=== PATIENT | male | born 1970 | race Caucasian/White ===

== ENCOUNTER → 2017-11-17 08:47 | Outpatient (CLI) | payer MEDICARE, SELFPAY | PROVIDERS: PCP General Practice; Visit Provider Student in an Organized Health Care Education/Training Program | DX: M25.722 Osteophyte, left elbow (principal); Z01.818 Encounter for other preprocedural examination ==

== ENCOUNTER → 2017-12-05 08:31 | Outpatient (BNVA) | payer MEDICARE, MEDICAID, SELFPAY | PROVIDERS: PCP General Practice; Visit Provider Student in an Organized Health Care Education/Training Program | DX: S42.43 Fracture (avulsion) of lateral epicondyle of humerus (principal); M25.722 Osteophyte, left elbow; X58.XXXD Exposure to other specified factors, subsequent encounter ==

== ENCOUNTER 2017-12-05 08:57 | Outpatient (CLI) | payer MEDICARE, SELFPAY ==
[2017-12-05 10:47] LABS: Cholesterol 252 mg/dL (50-200); Glucose 120 mg/dL (70-100); HDL Cholesterol 42 mg/dL (40-60); LDL CHOLESTEROL 153 mg/dL (<100); TSH (W/Ref FT4) 1.21 uIU/mL (0.358-3.74); Triglyceride 295 mg/dL (30-150)
[2017-12-08 05:22] LABS: Vitamin D 25 Total 46.9 ng/ml (30-100)
== END 2017-12-05 09:17 ==
PROVIDERS: PCP General Practice; Visit Provider General Practice
DX: M81.0 Age-related osteoporosis without current pathological fracture (principal); R63.5 Abnormal weight gain; I10 Essential (primary) hypertension
CPT/HCPCS: 36415; 80061; 82306; 82533; 82947; 83721; 84443

== ENCOUNTER 2018-02-10 13:02 | Emergency (ER) | payer MEDICARE, MEDICAID, SELFPAY ==
[2018-02-10] VITALS (21 sets, daily range): BP systolic 122–160; BP diastolic 70–103; PULSE 47–78; RESP 12–23; TEMP 36.6–36.8; O2SAT 92–96
--- NOTE | 2018-02-10 13:24 | W.ED.GENAD ---
Discharge Plan Disposition Patient Disposition: HOME Condition: Stable Discharge Details Chief Complaint: Chest Pain Clinical Impression: Chest pain Primary Care Provider: Porfirio Cabrales ED Provider: Jamey Esquivel Home Meds and New Rx's Prescriptions: Continue propranolol 10 MG tablet 10 mg PO BID RF: 0 citalopram [Celexa] 10 MG tablet 10 mg PO QAM RF: 0 fluticasone-salmeterol [Advair Diskus] 1 PUFF blister with device 2 puff Inhalation PRN PRNRF: 0 aspirin 81 MG tablet,delayed release (DR/EC) 81 mg PO PRN PRNRF: 0 omeprazole 20 MG capsule,delayed release(DR/EC) 20 mg PO DAILY RF: 0 hydrocodone-acetaminophen 1 EACH tablet 1 ea PO Q4H PRN PRNQty: 12 RF: 0 acetaminophen [Mapap Extra Strength] 500 MG tablet 1,000 mg PO Q8H Qty: 120 RF: 3 naloxone [Narcan] 4 MG spray,non-aerosol 4 mg NS DIRECTED Qty: 2 RF: 0 meloxicam 7.5 MG tablet 7.5 mg PO PRN PRNRF: 0 Discharge Instructions Instructions: Chest Pain (ED) Additional Instructions: follow up with your primary care provider within a week if you have severe worsening of pain, difficulty breathing, or new pain such as abdominal pain return to the emergency department Medical Decision Making 47 yo male with hx of htn, smoker, no prior cardiac disease comes in with chest burning intermittent since 3am . Denies vomit, abdominal pain, fevers, sob. He has not taken anything for the pain. He does note some mild back pain upper thorax without skin findings or midline pain. Will obtain lab work to eval for acs, heart score 3 based on age and risk factors. Given the back pain will CT thorax to eval for dissection and no lower extremity swelling or calf pain or hypoxia so doubt pe labs are unremarkable, awaiting imaging, feels better after gi cocktail CTA per radiologist has no acute findings, old rib fx's and fatty liver. Did advise him of the fatty liver and stress decreasing alcohol intake. He remains pain free now. I recommended second troponin but pt declined this and wants to be d/c'd. His symptom started over 4 hours ago but did recommend second troponin and ecg to lower his risk but he declines. He has the capacity to make his own decisions and understands the risks of leaving including and disablity. He was advised to f/u with pcp within a week and discuss having stress testing done and advised to return if he has worsening or return of symptoms Differential Diagnosis nstemi, gerd, pe, Imaging Data Radiologic Study: Attestation: I personally reviewed and interpreted this imaging study as follows: Imaging: CT Scan Radiologist's impression: No acute findings Lab Data Lab results reviewed: Yes I reviewed the patient's lab results. ECG Data Attestation: I personally reviewed and interpreted this ECG (s) as follows: Prior ECG tracings: not available for review Interpretation: sinus rhythm, rate of 67, pr 136, no acute st t wave ischemic changes HPI General Mode of arrival: ambulatory. Date/Time Provider Initiated Documentation: 02/10/18 13:05. Limitations to Documentation: no limitations. Information obtained by: patient. History of Present Illness 47 year old M presents to the emergency department with the chief complaint of chest pain, described as moderate, with intensity rated at 5. Quality is described as burning, and is localized to the chest. Patient reports no radiation. Patient started experiencing this hour(s) (10) and it has been intermittent. No relieving factors improve symptom(s), No exacerbating factors reported . Patient notes no other symptoms.. Patient did receive the following treatments prior to arrival, none Related Data Home Medications Medication Instructions Recorded Confirmed propranolol 10 mg PO BID 12/19/12 02/10/18 citalopram [Celexa] 10 mg PO QAM 09/23/14 02/10/18 naloxone [Narcan] 4 mg NS DIRECTED #2 spray 01/24/17 02/10/18 aspirin 81 mg PO PRN PRN 11/17/17 02/10/18 fluticasone-salmeterol [Advair 2 puff INHALATION PRN PRN 11/17/17 02/10/18 Diskus] omeprazole 20 mg PO DAILY 11/17/17 02/10/18 acetaminophen [Mapap Extra 1,000 mg PO Q8H #120 tab 11/20/17 02/10/18 Strength] hydrocodone-acetaminophen 1 ea PO Q4H PRN PRN #12 tablet 11/20/17 02/10/18 meloxicam 7.5 mg PO PRN PRN 02/10/18 02/10/18 Previous Rx's Medication Instructions Recorded naloxone [Narcan] 4 mg NS DIRECTED #2 spray 01/24/17 acetaminophen [Mapap Extra 1,000 mg PO Q8H #120 tab 11/20/17 Strength] hydrocodone-acetaminophen 1 ea PO Q4H PRN PRN #12 tablet 11/20/17 Allergies Allergy/AdvReac Type Severity Reaction Status Date / Time bee venom protein (honey bee) Allergy Severe Anaphylaxsi Unverified 02/10/18 13:12 s amitriptyline Allergy Intermediate PSYCHOSIS Unverified 02/10/18 13:12 gabapentin AdvReac Mild leg Unverified 02/10/18 13:12 pain/cramps lisinopril AdvReac cough Unverified 02/10/18 13:12 dust and pollen AdvReac Mild resp Uncoded 02/10/18 13:12 irritation General Stated Complaint: Chest Pain GRICEL: 2 Review of Systems Review of Systems All systems reviewed & are unremarkable except as noted in HPI and below Constitutional Denies chills, Denies fever(s) and Denies weakness Eyes Denies loss of vision ENT Denies change in voice Cardiovascular Denies dyspnea Respiratory Denies dyspnea Gastrointestinal Denies abdominal pain and Denies vomiting Genitourinary Denies dysuria Musculoskeletal Denies joint swelling Integumentary/Breasts Denies rash Neurologic Denies loss of vision and Denies weakness Psychiatric Denies depression ON LICENSE OF [facility] Medical History Avascular necrosis of bone of left hip (Acute 07/30/17) Anxiety Chronic pain Hypertension Osteoporosis Social History Smoking/Tobacco Use Status: Current every day Surgical History Repair of inguinal hernia Rotator Cuff Repair Exam Const General: no acute distress Orientation: alert HENMT Head: normal to inspection Ears: external ears normal General nose exam: external nose normal Mouth: moist mucous membranes Eyes General: appearance normal, both eyes and all related structures Neck Neck: normal visual inspection Resp Effort & Inspection: normal respiratory effort and able to speak in complete sentences Cardio Rate: regular rate GI Inspection: normal to inspection and no abdominal wall ecchymosis Skin General skin exam: no rashes or lesions noted Neuro General: alert and oriented x3 Extrem General: normal to inspection Psych Mental Status: mental status grossly normal Course Vital Signs Temperature 36.6 C 02/10/18 13:08 Pulse 69 02/10/18 13:08 Respiratory Rate 16 02/10/18 13:08 Blood Pressure 160/103 H 02/10/18 13:08 Pulse Oximetry 96 02/10/18 13:08 Temperature 36.6 C 02/10/18 13:08 Temperature Source Skin 02/10/18 13:08 Pulse 69 02/10/18 13:08 Respiratory Rate 16 02/10/18 13:08 Respiratory Effort 02/10/18 13:19 Blood Pressure 160/103 H 02/10/18 13:08 Pulse Oximetry 96 02/10/18 13:08 Oxygen Delivery Method Room Air 02/10/18 13:08 Oxygen Flow Rate 0 02/10/18 13:08
[2018-02-10 13:27] LABS: Abs Immature Grans 0.04 k/cumm (0.0-0.09); Absolute Basophil Count 0.06 k/cumm (0.0-0.2); Absolute Monocyte Count 0.71 k/cumm (0.11-0.7); Absolute Neutrophil Count 4.48 k/cumm (1.2-6.7); Basophils % 0.8; Eosinophils % 2.7; HGB 16.8 g/dL (13.5-17.5); Immature Grans % 0.5; Lymphocytes % 25.7; Mean Corp. HGB Concentration 32.9 g/dL (32.0-36.0); Mean Corpuscular Hemoglobin 31.9 pg (27.0-33.0); Mean Corpuscular Volume 96.8 fL (80-95); Monocytes % 9.6; Neutrophils % 60.7; Platelet Count 156 x1000/uL (130-400); RBC 5.27 m/cumm (4.50-6.00); White Blood Cell Count 7.39 k/cumm (4.4-10.8)
--- NOTE | 2018-02-10 13:27 | ED.GENADUL_ITS ---
Discharge Plan Disposition Patient Disposition: HOME Condition: Stable Discharge Details Chief Complaint: Chest Pain Clinical Impression: Chest pain Primary Care Provider: Porfirio Cabrales ED Provider: Jamey Esquivel Home Meds and New Rx's Prescriptions: Continue propranolol 10 MG tablet 10 mg PO BID RF: 0 citalopram [Celexa] 10 MG tablet 10 mg PO QAM RF: 0 fluticasone-salmeterol [Advair Diskus] 1 PUFF blister with device 2 puff Inhalation PRN PRNRF: 0 aspirin 81 MG tablet,delayed release (DR/EC) 81 mg PO PRN PRNRF: 0 omeprazole 20 MG capsule,delayed release(DR/EC) 20 mg PO DAILY RF: 0 hydrocodone-acetaminophen 1 EACH tablet 1 ea PO Q4H PRN PRNQty: 12 RF: 0 acetaminophen [Mapap Extra Strength] 500 MG tablet 1,000 mg PO Q8H Qty: 120 RF: 3 naloxone [Narcan] 4 MG spray,non-aerosol 4 mg NS DIRECTED Qty: 2 RF: 0 meloxicam 7.5 MG tablet 7.5 mg PO PRN PRNRF: 0 Discharge Instructions Instructions: Chest Pain (ED) Additional Instructions: follow up with your primary care provider within a week if you have severe worsening of pain, difficulty breathing, or new pain such as abdominal pain return to the emergency department Medical Decision Making 47 yo male with hx of htn, smoker, no prior cardiac disease comes in with chest burning intermittent since 3am . Denies vomit, abdominal pain, fevers, sob. He has not taken anything for the pain. He does note some mild back pain upper thorax without skin findings or midline pain. Will obtain lab work to eval for acs, heart score 3 based on age and risk factors. Given the back pain will CT thorax to eval for dissection and no lower extremity swelling or calf pain or hypoxia so doubt pe labs are unremarkable, awaiting imaging, feels better after gi cocktail CTA per radiologist has no acute findings, old rib fx's and fatty liver. Did advise him of the fatty liver and stress decreasing alcohol intake. He remains pain free now. I recommended second troponin but pt declined this and wants to be d/c'd. His symptom started over 4 hours ago but did recommend second troponin and ecg to lower his risk but he declines. He has the capacity to make his own decisions and understands the risks of leaving including and disablity. He was advised to f/u with pcp within a week and discuss having stress testing done and advised to return if he has worsening or return of symptoms Differential Diagnosis nstemi, gerd, pe, Imaging Data Radiologic Study: Attestation: I personally reviewed and interpreted this imaging study as follows: Imaging: CT Scan Radiologist's impression: No acute findings Lab Data Lab results reviewed: Yes I reviewed the patient's lab results. ECG Data Attestation: I personally reviewed and interpreted this ECG (s) as follows: Prior ECG tracings: not available for review Interpretation: sinus rhythm, rate of 67, pr 136, no acute st t wave ischemic changes HPI General Mode of arrival: ambulatory . Date/Time Provider Initiated Documentation: 02/10/18 13:05 . Limitations to Documentation: no limitations . Information obtained by: patient . History of Present Illness 47 year old M presents to the emergency department with the chief complaint of chest pain, described as moderate, with intensity rated at 5. Quality is described as burning, and is localized to the chest. Patient reports no radiation. Patient started experiencing this hour(s) (10) and it has been intermittent. No relieving factors improve symptom(s), No exacerbating factors reported . Patient notes no other symptoms.. Patient did receive the following treatments prior to arrival, none Related Data Home Medications Medication Instructions Recorded Confirmed propranolol 10 mg PO BID 12/19/12 02/10/18 citalopram [Celexa] 10 mg PO QAM 09/23/14 02/10/18 naloxone [Narcan] 4 mg NS DIRECTED #2 spray 01/24/17 02/10/18 aspirin 81 mg PO PRN PRN 11/17/17 02/10/18 fluticasone-salmeterol [Advair 2 puff INHALATION PRN PRN 11/17/17 02/10/18 Diskus] omeprazole 20 mg PO DAILY 11/17/17 02/10/18 acetaminophen [Mapap Extra 1,000 mg PO Q8H #120 tab 11/20/17 02/10/18 Strength] hydrocodone-acetaminophen 1 ea PO Q4H PRN PRN #12 tablet 11/20/17 02/10/18 meloxicam 7.5 mg PO PRN PRN 02/10/18 02/10/18 Previous Rx's Medication Instructions Recorded naloxone [Narcan] 4 mg NS DIRECTED #2 spray 01/24/17 acetaminophen [Mapap Extra 1,000 mg PO Q8H #120 tab 11/20/17 Strength] hydrocodone-acetaminophen 1 ea PO Q4H PRN PRN #12 tablet 11/20/17 Allergies Allergy/AdvReac Type Severity Reaction Status Date / Time bee venom protein (honey bee) Allergy Severe Anaphylaxsi Unverified 02/10/18 13: 12 s amitriptyline Allergy Intermediate PSYCHOSIS Unverified 02/10/18 13:12 gabapentin AdvReac Mild leg Unverified 02/10/18 13:12 pain/cramps lisinopril AdvReac cough Unverified 02/10/18 13:12 dust and pollen AdvReac Mild resp Uncoded 02/10/18 13:12 irritation General Stated Complaint: Chest Pain GRICEL: 2 Review of Systems Review of Systems All systems reviewed & are unremarkable except as noted in HPI and below Constitutional Denies chills, Denies fever(s) and Denies weakness Eyes Denies loss of vision ENT Denies change in voice Cardiovascular Denies dyspnea Respiratory Denies dyspnea Gastrointestinal Denies abdominal pain and Denies vomiting Genitourinary Denies dysuria Musculoskeletal Denies joint swelling Integumentary/Breasts Denies rash Neurologic Denies loss of vision and Denies weakness Psychiatric Denies depression [facility] Medical History Avascular necrosis of bone of left hip (Acute 07/30/17) Anxiety Chronic pain Hypertension Osteoporosis Social History Smoking/Tobacco Use Status: Current every day Surgical History Repair of inguinal hernia Rotator Cuff Repair Exam Const General: no acute distress Orientation: alert HENMT Head: normal to inspection Ears: external ears normal General nose exam: external nose normal Mouth: moist mucous membranes Eyes General: appearance normal, both eyes and all related structures Neck Neck: normal visual inspection Resp Effort & Inspection: normal respiratory effort and able to speak in complete sentences Cardio Rate: regular rate GI Inspection: normal to inspection and no abdominal wall ecchymosis Skin General skin exam: no rashes or lesions noted Neuro General: alert and oriented x3 Extrem General: normal to inspection Psych Mental Status: mental status grossly normal Course Vital Signs Temperature 36.6 C 02/10/18 13:08 Pulse 69 02/10/18 13:08 Respiratory Rate 16 02/10/18 13:08 Blood Pressure 160/103 H 02/10/18 13:08 Pulse Oximetry 96 02/10/18 13:08 Temperature 36.6 C 02/10/18 13:08 Temperature Source Skin 02/10/18 13:08 Pulse 69 02/10/18 13:08 Respiratory Rate 16 02/10/18 13:08 Respiratory Effort 02/10/18 13:19 Blood Pressure 160/103 H 02/10/18 13:08 Pulse Oximetry 96 02/10/18 13:08 Oxygen Delivery Method Room Air 02/10/18 13:08 Oxygen Flow Rate 0 02/10/18 13:08
--- NOTE | 2018-02-10 13:42 | DI.CT_ITS ---
SYMPTOMS/DIAGNOSIS: CHEST PAIN, ? DISSECTION PE CT: CT angiography was performed with multi slice acquisition and multi planar and 3D reconstruction. The study was carried out according to the usual protocol with intravenous administration of 125 cc of contrast material. There is no evidence of pulmonary embolic disease. No infiltrate, or mass, or pleural effusion or pneumothorax is demonstrated. There is no evidence of RV strain. There are mild atherosclerotic changes involving the aorta without evidence of an aneurysm or dissection. In the upper abdomen, there is a grossly enlarged fatty liver. There are calcifications in the right hepatic lobe consistent with old healed granulomata. There is a distended gallbladder with some mild wall thickening, a nonspecific finding, but one which can be encountered in chronic liver disease. There is no evidence of ductal dilatation. The pancreas is intact. Old healed granulomata are noted in the spleen. The visualized portions of the kidneys appear unremarkable. The adrenals are intact. SUMMARY: No evidence of pulmonary embolic disease. Old right rib fractures are demonstrated. There is no evidence of acute cardiopulmonary disease.
[2018-02-10 13:44] LABS: INR 1.1 (1.0-3.5); PTT Activated 23.2 sec (21.0-31.4); Prothrombin Time 10.9 sec (9.3-10.8)
[2018-02-10] MEDS: Omnipaque 350 MG/ML 100 ML BTL IJ (13:48)
[2018-02-10 14:11] LABS: ALT 99 U/L (12-78); AST 86 U/L (15-37); Albumin 3.8 g/dL (3.4-5.0); Alkaline Phosphatase 127 U/L (46-116); BUN 11 mg/dL (7-18); Bilirubin, Total 0.6 mg/dL (0.2-1.0); CREATININE 1.03 mg/dL (0.70-1.30); Calcium 9.2 mg/dL (8.5-10.1); Chloride 102 mmol/L (98-107); Glucose 120 mg/dL (70-100); Magnesium 2.2 mg/dL (1.8-2.4); Sodium 136 mmol/L (136-145); Total Protein 7.7 g/dL (6.4-8.2)
[2018-02-10 14:12] LABS: Troponin I < 0.02 ng/mL (0.00-0.06)
== END 2018-02-10 15:10 | disposition home or self-care (01) ==
PROVIDERS: Emergency Provider Emergency Medicine; PCP General Practice
DX: R07.9 Chest pain, unspecified (principal); I10 Essential (primary) hypertension; Z53.29 Procedure and treatment not carried out because of patient's decision for other reasons
CPT/HCPCS: 36415; 71275; 80053; 93005; 99285; 83735; 84484; 85025; 85610; 85730; 93010; 99284; J3490

== ENCOUNTER 2018-09-09 14:54 | Outpatient (CLI) | payer MEDICARE, MEDICAID, SELFPAY ==
--- NOTE | 2018-09-09 14:50 | DI.RAD_ITS ---
SYMPTOMS/DIAGNOSIS: LEFT HIP PAIN LEFT HIP: There is a question regarding slight narrowing of the hip joint. Minimal spurring is identified. SUMMARY: Question mild left hip DJD.
== END 2018-09-09 15:14 ==
PROVIDERS: PCP General Practice; Referring Provider General Practice; Visit Provider Student in an Organized Health Care Education/Training Program
DX: M25.552 Pain in left hip (principal); M16.12 Unilateral primary osteoarthritis, left hip; M87.052 Idiopathic aseptic necrosis of left femur
CPT/HCPCS: 99213; 73502

== ENCOUNTER 2018-10-15 09:03 | Outpatient (CLI) | payer MEDICARE, MEDICAID, SELFPAY ==
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
[2018-10-15 10:23] LABS: HCT 50.4 % (40.0-50.0); HGB 16.5 g/dL (13.5-17.5); Mean Corp. HGB Concentration 32.7 g/dL (32.0-36.0); Mean Corpuscular Volume 97.7 fL (80-95); Mean Platelet Volume 11.2 fL (8.0-11.0); Platelet Count 141 x1000/uL (130-400); RBC 5.16 m/cumm (4.50-6.00); RBC Distribution Width 13.2 % (11.8-14.1); White Blood Cell Count 7.61 k/cumm (4.4-10.8)
[2018-10-15 11:02] LABS: Anion Gap 10.1 mmol/L (3-11); BUN 11 mg/dL (7-18); CO2 23.9 mmol/L (21.0-32.0); CREATININE 0.89 mg/dL (0.70-1.30); Calcium 9.2 mg/dL (8.5-10.1); Chloride 103 mmol/L (98-107); Glucose 117 mg/dL (70-100); Potassium 4.6 mmol/L (3.5-5.1); Sodium 137 mmol/L (136-145)
== END 2018-10-15 09:23 ==
PROVIDERS: PCP General Practice; Visit Provider Student in an Organized Health Care Education/Training Program
DX: M16.12 Unilateral primary osteoarthritis, left hip (principal); Z01.812 Encounter for preprocedural laboratory examination; Z01.818 Encounter for other preprocedural examination; M87.052 Idiopathic aseptic necrosis of left femur
CPT/HCPCS: 36415; 80048; 85027; 86850; 86900; 86901; NC

== ENCOUNTER 2018-10-20 05:50 | Inpatient (IN) | payer MEDICARE, MEDICAID, SELFPAY ==
[2018-10-15 09:08] VITALS: BP 135/85; PULSE 69; RESP 18; TEMP 36.7; O2SAT 96
[2018-10-20] VITALS (12 sets, daily range): BP systolic 96–130; BP diastolic 45–89; PULSE 54–83; RESP 14–20; TEMP 34.8–36.4; O2SAT 91–97
[2018-10-20] MEDS: Lactated Ringers 1,000 ML 80 ML IV ×2 (06:50→15:01)
[2018-10-20] MEDS: oxyCODONE-CR 10 MG TABCR PO (06:51)
[2018-10-20] MEDS: Acetaminophen 500 MG TAB 1000 MG PO ×2 (06:51→15:44)
[2018-10-20] MEDS: Celecoxib 200 MG CAP 400 MG PO (06:52)
--- NOTE | 2018-10-20 07:02 | DI.RAD_ITS ---
SYMPTOM/DIAGNOSIS: AVASCULAR NECROSIS OF BONE, LEFT HIP LEFT HIP IN OR: Fluoroscopy Time: 41.0 seconds/11.47mGy Fluoroscopy was utilized by Dr. Tipton during the placement of a left total hip replacement. Orthopaedic hardware appears in good position. Please refer to the procedure report for complete details.
[2018-10-20] MEDS: ceFAZolin 2 GM/50 ML BAG IVPB (07:40)
[2018-10-20] MEDS: Bupivacaine 0.25% Pres-Free 30 ML VIAL (09:45)
[2018-10-20] MEDS: Normal Saline 50 ML (09:45)
[2018-10-20] MEDS: Ketorolac 30 MG/ML VIAL (09:45)
--- NOTE | 2018-10-20 10:00 | DI.RAD_ITS ---
SYMPTOM/DIAGNOSIS: S/P LT PEDRO AP PELVIS: Comparison 09/09/18 The patient is now status post left total hip replacement. The orthopaedic hardware appears in good position. The bones are intact. There is an old right total hip replacement which appears stable.
[2018-10-20] MEDS: HYDROmorphone 2 MG/ML VIAL 0.5 MG IVP (10:50)
[2018-10-20] MEDS: oxyCODONE 5 MG TAB PO ×3 (11:45→15:45)
--- NOTE | 2018-10-20 14:24 | NUR.NOTE ---
Nursing Note: 1125: pt arrives to room 214 via stretcher from pacu. pt alert/oriented x 3. pt heart rate regular, LS clear, active BS, pt has patent IV in RH with LR at 80 cc/hr, vargas draining dark jacques urine, mepilex AG dressing intact with no drainage noted, SCDs and TEDS in place, + pp's in bilateral feet, pt able to move bilateral extremities, pt oriented to call wise system. please see VS for further intervention/information.
--- NOTE | 2018-10-20 14:33 | IN_ITS ---
Date of service: 10/20/18 Time of Service: 13:28 PT Notes Inpatient Physical Therapy Evaluation Date: 10/20/2018 Referring Doctor: Aashish Tipton MD PT Orders: PT CONSULT: Status post left anterior PEDRO Precautions: Fall. Standard. WBAT on left LE. Patient Profile/Admitting Diagnosis: Patient is a 48-year-old male with avascular necrosis of L hip status post left anterior PEDRO on postoperative day 0. PMHX: Depression GERD COPD Displaced fracture of distal end of left humerus Trochanteric bursitis of the right hip with malunion Internal derangement of right knee AVN of left hip Social History/Home Situation: Patient lives with father and his dog in a 2 floor house with a ramp to enter. Patient's bedroom is on the first floor. He is independent with all aspects of ADLs without the need for an assistive ambulatory device nor adaptive equipment. Patient reports that his grandparents lived in that house and therefore has been made handicap-accessible, with high toilet seat, hand-held shower, shower bench. Current Functional Limitations: Need for an assistive ambulatory device for all transfer and ambulation task performance Equipment Owned/DME: High-rise toilet, hand-held shower, shower bench, FWW, SPC. Subjective: Patient is agreeable to a PT consult and treatment today. He is hopeful that he can go home today and if orthopedic surgeon is agreeable. He states that he has adequate support at home with family and friends who live close by and are ready to help when needed. He also emphasizes that his house is handicap accessible and would really help him recover a lot faster and move better. He denies headache, chest pain, dizziness, and palpitations. Objective: General Observation: Nurse present to give medications. Friend and nephew present inside room upon PT arrival. Patient seen resting in bed. IV in right UE. Cold pack on left hip. Mepilex Ag on left surgical incision. TEDS on the bilateral leg. Anti-thromboembolic pump on bilateral legs. 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 Mental Status: Alert and oriented x4 Pain: 6 /10 at rest at the start of evaluation. 5/10 at the end of ambulation activity with less cramping sensation felt around the hip. ROM: Right Upper Extremity: Shoulder Flexion WFL. Shoulder abduction WFL. Elbow flexion WFL. Wrist flexion WFL. Functional opening and closing of hand WFL. Left Upper Extremity: Shoulder Flexion WFL. Shoulder abduction WFL. Elbow flexion WFL. Wrist flexion WFL. Functional opening and closing of hand WFL. Right Lower Extremity: Hip flexion WFL. Hip abduction WFL. Knee flexion WFL. Ankle dorsiflexion WFL. Ankle plantarflexion WFL. Left Lower Extremity: Hip flexion allows 0 to 120 degrees. Hip abduction WFL. Knee flexion WFL. Left knee extension -10 degrees. Ankle dorsiflexion WFL. Ankle plantarflexion WFL. Strength: Right Upper Extremity: Shoulder flexors 5/5. Shoulder abductors 5/5. Elbow flexors 5/5. Elbow extensors 5/5. Associate Partner strong. Left Upper Extremity: Shoulder flexors 5/5. Shoulder abductors 5/5. Elbow flexors 5/5. Elbow extensors 5/5. Associate Partner strong. Right Lower Extremity: Hip flexors 5/5. Hip abductors 5/5. Knee flexors 5/5. Knee extensors 5/5. Ankle dorsiflexors 5/5. Ankle plantarflexors 5/5. Left Lower Extremity:Hip flexors 3-/5. Hip abductors 4/5. Knee flexors 4/5. Knee extensors 3-/5. Ankle dorsiflexors 5/5. Ankle plantarflexors 5/5. Sensation: Intact as to pain and pressure on bilateral lower extremities. Bed Mobility/Transfers: Rolling supervision Supine to sit supervision Sit to supine supervision Sit to stand SBA Stand to sit SBA Bed to chair SBA Chair to bed SBA Gait: Patient tolerated level surface ambulation of 120 feet using F WW with SBA of this PT and IV pole management in wheelchair follow by nurse and family member. Step through pattern observed. Decreased gait velocity due to surgery. 1 near LOB noted recovered right away without any assistance from this PT. minimal verbal cues given for safe gait pattern and walker management. Denied dizziness, headache, chest pain, and palpitations. Did report cramping sensat ion on the muscles around the left hip but of lesser intensity. Balance: Static Sitting: Normal Dynamic Sitting: Normal Static Standing: Good Dynamic Standing: Fair Special Tests: Mobility Limitations Standardized Measure [facility] 6 clicks Basic Mobility Inpatient Short Form: Raw Score: 21 CMS Score: 29% deficit Informed Consent/Education: Patient instructed in purpose of PT consult and plan of care. Assessment: Patient presents with clinical signs and symptoms consistent with current/admitting diagnoses that have resulted to mobility limitations, gait instability, generalized weakness, and impairment of motor control as demonstrated by the following impairment level findings: 1. Decreased strength to R LE major muscle groups 2. Impaired dyanamic standing balance 3. Impaired activity tolerance 4. Limitation of joint range of motion in left hip and left knee Impairments are contributing to the following functional limitations: 1. Inability to safely ambulate without assistive device and physical assistance 2. Increase completion time for mobility ADL performance 3. Increased fall risk Patient is assessed as a 89102 moderate complexity based on the following: History: [id number] male with a vascular necrosis of left hip status post left anterior total hip arthroplasty with premorbid independent level Examination: Demonstrable impairment in strength, balance, and range of motion with underlying impairments and functional limitations as documented above Presentation:Evolving Decision Makin moderate complexity Goals: Goals X1 week 1. Supine-Sit independent 2. Sit-Supine independent 3. Sit-Stand independent 4. Stand-Sit independent 5. Bed-Chair independent 6. Chair-Bed independent 7. Independent gait on level surface with use of least restrictive device for at least 300 feet without report of pain nor dyspnea 8. Independent stair negotiation while holding onto bilateral rails for at least 5 steps without report of pain nor dyspnea 9. Independent with home exercise program 10. Good static and dynamic standing balance/tolerance Plan of Care/Treatment Plan: 1-2x/day, 7 days/week x 1 week. Plan of care has been reviewed with the BODY TECHNICIAN/PAINTER providing the service under Physical Therapy direction. Initiate Physical Therapy intervention for strengthening, bed mobility, transfers, gait, stairs, balance training, use of assistive device. DISCHARGE RECOMMENDATIONS: May benefit from skilled physical therapy services according to orthopedic surgeon's timeline recommendations. Patient will be educated and trained on home exercise program per TKA exercise protocol in preparation for outpatient physical therapy services. TREATMENT CODE/TIME: 9716 2 x 25 minutes, 9753 0 x 14 minutes beginning at 13:28 PM. Thank you very much for this referral. Consuelo Berumen PT, DPT, CLT [facility]
--- NOTE | 2018-10-20 15:42 | W.PM.DS.N ---
Date of service: 10/20/18 Time of Service: 15:43 DS: Diagnosis Discharge Diagnosis (1) Avascular necrosis of bone of left hip: Status: Acute Discharge Plan Disposition Patient Disposition: HOME Condition: Good Discharge Details Reason For Visit: LEFT HIP OSTEONECROSIS Admit Date/Time: 10/20/18 05:50 Admit Provider: Aashish Tipton Attending Provider: Aashish Tipton Primary Care Provider: Porfirio Cabrales Hospital Course Hospital Course: Patient was admitted to the medical/surgical floor following the procedure. It was tolerated well without any notable medical, surgical, or anesthetic complications. Mobilization began postoperatively. The vargas catheter was removed and voiding spontaneously. Vitals were stable. Physical therapy worked with the patient and was cleared for discharge home. No acute medical issues. Home Meds and New Rx's Prescriptions: New aspirin 81 mg tablet,delayed release (DR/EC) 81 mg PO BID Qty: 60 RF: 0 acetaminophen 500 mg tablet 1,000 mg PO Q8H PRN (Reason: pain) Qty: 90 RF: 3 pantoprazole 40 mg tablet,delayed release (DR/EC) 40 mg PO DAILY Qty: 30 RF: 0 oxycodone 5 mg tablet 5 - 10 mg PO Q4H Qty: 18 RF: 0 Continued propranolol 10 MG tablet 10 mg PO BID RF: 0 citalopram [Celexa] 10 MG tablet 20 mg PO QAM RF: 0 fluticasone propion-salmeterol [Advair Diskus] 1 PUFF blister with device 2 puff Inhalation PRN PRNRF: 0 celecoxib [Celebrex] 200 mg capsule 200 mg PO BID PRN (Reason: pain) Qty: 60 RF: 3 Discontinued aspirin 81 MG tablet,delayed release (DR/EC) 81 mg PO PRN PRNRF: 0 acetaminophen [Mapap Extra Strength] 500 MG tablet 1,000 mg PO Q8H Qty: 120 RF: 3 Narcan 4 MG spray,non-aerosol 4 mg NS DIRECTED Qty: 2 RF: 0 Discharge Instructions Additional Instructions: Dr. Tipton?s Total Hip Discharge Instructions Activity: The most important activity is to walk. You should try to take short walks a few times a day. You have no restrictions on movement or positioning, but do not try to force what you do. You will find some stiffness and weakness with hip flexion (lifting your knee). Do not try to strengthen this too early, continue to practice walking and stairs and this will come. - Outpatient physical therapy can be helpful to help return you to a normal gait and improve your flexibility and strength. This can start around 2 weeks. For some patients, it?s not necessary. Usually this is determined at the time of discharge or at the first post-operative visit. - You should wear the JADEN hose on both legs for 2 weeks. Dressing: Keep the surgical dressing in place for at least one week. After the first week it may be removed and replace with light gauze and tape or nothing. It may get wet after 3 days but avoid soaking the dressing. If it gets wet, just lightly pat dry. It is important to always keep some gauze between skin folds, especially when you are sitting. Spend some time with the wound exposed when you are lying flat as the incision does wrinkle onto itself. Medications: - You should take Tylenol and an anti-inflammatory Celebrex as your primary pain control medications - You have been prescribed a stronger pain medication Oxycodone for breakthrough pain, take as needed as prescribed. - You have also been prescribed a stomach acid reduction agent Pantoprozole to help reduce stomach acid and reflux. - You will be taking Aspirin 81mg twice a day for DVT prevention unless instructed otherwise. - If you have constipation you should take Colace or Miralax (both [id number]). It takes most people 3-4 days to have a bowel movement. Follow-up: 2 weeks Referrals: Aashish Tipton MD [ [facility] STAFF PHYSICIAN] - Activity:: Activity as Tolerated Equipment/Supplies:: Walker Diet:: As Tolerated Discharge Orders Discharge Orders: Discharge Order (Routine); Ordered 10/20/18 Ordered By: Aashish Tipton DS: Data Vitals/I&O Vitals and I&O: Vital Signs Temperature 34.8 C L 10/20/18 13:30 Temperature Source Tympanic 10/20/18 13:30 Pulse 67 10/20/18 13:30 Pulse Rhythm Regular 10/20/18 06:21 Respiratory Rate 20 10/20/18 13:30 Respiratory Effort 10/20/18 06:21 Respiratory Depth Normal 10/20/18 06:21 Respiratory Pattern Normal 10/20/18 06:21 Blood Pressure 107/73 10/20/18 13:30 Pulse Oximetry 93 L 10/20/18 13:30 Respiratory End-tidal CO2 37 10/20/18 11:10 Oxygen Delivery Method Room Air 10/20/18 13:30 Oxygen Flow Rate 0 10/20/18 13:30 Pain Level 7 10/20/18 13:32 Intake & Output 10/19/18 10/20/18 10/20/18 23:59 11:59 23:59 Intake Total 1070 / 1760 690 / 1760 Output Total 325 / 325 Balance 745 / 1435 690 / 1435 Weight 123.6 kg Intake: IV 970 / 1170 200 / 1170 Oral 100 / 590 490 / 590 Output: Urine 25 / 25 Estimated Blood Loss 300 / 300 Other: Urine Color Dark Camilla Urine Appearance Clear Emesis Description None PFSH Social History (Updated 10/15/18 @ 09:09 by Mae Aquino) Smoking/Tobacco Use Status: Former Tobacco Use Pack-years: 30 Alcohol Intake: current Alcohol Intake frequency: 0-2 drinks per day Alcohol type: wine and hard liquor Drug use: Occasionally Do you feel safe in your relationship?: Yes
--- NOTE | 2018-10-20 19:49 | W.PM.OP ---
Date of service: 10/20/18 Time of Service: 09:58 Operative Note DATE OF PROCEDURE: 10/20/18 PRE-OP DIAGNOSIS: Left Hip Osteoarthritis POST-OP DIAGNOSIS: same PROCEDURE: Left Anterior Total Hip Arthroplasty SURGEON: Aashish Tipton GYNECOLOGICAL ASSISTANT: Carla Cai ANESTHESIA: spinal ESTIMATED BLOOD LOSS: 300 PATHOLOGY: none sent COMPLICATIONS: None Patient was transported to: PACU Patient's condition: stable Implants: 1. Depuy [place] Acetabular Component, 54 mm 2. Depuy Acetabular Liner, 54 x 36 mm 3. Depuy Corail coxa vara femoral Stem, Size 13 4. Depuy Altrx Ceramic Femoral Head, Size 36+5 mm Indications: I have seen Clemente in clinic for symptoms of hip arthritis and osteonecrosis, confirmed with radiographic findings. Clemente has exhausted nonoperative methods and was having significant limitations in daily function and desired better function and less pain. I discussed the technical details of a hip replacement. I explained the risks of the procedure to include, but not limited to, bleeding, infection, pain, stiffness, fracture, damage to nerves and vessels, damage to muscles and tendons, loosening, instability, leg length inequality, need for repeat procedure, blood clot and cardiopulmonary demise. Despite these risks, Clemente elected to proceed. Findings: There was significant signs of osteonecrosis over the superior and lateral femoral head. Procedure Description: Clemente was greeted in the preoperative holding area where the correct side was identified and marked. The consent was reviewed with the patient and signed. The history and physical was updated. All questions were answered. He was taken back to the operating room. A spinal anesthestic was then administered. The patient was placed into the supine position on the operating room table. The patient was then positioned onto the ARCH table. Both feet were wrapped with Webrill cotton wrap along with Coban. The feet were placed in specialized boots for the ARCH table, well seated within the boot and secured. SCDs were applied. The patient was then slid down onto a peroneal post and the nonoperative leg was secured in a leg cortez attached to the table. The operative side was placed into the ARCH table attachment and bed height and positioning was secured. A preoperative AP pelvis was obtained to serve as a reference for determining leg lengths. Prophylactic antibiotics in the form of cefazolin were administered. 1g of Tranxemic Acid was given intravenously within 30 minutes of incision. The left leg was then prepped with Chloraprep and draped in a standard fashion with a large shower-curtain type drape with Iodine impregnated skin protection. A timeout to confirm correct identity, side and site, procedure, allergies, anesthesia, and medical concerns was performed. An obliquely oriented incision was made starting lateral to the ASIS and running distal over the Tensor Fascia Leona (TFL) muscle belly toward the fibular head, approximately 10cm. The skin and soft tissue was dissected sharply, through Fernando?s fascia, and to the fascia of the TFL. With the fascia and superior border of the IT band identified, the fascia was incised with a new knife just above any perforators from the IT band. The TFL muscle belly was bluntly dissected away from the fascia and moved laterally. The fat between TFL and rectus was identified to ensure the dissection was not within the TFL. Blunt dissection created space between abductors and the capsule and retractor was placed over the lateral femoral neck. The fibers of the rectus femoris tendon were identified and these were freed from the anterior capsule. A second cobra retractor was placed around the medial femoral neck. The TFL was further retracted laterally to show the deep fascia. Careful dissection through this layer identified three main crossing vessels of the lateral femoral circumflex. These were cauterized in multiple locations and then cut without any noticeable bleeding. The TFL was further released bluntly from the deep fascia to expose anterior hip capsule and fat the Jerzy orthopaedic retractor was then placed beneath the TFL and against sartorius and medial soft tissues to protect and retract the soft tissues. A T-capsulotomy was then performed starting at the superior lateral acetabulum and moving distally to the intertrochanteric ridge. These capsular flaps were tagged with a No. 1 Ethibond and elevated from within. The capsular flaps were released to the shoulder of the lateral neck and to the lesser trochanter to give excellent visualization of the proximal femur. A neck osteotomy was performed using an oscillating saw based on preoperative templates. This cut started in the shoulder and of the lateral neck and exited medially. The saw was at all times directed medially to avoid injury to the greater trochanter. 6cm of traction was applied to the leg and the osteotomy opened. The femoral head was removed with a corkscrew, making sure to protect the TFL on its exit. This was measured on the back table to determine the starting reamer size. There was notable area of osteonecrosis with softened cartilage and necrotic bone over the superolateral aspect of the femoral head. Portions of the rectus obscuring visualization were minimally elevated off the superior acetabulum. An anterior retractor was placed over the anterior wall between capsule and labrum. A posterior retractor was placed similarly. This provided excellent visualization. The contents of the cotyloid fossa were removed with electrocautery and the labrum was removed with a knife. Acetabular reaming began with a 49 mm reamer. This first reaming was directed anterior to posterior and medial to get down to the true floor. This was inspected and reamed until the true floor was reached. I then reamed sequentially up to a 53 mm reamer where good fit was obtained. The larger reamers were oriented based on anatomical reference of the anterior and lateral maddox to ensure proper abduction and anteversion. Positioning and size was confirmed with the fluoroscopy. A 54 mm Depuy [place] acetabular component was selected. The acetabulum was reamed around the periphery with the selected acetabular size to prevent a rim fit. The deep tissues were irrigated. The acetabular component was then impacted in a position of about 40-45 degrees of abduction and 15-20 degrees of anteversion, using the patient?s anatomy as the ultimate landmark. Fluoroscopy was used to confirm this. There was excellent accounts receivable clerk of the acetabular component and the inserting handle was removed. A primary acetabular screw was placed into the ilium by drilling through one of the holes in the acetabular component. This was measured and an approrpriately sized screw was placed with excellent purchase. It was checked not to be proud. The acetabular liner, Depuy 54 x 36 mm polyethylene liner, was inserted and lined up with the tines of the acetabular component. There was no soft tissue interposition. The liner was then impacted into position and confirmed to be well-seated. A portion of the daniella-articular cocktail was then injected around the acetabulum into the capsule and periosteum. This cocktail consisted of 50cc of 0.25% Bupivicaine and 20cc of Exparel, expanded to a total of 120cc. Traction was released from the femur. The leg was rotated to 120 degrees. Any remaining medial capsule was released until the lesser trochanter was easily palpable. A Fish retractor was placed medially. The lateral capsule was further released into the shoulder to allow access to the greater trochanter. A Fish retractor was placed over the greater trochanter which allowed the trochanter to flip in front of the capsule for excellent exposure. The leg was brought down into maximal extension and 20 degrees of adduction while ensuring there was no impingement on the acetabulum. Any remnant capsule within the trochanter was released. Piriformis and obturator externis were identified and protected. There was excellent access to the proximal femur. The lateral neck remnant was removed with a rongeur. A blunt canal probe was used to identify the canal and trajectory for later broaching. A box osteotome initiated the broach course. A small curved rasp and a curved curette were used to work laterally. Broaching then began with a size 8 Corail broach. This was inserted manually around the trochanter and into the canal before mallet blows. The broach was seated to a few millimeters below the cut level based on the neck cut and the preoperative template. Sequential broaching was continued until a tight fit was obtained with good rotational control of the femur. A trial coxa vara neck was inserted along with a +5 trial head. The leg was brought out of extension and adduction and then reduced with traction and internal rotation. The leg was stable anteriorly in a position of 30 degrees of extension and 90 degrees of external rotation. Fluoroscopy was used to ensure there was no fracture and the stem was seated well. Leg lengths were checked with an AP pelvis and pelvic reference points. Once content with the desired offset and leg lengths, the leg was brought back into extension, external rotation and adduction. The periosteum and surrounding tissue was injected with remaining portion of the daniella-articular cocktail. The proximal femur was irrigated as well as the deep tissues. The Depuy [place] coxa vara stem, size 13, was then manually inserted into the proximal femur making sure to control rotation. It was then malleted into position with light blows, giving breaks to allow bone expansion and decrease risk of fracture. The selected Depuy Altrx Ceramic Head, size 36+5 mm, was then placed onto the clean and dry trunnion and secured with impaction onto the tapered fit. The leg was brought back out of extension and adduction and reduced with traction and internal rotation. Stability was confirmed with no shuck at 90 degrees of external rotation and 30 degrees of extension. No impingement through range of motion arc. Final x-ray images were obtained with fluoroscopy to confirm adequate positioning and no intraoperative fracture. The deep tissues were thoroughly irrigated with a pulse lavage. The second dose of TXA 1g was administered intravenously. The capsule was then reapproximated with the previously placed Ethibond sutures. The TFL fascia was finally closed with a No. 2 Stratafix, barbed suture. Deep tissues were then reapproximated with 0 Vicryl and a running 2-0 Vicryl. The skin was closed with a running 4-0 Monocryl in a subcuticular fashion. This was reinforced with skin glue. A Mepilex silver dressing was applied. At the end of the case, all counts were correct. Clemente was transferred to the hospital bed without difficulty and suffering no apparent complication. Clemente has a good prognosis. Physical therapy will start today and without restrictions, weight-bearing as tolerated. Aspirin 81mg BID will be used for DVT prophylaxis.
--- NOTE | 2018-10-22 13:02 | INDS_ITS ---
Date of service: 10/21/18 PT Notes Inpatient Physical Therapy Discharge Summary Dates: 10/22/2018 Dates of Service: 10/20/2018 only Referring Doctor: Aashish Tipton MD PT Orders: PT CONSULT: Status post left anterior PEDRO Precautions: Fall. Standard. WBAT on left LE. Patient Profile/Admitting Diagnosis: Patient is a 48-year-old male with avascular necrosis of L hip status post left anterior PEDRO on postoperative day 0. PMHX: Depression GERD COPD Displaced fracture of distal end of left humerus Trochanteric bursitis of the right hip with malunion Internal derangement of right knee AVN of left hip Social History/Home Situation: Patient lives with father and his dog in a 2 floor house with a ramp to enter. Patient's bedroom is on the first floor. He is independent with all aspects of ADLs without the need for an assistive ambulatory device nor adaptive equipment. Patient reports that his grandparents lived in that house and therefore has been made handicap-accessible, with high toilet seat, hand-held shower, shower bench. Current Functional Limitations: Need for an assistive ambulatory device for all transfer and ambulation task performance Equipment Owned/DME: High-rise toilet, hand-held shower, shower bench, FWW, SPC. Subjective: Patient is agreeable to a PT consult and treatment today. He is hopeful that he can go home today and if orthopedic surgeon is agreeable. He states that he has adequate support at home with family and friends who live close by and are ready to help when needed. He also emphasizes that his house is handicap accessible and would really help him recover a lot faster and move better. He denies headache, chest pain, dizziness, and palpitations. Objective: General Observation: Nurse present to give medications. Friend and nephew present inside room upon PT arrival. Patient seen resting in bed. IV in right UE. Cold pack on left hip. Mepilex Ag on left surgical incision. TEDS on the bilateral leg. Anti-thromboembolic pump on bilateral legs. 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 Mental Status: Alert and oriented x4 Pain: 6 /10 at rest at the start of evaluation. 5/10 at the end of ambulation activity with less cramping sensation felt around the hip. ROM: Right Upper Extremity: Shoulder Flexion WFL. Shoulder abduction WFL. Elbow flexion WFL. Wrist flexion WFL. Functional opening and closing of hand WFL. Left Upper Extremity: Shoulder Flexion WFL. Shoulder abduction WFL. Elbow flexion WFL. Wrist flexion WFL. Functional opening and closing of hand WFL. Right Lower Extremity: Hip flexion WFL. Hip abduction WFL. Knee flexion WFL. Ankle dorsiflexion WFL. Ankle plantarflexion WFL. Left Lower Extremity: Hip flexion allows 0 to 120 degrees. Hip abduction WFL. Knee flexion WFL. Left knee extension -10 degrees. Ankle dorsiflexion WFL. Ankle plantarflexion WFL. Strength: Right Upper Extremity: Shoulder flexors 5/5. Shoulder abductors 5/5. Elbow flexors 5/5. Elbow extensors 5/5. Qualification Engineer strong. Left Upper Extremity: Shoulder flexors 5/5. Shoulder abductors 5/5. Elbow flexors 5/5. Elbow extensors 5/5. Qualification Engineer strong. Right Lower Extremity: Hip flexors 5/5. Hip abductors 5/5. Knee flexors 5/5. Knee extensors 5/5. Ankle dorsiflexors 5/5. Ankle plantarflexors 5/5. Left Lower Extremity:Hip flexors 3-/5. Hip abductors 4/5. Knee flexors 4/5. Knee extensors 3-/5. Ankle dorsiflexors 5/5. Ankle plantarflexors 5/5. Sensation: Intact as to pain and pressure on bilateral lower extremities. Bed Mobility/Transfers: Rolling supervision Supine to sit supervision Sit to supine supervision Sit to stand SBA Stand to sit SBA Bed to chair SBA Chair to bed SBA Gait: Patient tolerated level surface ambulation of 120 feet using F WW with SBA of this PT and IV pole management in wheelchair follow by nurse and family member. Step through pattern observed. Decreased gait velocity due to surgery. 1 near LOB noted recovered right away without any assistance from this PT. minimal verbal cues given for safe gait pattern and walker management. Denied dizziness, headache, chest pain, and palpitations. Did report cramping sensation on the muscles around the left hip but of lesser intensity. Balance: Static Sitting: Normal Dynamic Sitting: Normal Static Standing: Good Dynamic Standing: Fair Assessment: Patient presents with clinical signs and symptoms consistent with current/admitting diagnoses that have resulted to mobility limitations, gait instability, generalized weakness, and impairment of motor control as demonstrated by the following impairment level findings: 1. Decreased strength to R LE major muscle groups 2. Impaired dyanamic standing balance 3. Impaired activity tolerance 4. Limitation of joint range of motion in left hip and left knee Impairments are contributing to the following functional limitations: 1. Inability to safely ambulate without assistive device and physical assistance 2. Increase completion time for mobility ADL performance 3. Increased fall risk Goals: Goals X1 week 1. Supine-Sit independent NOT MET 2. Sit-Supine independent NOT MET 3. Sit-Stand independent NOT MET 4. Stand-Sit independent NOT MET 5. Bed-Chair independent NOT MET 6. Chair-Bed independent NOT MET 7. Independent gait on level surface with use of least restrictive device for at least 300 feet without report of pain nor dyspnea NOT MET 8. Independent stair negotiation while holding onto bilateral rails for at least 5 steps without report of pain nor dyspnea NOT MET 9. Independent with home exercise program NOT MET 10. Good static and dynamic standing balance/tolerance NOT MET DISCHARGE RECOMMENDATIONS: May benefit from skilled physical therapy services according to orthopedic surgeon's timeline recommendations. Patient will be educated and trained on home exercise program per [facility]KA exercise protocol in preparation for outpatient physical therapy services. TREATMENT CODE/TIME: PR Thank you very much for this referral. Consuelo Berumen PT, DPT, CLT [facility]
== END 2018-10-20 17:04 | disposition home or self-care (01) | DRG 470 ==
LOC: PDS 09:45 → MS 10:21
PROVIDERS: Admitting Provider Student in an Organized Health Care Education/Training Program; PCP General Practice; Visit Provider Student in an Organized Health Care Education/Training Program
PROC: 0SRB04A Replacement of Left Hip Joint with Ceramic on Polyethylene Synthetic Substitute, Uncemented, Open Approach (ICD-10-PCS; CPT 27130; principal; 2018-10-20 07:30)
DX: M87.252 Osteonecrosis due to previous trauma, left femur (principal); M16.12 Unilateral primary osteoarthritis, left hip; M25.552 Pain in left hip; Z96.642 Presence of left artificial hip joint; Z96.641 Presence of right artificial hip joint; J44.9 Chronic obstructive pulmonary disease, unspecified; K21.9 Gastro-esophageal reflux disease without esophagitis; F32.9 Major depressive disorder, single episode, unspecified
CPT/HCPCS: 27130; 97162; 97530; NC; 72170; 73501; J0690; J1885; J2250; J2405

== ENCOUNTER 2018-11-06 10:54 | Outpatient (CLI) | payer MEDICARE, MEDICAID, SELFPAY ==
--- NOTE | 2018-11-06 10:11 | DI.RAD_ITS ---
SYMPTOM/DIAGNOSIS: S/P LEFT PEDRO LEFT HIP AND PELVIS: 11/06 Three views were obtained. There are total hip joint replacements in position bilaterally. Components appear well seated. No other significant bony abnormalities seen.
== END 2018-11-06 11:14 ==
PROVIDERS: PCP General Practice; Referring Provider General Practice; Visit Provider Student in an Organized Health Care Education/Training Program
DX: Z96.643 Presence of artificial hip joint, bilateral (principal); M16.12 Unilateral primary osteoarthritis, left hip; Z47.1 Aftercare following joint replacement surgery; J44.9 Chronic obstructive pulmonary disease, unspecified; I10 Essential (primary) hypertension; Z87.891 Personal history of nicotine dependence
CPT/HCPCS: 73502

== ENCOUNTER 2018-12-04 09:54 | Outpatient (CLI) | payer MEDICARE, MEDICAID, SELFPAY ==
--- NOTE | 2018-12-04 09:53 | DI.RAD_ITS ---
SYMPTOM/DIAGNOSIS: F/U LT PEDRO, ANTERIOR PAIN LEFT HIP: Comparison is made with 06 November 2018 There has been no change in the appearance of the left hip prosthesis. No abnormal bony lucencies are seen.
== END 2018-12-04 10:14 ==
PROVIDERS: PCP General Practice; Visit Provider Student in an Organized Health Care Education/Training Program
DX: M25.552 Pain in left hip (principal); Z96.642 Presence of left artificial hip joint; Z47.1 Aftercare following joint replacement surgery
CPT/HCPCS: 73502

== ENCOUNTER → 2019-01-04 14:28 | Outpatient (BNVA) | payer MEDICARE, MEDICAID, SELFPAY | PROVIDERS: PCP General Practice; Referring Provider General Practice; Visit Provider Student in an Organized Health Care Education/Training Program | DX: Z96.642 Presence of left artificial hip joint (principal); Z47.1 Aftercare following joint replacement surgery; J44.9 Chronic obstructive pulmonary disease, unspecified; Z87.891 Personal history of nicotine dependence; I10 Essential (primary) hypertension ==

== ENCOUNTER 2019-01-04 15:40 | Outpatient (CLI) | payer MEDICARE, MEDICAID, SELFPAY ==
[2019-01-04 17:05] LABS: C-Reactive Protein 1.13 mg/dL (0.0-0.3)
[2019-01-04 17:28] LABS: ESR 8 mm/hr (0-15)
== END 2019-01-04 16:00 ==
PROVIDERS: PCP General Practice; Visit Provider Student in an Organized Health Care Education/Training Program
DX: M25.552 Pain in left hip (principal); Z96.642 Presence of left artificial hip joint
CPT/HCPCS: 36415; 85652; 86140

== ENCOUNTER 2019-01-08 07:01 | Outpatient (CLI) | payer MEDICARE, MEDICAID, SELFPAY ==
--- NOTE | 2019-01-08 13:30 | DI.RAD_ITS ---
EXAM: RF JOINT INJECTION FLUORO GUID CLINICAL HISTORY: L HIP ASPIRATION,s/p lt hip replacement,pain,z96.642,[id number]. TECHNIQUE: Fluoroscopy was provided for the referring physician for guidance with performing injecti on procedure. COMPARISON: No exams were available for comparison FINDINGS: Please see procedure note for details. RADIATION DOSE DELIVERED: Fluoro time: 3 seconds.
[2019-01-08] MEDS: Bupivacaine 0.5% Pres-Free 10 ML VIAL 6 ML IJ (13:52)
[2019-01-08 14:52] LABS: Clarity CLOUDY; Nucleated Cells 2118 /MM3 (0-0)
[2019-01-08 14:53] LABS: Mononuclear Cells 93 % (0-0); Polynuclear Cells 5 % (0-0)
[2019-01-08 14:54] LABS: Other Cells 1 0 (0-0)
--- NOTE | 2019-01-12 15:29 | W.PROCNOTE ---
Date of service: 01/08/19 Time of Service: 15:29 Procedure Note Date of procedure: 01/08/19 Procedure: Left Hip Aspiration with Fluoroscopic Guidance Surgeon/Proceduralist/Physician: Aashish Tipton Procedure Diagnosis: Left Hip Pain after Replacement Procedure Indications: Clemente has had pain of the LEFT hip and groin after hip replacement. It has not subsided and improved with typical means. I recommended an aspiration of the hip under flouroscopy due to the persistent symptoms and a mildly elevated CRP. I had discussed the risks of the procedure and the patient elected to proceed. Procedure Description: Clemente was greeted in the flouroscopy room. The correct side was identified and the consent was reviewed with the patient and signed. The patient was then placed in the supine position on the fluoroscopy table. The LEFT hip was then prepped with Chloraprep. The anterolateral injection starting point was identiifed by bony landmarks and fluoroscopy. The skin and soft tissue in the tract of the injection was anesthetized with 1% Lidocaine. A spinal needle was then inserted deep into the hip joint at the level of the lateral femoral neck under fluoroscopic guidance until the needle tip contacted the prosthesis. Approximately 20cc of blood-tinged non-viscous fluid was aspirated. There was no particulate nor gross purulence. The fluid was sent for cell count and culture as well as Synovasure. A bandaid was placed on the injection site. The patient tolerated the procedure well.
== END 2019-01-08 07:21 ==
PROVIDERS: PCP General Practice; Visit Provider Student in an Organized Health Care Education/Training Program
DX: T84.84XA Pain due to internal orthopedic prosthetic devices, implants and grafts, initial encounter (principal); Z96.642 Presence of left artificial hip joint; M25.552 Pain in left hip; G89.29 Other chronic pain
CPT/HCPCS: 20610; 77002; 87077; 87070; 87205; 89051

== ENCOUNTER 2019-01-26 01:23 | Outpatient (CLI) | payer MEDICARE, MEDICAID, SELFPAY ==
--- NOTE | 2019-01-26 09:40 | DI.MRI_ITS ---
EXAM: MR LUMBAR SPINE WO CLINICAL HISTORY: LBP with radiating pain, bowel/bladder issues, M25.552 PAIN IN LT HIP. TECHNIQUE: Multiplanar multisequence MRI was performed. COMPARISON: No exams were available for comparison FINDINGS: The conus medullaris appears intact. The aorta is normal in diameter. The intervertebral discs appe ar intact throughout. There is no significant disc bulging or evidence of a disc herniation at any l evel. There are mild facet degenerative changes at L4-5 but no neural foraminal narrowing. There is increased fat seen within the central canal, which can be frequently seen with obesity. IMPRESSION: Increased fat within the central canal. No disc herniation, neural foraminal narrowing or central ca nal stenosis is seen.
== END 2019-01-26 01:43 ==
PROVIDERS: PCP General Practice; Visit Provider Student in an Organized Health Care Education/Training Program
DX: M25.552 Pain in left hip (principal); M54.5 Low back pain; M47.816 Spondylosis without myelopathy or radiculopathy, lumbar region
CPT/HCPCS: 72148

== ENCOUNTER → 2019-02-04 09:41 | Outpatient (BNVA) | payer MEDICARE, MEDICAID, SELFPAY | PROVIDERS: PCP General Practice; Referring Provider General Practice; Visit Provider Student in an Organized Health Care Education/Training Program | DX: M25.552 Pain in left hip (principal); Z96.642 Presence of left artificial hip joint; J44.9 Chronic obstructive pulmonary disease, unspecified; Z87.891 Personal history of nicotine dependence; I10 Essential (primary) hypertension | CPT/HCPCS: 99213 ==

== ENCOUNTER 2019-02-19 01:46 | Outpatient (CLI) | payer MEDICARE, MEDICAID, SELFPAY ==
--- NOTE | 2019-02-19 11:20 | DI.RAD_ITS ---
EXAM: RF JOINT INJECTION FLUORO GUID CLINICAL HISTORY: Left Hip ASPIRATION, LT HIP PAIN, M25.552 TECHNIQUE: Fluoroscopy was utilized by Dr. Tipton during hip injection. COMPARISON: XR hip LT complete AP pelvis from 11/06/2018 FINDINGS: Hard copy shows needle placement overlying a total hip joint replacement, reportedly on the left. Fluoro Time: 13.6 seconds
--- NOTE | 2019-02-19 11:36 | W.PROCNOTE ---
Date of service: 02/19/19 Time of Service: 11:36 Procedure Note Date of procedure: 02/19/19 Procedure: Left Hip Aspiration with Fluoroscopic Guidance Surgeon/Proceduralist/Physician: Aashish Tipton Procedure Diagnosis: Left Hip Pain after Replacement Procedure Indications: Clemente has had pain of the LEFT hip and groin after hip replacement. It has not subsided and improved with typical means. Previous aspiration had benign cell count but day 14 positive culture from broth. Due to some persistent pain, I recommended repeat aspiration. I had discussed the risks of the procedure and the patient elected to proceed. Procedure Description: Clemente was greeted in the flouroscopy room. The correct side was identified and the consent was reviewed with the patient and signed. The patient was then placed in the supine position on the fluoroscopy table. The LEFT hip was then prepped with Chloraprep. The anterolateral injection starting point was identiifed by bony landmarks and fluoroscopy. The skin and soft tissue in the tract of the injection was anesthetized with 1% Lidocaine. A spinal needle was then inserted deep into the hip joint at the level of the lateral femoral neck under fluoroscopic guidance until the needle tip contacted the prosthesis. Approximately 1cc of blood-tinged non-viscous fluid was aspirated. The needle was repositioned to ensure there was no significant fluid missed. The fluid was sent for culture. A bandaid was placed on the injection site. The patient tolerated the procedure well.
== END 2019-02-19 02:06 ==
PROVIDERS: PCP General Practice; Visit Provider Student in an Organized Health Care Education/Training Program
DX: T84.84XA Pain due to internal orthopedic prosthetic devices, implants and grafts, initial encounter (principal); M25.552 Pain in left hip; Z96.642 Presence of left artificial hip joint
CPT/HCPCS: 20610; 77002; 87070; 87075; 87205; 89051

== ENCOUNTER 2019-02-22 00:45 | Outpatient (CLI) | payer MEDICARE, MEDICAID, SELFPAY ==
--- NOTE | 2019-02-22 14:30 | DI.CT_ITS ---
EXAM: CT LOWER EXTREMITY LT WO CLINICAL HISTORY: eval L PEDRO positioning and loosening, LT HIP PAIN, M25.552 TECHNIQUE: The exam was performed according to the usual protocol without contrast. COMPARISON: XR hip LT AP lat only from 12/04/2018 RF JOINT INJECTION FLUORO GUID from 02/19/2019 FINDINGS: There is a left total hip replacement. No lucencies are seen in or about the orthopedic hardware to suggest loosening or infection. Bones are normally mineralized. No acute fracture or dislocation is present. The soft tissues are unremarkable. Incidental note is made of diverticulosis of the sigmoid colon. No evidence of acute diverticulitis. IMPRESSION: Left total hip replacement. No CT evidence to suggest loosening or infection.
--- NOTE | 2019-02-23 06:08 | DI.VRAD_ITS ---
PROCEDURE INFORMATION: Exam: CT Left Lower Extremity Without Contrast, Hip Exam date and time: 02/22/2019 2:37 PM Age: 48 years old Clinical history: Prior surgery; Surgery date: 6+ months; Surgery type: Left sean; Patient HX: Left hip pain, evaluate L hip sean positioning and loosening TECHNIQUE: Imaging protocol: CT of the Left lower extremity without contrast was performed. Exam focused on the hip. Radiation optimization: All CT scans at this facility use at least one of these dose optimization techniques: automated exposure control; mA and/or kV adjustment per patient size (includes targeted exams where dose is matched to clinical indication); or iterative reconstruction. COMPARISON: CR XR hip LT AP lat only 12/04/2018 10:11 AM FINDINGS: Bones/joints: Total hip replacements are noted bilaterally. There is no evidence for obvious periprosthetic lucency to suggest loosening or infection with specific attention paid to the left hip replacement. Soft tissues: Normal. IMPRESSION: Total hip replacements are noted bilaterally. There is no evidence for obvious periprosthetic lucency to suggest loosening or infection with specific attention paid to the left hip replacement. Dictated and Authenticated by: Navarro Amaro MD. Ordering:ANTOINE Zendejas MD
== END 2019-02-22 01:05 ==
PROVIDERS: PCP General Practice; Visit Provider Student in an Organized Health Care Education/Training Program
DX: M25.552 Pain in left hip (principal); Z96.642 Presence of left artificial hip joint
CPT/HCPCS: 73700

== ENCOUNTER → 2019-03-01 12:30 | Outpatient (BNVA) | payer MEDICARE, MEDICAID, SELFPAY | PROVIDERS: PCP General Practice; Referring Provider General Practice; Visit Provider Student in an Organized Health Care Education/Training Program | DX: Z47.1 Aftercare following joint replacement surgery (principal); Z96.642 Presence of left artificial hip joint; J44.9 Chronic obstructive pulmonary disease, unspecified; I10 Essential (primary) hypertension; M25.552 Pain in left hip; Z87.891 Personal history of nicotine dependence ==

== ENCOUNTER → 2019-04-12 13:12 | Outpatient (BNVA) | payer MEDICARE, MEDICAID, SELFPAY | PROVIDERS: PCP General Practice; Referring Provider General Practice; Visit Provider Student in an Organized Health Care Education/Training Program | DX: Z96.642 Presence of left artificial hip joint (principal); M25.552 Pain in left hip; T84.84XD Pain due to internal orthopedic prosthetic devices, implants and grafts, subsequent encounter; J44.9 Chronic obstructive pulmonary disease, unspecified; I10 Essential (primary) hypertension; Z87.891 Personal history of nicotine dependence | CPT/HCPCS: 99213 ==

== ENCOUNTER 2019-04-22 01:24 | Outpatient (CLI) | payer MEDICARE, MEDICAID, SELFPAY ==
--- NOTE | 2019-04-22 | DI.RAD_ITS ---
EXAM: RF JOINT INJECTION FLUORO GUID CLINICAL HISTORY: Left Hip Aspiration,pain in hip after total replacement,z96.649 TECHNIQUE: COMPARISON: No exams were available for comparison FINDINGS: Fluoroscopy was utilized by Dr. Tipton during left hip injection. Hard copy shows needle overlying left hip prosthesis. IMPRESSION:
[2019-04-22] MEDS: Bupivacaine 0.5% Pres-Free 10 ML VIAL 6 ML IJ (15:38)
[2019-04-22] MEDS: methylPREDNISolone ACETATE 80 MG/ML VIAL IM (15:39)
[2019-04-22 17:00] LABS: Clarity CLOUDY; Nucleated Cells 4160 /MM3 (0-0); Polynuclear Cells 6 % (0-0)
[2019-04-22 17:01] LABS: Mononuclear Cells 94 % (0-0)
--- NOTE | 2019-04-22 21:59 | W.PROCNOTE ---
Date of service: 04/22/19 Time of Service: 15:28 Procedure Note Date of procedure: 04/22/19 Procedure: Left hip aspiration and injection with fluoroscopic guidance Surgeon/Proceduralist/Physician: Aashish Tipton Procedure Diagnosis: Left Hip pain after replacement Procedure Indications: Clemente has had persistent pain of the LEFT hip and groin after a hip replacement. In general, this pain has improved. However, he did have some abnormal findings with his C-reactive protein and with the previous aspiration. Therefore, I recommend a repeat aspiration to confirm that there is no infectious process. I had discussed the risks of the procedure and the patient elected to proceed. Procedure Description: Clemente was greeted in the flouroscopy room. The correct side was identified and the consent was reviewed with the patient and signed. The patient was then placed in the supine position on the fluoroscopy table. The LEFT hip was then prepped with Chloraprep. The anterolateral injection starting point was identiifed by bony landmarks and fluoroscopy. The skin and soft tissue in the tract of the injection was anesthetized with 1% Lidocaine. A spinal needle was then inserted deep into the hip joint at the level of the lateral femoral neck under fluoroscopic guidance. The needle was palpated over the metallic neck to confirm intra-articular placement. The hip was then aspirated of 4 cc of slightly blood-tinged fluid. There is no gross purulence. The hip was injected with 6cc of 0.5% Bupivicaine and 80mg of Depo-Medrol. A bandaid was placed on the injection site. The patient tolerated the procedure well.
== END 2019-04-22 01:44 ==
PROVIDERS: PCP General Practice; Visit Provider Student in an Organized Health Care Education/Training Program
DX: M25.512 Pain in left shoulder (principal); Z96.642 Presence of left artificial hip joint; T84.84XD Pain due to internal orthopedic prosthetic devices, implants and grafts, subsequent encounter
CPT/HCPCS: 20610; 77002; 87070; 87205; 89051; J1040

== ENCOUNTER 2019-05-08 12:50 | Inpatient (IN) | payer MEDICARE, MEDICAID, SELFPAY ==
[2019-05-08] VITALS (32 sets, daily range): BP systolic 110–180; BP diastolic 67–106; PULSE 64–99; RESP 9–23; TEMP 36.5–37; O2SAT 88–100
--- NOTE | 2019-05-08 13:13 | DI.CT_ITS ---
EXAM: CT THORAX CTA CLINICAL HISTORY: chest pain. TECHNIQUE: Imaging Protocol: Axial CT angiography was performed with multi-slice acquisition and mu lti-planar and/or 3D reconstructions. CONTRAST MATERIAL: Intravenous: Omnipaque 350 Contrast volume:100 mL FINDINGS: Pulmonary Arteries: No evidence of filling defect to suggest pulmonary emboli. Tracheobronchial tree: Patent where visualized. Mediastinum and Kelly: No dominant adenopathy or fluid collection. Pulmonary parenchyma: Mild emphysematous changes are seen in the lungs. No focal consolidating infil trates are present. Pleura: No effusion or pneumothorax. Heart: The heart is not dilated. No coronary artery calcifications are seen. No right heart strain or pericardial effusion. Aorta: Thoracic aorta non-dilated. No aneurysm or dissection. Upper abdomen: Hepatic steatosis. Bones: Mild degenerative changes. Old healed right rib fractures. IMPRESSION: No evidence of pulmonary embolism, thoracic aortic dissection or aneurysm. DATA REPOSITORY: All CT scans at this facility are submitted to the National Radiology Data Registry (NRDR) Dose Index Registry (DIR) with the [employer] (ACR). RADIATION OPTIMIZATION: All CT scans at this facility use at least one of these dose optimization te chniques: automated exposure control; mA and/or kV adjustment per patient size (includes targeted exa ms where dose is matched to clinical indication); or iterative reconstruction.
[2019-05-08 13:43] LABS: Abs Immature Grans 0.02 k/cumm (0.0-0.09); Absolute Basophil Count 0.06 k/cumm (0.0-0.2); Absolute Eosinophil Count 0.11 k/cumm (0.0-0.7); Absolute Lymphocyte Count 2.72 k/cumm (1.2-3.4); Absolute Monocyte Count 0.72 k/cumm (0.11-0.7); Absolute Neutrophil Count 3.99 k/cumm (1.2-6.7); Basophils % 0.8; Eosinophils % 1.4; HCT 51.3 % (40.0-50.0); HGB 17.3 g/dL (13.5-17.5); Immature Grans % 0.3 %; Lymphocytes % 35.7; Mean Corp. HGB Concentration 33.7 g/dL (32.0-36.0); Mean Corpuscular Hemoglobin 33.1 pg (27.0-33.0); Mean Corpuscular Volume 98.1 fL (80-95); Mean Platelet Volume 11.2 fL (8.0-11.0); Monocytes % 9.4; Neutrophils % 52.4; Platelet Count 157 x1000/uL (130-400); RBC 5.23 m/cumm (4.50-6.00); RBC Distribution Width 12.8 % (11.8-14.1); White Blood Cell Count 7.62 k/cumm (4.4-10.8)
[2019-05-08] MEDS: Omnipaque 350 MG/ML 100 ML BTL IJ (13:53)
[2019-05-08 13:54] LABS: ALT 75 U/L (16-63); AST 49 U/L (15-37); Albumin 3.7 g/dL (3.4-5.0); Alkaline Phosphatase 94 U/L (46-116); Anion Gap 9.4 mmol/L (3-11); BUN 9 mg/dL (7-18); Bilirubin, Total 0.5 mg/dL (0.2-1.0); CO2 28.6 mmol/L (21.0-32.0); CREATININE 1.14 mg/dL (0.70-1.30); Calcium 9.2 mg/dL (8.5-10.1); Chloride 102 mmol/L (98-107); Glucose 104 mg/dL (74-106); Potassium 4.1 mmol/L (3.5-5.1); Sodium 140 mmol/L (136-145); Total Protein 7.3 g/dL (6.4-8.2)
[2019-05-08] MEDS: Normal Saline - Diluent 50 ML VIAL IV (13:54)
[2019-05-08 13:55] LABS: Troponin I < 0.05 ng/Ml (<0.06)
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
--- NOTE | 2019-05-08 14:21 | DI.VRAD_ITS ---
Addendum created by Laura Horner MD on 05/08/2019 2:29:12 PM EST The results of the examination were discussed with Dr. Woods 05/08/2019 2:27 PM EST. There pulsation artifact in the aortic root and pulmonary trunk which limits assessment. Transverse arch is normal in appearance. The results were understood and acknowledged. Initial report created on 05/08/2019 2:21:07 PM EST PROCEDURE INFORMATION: Exam: CT Angiography Chest With Contrast Exam date and time: 05/08/2019 1:46 PM Age: 49 years old Clinical indication: Chest pain; Type not specified TECHNIQUE: Imaging protocol: Computed tomographic angiography of the chest with intravenous contrast.There is adequate opacification of the pulmonary arteries. The main pulmonary artery measures 410 Hounsfield units. 3D rendering: MIP and/or 3D reconstructed images were created by the technologist. Radiation optimization: All CT scans at this facility use at least one of these dose optimization techniques: automated exposure control; mA and/or kV adjustment per patient size (includes targeted exams where dose is matched to clinical indication); or iterative reconstruction. Contrast material: [id number]; Contrast volume: 100 ml; Contrast route: IV; COMPARISON: Vascular^CTA CHEST (Adult) 02/10/2018 1:35 PM FINDINGS: Pulmonary arteries: There are no intraluminal filling defects in the pulmonary arteries. The pulmonary trunk is normal in caliber. Aorta: The aorta is normal in caliber with no evidence of aneurysm or dissection.The aorta demonstrates mild atherosclerotic calcification and plaque formation. Lungs: Unremarkable. No consolidation. No masses. Pleural space: Unremarkable. No pneumothorax. No pleural effusion. Heart: Unremarkable. No cardiomegaly. No pericardial effusion. Mediastinum: The trachea and main bronchi are patent. Liver: There is hepatic steatosis. Lymph nodes: Unremarkable. No enlarged lymph nodes. Bones/joints: There are remote healed rib fractures.No acute osseous abnormality is identified. Soft tissues: Unremarkable. IMPRESSION: 1. No evidence of a pulmonary embolus. 2. No evidence of an acute pulmonary process. Remainder of non-emergent findings as described above. Dictated and Authenticated by: Laura Horner MD. Ordering:ADRIANA Sanchez MD
[2019-05-08] MEDS: FAMOTIDINE 20 MG/50 ML BAG 200 MG IVPB (15:09)
[2019-05-08 15:18] LABS: *AMPHETAMINES SCREEN URINE Negative (Negative); *BARBITURATES SCREEN URINE Negative (Negative); *BENZODIAZEPINES SCREEN URINE Negative (Negative); Cannabinoids THC POSITIVE (Negative); Cocaine Screen,Urine Negative (Negative); METHADONE URINE SCREEN Negative (Negative); OPIATES URINE SCREEN Negative (Negative)
[2019-05-08 15:22] LABS: Tricyclic Antidepressants Negative (Negative)
[2019-05-08 16:12] LABS: Troponin I < 0.05 ng/Ml (<0.06)
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
[2019-05-08] MEDS: Aspirin 81 MG CHEW 243 MG PO (17:25)
--- NOTE | 2019-05-08 17:26 | NUR.NOTE ---
Nursing Note: PT report called to Suzanne (RN) on [facility]. Al the time of transfer the Pt was alert and oriented, vitals stable.
[2019-05-08] MEDS: Enoxaparin 40 MG/0.4 ML SYR SC (18:11)
[2019-05-08] MEDS: Celecoxib 200 MG CAP PO (18:12)
[2019-05-08] MEDS: Normal Saline Flush 10 ML SYR IVP (18:12)
[2019-05-08] MEDS: Pantoprazole 40 MG VIAL IVP (18:12)
[2019-05-08] MEDS: Propranolol 10 MG TAB PO (19:26)
[2019-05-08 22:24] LABS: Troponin I < 0.05 ng/Ml (<0.06)
[2019-05-09] VITALS (11 sets, daily range): BP systolic 132–168; BP diastolic 89–119; PULSE 57–72; RESP 16–20; TEMP 36.2–36.8; O2SAT 94–99
[2019-05-09 07:01] LABS: Hemoglobin A1C 5.6 % (3.8-5.6)
[2019-05-09 08:08] LABS: Anion Gap 10.4 mmol/L (3-11); BUN 12 mg/dL (7-18); CO2 26.6 mmol/L (21.0-32.0); CREATININE 0.98 mg/dL (0.70-1.30); Calcium 8.8 mg/dL (8.5-10.1); Calculated LDL 127 mg/dL (<100); Chloride 102 mmol/L (98-107); Cholesterol 240 mg/dL (<200); Glucose 98 mg/dL (74-106); HDL Cholesterol 37 mg/dL (40-60); Potassium 3.7 mmol/L (3.5-5.1); Sodium 139 mmol/L (136-145); Triglyceride 381 mg/dL (<150)
[2019-05-09] MEDS: Propranolol 10 MG TAB PO ×2 (08:35→19:28)
[2019-05-09] MEDS: Celecoxib 200 MG CAP PO ×2 (08:35→19:29)
[2019-05-09] MEDS: Citalopram 10 MG TAB 20 MG PO (08:35)
[2019-05-09] MEDS: Aspirin E.C. 81 MG TABEC PO (08:35)
--- NOTE | 2019-05-09 10:17 | W.PM.PROGNOT ---
Date of Service Date of service: 05/09/19 Time of Service: 10:17 Assessment and Plan Assessment and plan (1) Chest pain: Start date: 05/09/19 Start time: 10:24 Status: Acute Assessment and plan: . History of smoking, hypertension, family history of cardiovascular disease. Troponin flat negative. Continue aspirin 81 mg. Monitor on telemetry. HDL low, LDL high total cholesterol high, triglycerides moderate over 350, started on atorvastatin 10 mg and omega 3 fish oil. Stress test for am. On telemetry with HR 50-80's. Continue to monitor. (2) Pain in hip region after total hip replacement: Start date: 05/09/19 Start time: 10:25 Status: Acute Assessment and plan: Chronic. Continue celebrex. Add GI Ppx with protonix. Continue PPI on discharge. Qualifiers: Encounter type: subsequent encounter Qualified Code(s): T84.84XD - Pain due to internal orthopedic prosthetic devices, implants and grafts, subsequent encounter; Z96.649 - Presence of unspecified artificial hip joint (3) Depression: Start date: 05/09/19 Start time: 10:26 Status: Chronic Assessment and plan: Stable. Continue celexa. (4) GERD (gastroesophageal reflux disease): Start date: 05/09/19 Start time: 10:26 Status: Chronic Assessment and plan: Not currently on PPI, although he is on aspirin and NSAID and reports GI upset. IV protonix ordered. Continue PO PPI on discharge. (5) COPD (chronic obstructive pulmonary disease): Start date: 05/09/19 Start time: 10:26 Status: Chronic Assessment and plan: Has not smoked x4 days. Has cut down to 2-3 cigarettes per day. Occasionally smokes marijuana. Continue Advair inhaler. Interested in smoking cessation. Does not want a patch at this time. (6) Hypertension: Start date: 05/09/19 Start time: 10:26 Status: None Assessment and plan: Previously took propranolol 10 mg BID, has not had Rx filled as he has not seen his new PCP yet. Resume Propranolol. and monitor on teley (7) DVT prophylaxis: Start date: 05/09/19 Start time: 10:26 Status: Acute Assessment and plan: Subcutaneous lovenox. (8) Discharge planning issues: Start date: 05/09/19 Start time: 10:26 Status: Acute Assessment and plan: He is a FULL CODE. This case was discussed with Dr. Figueroa who is in agreement. (9) Alcohol dependence: Start date: 05/09/19 Start time: 10:26 Status: Acute Assessment and plan: Admits to drinking 3-4 beers daily with stopping every couple of days but resuming only after a day. Will place on CIWA. Subjective Subjective Patient reports: no new complaints Interval history since last seen: Did not sleep well last night. Reports two separate episodes of Cp last night, lasting only a few minutes. He did not report these symptoms to anyone. He denies CP at this time. He would like to have the nuclear stress. At this time he is interested in smoking cessation. He also endorses drinking regularly. I will place him on CIWA last drink 2 days ago. Exam Narrative Exam Narrative: General: Overweight 49-year-old man, appears older than stated age, slightly dusky complexion. Sitting up in bed. HEENT: Normocephalic, pupils equal and round, EOMI, mucous membranes moist. Neck: Supple, no JVD. Respiratory: Respirations appear even and unlabored at rest, lung sounds clear to auscultation throughout, no coughing noted. Cardiovascular: Tenderness on palpation over substernal area and left chest, heart rate regular, non-tachycardic, no murmur appreciated. GI: Normoactive bowel sounds x4 quadrants, abdomen is round, soft, nondistended, nontender on palpation. Extremities: No clubbing, cyanosis or edema. Objective Objective Clinical Data: Abnormal lab results 05/08/19 05/08/19 05/08/19 Range/Units 13:18 13:18 14:51 Hct 51.3 H (40.0-50.0) % MCV 98.1 H (80-95) fL MCH 33.1 H (27.0-33.0) pg MPV 11.2 H (8.0-11.0) fL Absolute Monocytes 0.72 H (0.11-0.7) k/cumm AST 49 H (15-37) U/L ALT 75 H (16-63) U/L Triglycerides (<150) mg/dL Total Cholesterol (<200) mg/dL LDL Cholesterol, Calc (<100) mg/dL HDL Cholesterol (40-60) mg/dL Ur THC Screen Positive A (Negative) 05/09/19 Range/Units 06:15 Hct (40.0-50.0) % MCV (80-95) fL MCH (27.0-33.0) pg MPV (8.0-11.0) fL Absolute Monocytes (0.11-0.7) k/cumm AST (15-37) U/L ALT (16-63) U/L Triglycerides 381 H (<150) mg/dL Total Cholesterol 240 H (<200) mg/dL LDL Cholesterol, Calc 127 H (<100) mg/dL HDL Cholesterol 37 L (40-60) mg/dL Ur THC Screen (Negative) Vital Signs Temperature 36.2 C L 05/09/19 07:22 Temperature Source Tympanic 05/09/19 07:22 Pulse 64 05/09/19 08:34 Pulse Rhythm Regular 05/09/19 09:03 Pulse 79 05/08/19 15:00 Respiratory Rate 19 05/09/19 07:22 Respiratory Effort Non-Labored 05/09/19 09:03 Respiratory Depth Normal 05/09/19 09:03 Respiratory Pattern Normal 05/09/19 09:03 Blood Pressure 132/89 05/09/19 08:34 Blood Pressure Mean 83 05/08/19 14:47 Pulse Oximetry 95 05/09/19 07:22 Oxygen Delivery Method Room Air 05/09/19 07:22 Oxygen Flow Rate 0 05/09/19 07:22 Pain Level 0 05/09/19 07:22 Comment 05/08/19 18:18 Intake & Output 05/08/19 05/08/19 05/09/19 11:59 23:59 11:59 Intake Total 250 / 250 Balance 250 / 250 Weight 117.027 kg Intake: Oral 250 / 250 Other: Urine Color Yellow Urine Appearance Clear Comment pt voiding independently. Voiding Methods Toilet Toilet Laboratory Results WBC 7.62 k/cumm (4.4-10.8) 05/08/19 13:18 RBC 5.23 m/cumm (4.50-6.00) 05/08/19 13:18 Hgb 17.3 g/dL (13.5-17.5) 05/08/19 13:18 Hct 51.3 % (40.0-50.0) H 05/08/19 13:18 MCV 98.1 fL (80-95) H 05/08/19 13:18 MCH 33.1 pg (27.0-33.0) H 05/08/19 13:18 MCHC 33.7 g/dL (32.0-36.0) 05/08/19 13:18 RDW 12.8 % (11.8-14.1) 05/08/19 13:18 Plt Count 157 x1000/uL (130-400) 05/08/19 13:18 MPV 11.2 fL (8.0-11.0) H 05/08/19 13:18 Immature Gran % 0.3 % 05/08/19 13:18 Neutrophils % 52.4 05/08/19 13:18 Lymphocytes % 35.7 05/08/19 13:18 Monocytes % 9.4 05/08/19 13:18 Eosinophils % 1.4 05/08/19 13:18 Basophils % 0.8 05/08/19 13:18 Absolute Neutrophils 3.99 k/cumm (1.2-6.7) 05/08/19 13:18 Absolute Lymphocytes 2.72 k/cumm (1.2-3.4) 05/08/19 13:18 Absolute Monocytes 0.72 k/cumm (0.11-0.7) H 05/08/19 13:18 Absolute Eosinophils 0.11 k/cumm (0.0-0.7) 05/08/19 13:18 Absolute Basophils 0.06 k/cumm (0.0-0.2) 05/08/19 13:18 Sodium 139 mmol/L (136-145) 05/09/19 06:15 Potassium 3.7 mmol/L (3.5-5.1) 05/09/19 06:15 Chloride 102 mmol/L (98-107) 05/09/19 06:15 Carbon Dioxide 26.6 mmol/L (21.0-32.0) 05/09/19 06:15 Anion Gap 10.4 mmol/L (3-11) 05/09/19 06:15 BUN 12 mg/dL (7-18) 05/09/19 06:15 Creatinine 0.98 mg/dL (0.70-1.30) 05/09/19 06:15 Estimated GFR/1.73 m2 >= 60.00 (mL/min/1.73m2) 05/09/19 06:15 Glucose 98 mg/dL (74-106) 05/09/19 06:15 Hemoglobin A1c 5.6 % (3.8-5.6) 05/09/19 06:15 Calcium 8.8 mg/dL (8.5-10.1) 05/09/19 06:15 Magnesium 2.0 mg/dL (1.8-2.4) 05/09/19 06:15 Total Bilirubin 0.5 mg/dL (0.2-1.0) 05/08/19 13:18 AST 49 U/L (15-37) H 05/08/19 13:18 ALT 75 U/L (16-63) H 05/08/19 13:18 Alkaline Phosphatase 94 U/L (46-116) 05/08/19 13:18 Troponin I < 0.05 ng/Ml (<0.06) 05/08/19 22:00 Total Protein 7.3 g/dL (6.4-8.2) 05/08/19 13:18 Albumin 3.7 g/dL (3.4-5.0) 05/08/19 13:18 Triglycerides 381 mg/dL (<150) H 05/09/19 06:15 Total Cholesterol 240 mg/dL (<200) H 05/09/19 06:15 LDL Cholesterol, Calc 127 mg/dL (<100) H 05/09/19 06:15 HDL Cholesterol 37 mg/dL (40-60) L 05/09/19 06:15 Urine Opiates Screen Negative (Negative) 05/08/19 14:51 Urine Methadone Screen Negative (Negative) 05/08/19 14:51 Ur Barbiturates Screen Negative (Negative) 05/08/19 14:51 Ur Tricyclics Screen Negative (Negative) 05/08/19 14:51 Ur Amphetamines Screen Negative (Negative) 05/08/19 14:51 U Benzodiazepines Scrn Negative (Negative) 05/08/19 14:51 Urine Cocaine Screen Negative (Negative) 05/08/19 14:51 Ur THC Screen Positive (Negative) A 05/08/19 14:51
--- NOTE | 2019-05-09 11:10 | PHARADMIT ---
Admission Pharmacy Clinical Review CHEST PAIN Code Status Full Code Current Weight 117.027 kg Renally Cleared and Narrow Therapeutic Index Meds CRCL ~85ML/MIN QTc Value / Action Taken 413 BP Control, Fever 132/89 AFEBRILE Electrolytes reviewed OK DVT Prophylaxis ENOXAPARIN Opiate Usage / Scheduled Bowel Regimen Ordered NO/PRN Plt/SCr for Heparin / Enoxaparin 157/0.98 INR for Warfarin NA H/H stable, WBC/Bands 17.3/51.3 WBC 7.62 Antibiotic appropriateness NA Cultures and Sensitivities NA Surgical ABX d/c within 24 hr NA DM control / Insulin Dosing NA Heart Failure (Check EF%) (SAIDA's, B-Block, Diuretics) NA IV to PO Switch PROTONIX IV , WILL ASK TO CHANGE TO PO Home Meds Reviewed OK Home Meds Not Ordered ALL ORDERED Comments
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
[2019-05-09] MEDS: Enoxaparin 40 MG/0.4 ML SYR SC (17:20)
[2019-05-09] MEDS: Omega-3 Fatty Acids 1000 MG CAP 2000 MG PO (19:28)
[2019-05-09] MEDS: Mylanta Suspension 30 ML CUP PO (19:28)
[2019-05-09] MEDS: Atorvastatin 10 MG TAB PO (19:28)
[2019-05-09] MEDS: diphenhydrAMINE 25 MG CAP PO (21:26)
--- NOTE | 2019-05-10 | DI.NM_ITS ---
APPROVED REPORT Exam: Exercise Treadmill Patient Location: In-Patient Room/Bed: Stress Nurse: Lu Padgett RN BMI: 0 Baseline Rhythm: Sinus Rhythm Indications: Chest pain. Medical History Medical History: HTN, Smoking, Obesity , Hyperlipidemia, COPD Cardiac Medications: Aspirin. Atorvastatin. Allergies: Amitriptyline. Gabapentin. Cardiac Risk Factors: HTN, Hyperlipidemia, FHX of CAD, Smoking, SOB, COPD, Asthma Pretest Chest Pain Characteristics: Exertional Chest pain Physical Disabilities: Hips Lung Sounds: Clear to auscultation Heart Sounds: Regular Stress Test Details Test: Exercise stress testing was performed using a Raymond protocol. Nuclear Acquisition: Rest Tc-99m/Stress Tc-99m 1 day Rest Isotope: Tc-99m Sestamibi. Dose: 11.5 Date: 05/10/2019 Injection Time: 1330 Stress Isotope: Tc-99m Sestamibi. Dose: 37.0 Date: 05/10/2019 Injection Time: 1450 HR Resting HR Supine: 59 bpm Max Heart Rate (APMHR): 171 bpm Resting HR Standin bpm Target HR (85% APMHR): 145 bpm Max HR Achieved: 146 bpm % of APMHR: 85 HR response to stress: Normal HR response to stress BP Resting BP Supine: 120/80 mmHg Resting BP Standin/80 mmHg Max BP: 150/82 mmHg Recovery BP: 130/84 mmHg BP response to stress: Normal blood pressure response to stress. ECG Resting ECG: Sinus Rhythm Stress ECG: Sinus Tachycardia ST Change: No significant ST segment changes Arrhythmia: VPC's Comment: Modified the Raymond protocol, due to unable to safely transition pt to stage 3 of treadmill e xercise. Rare vpc's. Recovery ECG: Sinus Rhythm Recovery ST Change: No significant ST segment changes Clinical Reason for Termination: Fatigue Stress Symptoms: General Fatigue, Dyspnea Exercise duration: 7 min16 sec Highest Stage Reached: Stage 2: 2.5 mph at 12% grade. Exercise capacity: 7.05 METs Stress ECG Conclusion 1. Patient exercised on the Raymond protocol and achieved a workload of 7.05 METS. He had a peak heart rate of 145 which was 85% of predicted heart rate for age. There were no symptoms to suggest angina . Electrocardiographically the test was negative for myocardial ischemia Protocol Used: Raymond Protocol Stress Test Summary STAGE Time (mins) Speed (mph) Grade (%) HR BP SYMPTOMS METS Supine 59 120/80 Standing 74 140/80 1 3 1.7 10 121 138/60 4.6 2 6 2.5 12 146 7 3 9 2.5 12 146 10.2 12.9 17.2 1 min recovery 74 150/82 3 min recovery 105 142/90 6 min recovery 92 130/84 9 min recovery 12 min recovery MPI Conclusion There is normal myocardial perfusion, without evidence of ischemia or prior infarction
[2019-05-10 00:45] VITALS: BP 172/116; PULSE 62; RESP 18; TEMP 36.6; O2SAT 96
[2019-05-10] MEDS: Mylanta Suspension 30 ML CUP PO (01:45)
[2019-05-10 03:08] VITALS: BP 147/89; PULSE 58; RESP 16; TEMP 36.8; O2SAT 93
[2019-05-10 06:46] LABS: Anion Gap 9.5 mmol/L (3-11); BUN 15 mg/dL (7-18); CO2 25.5 mmol/L (21.0-32.0); CREATININE 0.95 mg/dL (0.70-1.30); Calcium 8.4 mg/dL (8.5-10.1); Chloride 103 mmol/L (98-107); Glucose 104 mg/dL (74-106); Magnesium 2.4 mg/dL (1.8-2.4); Potassium 3.7 mmol/L (3.5-5.1); Sodium 138 mmol/L (136-145)
[2019-05-10 07:15] VITALS: PULSE 64
[2019-05-10 08:02] VITALS: BP 155/89; PULSE 64; RESP 18; TEMP 36; O2SAT 97
[2019-05-10] MEDS: Pantoprazole 40 MG TABCR PO (08:04)
[2019-05-10] MEDS: Citalopram 10 MG TAB 20 MG PO (08:20)
[2019-05-10] MEDS: Aspirin E.C. 81 MG TABEC PO (08:20)
[2019-05-10 10:58] VITALS: BP 127/83; PULSE 70; RESP 19; TEMP 35.3; O2SAT 97
--- NOTE | 2019-05-10 13:04 | W.NUTCONSULT ---
Date of service: 05/10/19 Time of Service: 13:04 Nutritional Consult ASSESSMENT: 49 year old male admitted for chest pain, awaiting stress test today. PMH: ETOH and nicotine dependence, morbid obesity, HTN, diverticulosis with hyperlipidemia, all of which put John at risk for CAD. Diet recall indicates that Clemente relies on convenience foods, high consumption of simple carbohydrates, high intake of sugary beverages and alcohol. Since ER visit, he is motivated to improve his health and is committed to stop smoking, reduce ETOH use, and to eat more healthfully. NUTRITIONAL DIAGNOSIS: Excessive energy intake and lack of healthful food choices Excessive ETOH intake daily consumption of several alcoholic beverages daily. Excessive Fat and cholesterol intake as evidenced by excess intake of beef and cheese in daily diet. Lack of physical activity Morbid obesity with BMI of 41 hyperlipidemia with LDL > 100 mg/dl INTERVENTION: Met with John today and he demonstrated high motivation to improve his health, he is dedicated to increasing his physical activity 3-4 times a week at local gym when cleared by MD, he would like to weigh <200 lbs. Also reports he is going to stop smoking and reduce his alcoholic intake to less than 7 servings per week. Provided education on Cholesterol Lowering Nutrition Therapy ([facility] Nutrition Care Manual) and discussed ways he can increase intake of fruits, vegetable and beans. He states he no longer eats beef and will use more chicken and fish going forward. Reviewed ideal diet to avoid diverticulitis (high in fruits/vegetables/fiber). Provided John of my contact information if he wishes to pursue further nutritional counseling. Time Spent in Nutritional Counseling and Treatment: 20 min spent face to face
[2019-05-10 15:54] VITALS: BP 125/93; PULSE 88; RESP 18; TEMP 36.5; O2SAT 99
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
--- NOTE | 2019-05-10 18:30 | PDOC.CMDIS ---
- If Service Date Differs Date of service: 05/10/19 Time of Service: 18:31 LACE Index Scoring Tool - Questions: Length of Stay (in days): 2 Acuity (Admit via E.D.?): Yes Comorbidities: Chronic Pulmonary Disease E.D. Visits: 1 - Answers: Total Score: 8 Risk of Readmission: Low Risk Care Management Discharge Reason for Hospitalization: Chest Pain Discharge Plan: John will return home with no additional services at this time. He will transport via private vehicle, driven by family. He will follow up with her PCP, as recommended. He is happy to go home and see his dog, Jie. Patient/Family Education Needs: Review discharge instructions regarding medications and activity levels, discussion of self care needs including ask me three
== END 2019-05-10 17:50 | disposition home or self-care (01) | DRG 313 ==
LOC: ER 14:33 → MS 17:22
PROVIDERS: Admitting Provider Internal Medicine; Emergency Provider Student in an Organized Health Care Education/Training Program; PCP General Practice; Visit Provider Internal Medicine
DX: R07.9 Chest pain, unspecified (principal); T84.84XA Pain due to internal orthopedic prosthetic devices, implants and grafts, initial encounter; Z68.41 Body mass index [BMI] 40.0-44.9, adult; Z96.643 Presence of artificial hip joint, bilateral; F32.9 Major depressive disorder, single episode, unspecified; K21.9 Gastro-esophageal reflux disease without esophagitis; J44.9 Chronic obstructive pulmonary disease, unspecified; I10 Essential (primary) hypertension; F10.20 Alcohol dependence, uncomplicated; E78.5 Hyperlipidemia, unspecified; E66.01 Morbid (severe) obesity due to excess calories; G89.29 Other chronic pain; Z87.891 Personal history of nicotine dependence
CPT/HCPCS: 36415; 71275; 78452; 80048; 80053; 80061; 80307; 93005; 93016; 93018; 96375; 99219; 99233; 99239; 99285; J1650; 83036; 83735; 84484; 85025; 93010; 93017; G0378; J3490

== ENCOUNTER → 2019-07-12 10:36 | Outpatient (BNVA) | payer MEDICARE, MEDICAID, SELFPAY | PROVIDERS: PCP Nurse Practitioner Adult Health; Visit Provider Student in an Organized Health Care Education/Training Program | DX: M25.552 Pain in left hip (principal); T84.84XD Pain due to internal orthopedic prosthetic devices, implants and grafts, subsequent encounter; Z96.642 Presence of left artificial hip joint; J44.9 Chronic obstructive pulmonary disease, unspecified; Z87.891 Personal history of nicotine dependence | CPT/HCPCS: 99213 ==

== ENCOUNTER 2019-09-23 15:01 | Outpatient (REF) | payer MEDICARE, MEDICAID, SELFPAY | END 2019-09-23 15:21 | LOC: LBN 15:01 | PROVIDERS: PCP Family Medicine; Visit Provider Family Medicine | DX: R19.7 Diarrhea, unspecified (principal) | CPT/HCPCS: 87329 ==

== ENCOUNTER 2019-09-28 22:37 | Outpatient (REF) | payer MEDICARE, MEDICAID, SELFPAY | END 2019-09-28 22:57 | LOC: LBN 22:37 | PROVIDERS: PCP Family Medicine; Visit Provider Family Medicine | DX: K90.9 Intestinal malabsorption, unspecified (principal) | CPT/HCPCS: 82710 ==

== ENCOUNTER → 2020-02-07 08:11 | Outpatient (BNVA) | payer MEDICARE, MEDICAID, SELFPAY | PROVIDERS: PCP Nurse Practitioner Adult Health; Visit Provider Student in an Organized Health Care Education/Training Program | DX: G57.13 Meralgia paresthetica, bilateral lower limbs (principal); J44.9 Chronic obstructive pulmonary disease, unspecified; I10 Essential (primary) hypertension; Z87.891 Personal history of nicotine dependence | CPT/HCPCS: 99212; 99213 ==

== ENCOUNTER 2020-02-15 09:50 | Outpatient (CLI) | payer MEDICARE, MEDICAID, SELFPAY ==
[2020-02-17 18:32] LABS: Patient Race White; SARS-CoV-2 RNA Undetected (Undetected); SARS-CoV-2 Specimen Source Nasal
== END 2020-02-15 10:10 ==
PROVIDERS: PCP Nurse Practitioner Adult Health; Visit Provider Nurse Practitioner Adult Health
DX: J06.9 Acute upper respiratory infection, unspecified (principal)
CPT/HCPCS: U0003

== ENCOUNTER 2020-02-29 04:21 | Outpatient (CLI) | payer MEDICARE, MEDICAID, SELFPAY ==
[2020-02-29 12:00] LABS: ALT 72 U/L (16-63); AST 83 U/L (15-37); Albumin 3.9 g/dL (3.4-5.0); Alkaline Phosphatase 121 U/L (46-116); Anion Gap 13.2 mmol/L (3-11); BUN 8 mg/dL (7-18); Bilirubin, Total 0.5 mg/dL (0.2-1.0); CO2 25.8 mmol/L (21.0-32.0); CREATININE 1.07 mg/dL (0.70-1.30); Calcium 9.1 mg/dL (8.5-10.1); Calculated LDL 174 mg/dL (<100); Chloride 101 mmol/L (98-107); Cholesterol 260 mg/dL (<200); Ferritin 500 ng/mL (26-388); Glucose 127 mg/dL (74-106); HDL Cholesterol 53 mg/dL (40-60); Sodium 140 mmol/L (136-145); TSH (W/Ref FT4) 1.73 uIU/mL (0.36-3.74); Total Protein 7.5 g/dL (6.4-8.2); Triglyceride 168 mg/dL (<150)
[2020-02-29 12:10] LABS: Lipase 151 U/L (73-393)
[2020-02-29 14:28] LABS: Vitamin D 25 Total 42.6 ng/ml (30-100)
[2020-03-01 10:08] LABS: HIV-1/2 Ag & Ab Screen Negative (Negative)
[2020-03-01 10:50] LABS: Hepatitis A Antibody IgM Negative (Negative); Hepatitis B Core Antibody Negative (Negative); Hepatitis B surface Ag Negative (Negative); Hepatitis C Ab w Rflx HCV PCR Negative (Negative)
== END 2020-02-29 04:41 ==
PROVIDERS: PCP Nurse Practitioner Adult Health; Visit Provider Nurse Practitioner Adult Health
DX: I10 Essential (primary) hypertension (principal); E78.5 Hyperlipidemia, unspecified; F32.9 Major depressive disorder, single episode, unspecified; K21.9 Gastro-esophageal reflux disease without esophagitis; M81.0 Age-related osteoporosis without current pathological fracture; E66.01 Morbid (severe) obesity due to excess calories; Z11.4 Encounter for screening for human immunodeficiency virus [HIV]; E55.9 Vitamin D deficiency, unspecified; K76.0 Fatty (change of) liver, not elsewhere classified; R07.9 Chest pain, unspecified
CPT/HCPCS: 36415; 80053; 80061; 82306; 83690; 86704; 86709; 86803; 87340; 87389; 82728; 84443

== ENCOUNTER → 2020-05-29 12:42 | Outpatient (BNVA) | payer MEDICARE, MEDICAID, SELFPAY | PROVIDERS: PCP Nurse Practitioner Adult Health; Visit Provider Student in an Organized Health Care Education/Training Program | DX: G57.13 Meralgia paresthetica, bilateral lower limbs (principal); G89.21 Chronic pain due to trauma | CPT/HCPCS: 99213 ==

== ENCOUNTER 2020-06-09 02:33 | Outpatient (CLI) | payer MEDICARE, MEDICAID, SELFPAY ==
[2020-06-09 14:44] LABS: HCT 51.5 % (40.0-50.0); HGB 17.3 g/dL (13.5-17.5); MCH 32.8 pg (27.0-33.0); MCHC 33.6 % (32.0-36.0); MCV 97.7 fL (80-95); MPV 12.2 fL (8.0-11.0); Platelet Count 75 10^3/uL (130-400); RBC 5.27 10^6/uL (4.36-5.78); RDW 12.9 % (11.8-14.1); RDW-SD 46.4 fL; WBC 7.49 10^3/uL (4.4-10.8)
[2020-06-09 15:54] LABS: ALT 54 U/L (16-63); AST 78 U/L (15-37); Albumin 3.7 g/dL (3.4-5.0); Alkaline Phosphatase 127 U/L (46-116); Bilirubin, Total 0.7 mg/dL (0.2-1.0); Ferritin 406 ng/mL (26-388); Total Protein 7.4 g/dL (6.4-8.2)
[2020-06-09 17:14] LABS: Total Iron Binding Capacity 416 ug/dL (250-450)
[2020-06-09 21:36] LABS: Bilirubin, Direct 0.3 mg/dL (0.0-0.2)
[2020-06-12 08:38] LABS: Transferrin 274 mg/dL (201-352)
== END 2020-06-09 02:34 | disposition home or self-care (01) ==
LOC: LBO 02:33
PROVIDERS: PCP Nurse Practitioner Adult Health; Visit Provider Nurse Practitioner Adult Health
DX: R73.01 Impaired fasting glucose (principal); K76.0 Fatty (change of) liver, not elsewhere classified; R79.89 Other specified abnormal findings of blood chemistry; K21.9 Gastro-esophageal reflux disease without esophagitis
CPT/HCPCS: 36415; 80076; 85027; 82728; 83550; 84466

== ENCOUNTER 2020-07-11 02:11 | Outpatient (CLI) | payer MEDICARE, MEDICAID, SELFPAY ==
[2020-07-12 12:52] LABS: COVID-19 RT-PCR UVMMC Result Negative (Negative)
== END 2020-07-11 02:12 | disposition home or self-care (01) ==
LOC: LBO 02:12
PROVIDERS: PCP Nurse Practitioner Adult Health; Visit Provider Nurse Practitioner Adult Health
DX: Z20.822 Contact with and (suspected) exposure to COVID-19 (principal)
CPT/HCPCS: U0003; U0005

== ENCOUNTER 2020-08-08 03:16 | Outpatient (CLI) | payer MEDICARE, MEDICAID, SELFPAY ==
[2020-08-08 10:22] LABS: ESR 9 mm/hr (0-15)
[2020-08-08 10:24] LABS: Abs Immature Grans 0.02 10^3/uL (0.0-0.06); Absolute Lymphocyte Count 2.25 10^3/uL (1.2-3.4); Absolute Monocyte Count 0.73 10^3/uL (0.1-0.8); Absolute Neutrophil Count 4.35 10^3/uL (1.2-6.7); Basophils % 1.3; Eosinophils % 1.3; HCT 49.7 % (40.0-50.0); HGB 16.8 g/dL (13.5-17.5); Immature Grans % 0.3; Lymphocytes % 29.8; MCH 33.9 pg (27.0-33.0); MCHC 33.8 % (32.0-36.0); MCV 100.2 fL (80-95); MPV 10.1 fL (8.0-11.0); Monocytes % 9.7; Neutrophils % 57.6; Nucleated RBC 0 %; Platelet Count 134 10^3/uL (130-400); RBC 4.96 10^6/uL (4.36-5.78); RDW 12.6 % (11.8-14.1); RDW-SD 47.2 fL; WBC 7.55 10^3/uL (4.4-10.8)
[2020-08-08 11:47] LABS: Calculated LDL 171 mg/dL (<100); Cholesterol 256 mg/dL (<200); Ferritin 377 ng/mL (26-388); HDL Cholesterol 58 mg/dL (40-60); Triglyceride 138 mg/dL (<150)
[2020-08-08 12:05] LABS: C-Reactive Protein 0.91 mg/dL (0.0-0.3)
[2020-08-09 11:36] LABS: Transferrin 304 mg/dL (201-352)
== END 2020-08-08 03:17 | disposition home or self-care (01) ==
LOC: LBO 03:17
PROVIDERS: PCP Nurse Practitioner Adult Health; Visit Provider Nurse Practitioner Adult Health
DX: E78.5 Hyperlipidemia, unspecified (principal); R79.82 Elevated C-reactive protein (CRP); R79.89 Other specified abnormal findings of blood chemistry; R79.0 Abnormal level of blood mineral; D69.6 Thrombocytopenia, unspecified; J44.1 Chronic obstructive pulmonary disease with (acute) exacerbation; K76.0 Fatty (change of) liver, not elsewhere classified
CPT/HCPCS: 36415; 80061; 85652; 82728; 84466; 85025; 86140

== ENCOUNTER 2020-08-15 01:44 | Outpatient (CLI) | payer MEDICARE, MEDICAID, SELFPAY ==
--- NOTE | 2020-08-15 07:00 | DI.US_ITS ---
Exam(s) US ABDOMEN EXAM: US ABDOMEN CLINICAL HISTORY: F/U hepatic steatosis; concern for worsen lIVER DISEASE, R79.89.D69.6,K76.0 TECHNIQUE: Ultrasound abdomen performed using standard protocol. CR XR hip LT complete AP pelvis from 09/09/2018 CR XR hip LT complete AP pelvis from 09/09/[address] THORAX CTA from 05/08/[address] THORAX CTA from 05/08/2019 FINDINGS: LIVER: Enlarged as 18.7 cm. Moderate increased echogenicity consistent with fatty infiltration. Pos terior portions of the liver are suboptimally visualized. 12 millimeter cyst left lobe.. GALLBLADDER: No evidence of cholelithiasis. No evidence of wall thickening. No pericholecystic fluid identified. LEE'S SIGN: Negative. BILIARY SYSTEM: No intrahepatic or extrahepatic biliary ductal dilation. KIDNEYS: Kidneys are symmetric in size. Question of small nonobstructing stone mid left kidney. No e vidence of hydronephrosis. No renal mass or cyst identified. PANCREAS: Poorly visualized. SPLEEN: Not enlarged. Granulomas. ABDOMINAL AORTA AND IVC: Visualized portions normal caliber. ASCITES: None seen. IMPRESSION: Moderate hepatic steatosis. Liver cyst. Question of of stone midpole left kidney versus artifact. DATA REPOSITORY:
== END 2020-08-15 02:04 ==
PROVIDERS: PCP Nurse Practitioner Adult Health; Visit Provider Nurse Practitioner Adult Health
DX: K76.0 Fatty (change of) liver, not elsewhere classified (principal); D69.6 Thrombocytopenia, unspecified; R79.89 Other specified abnormal findings of blood chemistry; K76.89 Other specified diseases of liver
CPT/HCPCS: 76700

== ENCOUNTER → 2020-09-08 12:55 | Outpatient (BNVA) | payer MEDICARE, MEDICAID, SELFPAY | PROVIDERS: PCP Nurse Practitioner Adult Health; Referring Provider Nurse Practitioner Adult Health; Visit Provider Physical Therapy Assistant | DX: Z12.11 Encounter for screening for malignant neoplasm of colon (principal); I10 Essential (primary) hypertension; J44.9 Chronic obstructive pulmonary disease, unspecified ==

== ENCOUNTER 2020-09-12 02:55 | Outpatient (CLI) | payer MEDICARE, MEDICAID, SELFPAY ==
[2020-09-12 10:09] LABS: Source Nasal/Nares
[2020-09-12 20:17] LABS: COVID-19 PCR Negative (Negative)
== END 2020-09-12 02:56 | disposition home or self-care (01) ==
PROVIDERS: PCP Nurse Practitioner Adult Health; Visit Provider Surgery
DX: Z20.822 Contact with and (suspected) exposure to COVID-19 (principal); Z01.818 Encounter for other preprocedural examination
CPT/HCPCS: 87635

== ENCOUNTER 2020-09-14 07:50 | Day surgery (SDC) | payer MEDICARE, MEDICAID, SELFPAY ==
[2020-09-14 07:55] VITALS: BP 158/98; PULSE 89; RESP 18; TEMP 36.6; O2SAT 98
[2020-09-14] MEDS: Lactated Ringers 1,000 ML 80 ML IV (08:43)
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
--- NOTE | 2020-09-14 09:49 | W.ANESPOSTOP ---
Postoperative Evaluation Date, Time and Location Date Performed: 09/14/20 Time Performed: 11:49 Patient Location: Day Surgery Unit Vital Signs Most Recent Imported Vital Signs: Most Recent Vital Signs Temp Pulse Resp BP Pulse Ox 36.6 C 89 18 158/98 H 98 09/14/20 07:55 09/14/20 07:55 09/14/20 07:55 09/14/20 07:55 09/14/20 07:55 Most Recent Manually Entered Vital Signs: Adult Blood Pressure: 124/88 Heart Rate: 84 Respirations: 18 Oxygen Saturation (%): 98 Temperature (C): 36.2 C Pain Score (0-10 Scale): 0 Pain Score Most Recent Pain Score: o Assessment Mental Status: Awake (Alert & Oriented to Patient Baseline) Airway and Respiratory Function: Patent airway with normal (patient baseline) respiratory exam Cardiovascular Function: Hemodynamically Stable Hydration Status: Adequately Hydrated Nausea & Vomiting: No Nausea or Vomiting Pain: Pt. Denies Any Pain Peripheral Nerve Block: Patient did not receive a nerve block
[2020-09-14 09:59] VITALS: BMI 40.1
--- NOTE | 2020-09-14 10:30 | BOWEL_PTH ---
PATIENT: John Mays LOC: [facility] U#:[id number] AGE/SX: 50/M ROOM: RE09/14/[address]: Reginald Quinteros : 1970 BED: DIS: 09/14/2020 SPEC #: [id number] RECD: 09/14/20 12:37 STATUS: PATRICIA RE #: [id number] LISA: 09/14/20 10:[address]: Reginald Quinteros DEPT: Surgical Specimen RECD BY: Sonja Hickman ENTERED: 09/14/20 12:38 SP TYPE: Bowel OTHR DR: Love Schofield, HELENA Tissues: 1 - BIOPSY BOWEL 2 - BIOPSY BOWEL 3 - BIOPSY BOWEL 4 - BIOPSY BOWEL 5 - BIOPSY BOWEL Procedures: GROSS AND MICRO LEVEL 4 Comments: [id number]
[2020-09-14 11:45] VITALS: BP 124/88; PULSE 76; RESP 18; TEMP 36.2; O2SAT 98
--- NOTE | 2020-09-14 11:50 | W.COLOREPORT ---
Date of service: 09/14/20 Time of Service: 11:50 Colonoscopy Report Date of procedure: 09/14/20 Pre-op diagnosis general: screening for colorectal cancer Post-op diagnosis procedure note: same Procedure: Colonoscopy and polypectomy Surgeon: Reginald Quinteros Anesthesia Type: MAC Estimated blood loss (mL): 5 Pathology: other (1. descending colon polyp @ 40cm 2.descending colon polyp @ 35cm 3. descending colon polyp @ 30cm 4. descending colon polyp @ 25cm 5. descending colon polyp @ 20cm) Complications: None Disposition: same day Indications: 50 yo male for first colonoscopy screening for colorectal cancer with some loose stools and mucus in stool. Prep: Miralax/Dulcolax Retraction Time: >30 minute Findings: Multiple polyps in descending colon Procedure Description: After informed consent was obtained, the patient was taken to the procedure room and placed in a left decubitus position. Monitors were applied and a time out was done. The patient's name, date of , procedure, allergies to medications, and metal in their body were reviewed. The patient was then sedated. Once sedated and comfortable, a digital rectal exam was done. External exam showed external hemorrhoids. Internal exam revealed normal sphincter tone, and no palpable masses or gross blood. The colonoscope was then introduced and advanced to the cecum under direct visualization with minimal difficulty. The ileocecal valve and appendiceal orifice were visualized. The prep was good. The scope was then slowly withdrawn over 30 minutes in a circumferential manner to the rectum. In doing so, numerous polyps were encountered in the descending colon. These were mostly taken by cold forceps. One lesion was removed at 30cm with hot snare. It was difficult to achieve polypectomy of all visualized polyps as there was a lot of mobility with heavy respirations. At least one polyp was >10mm. There was moderate left-sided diverticulosis noted. The mucosa is pink and healthy. There was scant mucus noted in the rectosigmoid. In the rectum, the scope was retroflexed, and Grade I internal hemorrhoids were noted. The scope was straightened and withdrawn from the anus. The patient tolerated the procedure well, and there were no immediate complications. The patient was taken to the Day Surgery Unit recovery area in good condition. Follow up: 6 months - 1 year, for unretrieved polyps
[2020-09-14 11:51] VITALS: BP 124/88; PULSE 84; RESP 18; TEMPC 36.2; O2SAT 98
[2020-09-14 12:15] VITALS: BP 170/97; PULSE 61; RESP 17; TEMP 36.4; O2SAT 98
== END 2020-09-14 12:17 ==
LOC: SUR 07:50
PROVIDERS: PCP Nurse Practitioner Adult Health; Visit Provider Surgery
PROC: 0DJD8ZZ Inspection of Lower Intestinal Tract, Via Natural or Artificial Opening Endoscopic (ICD-10-PCS; CPT 45378; principal; 2020-09-14 09:30)
DX: Z12.11 Encounter for screening for malignant neoplasm of colon (principal); K63.5 Polyp of colon; K76.0 Fatty (change of) liver, not elsewhere classified; F10.20 Alcohol dependence, uncomplicated; I10 Essential (primary) hypertension; J44.9 Chronic obstructive pulmonary disease, unspecified; K21.9 Gastro-esophageal reflux disease without esophagitis
CPT/HCPCS: 45385; 45380; 88305; J2704

== ENCOUNTER 2021-01-03 03:01 | Outpatient (CLI) | payer MEDICARE, MEDICAID, SELFPAY ==
--- NOTE | 2021-01-03 09:00 | DI.CT_ITS ---
Exam(s) CT RENAL COLIC WO EXAM: CT RENAL COLIC WO CLINICAL HISTORY: r/o kidney stone on L--08/11 U/S ID pt +LT FLANK PAIN, R10.9. TECHNIQUE: Imaging Protocol: Axial computed tomography images with coronal and sagittal reformatted images were created and reviewed CONTRAST MATERIAL: Intravenous: none Oral: None COMPARISON: CT CT THORAX CTA from 05/08/2019 FINDINGS: VISUALIZED LUNG BASES: No nodules nor pleural effusions evident. ABDOMEN: There is no ascites. LIVER: There is again noted be enlarged and hypodense implying steatosis. Small hypodensity in the l eft hepatic lobe is most probably a small benign hemangioma, given its appearance on the chest CTA [facility] of 05/08/2019. Also calcified granuloma in the right hepatic lobe. GALLBLADDER/BILIARY: No obvious gallbladder pathology. CBD is not dilated. PANCREAS: No evidence of pancreatic mass nor dilatation of the pancreatic duct. SPLEEN: Spleen size is normal. There are multiple calcified granulomas in the inferior half of the s pleen noted, seen on the prior CT study. ADRENALS: There are no significant adrenal masses. KIDNEYS:No cysts evident. No solid renal masses. No hydronephrosis. However, there are 2 small nono bstructive calculi in left kidney both measuring approximately 2-3 millimeters and there is a similar size nonobstructive calculus in the lower pole of the opposite-right kidney noted. There is a possi soniya that these calcifications may be within distal vessels-vascular calcification although there is n o other more proximal vascular calcification evident. No hydronephrosis nor hydroureter. Bladder is not distended but difficult to assess because of beam hardening artifact from bilateral hip prosthes es.. ABDOMINAL AORTA: Abdominal aorta is not enlarged. LYMPH NODES: There is no retroperitoneal nor paraaortic adenopathy. ABDOMINAL WALL: No evidence of significant anterior abdominal wall nor inguinal hernia. GI: There is no evidence of bowel obstruction, free air, nor abscess. PELVIS: LYMPH NODES: There is no intrapelvic nor inguinal adenopathy. GI: No evidence of appendicitis.There is sigmoid diverticuli but no evidence of acute diverticulitis. URINARY BLADDER: As above. Obscured by beam hardening artifact from bilateral hip prostheses. REPRODUCTIVE: Prostate not enlarged. Partially obscured by beam hardening artifact. OSSEOUS: Bilateral hip prostheses. IMPRESSION: 1. Hepatomegaly and hepatic steatosis. Small benign hemangioma in the left hepatic lobe. Calcified granulomas are noted in both the liver and spleen 2. There 2 small calcifications in the left kidney and a single similar size small 2-3 millimeter roge cification in the right kidney. These are probably calculi although cannot totally exclude distal re nal artery calcification. Nevertheless, these are nonobstructive. Is no hydronephrosis nor hydroure ter. The bladder is obscured by beam hardening artifact from the bilateral hip prostheses. 3. Sigmoid diverticuli but no evidence of acute diverticulitis. Bilateral hip prostheses. RADIATION DOSE DELIVERED: 1,206.77mGy.cm Total DLP DATA REPOSITORY: All CT scans at this facility are submitted to the National Radiology Data Registry (NRDR) Dose Index Registry (DIR) with the [employer] (A[employer]). RADIATION OPTIMIZATION: All CT scans at this facility use at least one of these dose optimization te chniques: automated exposure control; mA and/or kV adjustment per patient size (includes targeted exa ms where dose is matched to clinical indication); or iterative reconstruction.
== END 2021-01-03 03:21 ==
PROVIDERS: PCP Nurse Practitioner Adult Health; Visit Provider Nurse Practitioner Adult Health
DX: R10.84 Generalized abdominal pain (principal); K76.0 Fatty (change of) liver, not elsewhere classified; R16.0 Hepatomegaly, not elsewhere classified; D18.09 Hemangioma of other sites; K75.3 Granulomatous hepatitis, not elsewhere classified; N20.0 Calculus of kidney; K57.30 Diverticulosis of large intestine without perforation or abscess without bleeding
CPT/HCPCS: 74176

== ENCOUNTER 2021-02-13 04:14 | Outpatient (CLI) | payer MEDICARE, MEDICAID, SELFPAY ==
[2021-02-13 10:53] LABS: Bilirubin Negative (Negative); Blood Negative (Negative); Clarity Clear (Clear); Glucose Negative (Negative); Ketones Negative (Negative); Leukocyte Esterase Negative (Negative); Nitrite Negative (Negative); Specific Gravity 1.025 (1.005-1.025); Urobilinogen 0.2 EU/dL (Up TO 0.2); pH 5.5 (5-8)
[2021-02-13 11:11] LABS: Hemoglobin A1C 5.6 % (<5.7)
[2021-02-13 11:53] LABS: ALT 42 U/L (16-63); AST 41 U/L (15-37); Albumin 3.9 g/dL (3.4-5.0); Alkaline Phosphatase 114 U/L (46-116); Anion Gap 8.8 mmol/L (3-11); BUN 15 mg/dL (7-18); Bilirubin, Total 0.7 mg/dL (0.2-1.0); CO2 27.2 mmol/L (21.0-32.0); Calculated LDL 188 mg/dL (<100); Chloride 103 mmol/L (98-107); Cholesterol 276 mg/dL (<200); Glucose 112 mg/dL (74-106); HDL Cholesterol 55 mg/dL (40-60); Potassium 4.4 mmol/L (3.5-5.1); Sodium 139 mmol/L (136-145); Total Protein 7.6 g/dL (6.4-8.2); Triglyceride 169 mg/dL (<150)
[2021-02-15 02:02] LABS: Vitamin D 25 Total 30.6 ng/mL (30-100)
== END 2021-02-13 04:15 | disposition home or self-care (01) ==
LOC: LBO 04:14
PROVIDERS: PCP Nurse Practitioner Adult Health; Visit Provider Nurse Practitioner Adult Health
DX: E78.5 Hyperlipidemia, unspecified; K76.0 Fatty (change of) liver, not elsewhere classified; R73.01 Impaired fasting glucose; M81.0 Age-related osteoporosis without current pathological fracture; R79.89 Other specified abnormal findings of blood chemistry; N20.0 Calculus of kidney
CPT/HCPCS: 36415; 80053; 80061; 82306; 81003; 83036

== ENCOUNTER 2021-07-31 01:19 | Outpatient (CLI) | payer MEDICARE, MEDICAID, SELFPAY ==
[2021-07-31 12:41] LABS: ALT 49 U/L (16-63); AST 54 U/L (15-37); Albumin 3.7 g/dL (3.4-5.0); Alkaline Phosphatase 130 U/L (46-116); Anion Gap 10.6 mmol/L (3-11); BUN 12 mg/dL (7-18); Bilirubin, Total 0.8 mg/dL (0.2-1.0); CO2 28.4 mmol/L (21.0-32.0); Calcium 8.9 mg/dL (8.5-10.1); Calculated LDL 180 mg/dL (<100); Chloride 100 mmol/L (98-107); Cholesterol 276 mg/dL (<200); Glucose 119 mg/dL (74-106); HDL Cholesterol 70 mg/dL (40-60); Potassium 4.2 mmol/L (3.5-5.1); Sodium 139 mmol/L (136-145); Total Protein 7.4 g/dL (6.4-8.2); Triglyceride 133 mg/dL (<150)
== END 2021-07-31 01:20 | disposition home or self-care (01) ==
LOC: LBO 01:20
PROVIDERS: PCP Nurse Practitioner Adult Health; Visit Provider Nurse Practitioner Adult Health
DX: E66.9 Obesity, unspecified (principal); E78.5 Hyperlipidemia, unspecified; F17.200 Nicotine dependence, unspecified, uncomplicated; F10.29 Alcohol dependence with unspecified alcohol-induced disorder
CPT/HCPCS: 36415; 80053; 80061

== ENCOUNTER → 2021-08-16 02:22 | Outpatient (CLI) | payer MEDICARE, MEDICAID, SELFPAY ==
--- NOTE | 2021-08-16 08:30 | DI.US_ITS ---
Exam(s) US ABDOMEN EXAM: US ABDOMEN CLINICAL HISTORY: Measure assess liver; last US 08/11, HEPATIC STEATOSIS, HEPATOMEGALY TECHNIQUE: Ultrasound abdomen performed using standard protocol. COMPARISON: US US ABDOMEN from 08/15/2020 FINDINGS: Examination limited by overlying bowel. ABDOMINAL AORTA AND IVC: Visualized portions normal caliber. PANCREAS: Normal where visualized. LIVER: Diffuse increased echogenicity of the liver consistent with fatty infiltration. The liver coco sures 22 cm long. There is a stable cyst in the left lobe of the liver. There is a calcified granul jon in the right lobe. These are present on prior CT scans. Hepatopedal flow in the Portal Vein. GALLBLADDER:No evidence of cholelithiasis. No evidence of wall thickening. No pericholecystic fluid i dentified. There is an echogenic focus along the wall of the gallbladder which may reflect adenomyoma tosis. BILIARY SYSTEM: No intrahepatic biliary ductal dilation. The common duct cannot be visualized due to overlying bowel. LEE'S SIGN: Negative. KIDNEYS: Kidneys are symmetric in size. There is an echogenic focus in the right kidney which may rep resent a nonobstructing stone. No evidence of hydronephrosis. No renal mass or cyst identified. SPLEEN: Not enlarged. ASCITES: None seen. IMPRESSION: 1. Examination limited by overlying bowel gas. 2. Hepatomegaly and hepatic steatosis. No evidence of a solid hepatic mass. 3. Echogenic focus in the right kidney suspicious for nonobstructing stone. DATA REPOSITORY:
== END ==
PROVIDERS: PCP Nurse Practitioner Adult Health; Visit Provider Nurse Practitioner Adult Health
DX: K76.0 Fatty (change of) liver, not elsewhere classified (principal); R16.0 Hepatomegaly, not elsewhere classified; K76.89 Other specified diseases of liver; N20.0 Calculus of kidney
CPT/HCPCS: 76700

== ENCOUNTER → 2021-09-25 13:21 | Outpatient (BNVA) | payer MEDICARE, MEDICAID, SELFPAY | PROVIDERS: PCP Nurse Practitioner Adult Health; Referring Provider Nurse Practitioner Adult Health; Visit Provider Surgery | DX: J45.909 Unspecified asthma, uncomplicated (principal); K21.9 Gastro-esophageal reflux disease without esophagitis; K63.5 Polyp of colon; E66.9 Obesity, unspecified; J44.9 Chronic obstructive pulmonary disease, unspecified ==

== ENCOUNTER 2021-11-19 03:43 | Outpatient (CLI) | payer MEDICARE, MEDICAID, SELFPAY ==
[2021-11-19 14:41] LABS: Source Nasal/Nares
[2021-11-19 17:05] LABS: COVID-19 PCR Negative (Negative)
== END 2021-11-19 03:44 | disposition home or self-care (01) ==
LOC: LBO 03:43
PROVIDERS: PCP Nurse Practitioner Adult Health; Visit Provider Surgery
DX: Z01.818 Encounter for other preprocedural examination (principal); Z20.822 Contact with and (suspected) exposure to COVID-19
CPT/HCPCS: 87635

== ENCOUNTER 2021-11-21 07:15 | Day surgery (SDC) | payer MEDICARE, MEDICAID, SELFPAY ==
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
--- NOTE | 2021-11-21 06:58 | W.PM.DSUDISC ---
Discharge Plan Disposition Patient Disposition: HOME Condition: Good Discharge Details Reason For Visit: colo/egd Attending Provider: Tran Pedersen Primary Care Provider: Love Schofield Home Meds and New Rx's Prescriptions: New omeprazole 40 mg capsule,delayed release(DR/EC) 40 mg PO BID Qty: 60 3RF sucralfate [Carafate] 1 gram tablet 1 g PO QID Qty: 56 0RF Rx Instructions: take 30 minutes before meals and at bedtime for 2 weeks Continued albuterol sulfate [ProAir HFA] 90 mcg/actuation HFA aerosol inhaler 2 puff IH Q6H PRN (Reason: shortness of breath or wheezing) Qty: 18 1RF Rx Instructions: this is your rescue inhaler fluticasone propion-salmeterol [Advair Diskus] 250-50 mcg/dose blister with device 2 ea Inhalation DAILY Qty: 60 3RF Rx Instructions: Brand name is less expensive -- please dispense. lidocaine 5 % ointment 1 applic topical TID PRN (Reason: pain/numbness) Qty: 240 0RF thiamine HCl (vitamin B1) 100 mg tablet 100 mg PO DAILY Qty: 90 3RF Rx Instructions: Wellness atorvastatin 10 mg tablet 10 mg PO QHS Qty: 90 3RF Hold Instructions: Home Medication placed on hold at Doctor's office Rx Instructions: Elevated LDL 180 propranolol 10 mg tablet 10 mg PO BID Qty: 180 3RF citalopram 20 mg tablet 20 mg PO DAILY Qty: 90 3RF Rx Instructions: For mood Discontinued famotidine 20 mg tablet 20 mg PO QHS Qty: 90 3RF Rx Instructions: Heartburn (stop pantoprazole) Discharge Instructions Instructions: Colorectal Polyps (DC), Diverticulosis (DC), Diet for Stomach Ulcers and Gastritis (ED), Gastritis (DC), Esophagitis (DC) Additional Instructions: Findings: multiple polyps mild diverticulosis Inflammation of the stomach and esophagus Follow up: 2 to 3 weeks Please call if you develop: fevers >101.5 Nausea or Vomiting Abdominal pain that is not transient Rectal bleeding that is more then a tbsp A hard abdomen and inability to pass gas DAY SURGERY UNIT POST ENDOSCOPY INSTRUCTIONS Instructions for everyone who is given Anesthesia: For your safety, please do the following for the next 24 Hours: a. Do not drive or operate dangerous equipment b. Do not drink alcohol beverages or use any recreational drugs for the first 24 hours or while taking pain medications. The medications in your body may have a reaction that can be dangerous. c. Do not make any important decisions or sign any important papers 1. Generally there are no restrictions on your activity after a day or so has gone by, but you may feel a bit fatigued for a few days. 2. After you arrive home you may have a light meal and return to a normal diet as you can tolerate it without feeling sick to your stomach. 3. After surgery, you may feel pain or discomfort. This should be only transient, but if it persists please contact your doctor. 4. If there are any questions regarding the findings of your procedure, please feel free to contact your doctor. 6. If you are unable to contact your doctor with a problem, contact the hospital at [phone]. 7. Continue all your regular medications unless directed otherwise. I understand the above instructions and have no questions. Signature of Patient or Responsible Adult Escort Date/Time Name of Responsible Adult Escort Signature of Nurse Date/Time Activity:: Activity as Tolerated Diet:: low acid and high fiber Discharge Orders Discharge Orders: Discharge Order (Routine); Ordered 11/21/21 Ordered By: Tran Pedersen DS: Diagnosis Discharge Diagnosis (1) GERD (gastroesophageal reflux disease): Status: Chronic (2) Polyp, colonic: Status: Acute
--- NOTE | 2021-11-21 06:59 | ENDO_ITS ---
Date of service: 11/21/21 Time of Service: : Endoscopy Report DATE OF PROCEDURE: 11/21/21 PRE-OP DIAGNOSIS: GERD, constipation, hx of polyps POST-OP DIAGNOSIS: other (gastritis and esophagitis, colorectal polyps and diverticulosis) PROCEDURE: 1. EGD with biopsies 2. Colonoscopy with polypectomy SURGEON: Tran Pedersen ANESTHESIA TYPE: General LMA/ETT ESTIMATED BLOOD LOSS: 5 PATHOLOGY: other (Bx of antrum, body and GE junction; cecal polyps x2, ascending polyps x3, Transverse polyp, descending polyp and sigmoid polyps x7) COMPLICATIONS: None DISPOSITION: PACU INDICATIONS: Mr. Mays is a pleasant 51 year old who is here today to discuss another colonoscopy as well as an EGD. He underwent a colonoscopy last year. He had multiple polyps. There was worry by the provider that they may have missed polyps due to the patients heavy breathing.? He denies any changes in bowel habits, melena, hematochezia, and weight loss. He has no family history of colon cancer. He also has had worsening GERD symptoms with N/V usually mid-morning.? He will sometimes have dry heaves as well. He is on Famotidine which helps a bit. He has never had an EGD before. He tells me that with his colonoscopy last year he woke up with a swollen and cut lip as well as pain under his jaw. He is waiting for an appointment at the sleep clinic. He is obese and has a short and thick neck. He also has a diagnoses of COPD, Asthma and depression. He is not able to walk up a flight of stairs without being SOB.? He still smokes, although he has cut down to a couple of cigarretts per day. He also is still drinking alcohol, although he has cut down as well. He now will have 2 mixed drinks per day. PREP: Miralax/Dulcolax PROCEDURE START TIME: :25 PROCEDURE END TIME: 10:18 COLONOSCOPY RETRACTION TIME: 32 minutes FINDINGS: Inflammation of the stomach and esophagus Numerous polyps and mild diverticulosis of the sigmoid colon PROCEDURE DESCRIPTION: After informed consent was obtained the patient was take to the procedure room and placed in a supine position. Monitors were applied and a time out was done. The patients name, date of , procedure type, allergies to medications and metal in their body was reviewed. A bite block was placed and the patient was sedated. Once sedated and comfortable the gastroscope was advanced through the oropharynx which was grossly normal into the esophagus. The proximal and mid- esophagus were normal. In the distal esophagus there was mild inflammation noted. The scope was advanced into the stomach and through the pylorus into the 3rd portion of the duodenum. The duodenum was noted to be normal. The scope was retracted back into the stomach. There was mild to moderate inflammation noted in the antrum and body. Biopsies were done to rule out H. pylori. There were no ulcers. The scope was retro-flexed. The cardia and fundus were noted to be normal. There was no hiatal hernia noted. The scope was retracted back into the esophagus and biopsies were done of the GE junction to rule out Farrell's. The Z line was regular. The GE junction was at 35 cm. While the patient was still sedated they were placed in a left decubitous position. A rectal exam was done. External exam was normal. Internal exam revealed a normal sphincter tone and no palpable masses. The prostate was smooth. The scope was then introduced and retro-flexed. No internal hemorrhoids, masses or polyps were identified on retroflexion. The scope was then advanced to the cecum without difficulty. The ileocecal valve and appendiceal orifice were identified. The prep was good. The scope was then slowly retracted over 32 minutes back into the rectum. Polyps were removed with hot snare in the cecum x2, ascending colon x1 and transverse colon x1; and with cold snare in the asce nding colon x2, descending colon x2 and sigmoid colon x7. There was mild diverticulosis noted in the sigmoid colon. The scope was removed and the patient was woken up and taken back to Same day surgery in stable condition. The patient tolerated the procedure well and there were no immediate complications.
[2021-11-21 07:20] VITALS: BP 150/96; PULSE 104; RESP 16; TEMP 36.4; O2SAT 96
[2021-11-21] MEDS: Lactated Ringers 1,000 ML 80 ML IV (07:50)
--- NOTE | 2021-11-21 08:09 | W.ANESPRE ---
General Info Date of Service Date Performed: 11/21/21 Height: 5 ft 7 in Weight: 126.8 kg Body Mass Index (BMI): 43.7 Surgical Procedure: Operation Date: 11/21/21 08:35 Proposed Procedure Side Surgeon p Colonoscopy/Gastroscopy Tran Pedersen MD Meds Allergies and Home Medications Allergies Allergy/AdvReac Type Severity Reaction Status Date / Time bee venom protein (honey bee) Allergy Severe Anaphylaxsi Verified 11/20/21 10:52 s amitriptyline AdvReac Intermediate PSYCHOSIS Verified 11/20/21 10:52 bupropion AdvReac Mild worsened Verified 11/20/21 10:52 anxiety & sleeplessness gabapentin AdvReac Mild leg Verified 11/20/21 10:52 pain/cramps venlafaxine AdvReac Mild worsened Verified 11/20/21 10:52 mood lisinopril AdvReac cough Verified 11/20/21 10:52 dust and pollen AdvReac Mild resp Uncoded 11/20/21 10:52 irritation Home Medication Medication Instructions Recorded lidocaine 5 % topical ointment 1 applic topical TID PRN 02/07/20 pain/numbness #240 grams albuterol sulfate 90 mcg/actuation 2 puff inhalation Q6H PRN 10/06/20 aerosol inhaler (ProAir HFA) shortness of breath or wheezing #18 grams fluticasone 250 mcg-salmeterol 50 2 ea inhalation DAILY #60 ea 10/06/20 mcg/dose blistr powdr for inhalation (Advair Diskus) famotidine 20 mg tablet 20 mg PO QHS #90 tabs 12/20/20 thiamine HCl (vitamin B1) 100 mg 100 mg PO DAILY #90 tabs 12/20/20 tablet atorvastatin 10 mg tablet 10 mg PO QHS #90 tabs 09/10/21 citalopram 20 mg tablet 20 mg PO DAILY #90 tabs 10/08/21 propranolol 10 mg tablet 10 mg PO BID #180 tabs 10/08/21 Current Visit Medications: Current Medications Generic Name Dose Route Start Last Admin Trade Name Freq PRN Reason Stop Dose Admin Hyoscyamine Sulfate 0.125 mg 11/21/21 07:00 Hyoscyamine 0.125 Mg Sl/Oral/Chew SL DIRECTED PRN Ringer's Solution 1,000 mls @ 80 mls/hr 11/21/21 06:00 11/21/21 07:50 IV 12/20/21 23:59 80 mls/hr INFUSION GUY Administration IV Miscellaneous Supplies 1 each 11/21/21 06:00 Iv Access IV 12/20/21 23:59 DIRECTED GUY Ondansetron HCl 4 mg 11/21/21 07:00 Ondansetron 4 Mg/2 Ml Vial IVP Q4H PRN PRN Nausea / Vomiting Sodium Chloride 0 ml 11/21/21 06:00 Normal Saline Flush 10 Ml Syr IV 12/20/21 23:59 PRN PRN Sodium Chloride 0 ml 11/21/21 06:00 Normal Saline 10 Ml Vial IJ 12/20/21 23:59 DIRECTED PRN Sterile Water 0 ml 11/21/21 06:00 Water,Injection,Sterile 10 Ml Vial IJ 12/20/21 23:59 DIRECTED PRN PFSH Active Problems Active Problems: Problem Status Onset Code GERD (gastroesophageal reflux disease) K21.9 COPD (chronic obstructive pulmonary disease) J44.9 Depression F32.9 Alcohol dependence F10.20 Dyslipidemia E78.5 Anxiety F41.9 Osteoporosis M81.0 Vitamin D deficiency E55.9 Chronic pain G89.29 Hypertension I10 Head injury due to trauma S09.90XA Hepatic steatosis ~2019 K76.0 Snoring R06.83 Tinnitus H93.19 Meralgia paresthetica of both lower extremities ~2018 G57.13 Impaired fasting glucose ~02/2021 R73.01 Obesity E66.9 Polyp, colonic K63.5 Nicotine dependence F17.200 Medical History Medical History Avascular necrosis of bone of left hip (07/30/17) s/p core decompression Diverticulosis Sigmoid colon 12/2020 CT Elevated ferritin Internal derangement of right knee (12/04/16) Kidney calculi B/L flank pain--L>R; referred 12/2020 to Urology, but pt no-showed OV 03/26/21 Thrombocytopenia Trochanteric bursitis, right hip (10/28/16) Surgical History Surgical History Displaced fracture of distal end of left humerus with malunion (~2014) S/p Repair 10/05, S/P Revision 07/07 History of inguinal hernia repair History of repair of rotator cuff pt states no tsa History of total right hip replacement Status post left hip replacement (10/20/18) B Status post osteotomy (~10/2017) S/P ORIF of left elbow Followed by ostectomy Status post right hip replacement (~2018) Tobacco Smoking/Tobacco Use Status: Current every day Tobacco Type: cigarettes Alcohol Alcohol Intake: current Alcohol intake frequency: 3 or more drinks per day Alcohol type: wine and hard liquor Details: currently working on cutting down ETOH consumption with PCP Substance Use Substance use: Occasionally Substance use type: marijuana Vital Signs and Lab Results Vital Signs Most Recent Vital Signs in EMR: Most Recent Vital Signs Temp Pulse Resp BP Pulse Ox 36.4 C L 104 H 16 150/96 H 96 11/21/21 07:20 11/21/21 07:20 11/21/21 07:20 11/21/21 07:20 11/21/21 07:20 Lab Results Blood Type / Crossmatch: No Data to Display Complete Blood Count: No Data to Display Complete Metabolic Panel: No Data to Display Liver Function Panel: No Data to Display Coagulation Panel: No Data to Display Cardiac Panel: No Data to Display Arterial Blood Gas: No Data to Display Venous Blood Gas: No Data to Display Pancreas Panel: No Data to Display Thyroid Panel: No Data to Display Infectious Disease: Coronavirus (COVID-19)(PCR) Negative (Negative) 11/19/21 14:30 Coronavirus 2019 Source Nasal/Nares 11/19/21 14:30 Blood Cultures: No Data to Display Toxicology Panel: No Data to Display Imaging and Studies Imaging and Studies Study information below may be from another EMR and interpreted by another provider. Please see original notes in EMR for more complete details. Stress Test Summary: 05/10/2019: MPI Conclusion There is normal myocardial perfusion, without evidence of ischemia or prior infarction Anesthesia Assessment and Plan Anesthesia History Personal History: No History of Anesthesia Complications Family History: No Family History of Anesthesia Complications Exercise Tolerance Exercise Tolerance: Metabolic Equivalents<4 Pertinent Negatives Pertinent Negatives: No Symptoms of GERD and No Major Cardiovascular Symptoms or Complaints Cardiac & Pulmonary Exam Cardiac Exam: Normal S1/S2 Heart Sounds Pulmonary Exam: Clear Bilateral Breath Sounds Implantable Cardiac Device Does patient have a Pacemaker or an ICD?: No Airway Exam Known Difficult Airway: No Mallampati Class: 3 Mouth Opening: Normal (> 3cm) Thyromental Distance: Greater than 3 cm Neck Range of Motion: Full ROM Neck Circumference: Thick Teeth Condition: Normal Dentition ASA Classification ASA Score: ASA 3 Emergency Case?: No NPO Status NPO Status: NPO Clears >2 hours, Solids >8 hours Anesthesia Plan Resuscitation Status: Full Code Anesthesia Technique: General Anesthesia Airway Planned: Natural Airway Monitors Used: Standard Monitors
[2021-11-21 08:10] VITALS: BMI 43.7
--- NOTE | 2021-11-21 09:28 | BOWEL_PTH ---
PATIENT: John Mays LOC: [facility] U#:[id number] AGE/SX: 51/M ROOM: RE11/21/[address]: Tran Pedersen MD : 1970 BED: DIS: 11/21/2021 SPEC #: [id number] RECD: 11/21/21 12:52 STATUS: PATRICIA REAbbi #: [id number] LISA: 11/21/21 09:[address]: Tran Pedersen DEPT: Surgical Specimen RECD BY: Sonja Hickman ENTERED: 11/21/21 12:56 SP TYPE: Bowel OTHR DR: Love Schofield APRN Tissues: 1 - STOMACH BIOPSY 2 - STOMACH BIOPSY 3 - ESOPHAGUS BIOPSY 4 - BIOPSY BOWEL 5 - BIOPSY BOWEL 6 - BIOPSY BOWEL 7 - BIOPSY BOWEL 8 - BIOPSY BOWEL Procedures: GROSS AND MICRO LEVEL 4 Comments: [id number]
[2021-11-21 10:23] VITALS: BP 132/79; PULSE 82; RESP 20; TEMP 36.1; O2SAT 96
[2021-11-21] MEDS: Hyoscyamine 0.125 MG SL/ORAL/CHEW SL (10:32)
[2021-11-21 10:57] VITALS: BP 142/85; PULSE 81; RESP 16; TEMP 36.4; O2SAT 96
--- NOTE | 2021-11-21 11:26 | W.ANESPOSTOP ---
Postoperative Evaluation Date, Time and Location Date Performed: 11/21/21 Time Performed: 11:26 Patient Location: Day [facility] Unit Vital Signs Most Recent Imported Vital Signs: Most Recent Vital Signs Temp Pulse Resp BP Pulse Ox 36.4 C L 81 16 142/85 H 96 11/21/21 10:57 11/21/21 10:57 11/21/21 10:57 11/21/21 10:57 11/21/21 10:57 Pain Score Most Recent Pain Score: Most Recent Pain Score Pain Level 0 11/21/21 10:23 Assessment Mental Status: Awake (Alert & Oriented to Patient Baseline) Airway and Respiratory Function: Patent airway with normal (patient baseline) respiratory exam Cardiovascular Function: Hemodynamically Stable Hydration Status: Adequately Hydrated Nausea & Vomiting: No Nausea or Vomiting Pain: Pt. Denies Any Pain Peripheral Nerve Block: Patient did not receive a nerve block
== END 2021-11-21 11:44 | disposition home or self-care (01) ==
PROVIDERS: PCP Nurse Practitioner Adult Health; Visit Provider Surgery
PROC: (CPT 45385; principal; 2021-11-21 08:30)
DX: K21.9 Gastro-esophageal reflux disease without esophagitis (principal); K29.70 Gastritis, unspecified, without bleeding; K20.90 Esophagitis, unspecified without bleeding; K57.30 Diverticulosis of large intestine without perforation or abscess without bleeding; K59.00 Constipation, unspecified; K63.5 Polyp of colon; Z86.010 Personal history of colon polyps; J44.9 Chronic obstructive pulmonary disease, unspecified; K76.0 Fatty (change of) liver, not elsewhere classified; F10.20 Alcohol dependence, uncomplicated; K22.89 Other specified disease of esophagus; K31.89 Other diseases of stomach and duodenum
CPT/HCPCS: 45385; 43239; 88305; J2704; J3490

== ENCOUNTER → 2021-12-11 14:00 | Outpatient (BNVA) | payer MEDICARE, MEDICAID, SELFPAY | PROVIDERS: PCP Nurse Practitioner Adult Health; Referring Provider Nurse Practitioner Adult Health; Visit Provider Surgery | DX: Z48.815 Encounter for surgical aftercare following surgery on the digestive system (principal); K21.9 Gastro-esophageal reflux disease without esophagitis; Z86.010 Personal history of colon polyps ==

== ENCOUNTER 2022-05-18 13:13 | Emergency (ER) | payer MEDICARE, MEDICAID, SELFPAY ==
[2022-05-18 13:18] VITALS: BP 146/67; PULSE 90; RESP 20; O2SAT 95
--- NOTE | 2022-05-18 13:30 | DI.RAD_ITS ---
Exam(s) XR PORTABLE CHEST AP EXAM: XR PORTABLE CHEST AP CLINICAL HISTORY: Cough, PUI, COPD TECHNIQUE: 2D digital imaging was performed of the chest. One image was obtained. An AP view was ob tained. COMPARISON: CR RIGHT RIBS TO INCLUDE CXR from 04/16/2016 FINDINGS: MEDIASTINUM: Normal. HEART: Normal. PULMONARY VASCULATURE: Normal. LUNGS: Clear. PLEURAL SPACE: No pleural effusion or pneumothorax. BONE:Within normal limits for the patient's age. There are old healed right rib fractures. OTHER FINDINGS:Normal. IMPRESSION: No acute pulmonary findings. DATA REPOSITORY: RADIATION DOSE DELIVERED:
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
[2022-05-18] MEDS: Albuterol/Ipratropium 3 ML UPD VIAL UPD (14:00)
[2022-05-18] MEDS: predniSONE 20 MG TAB 60 MG PO (14:00)
--- NOTE | 2022-05-18 14:16 | DI.VRAD_ITS ---
PROCEDURE INFORMATION: Exam: XR Chest Exam date and time: 05/18/2022 1:25 PM Age: 52 years old Clinical indication: Cough; Patient HX: Copdtau TECHNIQUE: Imaging protocol: Radiologic exam of the chest. Views: 1 view. COMPARISON: CT THORAX CTA 08/05/2019 13:45 FINDINGS: Lungs: Unremarkable. No consolidation. Pleural spaces: Unremarkable. No pleural effusion. No pneumothorax. Heart/Mediastinum: Unremarkable. No cardiomegaly. Bones/joints: Old bilateral rib fractures. IMPRESSION: No acute cardiopulmonary findings. Dictated and Authenticated by: Kasey Owens MD. Ordering:ALISE Skelton MD
[2022-05-18 14:26] LABS: COVID-19 PCR Negative (Negative); Influenza A PCR Negative (Negative); Influenza B PCR Negative (Negative); RSV PCR Negative (Negative)
[2022-05-18 14:27] LABS: Source Nasopharynx
== END 2022-05-18 14:44 | disposition home or self-care (01) ==
PROVIDERS: Emergency Provider Emergency Medicine; PCP Nurse Practitioner Adult Health
DX: R06.2 Wheezing (principal); R05.9 Cough, unspecified; Z87.891 Personal history of nicotine dependence; J20.9 Acute bronchitis, unspecified; J44.0 Chronic obstructive pulmonary disease with (acute) lower respiratory infection; Z20.822 Contact with and (suspected) exposure to COVID-19
CPT/HCPCS: 87637; 99283; 71045; 99284; J7512; J7620

== ENCOUNTER 2022-07-26 01:56 | Outpatient (CLI) | payer MEDICARE, MEDICAID, SELFPAY ==
[2022-07-26 16:05] LABS: Hemoglobin A1C 5.3 % (<5.7)
[2022-07-26 16:25] LABS: ALT 60 U/L (16-63); AST 168 U/L (15-37); Albumin 3.3 g/dL (3.4-5.0); Alkaline Phosphatase 270 U/L (46-116); Anion Gap 11.5 mmol/L (3-11); BUN 8 mg/dL (7-18); Bilirubin, Total 5.4 mg/dL (0.2-1.0); CO2 30.5 mmol/L (21.0-32.0); CREATININE 0.9 mg/dL (0.70-1.30); Calcium 9.4 mg/dL (8.5-10.1); Calculated LDL 115 mg/dL (<100); Chloride 76 mmol/L (98-107); Cholesterol 189 mg/dL (<200); Estimated GFR 102.76 (mL/min/1.73m2); Glucose 106 mg/dL (74-106); HDL Cholesterol 49 mg/dL (40-60); Total Protein 7.3 g/dL (6.4-8.2); Triglyceride 127 mg/dL (<150); Vitamin D 25 Total 31.6 ng/mL (30-100)
[2022-07-26 16:36] LABS: Sodium 118 mmol/L (136-145)
== END 2022-07-26 01:57 | disposition home or self-care (01) ==
LOC: LBO 01:57
PROVIDERS: Nurse Practitioner Family; PCP Nurse Practitioner Adult Health; Visit Provider Nurse Practitioner Adult Health
DX: E55.9 Vitamin D deficiency, unspecified (principal); E66.9 Obesity, unspecified; E78.5 Hyperlipidemia, unspecified; F32.9 Major depressive disorder, single episode, unspecified; F41.9 Anxiety disorder, unspecified; I10 Essential (primary) hypertension; R73.01 Impaired fasting glucose
CPT/HCPCS: 36415; 80053; 80061; 82306; 83036; 84443

== ENCOUNTER 2022-07-26 17:32 | Inpatient (IN) | payer MEDICARE, MEDICAID, SELFPAY ==
[2022-07-26] VITALS (24 sets, daily range): BP systolic 134–137; BP diastolic 74–89; PULSE 74–86; RESP 13–21; TEMP 36.8–37.1; O2SAT 91–96
--- NOTE | 2022-07-26 17:30 | RT.EKG_ITS ---
APPROVED REPORT Exam: Resting ECG Reason for Exam: Abnormal Lab Patient Location: E HR:69 bpm ECG Measurements Heart Rate 69 AXIS RI 155 P 69 QRSd 107 QRS 68 QT 441 T 47 QTc 473 Conclusion Sinus rhythm...normal P axis, V-rate 60- [address] [place] N[address] depression lateral precordial
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
--- NOTE | 2022-07-26 18:15 | DI.RAD_ITS ---
Exam(s) XR CHEST 2V PA LATERAL EXAM: XR CHEST 2V PA LATERAL CLINICAL HISTORY: SOB. TECHNIQUE: 2D digital imaging was performed. COMPARISON: CR,XR XR PORTABLE CHEST AP from 05/18/2022 FINDINGS: 2 views: Heart size is normal. The mediastinum is not widened. Lungs are clear. No infiltrates nor pleural effusions. IMPRESSION: No acute pulmonary findings. DATA REPOSITORY: RADIATION DOSE DELIVERED:
[2022-07-26 18:17] LABS: Abs Immature Grans 0.04 10^3/uL (0.0-0.06); Absolute Basophil Count 0.06 10^3/uL (0.0-0.2); Absolute Eosinophil Count 0.14 10^3/uL (0.0-0.7); Absolute Lymphocyte Count 1.57 10^3/uL (1.2-3.4); Absolute Monocyte Count 1.13 10^3/uL (0.1-0.8); Absolute Neutrophil Count 4.98 10^3/uL (1.2-6.7); Basophils % 0.8; Eosinophils % 1.8; HCT 36.7 % (40.0-50.0); HGB 13.6 g/dL (13.5-17.5); Immature Grans % 0.5; Lymphocytes % 19.8; MCHC 37.1 % (32.0-36.0); MCV 94 fL (80-95); Monocytes % 14.3; Neutrophils % 62.8; RBC 3.89 10^6/uL (4.36-5.78); RDW 12.9 % (11.8-14.1); RDW-SD 44.2 fL; WBC 7.92 10^3/uL (4.4-10.8)
[2022-07-26] MEDS: Albuterol/Ipratropium 3 ML UPD VIAL UPD (18:28)
[2022-07-26 18:31] LABS: ALT 57 U/L (16-63); AST 164 U/L (15-37); Albumin 3.2 g/dL (3.4-5.0); Alkaline Phosphatase 281 U/L (46-116); Anion Gap 12.4 mmol/L (3-11); BUN 8 mg/dL (7-18); Bilirubin, Total 5.9 mg/dL (0.2-1.0); CO2 27.6 mmol/L (21.0-32.0); CREATININE 0.9 mg/dL (0.70-1.30); Calcium 9.2 mg/dL (8.5-10.1); Chloride 76 mmol/L (98-107); Estimated GFR 102.76 (mL/min/1.73m2); Glucose 106 mg/dL (74-106); Magnesium 1.1 mg/dL (1.8-2.4); Potassium 3.4 mmol/L (3.5-5.1); Total Protein 7.2 g/dL (6.4-8.2)
[2022-07-26 18:33] LABS: Sodium 116 mmol/L (136-145); Troponin I 69 ng/L (<or=60)
[2022-07-26] MEDS: Normal Saline 1,000 ML 1000 ML IV (18:41)
[2022-07-26 18:45] LABS: Calculated LDL 113 mg/dL (<100); Cholesterol 188 mg/dL (<200); HDL Cholesterol 48 mg/dL (40-60); Triglyceride 137 mg/dL (<150)
--- NOTE | 2022-07-26 19:00 | NUR.NOTE ---
Nursing Note: Pt A/O X4 engaged in conversation, pleasant, speaking in full sentences, sharing history, aware hyponatremic, arrived by private car and drove self here. Pt denies confusion, denies H/O seizures, pt reports more fatigued. Receiving Normal Saline Bolus, provider to review labs. Pt ambulating independently, traveled to [facility] via . Of note pt virginie amador, pt reports H/O daily alcohol use, denies H/O detox, seizures, rehab. Pt awaiting disposition plan.
[2022-07-26] MEDS: MAGNESIUM SULFATE 2 GM/50 ML BAG IVPB (19:08)
--- NOTE | 2022-07-26 19:12 | DI.VRAD_ITS ---
PROCEDURE INFORMATION: Exam: XR Chest Exam date and time: 07/26/2022 18:59 Age: 52 years old Clinical indication: Shortness of breath TECHNIQUE: Imaging protocol: Radiologic exam of the chest. Views: 2 views. COMPARISON: XR PORTABLE CHEST AP 05/18/2022 13:25 FINDINGS: Lungs: No consolidation. Pleural spaces: No pleural effusion. No pneumothorax. Heart/Mediastinum: No cardiomegaly. Bones/joints: No acute fracture. IMPRESSION: No acute cardiopulmonary pathology. Dictated and Authenticated by: Shantel Alex MD. Ordering:GRAY Watts MD
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
[2022-07-26 21:11] LABS: PTT Activated 27.9 sec (21.5-31.9); Prothrombin Time 12.7 sec (9.3-11.0)
[2022-07-26 21:13] LABS: INR 1.2 (0.9-1.1)
[2022-07-26 21:40] LABS: Anion Gap 9.6 mmol/L (3-11); BUN 8 mg/dL (7-18); CO2 30.4 mmol/L (21.0-32.0); CREATININE 0.7 mg/dL (0.70-1.30); Calcium 8.8 mg/dL (8.5-10.1); Chloride 79 mmol/L (98-107); Estimated GFR 110.87 (mL/min/1.73m2); Glucose 98 mg/dL (74-106)
[2022-07-26 21:44] LABS: Sodium 119 mmol/L (136-145)
[2022-07-26 21:45] LABS: Potassium 2.7 mmol/L (3.5-5.1)
[2022-07-26 21:54] LABS: TSH (W/Ref FT4) 0.88 uIU/mL (0.36-3.74)
[2022-07-26] MEDS: LORazepam 1 MG TAB PO/SL (22:53)
[2022-07-26] MEDS: Heparin 5,000 UNITS/ML VIAL 5000 UNITS SC (22:54)
[2022-07-26] MEDS: POTASSIUM CHLORIDE 10 MEQ/100 ML BAG 100 MEQ IVPB (23:08)
[2022-07-27] VITALS (24 sets, daily range): BP systolic 108–167; BP diastolic 64–98; PULSE 73–102; RESP 13–24; TEMP 36.3–36.8; O2SAT 85–97
[2022-07-27] MEDS: POTASSIUM CHLORIDE 10 MEQ/100 ML BAG 100 MEQ IVPB (00:03)
[2022-07-27 00:15] LABS: ETHANOL BLOOD 11.9 mg/dL (<10)
[2022-07-27] MEDS: MAGNESIUM SULFATE 2 GM/50 ML BAG IVPB (01:00)
[2022-07-27 04:11] LABS: Anion Gap 8.7 mmol/L (3-11); BUN 8 mg/dL (7-18); CO2 30.3 mmol/L (21.0-32.0); CREATININE 0.9 mg/dL (0.70-1.30); Chloride 79 mmol/L (98-107); Estimated GFR 102.76 (mL/min/1.73m2); Glucose 106 mg/dL (74-106); Potassium 3.3 mmol/L (3.5-5.1)
[2022-07-27 04:15] LABS: Sodium 118 mmol/L (136-145)
[2022-07-27] MEDS: Budesonide/Formoterol 160/4.5 6 GM 60 PUFF INH IH ×2 (08:02→20:24)
[2022-07-27 08:19] LABS: INR 1.3 (0.9-1.1); Prothrombin Time 13.3 sec (9.3-11.0)
[2022-07-27 08:20] LABS: HCT 33.5 % (40.0-50.0); HGB 12.3 g/dL (13.5-17.5); MCHC 36.7 % (32.0-36.0); MCV 95 fL (80-95); MPV 11.4 fL (8.0-11.0); RBC 3.51 10^6/uL (4.36-5.78); RDW 13.2 % (11.8-14.1); RDW-SD 46.6 fL; WBC 6.77 10^3/uL (4.4-10.8)
[2022-07-27 08:23] LABS: ALT 49 U/L (16-63); AST 141 U/L (15-37); Albumin 2.8 g/dL (3.4-5.0); Alkaline Phosphatase 243 U/L (46-116); Anion Gap 6.2 mmol/L (3-11); BUN 8 mg/dL (7-18); Bilirubin, Direct 4.5 mg/dL (0.0-0.2); CO2 31.8 mmol/L (21.0-32.0); CREATININE 0.9 mg/dL (0.70-1.30); Calcium 8.8 mg/dL (8.5-10.1); Chloride 82 mmol/L (98-107); Estimated GFR 102.76 (mL/min/1.73m2); Glucose 113 mg/dL (74-106); PHOSPHORUS 2.1 mg/dL (2.6-4.7); Total Protein 6.3 g/dL (6.4-8.2); Troponin I 51 ng/L (<or=60)
[2022-07-27 08:25] LABS: Potassium 2.9 mmol/L (3.5-5.1); Sodium 120 mmol/L (136-145)
[2022-07-27 08:43] LABS: Platelet Count 71 10^3/uL (130-400)
[2022-07-27] MEDS: Omeprazole 20 MG CAPCR 40 MG PO ×2 (08:44→10:20)
[2022-07-27] MEDS: Citalopram 20 MG TAB PO (08:44)
[2022-07-27] MEDS: Multivitamin TAB 1 TAB PO (08:44)
[2022-07-27] MEDS: Propranolol 10 MG TAB PO ×2 (08:45→20:22)
[2022-07-27] MEDS: Folic Acid 1 MG TAB PO (08:45)
[2022-07-27] MEDS: Thiamine 100 MG TAB PO (08:45)
[2022-07-27] MEDS: Milk of Magnesia 30 ML CUP PO (08:45)
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
[2022-07-27] MEDS: Potassium Chloride 20 MEQ TABCR 40 MEQ PO ×2 (10:16→20:24)
[2022-07-27] MEDS: POTASSIUM CHLORIDE 20 MEQ/100 ML BAG 50 MEQ IVPB ×2 (10:16→11:35)
[2022-07-27] MEDS: Furosemide 20 MG/2 ML VIAL IVP (11:35)
[2022-07-27 12:43] LABS: Anion Gap 5.5 mmol/L (3-11); BUN 8 mg/dL (7-18); CO2 32.5 mmol/L (21.0-32.0); CREATININE 0.8 mg/dL (0.70-1.30); Calcium 9.1 mg/dL (8.5-10.1); Chloride 82 mmol/L (98-107); Estimated GFR 106.48 (mL/min/1.73m2); Glucose 140 mg/dL (74-106); Potassium 3.7 mmol/L (3.5-5.1)
[2022-07-27 12:49] LABS: Sodium 120 mmol/L (136-145)
[2022-07-27] MEDS: Heparin 5,000 UNITS/ML VIAL 5000 UNITS SC ×2 (13:27→22:24)
[2022-07-27 13:52] LABS: Bilirubin Negative (Negative); Blood Negative (Negative); Clarity Clear (Clear); Glucose Negative (Negative); Ketones Negative (Negative); Leukocyte Esterase Negative (Negative); Nitrite Negative (Negative); pH 5.5 (5-8)
[2022-07-27 14:04] LABS: *AMPHETAMINES SCREEN URINE Negative (Negative); *BARBITURATES SCREEN URINE Negative (Negative); *BENZODIAZEPINES SCREEN URINE Negative (Negative); Cannabinoids THC Positive (Negative); Cocaine Screen,Urine Negative (Negative); METHADONE URINE SCREEN Negative (Negative); OPIATES URINE SCREEN Negative (Negative)
[2022-07-27 14:06] LABS: Tricyclic Antidepressants Negative (Negative)
--- NOTE | 2022-07-27 14:39 | W.PM.PROGNOT ---
Date of Service Date of service: 07/27/22 Time of Service: 14:39 Assessment and Plan Assessment and plan (1) Acute hyponatremia: Start date: 07/26/22 Status: Acute Assessment and plan: IV normal saline and trend labs every 4 hours adjusting treatment as needed. Chronic alcoholism Recent COVID Fluid restriction - 1000 ml/24h Patient should stop alcohol long-term; offer community resources Salt tablets TID Current 120 - recheck in 4h (2) Hypokalemia: Start date: 07/26/22 Status: Acute Assessment and plan: Associated with alcohol use chronically and repletion IV with oral supplement if needed though alcohol cessation with better nutrition should help this problem long-term. Monitor Up to 3.7 (3) Hypomagnesemia: Start date: 07/26/22 Status: Acute Assessment and plan: Associated with alcohol use, poor nutrition and hypokalemia. IV repletion and oral supplementation if needed. Monitor Current 2.0 (4) Alcohol dependence: Status: Chronic Assessment and plan: Patient will be placed on CIWA protocol using Ativan if needed. Long-term he should stop drinking alcohol. This will improve his weight gain, electrolyte abnormality and chronic liver decompensation. CIWA 8-11 Qualifiers: Substance use status: unspecified alcohol-induced disorder Qualified Code(s): F10.29 - Alcohol dependence with unspecified alcohol-induced disorder (5) Elevated troponin level not due to acute coronary syndrome: Start date: 07/26/22 Status: Acute Assessment and plan: Troponin was slightly up in the ED, no cardiac complaints, now downward trending. @ 51 (6) Alcoholic hepatitis without ascites: Status: Chronic Assessment and plan: This appears to be chronic and stable with daily lab Hepatitis panel He may have a fatty liver as well with his weight gain and long-term to lose weight. (7) DVT prophylaxis: Status: Acute Assessment and plan: SCD (8) Discharge planning issues: Status: Acute Assessment and plan: Home when stable, alcohol cessation reoursces gien to patient's family Subjective Subjective Patient reports: no new complaints, tolerating liquids well, voiding w/o difficulty and afebrile; denies diarrhea, nausea, vomiting or shortness of breath Interval history since last seen: States he is tired, did not get any sleep last night. He is awake, alert, ortiented and conversant. Exam Narrative Exam Narrative: General: Patient appears older than stated age, moderately obese alert and oriented x3 and in no acute distress. HEENT: Normocephalic, coarsened facial features with puffiness, eyes with pupils equal and react to light symmetrically, extraocular movement intact and sclera icteric. Oropharynx with moist mucosa and fair dentition. Neck: Supple without JVD. Back: Stooped posture without CVA tenderness. Lungs: Bronchovesicular breath sounds diffusely with poor aeration, increased expiratory phase with diffuse expiratory wheeze and no focalizing inspiratory rales or rhonchi. Heart: Distant heart sounds with regular rate and rhythm, murmur heard, no gallop or rubs. Abdomen: Obese contour, pannus, soft to palpation with no palpable hepatosplenomegaly. Bowel sounds positive but decreased in all quadrants. Genitalia/rectal: Exam deferred. Extremities: Without clubbing or cyanosis, nonpitting edema over lower extremities bilaterally with skin changes over lower extremity with loss of hair but no ulcerations or hyperpigmentation. Skin: Slightly jaundiced, warm and dry. Neuro: Cranial nerves II through XII gross intact, no focalized motor deficits. No tremor. Psych: Flattened affect with depressed mood. No abnormal thought processes. Remote and recent memory grossly intact. Objective Last Vital Signs Temp 36.5 C 07/27/22 11:53 Pulse 73 07/27/22 11:53 Resp 21 07/27/22 11:53 BP 118/64 07/27/22 11:53 Pulse Ox 94 07/27/22 11:53 Laboratory Results - last 24 hr 07/26/22 07/26/22 07/26/22 18:05 18:05 18:05 WBC 7.92 RBC 3.89 L Hgb 13.6 Hct 36.7 L MCV 94 MCH 35.0 H MCHC 37.1 H RDW 12.9 Plt Count MPV Immature Gran % 0.5 Neutrophils % 62.8 Lymphocytes % 19.8 Monocytes % 14.3 Eosinophils % 1.8 Basophils % 0.8 Nucleated RBC % 0.0 Absolute Neutrophils 4.98 Absolute Lymphocytes 1.57 Absolute Monocytes 1.13 H Absolute Eosinophils 0.14 Absolute Basophils 0.06 PT INR APTT Sodium 116 L* Potassium 3.4 L Chloride 76 L Carbon Dioxide 27.6 Anion Gap 12.4 H BUN 8 Creatinine 0.9 Est GFR (CKD-EPI 2020) 102.76 Glucose 106 Calcium 9.2 Phosphorus Magnesium 1.1 L Total Bilirubin 5.9 H Conjugated Bilirubin AST 164 H ALT 57 Alkaline Phosphatase 281 H Troponin I 69 H* Total Protein 7.2 Albumin 3.2 L Triglycerides 137 Total Cholesterol 188 LDL Cholesterol, Calc 113 H HDL Cholesterol 48 TSH Urine Color Urine Clarity Urine pH Ur Specific [place] Urine Protein Urine Ketones Urine Blood Urine Nitrite Urine Bilirubin Urine Urobilinogen Ur Leukocyte Esterase Urine Glucose Urine Opiates Screen Urine Methadone Screen Ur Barbiturates Screen Ur Tricyclics Screen Ur Amphetamines Screen U Benzodiazepines Scrn Urine Cocaine Screen Ur THC Screen Ethyl Alcohol 07/26/22 07/26/22 07/26/22 20:54 20:54 20:54 WBC RBC Hgb Hct MCV MCH MCHC RDW Plt Count MPV Immature Gran % Neutrophils % Lymphocytes % Monocytes % Eosinophils % Basophils % Nucleated RBC % Absolute Neutrophils Absolute Lymphocytes Absolute Monocytes Absolute Eosinophils Absolute Basophils PT 12.7 H INR 1.2 H APTT 27.9 Sodium Potassium Chloride Carbon Dioxide Anion Gap BUN Creatinine Est GFR (CKD-EPI 2020) Glucose Calcium Phosphorus Magnesium Total Bilirubin Conjugated Bilirubin AST ALT Alkaline Phosphatase Troponin I 67 H* Total Protein Albumin Triglycerides Total Cholesterol LDL Cholesterol, Calc HDL Cholesterol TSH 0.88 Urine Color Urine Clarity Urine pH Ur Specific [place] Urine Protein Urine Ketones Urine Blood Urine Nitrite Urine Bilirubin Urine Urobilinogen Ur Leukocyte Esterase Urine Glucose Urine Opiates Screen Urine Methadone Screen Ur Barbiturates Screen Ur Tricyclics Screen Ur Amphetamines Screen U Benzodiazepines Scrn Urine Cocaine Screen Ur THC Screen Ethyl Alcohol 07/26/22 07/27/22 07/27/22 20:54 03:30 05:35 WBC RBC Hgb Hct MCV MCH MCHC RDW Plt Count MPV Immature Gran % Neutrophils % Lymphocytes % Monocytes % Eosinophils % Basophils % Nucleated RBC % Absolute Neutrophils Absolute Lymphocytes Absolute Monocytes Absolute Eosinophils Absolute Basophils PT INR APTT Sodium 119 L* 118 L* Cancelled Potassium 2.7 L* 3.3 L Cancelled Chloride 79 L 79 L Cancelled Carbon Dioxide 30.4 30.3 Cancelled Anion Gap 9.6 8.7 Cancelled BUN 8 8 Cancelled Creatinine 0.7 0.9 Cancelled Est GFR (CKD-EPI 2020) 110.87 102.76 Cancelled Glucose 98 106 Cancelled Calcium 8.8 9.0 Cancelled Phosphorus Magnesium Total Bilirubin Conjugated Bilirubin AST ALT Alkaline Phosphatase Troponin I Total Protein Albumin Triglycerides Total Cholesterol LDL Cholesterol, Calc HDL Cholesterol TSH Urine Color Urine Clarity Urine pH Ur Specific [place] Urine Protein Urine Ketones Urine Blood Urine Nitrite Urine Bilirubin Urine Urobilinogen Ur Leukocyte Esterase Urine Glucose Urine Opiates Screen Urine Methadone Screen Ur Barbiturates Screen Ur Tricyclics Screen Ur Amphetamines Screen U Benzodiazepines Scrn Urine Cocaine Screen Ur THC Screen Ethyl Alcohol 07/27/22 07/27/22 07/27/22 07:50 07:50 07:50 WBC 6.77 RBC 3.51 L Hgb 12.3 L Hct 33.5 L MCV 95 MCH 35.0 H MCHC 36.7 H RDW 13.2 Plt Count 71 L MPV 11.4 H Immature Gran % Neutrophils % Lymphocytes % Monocytes % Eosinophils % Basophils % Nucleated RBC % Absolute Neutrophils Absolute Lymphocytes Absolute Monocytes Absolute Eosinophils Absolute Basophils PT INR APTT Sodium Potassium Chloride Carbon Dioxide Anion Gap BUN Creatinine Est GFR (CKD-EPI 2020) Glucose Calcium Phosphorus Cancelled Magnesium Cancelled Total Bilirubin Cancelled Conjugated Bilirubin Cancelled AST Cancelled ALT Cancelled Alkaline Phosphatase Cancelled Troponin I Cancelled Total Protein Cancelled Albumin Cancelled Triglycerides Total Cholesterol LDL Cholesterol, Calc HDL Cholesterol TSH Urine Color Urine Clarity Urine pH Ur Specific [place] Urine Protein Urine Ketones Urine Blood Urine Nitrite Urine Bilirubin Urine Urobilinogen Ur Leukocyte Esterase Urine Glucose Urine Opiates Screen Urine Methadone Screen Ur Barbiturates Screen Ur Tricyclics Screen Ur Amphetamines Screen U Benzodiazepines Scrn Urine Cocaine Screen Ur THC Screen Ethyl Alcohol 07/27/22 07/27/22 07/27/22 07:50 07:50 12:15 WBC RBC Hgb Hct MCV MCH MCHC RDW Plt Count MPV Immature Gran % Neutrophils % Lymphocytes % Monocytes % Eosinophils % Basophils % Nucleated RBC % Absolute Neutrophils Absolute Lymphocytes Absolute Monocytes Absolute Eosinophils Absolute Basophils PT 13.3 H INR 1.3 H APTT Sodium 120 L* 120 L* Potassium 2.9 L 3.7 Chloride 82 L 82 L Carbon Dioxide 31.8 32.5 H Anion Gap 6.2 5.5 BUN 8 8 Creatinine 0.9 0.8 Est GFR (CKD-EPI 2020) 102.76 106.48 Glucose 113 H 140 H Calcium 8.8 9.1 Phosphorus 2.1 L Magnesium 2.0 Total Bilirubin 7.0 H Conjugated Bilirubin 4.5 H AST 141 H ALT 49 Alkaline Phosphatase 243 H Troponin I 51 Total Protein 6.3 L Albumin 2.8 L Triglycerides Total Cholesterol LDL Cholesterol, Calc HDL Cholesterol TSH Urine Color Urine Clarity Urine pH Ur Specific [place] Urine Protein Urine Ketones Urine Blood Urine Nitrite Urine Bilirubin Urine Urobilinogen Ur Leukocyte Esterase Urine Glucose Urine Opiates Screen Urine Methadone Screen Ur Barbiturates Screen Ur Tricyclics Screen Ur Amphetamines Screen U Benzodiazepines Scrn Urine Cocaine Screen Ur THC Screen Ethyl Alcohol 07/27/22 07/27/22 07/27/22 13:20 13:20 20:55 WBC RBC Hgb Hct MCV MCH MCHC RDW Plt Count MPV Immature Gran % Neutrophils % Lymphocytes % Monocytes % Eosinophils % Basophils % Nucleated RBC % Absolute Neutrophils Absolute Lymphocytes Absolute Monocytes Absolute Eosinophils Absolute Basophils PT INR APTT Sodium Potassium Chloride Carbon Dioxide Anion Gap BUN Creatinine Est GFR (CKD-EPI 2020) Glucose Calcium Phosphorus Magnesium Total Bilirubin Conjugated Bilirubin AST ALT Alkaline Phosphatase Troponin I Total Protein Albumin Triglycerides Total Cholesterol LDL Cholesterol, Calc HDL Cholesterol TSH Urine Color Yellow Urine Clarity Clear Urine pH 5.5 Ur Specific [place] 1.010 Urine Protein Negative Urine Ketones Negative Urine Blood Negative Urine Nitrite Negative Urine Bilirubin Negative Urine Urobilinogen 1.0 H Ur Leukocyte Esterase Negative Urine Glucose Negative Urine Opiates Screen Negative Urine Methadone Screen Negative Ur Barbiturates Screen Negative Ur Tricyclics Screen Negative Ur Amphetamines Screen Negative U Benzodiazepines Scrn Negative Urine Cocaine Screen Negative Ur THC Screen Positive A Ethyl Alcohol 11.9 H PAWSS Have you Been Recently Intoxicated or Drunk Within the Last 30 days?: Yes Have you Ever Experienced Previous Episodes of Alcohol Withdrawal?: Yes Have you ever Experienced Withdrawal Seizures?: Yes Have you ever Experienced Delirium Tremens(DT)s?: Yes Have you ever undergone Alcohol Rehabilitation Treatment (i.e, inpt ot outpatient treatment programs)?: Yes Have you ever Experienced Blackouts?: Yes Have you ever Combined Alcohol with other Downers within the last 90 days?: Yes Have you ever Combined Alcohol with any other Substance of Abuse during the last 90 days?: Yes Positive Blood Alcohol level on Presentation? [PCS.BAL]: Yes Evidence of Increased Autonomic Activity (i.e. HR>120, tremor, sweating, agitation, nausea)?: No Result: 9 Time Spent with Patient Time Spent with Patient: 25-34 minutes Time was spent: preparing to see the patient(eg.review tests), ordering medications,tests, procedures, referring, communicating with other health overnight caregiver, indepentently interpreting results, counseling the patient and care coordination
--- NOTE | 2022-07-27 14:45 | RT.EKG_ITS ---
APPROVED REPORT Exam: Resting ECG Reason for Exam: Elevated troponin Patient Location: I HR:73 bpm ECG Measurements Heart Rate 73 AXIS [place] 158 P 51 QRSd 101 QRS 49 QT 441 T 28 QTc 486 Conclusion Sinus rhythm...normal P axis, V-rate 50- 99 Low voltage, precordial leads...precordial leads <1.0mV Otherwise normal ECG
[2022-07-27] MEDS: Furosemide 40 MG/4 ML VIAL IVP (16:09)
[2022-07-27] MEDS: LORazepam 1 MG TAB PO/SL ×2 (16:16→18:38)
[2022-07-27 16:22] LABS: Anion Gap 4.1 mmol/L (3-11); BUN 7 mg/dL (7-18); CO2 32.9 mmol/L (21.0-32.0); Calcium 8.8 mg/dL (8.5-10.1); Chloride 85 mmol/L (98-107); Estimated GFR 90.56 (mL/min/1.73m2); Glucose 127 mg/dL (74-106); Potassium 3.4 mmol/L (3.5-5.1)
[2022-07-27 16:28] LABS: Sodium 122 mmol/L (136-145)
--- NOTE | 2022-07-27 17:33 | W.PM.PROGNOT ---
Date of Service Date of service: 07/28/22 Time of Service: 11:00 Subjective Subjective Patient reports: no new complaints and voiding w/o difficulty Objective Last Vital Signs Temp 36.8 C 07/27/22 15:47 Pulse 89 07/27/22 15:47 Resp 20 07/27/22 15:47 BP 126/82 07/27/22 15:47 Pulse Ox 97 07/27/22 15:47 Laboratory Results - last 24 hr 07/26/22 07/26/22 07/26/22 18:05 18:05 18:05 WBC 7.92 RBC 3.89 L Hgb 13.6 Hct 36.7 L MCV 94 MCH 35.0 H MCHC 37.1 H RDW 12.9 Plt Count MPV Immature Gran % 0.5 Neutrophils % 62.8 Lymphocytes % 19.8 Monocytes % 14.3 Eosinophils % 1.8 Basophils % 0.8 Nucleated RBC % 0.0 Absolute Neutrophils 4.98 Absolute Lymphocytes 1.57 Absolute Monocytes 1.13 H Absolute Eosinophils 0.14 Absolute Basophils 0.06 PT INR APTT Sodium 116 L* Potassium 3.4 L Chloride 76 L Carbon Dioxide 27.6 Anion Gap 12.4 H BUN 8 Creatinine 0.9 Est GFR (CKD-EPI 2020) 102.76 Glucose 106 Calcium 9.2 Phosphorus Magnesium 1.1 L Total Bilirubin 5.9 H Conjugated Bilirubin AST 164 H ALT 57 Alkaline Phosphatase 281 H Troponin I 69 H* Total Protein 7.2 Albumin 3.2 L Triglycerides 137 Total Cholesterol 188 LDL Cholesterol, Calc 113 H HDL Cholesterol 48 TSH Urine Color Urine Clarity Urine pH Ur Specific [place] Urine Protein Urine Ketones Urine Blood Urine Nitrite Urine Bilirubin Urine Urobilinogen Ur Leukocyte Esterase Urine Glucose Urine Opiates Screen Urine Methadone Screen Ur Barbiturates Screen Ur Tricyclics Screen Ur Amphetamines Screen U Benzodiazepines Scrn Urine Cocaine Screen Ur THC Screen Ethyl Alcohol 07/26/22 07/26/22 07/26/22 20:54 20:54 20:54 WBC RBC Hgb Hct MCV MCH MCHC RDW Plt Count MPV Immature Gran % Neutrophils % Lymphocytes % Monocytes % Eosinophils % Basophils % Nucleated RBC % Absolute Neutrophils Absolute Lymphocytes Absolute Monocytes Absolute Eosinophils Absolute Basophils PT 12.7 H INR 1.2 H APTT 27.9 Sodium Potassium Chloride Carbon Dioxide Anion Gap BUN Creatinine Est GFR (CKD-EPI 2020) Glucose Calcium Phosphorus Magnesium Total Bilirubin Conjugated Bilirubin AST ALT Alkaline Phosphatase Troponin I 67 H* Total Protein Albumin Triglycerides Total Cholesterol LDL Cholesterol, Calc HDL Cholesterol TSH 0.88 Urine Color Urine Clarity Urine pH Ur Specific [place] Urine Protein Urine Ketones Urine Blood Urine Nitrite Urine Bilirubin Urine Urobilinogen Ur Leukocyte Esterase Urine Glucose Urine Opiates Screen Urine Methadone Screen Ur Barbiturates Screen Ur Tricyclics Screen Ur Amphetamines Screen U Benzodiazepines Scrn Urine Cocaine Screen Ur THC Screen Ethyl Alcohol 07/26/22 07/27/22 07/27/22 20:54 03:30 05:35 WBC RBC Hgb Hct MCV MCH MCHC RDW Plt Count MPV Immature Gran % Neutrophils % Lymphocytes % Monocytes % Eosinophils % Basophils % Nucleated RBC % Absolute Neutrophils Absolute Lymphocytes Absolute Monocytes Absolute Eosinophils Absolute Basophils PT INR APTT Sodium 119 L* 118 L* Cancelled Potassium 2.7 L* 3.3 L Cancelled Chloride 79 L 79 L Cancelled Carbon Dioxide 30.4 30.3 Cancelled Anion Gap 9.6 8.7 Cancelled BUN 8 8 Cancelled Creatinine 0.7 0.9 Cancelled Est GFR (CKD-EPI 2020) 110.87 102.76 Cancelled Glucose 98 106 Cancelled Calcium 8.8 9.0 Cancelled Phosphorus Magnesium Total Bilirubin Conjugated Bilirubin AST ALT Alkaline Phosphatase Troponin I Total Protein Albumin Triglycerides Total Cholesterol LDL Cholesterol, Calc HDL Cholesterol TSH Urine Color Urine Clarity Urine pH Ur Specific [place] Urine Protein Urine Ketones Urine Blood Urine Nitrite Urine Bilirubin Urine Urobilinogen Ur Leukocyte Esterase Urine Glucose Urine Opiates Screen Urine Methadone Screen Ur Barbiturates Screen Ur Tricyclics Screen Ur Amphetamines Screen U Benzodiazepines Scrn Urine Cocaine Screen Ur THC Screen Ethyl Alcohol 07/27/22 07/27/22 07/27/22 07:50 07:50 07:50 WBC 6.77 RBC 3.51 L Hgb 12.3 L Hct 33.5 L MCV 95 MCH 35.0 H MCHC 36.7 H RDW 13.2 Plt Count 71 L MPV 11.4 H Immature Gran % Neutrophils % Lymphocytes % Monocytes % Eosinophils % Basophils % Nucleated RBC % Absolute Neutrophils Absolute Lymphocytes Absolute Monocytes Absolute Eosinophils Absolute Basophils PT INR APTT Sodium Potassium Chloride Carbon Dioxide Anion Gap BUN Creatinine Est GFR (CKD-EPI 2020) Glucose Calcium Phosphorus Cancelled Magnesium Cancelled Total Bilirubin Cancelled Conjugated Bilirubin Cancelled AST Cancelled ALT Cancelled Alkaline Phosphatase Cancelled Troponin I Cancelled Total Protein Cancelled Albumin Cancelled Triglycerides Total Cholesterol LDL Cholesterol, Calc HDL Cholesterol TSH Urine Color Urine Clarity Urine pH Ur Specific [place] Urine Protein Urine Ketones Urine Blood Urine Nitrite Urine Bilirubin Urine Urobilinogen Ur Leukocyte Esterase Urine Glucose Urine Opiates Screen Urine Methadone Screen Ur Barbiturates Screen Ur Tricyclics Screen Ur Amphetamines Screen U Benzodiazepines Scrn Urine Cocaine Screen Ur THC Screen Ethyl Alcohol 07/27/22 07/27/22 07/27/22 07:50 07:50 12:15 WBC RBC Hgb Hct MCV MCH MCHC RDW Plt Count MPV Immature Gran % Neutrophils % Lymphocytes % Monocytes % Eosinophils % Basophils % Nucleated RBC % Absolute Neutrophils Absolute Lymphocytes Absolute Monocytes Absolute Eosinophils Absolute Basophils PT 13.3 H INR 1.3 H APTT Sodium 120 L* 120 L* Potassium 2.9 L 3.7 Chloride 82 L 82 L Carbon Dioxide 31.8 32.5 H Anion Gap 6.2 5.5 BUN 8 8 Creatinine 0.9 0.8 Est GFR (CKD-EPI 2020) 102.76 106.48 Glucose 113 H 140 H Calcium 8.8 9.1 Phosphorus 2.1 L Magnesium 2.0 Total Bilirubin 7.0 H Conjugated Bilirubin 4.5 H AST 141 H ALT 49 Alkaline Phosphatase 243 H Troponin I 51 Total Protein 6.3 L Albumin 2.8 L Triglycerides Total Cholesterol LDL Cholesterol, Calc HDL Cholesterol TSH Urine Color Urine Clarity Urine pH Ur Specific [place] Urine Protein Urine Ketones Urine Blood Urine Nitrite Urine Bilirubin Urine Urobilinogen Ur Leukocyte Esterase Urine Glucose Urine Opiates Screen Urine Methadone Screen Ur Barbiturates Screen Ur Tricyclics Screen Ur Amphetamines Screen U Benzodiazepines Scrn Urine Cocaine Screen Ur THC Screen Ethyl Alcohol 07/27/22 07/27/22 07/27/22 13:20 13:20 16:00 WBC RBC Hgb Hct MCV MCH MCHC RDW Plt Count MPV Immature Gran % Neutrophils % Lymphocytes % Monocytes % Eosinophils % Basophils % Nucleated RBC % Absolute Neutrophils Absolute Lymphocytes Absolute Monocytes Absolute Eosinophils Absolute Basophils PT INR APTT Sodium 122 L* Potassium 3.4 L Chloride 85 L Carbon Dioxide 32.9 H Anion Gap 4.1 BUN 7 Creatinine 1.0 Est GFR (CKD-EPI 2020) 90.56 Glucose 127 H Calcium 8.8 Phosphorus Magnesium Total Bilirubin Conjugated Bilirubin AST ALT Alkaline Phosphatase Troponin I Total Protein Albumin Triglycerides Total Cholesterol LDL Cholesterol, Calc HDL Cholesterol TSH Urine Color Yellow Urine Clarity Clear Urine pH 5.5 Ur Specific [place] 1.010 Urine Protein Negative Urine Ketones Negative Urine Blood Negative Urine Nitrite Negative Urine Bilirubin Negative Urine Urobilinogen 1.0 H Ur Leukocyte Esterase Negative Urine Glucose Negative Urine Opiates Screen Negative Urine Methadone Screen Negative Ur Barbiturates Screen Negative Ur Tricyclics Screen Negative Ur Amphetamines Screen Negative U Benzodiazepines Scrn Negative Urine Cocaine Screen Negative Ur THC Screen Positive A Ethyl Alcohol 07/27/22 20:55 WBC RBC Hgb Hct MCV MCH MCHC RDW Plt Count MPV Immature Gran % Neutrophils % Lymphocytes % Monocytes % Eosinophils % Basophils % Nucleated RBC % Absolute Neutrophils Absolute Lymphocytes Absolute Monocytes Absolute Eosinophils Absolute Basophils PT INR APTT Sodium Potassium Chloride Carbon Dioxide Anion Gap BUN Creatinine Est GFR (CKD-EPI 2020) Glucose Calcium Phosphorus Magnesium Total Bilirubin Conjugated Bilirubin AST ALT Alkaline Phosphatase Troponin I Total Protein Albumin Triglycerides Total Cholesterol LDL Cholesterol, Calc HDL Cholesterol TSH Urine Color Urine Clarity Urine pH Ur Specific [place] Urine Protein Urine Ketones Urine Blood Urine Nitrite Urine Bilirubin Urine Urobilinogen Ur Leukocyte Esterase Urine Glucose Urine Opiates Screen Urine Methadone Screen Ur Barbiturates Screen Ur Tricyclics Screen Ur Amphetamines Screen U Benzodiazepines Scrn Urine Cocaine Screen Ur THC Screen Ethyl Alcohol 11.9 H PAWSS Have you Been Recently Intoxicated or Drunk Within the Last 30 days?: Yes Have you Ever Experienced Previous Episodes of Alcohol Withdrawal?: Yes Have you ever Experienced Withdrawal Seizures?: Yes Have you ever Experienced Delirium Tremens(DT)s?: Yes Have you ever undergone Alcohol Rehabilitation Treatment (i.e, inpt ot outpatient treatment programs)?: Yes Have you ever Experienced Blackouts?: Yes Have you ever Combined Alcohol with other Downers within the last 90 days?: Yes Have you ever Combined Alcohol with any other Substance of Abuse during the last 90 days?: Yes Positive Blood Alcohol level on Presentation? [PCS.BAL]: Yes Evidence of Increased Autonomic Activity (i.e. HR>120, tremor, sweating, agitation, nausea)?: No Result: 9
[2022-07-27] MEDS: Normal Saline Flush 10 ML SYR IVP (20:20)
[2022-07-27] MEDS: LORazepam 2 MG/ML VIAL IVP (20:21)
[2022-07-27] MEDS: Salt Supplement (BUFFERED) TAB 1 TAB PO (20:22)
[2022-07-27 21:14] LABS: Anion Gap 3.9 mmol/L (3-11); BUN 8 mg/dL (7-18); CO2 33.1 mmol/L (21.0-32.0); Chloride 84 mmol/L (98-107); Estimated GFR 90.56 (mL/min/1.73m2); Glucose 140 mg/dL (74-106); Potassium 3.8 mmol/L (3.5-5.1)
[2022-07-27 21:15] LABS: Sodium 121 mmol/L (136-145)
[2022-07-27] MEDS: LORazepam 2 MG/ML VIAL 4 MG IVP (22:25)
[2022-07-27] MEDS: Normal Saline 1,000 ML 150 ML IV (23:46)
[2022-07-28] VITALS (121 sets, daily range): BP systolic 96–178; BP diastolic 55–100; PULSE 51–97; RESP 12–26; TEMP 31–37; O2SAT 43–97
--- NOTE | 2022-07-28 | DI.RAD_ITS ---
Exam(s) XR PORTABLE CHEST AP EXAM: XR PORTABLE CHEST AP CLINICAL HISTORY: Hypoxemia.. TECHNIQUE: 2D digital imaging was performed. COMPARISON: CR,XR XR CHEST 2V PA LATERAL from 07/26/2022 FINDINGS: Single AP portable view. Heart size upper normal. Mediastinal structures are shifted towards the left side. There is a prominent area of infiltrate throughout the left lung involving hilar and lower lobe regio ns. No obvious pleural effusion. The opposite-right lung is clear. IMPRESSION: Abnormal left side findings prominent infiltrate and volume loss in left hemithorax. Possible underl reece endobronchial lesion. Cannot exclude neoplasm. Further workup including CT scan recommended. DATA REPOSITORY: RADIATION DOSE DELIVERED:
[2022-07-28 01:37] LABS: Anion Gap 2.3 mmol/L (3-11); BUN 7 mg/dL (7-18); CO2 35.7 mmol/L (21.0-32.0); CREATININE 0.9 mg/dL (0.70-1.30); Calcium 8.5 mg/dL (8.5-10.1); Chloride 87 mmol/L (98-107); Estimated GFR 102.76 (mL/min/1.73m2); Glucose 131 mg/dL (74-106); Potassium 3.5 mmol/L (3.5-5.1); Sodium 125 mmol/L (136-145)
[2022-07-28] MEDS: LORazepam 2 MG/ML VIAL IVP ×3 (02:29→06:42)
[2022-07-28] MEDS: Heparin 5,000 UNITS/ML VIAL 5000 UNITS SC ×3 (06:07→21:08)
[2022-07-28] MEDS: Normal Saline 1,000 ML 150 ML IV (07:49)
[2022-07-28 07:58] LABS: Abs Immature Grans 0.03 10^3/uL (0.0-0.06); Absolute Basophil Count 0.04 10^3/uL (0.0-0.2); Absolute Eosinophil Count 0.17 10^3/uL (0.0-0.7); Absolute Lymphocyte Count 1.19 10^3/uL (1.2-3.4); Absolute Monocyte Count 0.93 10^3/uL (0.1-0.8); Absolute Neutrophil Count 2.77 10^3/uL (1.2-6.7); Basophils % 0.8; Eosinophils % 3.3; HCT 35.2 % (40.0-50.0); HGB 12.3 g/dL (13.5-17.5); Immature Grans % 0.6; Lymphocytes % 23.2; MCH 34.6 pg (27.0-33.0); MCHC 34.9 % (32.0-36.0); MCV 99 fL (80-95); MPV 11.2 fL (8.0-11.0); Monocytes % 18.1; RBC 3.55 10^6/uL (4.36-5.78); RDW 13.2 % (11.8-14.1); RDW-SD 48.6 fL; WBC 5.13 10^3/uL (4.4-10.8)
[2022-07-28 08:14] LABS: ALT 51 U/L (16-63); AST 132 U/L (15-37); Alkaline Phosphatase 240 U/L (46-116); Anion Gap 4.5 mmol/L (3-11); BUN 6 mg/dL (7-18); Bilirubin, Total 5.8 mg/dL (0.2-1.0); CO2 35.5 mmol/L (21.0-32.0); CREATININE 0.8 mg/dL (0.70-1.30); Calcium 8.6 mg/dL (8.5-10.1); Chloride 88 mmol/L (98-107); Estimated GFR 106.48 (mL/min/1.73m2); Glucose 124 mg/dL (74-106); Magnesium 1.5 mg/dL (1.8-2.4); Potassium 3.3 mmol/L (3.5-5.1); Sodium 128 mmol/L (136-145); Total Protein 6.7 g/dL (6.4-8.2)
[2022-07-28 08:20] LABS: Platelet Count 56 10^3/uL (130-400)
[2022-07-28] MEDS: THIAMINE 500 MG in Normal Saline 100 ML 200 MG IVPB ×2 (10:27→17:39)
--- NOTE | 2022-07-28 10:43 | PGE_ITS ---
Date of Service Date of service: 07/28/22 Time of Service: 10:44 Assessment and Plan Assessment and plan (1) Acute hyponatremia: Start date: 07/26/22 Status: Acute Assessment and plan: Treated with NS, salt tabs. Now 128. Initially fluid restricted but then, after dosing of ativan for CIWA scores, he become somnolent so IV NS initiated at 150ml/hr. Stop salt tab administration. Decreased NS infusion rate. Monitoring. Chronic alcoholism Recent COVID Patient should stop alcohol long-term; offer community resources (2) Hypokalemia: Start date: 07/26/22 Status: Acute Assessment and plan: Associated with alcohol use chronically and repletion IV with oral supplement if needed though alcohol cessation with better nutrition should help this problem long-term. Monitor Initially supplemented with oral K. Now K is 3.3. IV supplementation. (3) Hypomagnesemia: Start date: 07/26/22 Status: Acute Assessment and plan: Associated with alcohol use, poor nutrition and hypokalemia. IV repletion and oral supplementation if needed. Monitor Supplemented and improved to 2.0. Now decreased to 1.5. IV supplementation. (4) Alcohol dependence: Status: Chronic Assessment and plan: On CIWA protocol with IV or PO ativan. He had been agitated but now lethargic/somnolent. Qualifiers: Substance use status: unspecified alcohol-induced disorder Qualified Code(s): F10.29 - Alcohol dependence with unspecified alcohol-induced disorder (5) Elevated troponin level not due to acute coronary syndrome: Start date: 07/26/22 Status: Acute Assessment and plan: Troponin was slightly up in the ED, no cardiac complaints, now downward trending. @ 51 (6) Alcoholic hepatitis without ascites: Status: Chronic Assessment and plan: This appears to be chronic and stable with daily lab Hepatitis panel shows improved total bili and AST. ALT normal. He may have a fatty liver as well with his weight gain and long-term to lose weight. (7) DVT prophylaxis: Status: Acute Assessment and plan: SCD (8) Discharge planning issues: Status: Acute Assessment and plan: Home when stable, alcohol cessation reoursces gien to patient's family Subjective Subjective Patient reports: afebrile; denies vomiting Interval history since last seen: Pt sedated from lorazepam given for CIWA scores. Exam Narrative Exam Narrative: General: Patient appears older than stated age, moderately obese. Somnolent. Neck: No JVD Lungs: Bronchovesicular breath sounds diffusely with poor aeration Heart: Distant heart sounds with regular rate and rhythm Abdomen: Obese contour, pannus, soft to palpation Extremities: nonpitting edema over lower extremities bilaterally with skin changes over lower extremity with loss of hair but no ulcerations or hyperpigmentation. Skin: Slightly jaundiced, warm and dry. Neuro: Spontaeously moves all exts. Objective Last Vital Signs Temp 35.8 C L 07/28/22 07:29 Pulse 80 07/28/22 09:02 Resp 13 07/28/22 09:40 BP 178/100 H 07/28/22 09:02 Pulse Ox 92 07/28/22 09:40 Laboratory Results - last 24 hr 07/27/22 07/27/22 07/27/22 12:15 13:20 13:20 WBC RBC Hgb Hct MCV MCH MCHC RDW Plt Count MPV Immature Gran % Neutrophils % Lymphocytes % Monocytes % Eosinophils % Basophils % Nucleated RBC % Absolute Neutrophils Absolute Lymphocytes Absolute Monocytes Absolute Eosinophils Absolute Basophils Sodium 120 L* Potassium 3.7 Chloride 82 L Carbon Dioxide 32.5 H Anion Gap 5.5 BUN 8 Creatinine 0.8 Est GFR (CKD-EPI 2020) 106.48 Glucose 140 H Calcium 9.1 Magnesium Total Bilirubin AST ALT Alkaline Phosphatase Total Protein Albumin Urine Color Yellow Urine Clarity Clear Urine pH 5.5 Ur Specific [place] 1.010 Urine Protein Negative Urine Ketones Negative Urine Blood Negative Urine Nitrite Negative Urine Bilirubin Negative Urine Urobilinogen 1.0 H Ur Leukocyte Esterase Negative Urine Glucose Negative Urine Opiates Screen Negative Urine Methadone Screen Negative Ur Barbiturates Screen Negative Ur Tricyclics Screen Negative Ur Amphetamines Screen Negative U Benzodiazepines Scrn Negative Urine Cocaine Screen Negative Ur THC Screen Positive A 07/27/22 07/27/22 07/28/22 16:00 20:58 01:20 WBC RBC Hgb Hct MCV MCH MCHC RDW Plt Count MPV Immature Gran % Neutrophils % Lymphocytes % Monocytes % Eosinophils % Basophils % Nucleated RBC % Absolute Neutrophils Absolute Lymphocytes Absolute Monocytes Absolute Eosinophils Absolute Basophils Sodium 122 L* 121 L* 125 L Potassium 3.4 L 3.8 3.5 Chloride 85 L 84 L 87 L Carbon Dioxide 32.9 H 33.1 H 35.7 H Anion Gap 4.1 3.9 2.3 L BUN 7 8 7 Creatinine 1.0 1.0 0.9 Est GFR (CKD-EPI 2020) 90.56 90.56 102.76 Glucose 127 H 140 H 131 H Calcium 8.8 9.0 8.5 Magnesium Total Bilirubin AST ALT Alkaline Phosphatase Total Protein Albumin Urine Color Urine Clarity Urine pH Ur Specific [place] Urine Protein Urine Ketones Urine Blood Urine Nitrite Urine Bilirubin Urine Urobilinogen Ur Leukocyte Esterase Urine Glucose Urine Opiates Screen Urine Methadone Screen Ur Barbiturates Screen Ur Tricyclics Screen Ur Amphetamines Screen U Benzodiazepines Scrn Urine Cocaine Screen Ur THC Screen 07/28/22 07/28/22 07:45 07:45 WBC 5.13 RBC 3.55 L Hgb 12.3 L Hct 35.2 L MCV 99 H D MCH 34.6 H MCHC 34.9 RDW 13.2 Plt Count 56 L MPV 11.2 H Immature Gran % 0.6 Neutrophils % 54.0 Lymphocytes % 23.2 Monocytes % 18.1 Eosinophils % 3.3 Basophils % 0.8 Nucleated RBC % 0.0 Absolute Neutrophils 2.77 Absolute Lymphocytes 1.19 L Absolute Monocytes 0.93 H Absolute Eosinophils 0.17 Absolute Basophils 0.04 Sodium 128 L Potassium 3.3 L Chloride 88 L Carbon Dioxide 35.5 H Anion Gap 4.5 BUN 6 L Creatinine 0.8 Est GFR (CKD-EPI 2020) 106.48 Glucose 124 H Calcium 8.6 Magnesium 1.5 L Total Bilirubin 5.8 H AST 132 H ALT 51 Alkaline Phosphatase 240 H Total Protein 6.7 Albumin 3.0 L Urine Color Urine Clarity Urine pH Ur Specific [place] Urine Protein Urine Ketones Urine Blood Urine Nitrite Urine Bilirubin Urine Urobilinogen Ur Leukocyte Esterase Urine Glucose Urine Opiates Screen Urine Methadone Screen Ur Barbiturates Screen Ur Tricyclics Screen Ur Amphetamines Screen U Benzodiazepines Scrn Urine Cocaine Screen Ur THC Screen PAWSS Have you Been Recently Intoxicated or Drunk Within the Last 30 days?: Yes Have you Ever Experienced Previous Episodes of Alcohol Withdrawal?: Yes Have you ever Experienced Withdrawal Seizures?: Yes Have you ever Experienced Delirium Tremens(DT)s?: Yes Have you ever undergone Alcohol Rehabilitation Treatment (i.e, inpt ot outpatient treatment programs)?: Yes Have you ever Experienced Blackouts?: Yes Have you ever Combined Alcohol with other Downers within the last 90 days?: Yes Have you ever Combined Alcohol with any other Substance of Abuse during the last 90 days?: Yes Positive Blood Alcohol level on Presentation? [PCS.BAL]: Yes Evidence of Increased Autonomic Activity (i.e. HR>120, tremor, sweating, agitation, nausea)?: No Result: 9 Time Spent with Patient Time Spent with Patient: 25-34 minutes Time was spent: preparing to see the patient(eg.review tests), obtaining and/or reviewing separately [facility], ordering medications,tests, procedures, referring, communicating with other health urgent care physician assistant and indepentently interpreting results
[2022-07-28] MEDS: POTASSIUM CHLORIDE 10 MEQ/100 ML BAG 100 MEQ IVPB ×2 (11:52→13:22)
[2022-07-28] MEDS: MAGNESIUM SULFATE 4 GM/100 ML BAG IVPB (11:54)
[2022-07-28] MEDS: Normal Saline Flush 10 ML SYR IVP ×3 (13:56→19:02)
[2022-07-28] MEDS: dexmedeTOMidine IN 0.9 % NACL 400 MCG/100 ML BTL 6.19 MCG IV (14:00)
[2022-07-28 17:50] LABS: BE 13 mmol/L (-2-3); HCO3 39 mmol/L (22-26); pH 7.36 (7.35-7.45); sO2 57 % (95-98); tCO2 36 mmol/L (23-27)
[2022-07-28 17:56] LABS: pCO2 68 mmHg (35-45)
[2022-07-28 17:57] LABS: FIO2L 5 L; Site Left Radial; pO2 31 mmHg (80-105)
--- NOTE | 2022-07-28 18:52 | DI.VRAD_ITS ---
PROCEDURE INFORMATION: Exam: XR Chest Exam date and time: 07/28/2022 6:37 PM Age: 52 years old Clinical indication: Other: Hypoxemia TECHNIQUE: Imaging protocol: Radiologic exam of the chest. Views: 1 view. COMPARISON: CR XR CHEST 2V PA LATERAL 07/26/2022 6:59 PM FINDINGS: Left perihilar and basilar consolidation mild mediastinal shift to the left. Possible cutoff sign in the left lower lobe airway Possible small left effusion. No pneumothorax. The osseous structures are grossly stable in appearance IMPRESSION: Question mucous plugging on the left as described with left-sided volume loss and mediastinal shift to the left. Dictated and Authenticated by: Rome Soto MD. Ordering:BRIGITTE Garcia MD
[2022-07-28] MEDS: Furosemide 40 MG/4 ML VIAL IVP (19:01)
[2022-07-28 19:08] LABS: Abs Immature Grans 0.02 10^3/uL (0.0-0.06); Absolute Basophil Count 0.04 10^3/uL (0.0-0.2); Absolute Eosinophil Count 0.17 10^3/uL (0.0-0.7); Absolute Lymphocyte Count 1.23 10^3/uL (1.2-3.4); Absolute Monocyte Count 0.75 10^3/uL (0.1-0.8); Absolute Neutrophil Count 2.22 10^3/uL (1.2-6.7); Basophils % 0.9; Eosinophils % 3.8; HCT 34.1 % (40.0-50.0); Immature Grans % 0.5; Lymphocytes % 27.8; MCH 34.8 pg (27.0-33.0); MCHC 35.2 % (32.0-36.0); MCV 99 fL (80-95); MPV 10.8 fL (8.0-11.0); Monocytes % 16.9; Neutrophils % 50.1; RBC 3.45 10^6/uL (4.36-5.78); RDW 13.4 % (11.8-14.1); RDW-SD 47.9 fL; WBC 4.43 10^3/uL (4.4-10.8)
[2022-07-28 19:28] LABS: Diff Comment PLT Morph Reviewed; Platelet Count 43 10^3/uL (130-400)
[2022-07-28 19:29] LABS: RBC Morphology Normal
[2022-07-28 19:37] LABS: Procalcitonin 0.3 ng/mL
[2022-07-28] MEDS: cefTRIAXone 2 GM/50 ML BAG IVPB (19:41)
[2022-07-28] MEDS: Albuterol 2.5 MG/3 ML INH SOLN VIAL UPD (21:08)
[2022-07-28 21:31] LABS: COVID-19 PCR Negative (Negative); Influenza A PCR Negative (Negative); Influenza B PCR Negative (Negative); RSV PCR Negative (Negative)
[2022-07-28 21:34] LABS: Source Nasopharynx
[2022-07-29] VITALS (124 sets, daily range): BP systolic 77–220; BP diastolic 32–98; PULSE 58–124; RESP 4–34; TEMP 31–36.8; O2SAT 84–97
--- NOTE | 2022-07-29 | DI.US_ITS ---
Exam(s) US EXTREMITY VENOUS BI EXAM: US EXTREMITY VENOUS BI CLINICAL HISTORY: BLE edema. TECHNIQUE: Bilateral lower extremity venous ultrasound performed using grayscale, color-flow, and sp ectral Doppler analysis. COMPARISON: No exams were available for comparison FINDINGS: The bilateral common femoral, femoral and popliteal veins demonstrate normal compressibility, augment ation, and color Doppler. The posterior tibial veins are patent. IMPRESSION: Right: Negative for DVT Left: Negative for DVT DATA REPOSITORY:
--- NOTE | 2022-07-29 | DI.US_ITS ---
APPROVED REPORT EXAM: Comprehensive 2D, Doppler, and color-flow Echocardiogram Patient Location: In-Patient Room/Bed: [id number] Bench Assembler: Rox Antonio RDCS (AE) Indications: CHF Other Information Study Quality: Poor. Technically limited study due to body habitus, inability to position patient, pa tient on ventilator. Conclusion Normal left ventricular chamber size. Ejection fraction is 59%. Wall motion is normal Right ventricle appears grossly normal in size and systolic function Both atria are normal in size There is no structural or hemodynamically significant valvular disease Wall motion Left Ventricle Technically limited parasternal imaging. Patient supine and on vent. The overall left ventricular sys tolic function appears normal. Unable to assess LV wall thickness. There is no ventricular septal def ect visualized. LVEF is 59%. Right Ventricle Right ventricle is grossly normal in size. The right ventricular systolic function is normal. Atria The left atrium size is normal. The right atrium size is normal. Aortic Valve The aortic valve is normal in structure. Aortic valve is trileaflet. There is no aortic valvular st enosis. No aortic regurgitation is present. Mitral Valve Mitral valve is normal in structure. No evidence of mitral valve stenosis. Trace mitral regurgitation . Tricuspid Valve The tricuspid valve is normal in structure. There is no tricuspid valve stenosis. Trace tricuspid reg urgitation. Unable to assess PA pressure. Pulmonic Valve Pulmonic valve is not well visualized. There is no pulmonic valvular stenosis. There is no pulmonic v alvular regurgitation. Great Vessels The aortic root is normal in size. Ascending aorta is not well visualized. The IVC was not clearly vi sualized. Pericardium Technically limited subcostal imaging. 2D Dimensions Ao Root d 2.88 cm M: 3.1 - 3.7 LV Vol A2C d MOD 84.9 mL RA Area A4C 11.35 cm2 LV Vol A4C d MOD 100.4 mL RA Vol/ BSA A4C s A-L 10.4 mL/m2 LA vol/ BSA A4C s A-L 23.6 mL/m2 LVEF (Kapadia's) 58.36 % M: 52 - 72 LA Area A4C s MOD 19.62 cm2 LV Volume 66.65 mL M: 62 - 150 LV EF A4C MOD 59.4 % LV Volume Index 28.85 mL/m2 M: 34 - 74 LV EF A2C MOD 58.7 % LV Vol Biplane MOD 93.1 mL LV EF Biplane MOD 58.4 % SV 54.30 mL SV Index 23.49 mL/m2 M-Mode TAPSE 2.15 cm (M/F) >1.7 LV Diastology MV E' medial 0.117 (>0.07 m/s) E/A Ratio 1.2 LV E/e MED 6.55 (<14) MV E Vmax 0.77 (0.4-1.3 m/s) MV E' lateral 0.130 (>0.1 m/s) MV A Vmax 0.65 (0.4-1.3 m/s) LV E/e LAT 5.90 (<14) MV E/A Ratio 1.12 MV E/E' medial 6.58 MV E/E' lateral 5.93 Aortic Valve LVOT Area 4.10 cm2 AoV Area Vmax 3.54 cm2 LVOT Vmax 1.49 m/s AoV Area/ BSA (Vmax) 1.53 cm2/m2 LVOT Mean Reinier. 1.10 m/s KACEY Mean Reinier. 3.88 cm2 LVOT Peak Grad 8.9 mmHg KACEY Mean Reinier. Index 1.68 cm2/m2 LVOT Mean Grad 5.4 mmHg LVOT VTI 0.292 m LVOT Diam s 2.25 cm AoV Vmax 1.73 m/s Velocity Ratio 0.86 AoV Mean Reinier. 1.16 m/s AoV Peak Grad 12.0 mmHg LVOT SV 119.89 mL AoV Mean Grad 6.3 mmHg AoV VTI 0.304 m AoV Area VTI 3.94 cm2 AoV Area/ BSA (VTI) 1.71 cm/m2 Mitral Valve MV DT 276 (160-240 msec) MV PHT 80 msec MV Area PHT 2.75 cm2 MV VTI 0.303 m MV Area VTI 3.96 (4.0-6.0 cm2) Pulmonary Valve PV Vmax 1.49 (0.5-1.5 m/s) RVOT Peak Gr. 3.75 mmHg PV Peak Grad 8.8 mmHg RVOT Mean Gr. 1.85 mmHg PV Mean Grad 3.8 mmHg RVOT VTI 0.170 m PV VTI 0.229 m RVOT Vmax 0.97 m/s
--- NOTE | 2022-07-29 | DI.RAD_ITS ---
Exam(s) XR PORTABLE CHEST AP EXAM: XR PORTABLE CHEST AP CLINICAL HISTORY: F/u adjustment of ET tube TECHNIQUE: 2D digital imaging was performed. COMPARISON: CR XR PORTABLE CHEST AP from 07/29/2022 FINDINGS: There has been no change in the position of the central venous line. The endotracheal tube has been advanced slightly no just above the level of the aortic arch. The nasogastric tube projects below t he diaphragm. A left lower lobe infiltrate is again noted. DATA REPOSITORY: RADIATION DOSE DELIVERED:
[2022-07-29] MEDS: THIAMINE 500 MG in Normal Saline 100 ML 200 MG IVPB ×3 (01:09→20:31)
--- NOTE | 2022-07-29 02:05 | NUR.NOTE ---
0020- Oxygen saturation noted to sustain 85-87% on current high flow settings after patient was repositoned and pulled up in bed. Dr. Michael notified of same. Orders received for bipap. RT paged apron operator x 2. Awaiting return call. 0100- Still awaiting return call from RT to place patient on bipap. Oxygen saturation remains 85-89% on current high flow settings. Nursing converting supervisor, Naz notified of patient status, awaiting bipap. 0125- RT on unit to assess patient, and states that per her discussion with Dr. Michael, bipap is on hold at this time. Status update given to Melodie RT regarding decreased oxygen saturation, and rhonchi/wheezing throughout. She stated that she made adjustments to the high flow oxygen, and that his oxygen saturation goal is 88%. 0140- Status update given to Dr. Michael. He stated that bipap can be on hold at this time.
--- NOTE | 2022-07-29 04:23 | NUR.NOTE ---
Pt. is currently alert and oriented x 3, but is very resistant and noncompliant to keeping high flow oxygen cannula on despite multiple attempts of education regarding need for same. Patient removed his oxygen from his nose, and stated My nose itches, and I need to scratch it. On multiple occasions, patient has removed his cannula from his nose, and subsequently his oxygen saturation would drop to the 70's. It would then take him 3-5 minutes to recover.
[2022-07-29] MEDS: Heparin 5,000 UNITS/ML VIAL 5000 UNITS SC ×2 (06:42→17:51)
[2022-07-29 07:05] LABS: HCT 35.9 % (40.0-50.0); HGB 12.4 g/dL (13.5-17.5); MCH 34.7 pg (27.0-33.0); MCHC 34.5 % (32.0-36.0); MCV 101 fL (80-95); MPV 11.1 fL (8.0-11.0); RBC 3.57 10^6/uL (4.36-5.78); RDW 13.4 % (11.8-14.1); WBC 9.04 10^3/uL (4.4-10.8)
--- NOTE | 2022-07-29 07:14 | PUCC_ITS ---
General Date of Service Date of service: 07/29/22 Time of Service: 07:14 Reason for Admission to ICU: Hypoxia Hyponatremia Assessment and Plan Assessment and plan (1) Respiratory failure with hypoxia and hypercapnia: Status: Acute (2) Nicotine dependence: Status: Acute Qualifiers: Nicotine product type: cigarettes Substance use status: uncomplicated Qualified Code(s): F17.210 - Nicotine dependence, cigarettes, uncomplicated (3) Alcoholic hepatitis without ascites: Status: Chronic (4) GERD (gastroesophageal reflux disease): Status: Chronic Qualifiers: Esophagitis presence: esophagitis presence not specified Qualified Code(s): K21.9 - Gastro-esophageal reflux disease without esophagitis (5) COPD (chronic obstructive pulmonary disease): Status: Chronic Qualifiers: COPD type: unspecified COPD Qualified Code(s): J44.9 - Chronic obstructive pulmonary disease, unspecified (6) Elevated troponin level not due to acute coronary syndrome: Status: Acute (7) Hypotension: Status: Acute (8) Anemia: Status: Chronic (9) Coagulopathy: Status: Acute (10) Thrombocytopenia: Status: Chronic (11) Hypomagnesemia: Status: Acute (12) Hypokalemia: Status: Acute (13) Acute hyponatremia: Status: Acute (14) Acute on chronic alcoholic liver disease: Status: Acute (15) Aspiration pneumonia: Status: Acute (16) Alcohol withdrawal: Status: Acute Assessment and plan: This is a 52 yo admitted to the ICU for hyponatremia, respiratory failure and alcohol withdrawal. He has alcoholic hepatitis and seems to be in acute on chronic liver failure upon historical review of his bilirubin and LFT's. He received IVF's in addition to substantial amounts of Ativan resulting in his current respiratory failure. Based on his clinic status and his POCUS, I do think it is likely he has also aspirated during his obtundation. Given his alcoholism, he is higher risk for anaerobic infections, so I agree with changing ceftriaxone to Zosyn or Unasyn. His CXR is significant as well for a left sided infiltrate as well as volume overload (although so pathologic B-lines on US - poor body habitus). His MELD score on admission was 25 and yesterday was 24 (LFT's pending today). His Madry score is 16.4 therefore does not require steroids. He should not receive any more benzo's for the time being. If his behaviour becomes unsafe, I would opt to Pecedex. I do not think it is safe for him to receive phenobarbital during this hospital stay due to both acute liver failure and administration of significant benzodiazepines. He became acutely more hypotensive this morning. I placed an arterial line which confirmed MAP's in the 40's. Levophed was started through a small PIV and surgery was called for placement of a central line. He was also given another dose of flumazenil given worsening obtundation and this did awaken him. I did want to diurese him, but he is too hemodynamically unstable for this currently. Recommendations Pulmonary: Hypoxic and hypercapnic respiratory failure - hypercapnia is chronic based on blood gas and bicarb - HFNC for sats 88-92% - recommend diuresis as below - Duonebs QID - out of bed to chair COPD - Symbicort while hospitalized - Duonebs QID - IS and Acapella - nicotine patch prn Cardiac: Hypotension - arterial line placed - recommend CVC placement - Levophed infusion started - MAP goal 65mmHg Troponin elevation - mild and normalized, demand in nature Renal: Hyponatremia - improved to 127 today - likely beer potomania, I do not recommend intervention unless Na<122 - continue to monitor Hypomagnesemia - replace to 2.0 Hypokalemia - replace to 4.0 I&O: Intake & Output 07/26/22 07/27/22 07/28/22 07/29/22 23:59 23:59 23:59 23:59 Intake Total 267.500 / 293.820 6875.068 / 2611.068 105 / 105 Output Total 1425 / 1425 1785 / 2210 760 / 760 Balance -1157.500 / -1157.500 826.068 / 401.068 -655 / -655 Weight 126.8 kg 123.6 kg 123.8 kg 124.7 kg Daily Fluid Goal:: Even GI Nutrition: Acute on Chronic Liver Failure - no role for steroids at this time - trend LFT's - avoid hepatotoxins Nutrition - NPO while obtunded GERD - on omeprazole Date of Last Bowel Movement: 07/27/22 Infectious Disease: Aspiration Pneumonia - agree with changing ceftriaxone to Zosyn given alcoholism - sputum culture if able Hematologic: Anemia and thrombocytopenia - due to acute liver failure - monitor - hold DVT ppx if platelets drop below 50,000 - fibrinogen level ordered - agree with ammonia level Neurologic: AMS - due to over sedation vs metabolic vs ETOH withdrawal - avoid sedation at the moment - ammonia level Endocrine: No acute concerns Lines: PIV Arterial line [facility] consult for CVC placed Prophylaxis: Heparin Omeprazole (home med) Code Status: Resuscitation Status Full Code Subjective Critical and life-threatening events over the past 24 hours: This is a 52 yo who was admitted for hyponatremia and EtOH withdrawl. He was treated with a benzodiazepine protocol and did received normal saline. He was initially agitated but became obtunded with Ativan. His sodium is fine today. I am assuming this is related to beer potomania, but no urine studies or serum osms were performed. He is now very hypoxic requiring 80% FiO2 on HFNC. He is sleepy this morning, but is easily arousible. He is still requiring a significant FiO2 on HFNC. Exam Narrative Exam Narrative: Gen: NAD, normal respiratory effort, obese, dirty, jaundiced HENT: PERRL Chest: No respiratory distress, normal appearance of chest, bilateral wheezing and crackles present throughout. Obstructing while asleep. Heart: regular rate and rhythym, no murmurs, rubs or gallops Abdomen: Non-distended, soft, non tender Extremities: No clubbing, 2+ pitting edema on shins Neuro: AAOx2 , non focal Psych: cooperative Most Recent VS/Results Last Vital Signs Temp 36.8 C 07/29/22 04:31 Pulse 102 H 07/29/22 06:03 Resp 20 07/29/22 06:03 BP 106/49 L 07/29/22 06:03 Pulse Ox 92 07/29/22 06:03 Laboratory Results - last 24 hr 07/28/22 07/28/22 07/28/22 07:45 07:45 16:47 WBC 5.13 RBC 3.55 L Hgb 12.3 L Hct 35.2 L MCV 99 H D MCH 34.6 H MCHC 34.9 RDW 13.2 Plt Count 56 L MPV 11.2 H Immature Gran % 0.6 Neutrophils % 54.0 Lymphocytes % 23.2 Monocytes % 18.1 Eosinophils % 3.3 Basophils % 0.8 Nucleated RBC % 0.0 Absolute Neutrophils 2.77 Absolute Lymphocytes 1.19 L Absolute Monocytes 0.93 H Absolute Eosinophils 0.17 Absolute Basophils 0.04 RBC Morphology ABG Sample Site Left Radial ABG pH 7.36 ABG pCO2 68 H* ABG pO2 31 L* ABG HCO3 39 H ABG Total CO2 36 H ABG O2 Saturation 57 L ABG Base Excess 13 H Oxygen Liter Flow 5 Sodium 128 L Potassium 3.3 L Chloride 88 L Carbon Dioxide 35.5 H Anion Gap 4.5 BUN 6 L Creatinine 0.8 Est GFR (CKD-EPI 2020) 106.48 Glucose 124 H Calcium 8.6 Magnesium 1.5 L Total Bilirubin 5.8 H AST 132 H ALT 51 Alkaline Phosphatase 240 H Total Protein 6.7 Albumin 3.0 L Procalcitonin COVID-19 Source SARS-CoV-2 (PCR) Influenza Type A (PCR) Influenza Type B (PCR) RSV (PCR) 07/28/22 07/28/22 07/28/22 19:00 19:00 20:45 WBC 4.43 RBC 3.45 L Hgb 12.0 L Hct 34.1 L MCV 99 H MCH 34.8 H MCHC 35.2 RDW 13.4 Plt Count 43 L MPV 10.8 Immature Gran % 0.5 Neutrophils % 50.1 Lymphocytes % 27.8 Monocytes % 16.9 Eosinophils % 3.8 Basophils % 0.9 Nucleated RBC % 0.0 Absolute Neutrophils 2.22 Absolute Lymphocytes 1.23 Absolute Monocytes 0.75 Absolute Eosinophils 0.17 Absolute Basophils 0.04 RBC Morphology Normal ABG Sample Site ABG pH ABG pCO2 ABG pO2 ABG HCO3 ABG Total CO2 ABG O2 Saturation ABG Base Excess Oxygen Liter Flow Sodium Potassium Chloride Carbon Dioxide Anion Gap BUN Creatinine Est GFR (CKD-EPI 2020) Glucose Calcium Magnesium Total Bilirubin AST ALT Alkaline Phosphatase Total Protein Albumin Procalcitonin 0.3 COVID-19 Source Nasopharynx SARS-CoV-2 (PCR) Negative Influenza Type A (PCR) Negative Influenza Type B (PCR) Negative RSV (PCR) Negative 07/29/22 05:45 WBC Cancelled RBC Cancelled Hgb Cancelled Hct Cancelled MCV Cancelled MCH Cancelled MCHC Cancelled RDW Cancelled Plt Count Cancelled MPV Cancelled Immature Gran % Neutrophils % Lymphocytes % Monocytes % Eosinophils % Basophils % Nucleated RBC % Absolute Neutrophils Absolute Lymphocytes Absolute Monocytes Absolute Eosinophils Absolute Basophils RBC Morphology ABG Sample Site ABG pH ABG pCO2 ABG pO2 ABG HCO3 ABG Total CO2 ABG O2 Saturation ABG Base Excess Oxygen Liter Flow Sodium Potassium Chloride Carbon Dioxide Anion Gap BUN Creatinine Est GFR (CKD-EPI 2020) Glucose Calcium Magnesium Total Bilirubin AST ALT Alkaline Phosphatase Total Protein Albumin Procalcitonin COVID-19 Source SARS-CoV-2 (PCR) Influenza Type A (PCR) Influenza Type B (PCR) RSV (PCR) Review of Systems All systems reviewed & are unremarkable except as noted in HPI and below Time spent with patient Time spent in Critical Care: 90 Time spent in Critical care included: Performing procedures not included in c.c time, Chart review, Documenting critically ill care, Time at immediate bedside and Discussing critically ill care with other medical staff Pocus Exam Limited Cardiac Exam DATE OF EXAM: 07/29/22 TIME OF EXAM: 07:45 PROVIDER THAT PERFORMED THE STUDY: Mariia Macario IS THIS A REPEAT EXAM DURING THIS ENCOUNTER: no REASON FOR EXAM: Hypotension and Hypoxia VISUALIZED STRUCTURES: four chambers and Interventricular septum; unable to visualize the IVC VIEW OBTAINED: Apical 4-Chamber, Parasternal long-axis and Parasternal short- axis PERTINENT FINDINGS/IMPRESSION: No apparent abnormalities; No LV dysfunction, No pericardial effusion, No RV dilation and No RV dysfunction DIFFERENTIAL DIAGNOSES: Normal appearing cardiac function on limited views cardiac POCUS Exam complete Limited Thoracic Lung Exam DATE OF EXAM: 07/29/22 TIME OF EXAM: 07:30 PROVIDER THAT PERFORMED THE STUDY: Mariia Macario IS THIS A REPEAT EXAM DURING THIS ENCOUNTER: No REASON FOR EXAM: Hypoxia VISUALIZED STRUCTURES: right anterior, left anterior, right posterior and left posterior PERTINENT FINDINGS/IMPRESSION: Pneumonia (Bilateral lower lobe hepatization); no B-Lines/left side, no B-lines/left side, no pleural effusion on the left and no pleural effusion on the right Exam complete Procedure Note Date of procedure: 07/29/22 Pre-op diagnosis: Hypotension Post-op diagnosis: same Procedure: Arterial Line Placement Date Performed: 07/29/22 Time Performed: 925 Performed by: Mariia Macario MD Indications and/or Provisional Diagnosis: Invasive hemodynamic monitoring Consent: Procedure performed under emergent circumstances, consent not obtained Type of Anesthesia/Sedation: None Fluids Given: See I&O Unless otherwise noted, there was no blood loss, specimens removed, cultures obtained, or drains retained. Time Out: A time-out was completed prior to procedure verifying correct patient, procedure, site, positioning, and special equipment if applicable. Procedure Technique/Description of Procedure: The patient was prepped and draped in the usual sterile fashion. An arterial line was introduced percutaneously and via the Seldinger technique into the right radial artery after 1 attempt(s). Good blood return without significant extremity blanching was noted. Good arterial wave form was noted. Blood loss was minimal. Post Procedure Diagnosis and Findings: Same as Indications and/or Provisional Diagnosis Complications: None Mariia Macario MD Pulmonary & Critical Care Multi-Disciplinary Checklist Lines/Tubes CENTRAL LINE: no ARTERIAL LINE: yes, Arterial Line Day#: 0 [place]: yes, [place] Day#: 2 ENDOTRACHEAL TUBE: no ICU Maintenance GLUCOSE 140-180mg/dL: yes NUTRITION AT GOAL: no, Reason/Intervention: NPO given mental status PRESSURE ULCER: no RESTRAINTS: no ANTIBIOTICS(if yes, consider Stewardship): Yes Social Issues FAMILY UPDATED: yes PT/OT: no, Reason/Intervention: inapparopriate at this time Prophylaxis DVT PROPHYLAXIS: yes GI PROPHYLAXIS: yes, Indication: on home omeprazole
[2022-07-29 07:31] LABS: Anion Gap 4.8 mmol/L (3-11); BUN 6 mg/dL (7-18); CO2 34.2 mmol/L (21.0-32.0); CREATININE 0.8 mg/dL (0.70-1.30); Chloride 88 mmol/L (98-107); Estimated GFR 106.48 (mL/min/1.73m2); Glucose 101 mg/dL (74-106); Potassium 3.6 mmol/L (3.5-5.1); Sodium 127 mmol/L (136-145)
[2022-07-29 07:49] LABS: Platelet Count 69 10^3/uL (130-400)
[2022-07-29 07:57] LABS: RDW-SD 50.1 fL
[2022-07-29] MEDS: Budesonide/Formoterol 160/4.5 6 GM 60 PUFF INH IH (07:59)
--- NOTE | 2022-07-29 08:24 | DI.RAD_ITS ---
Exam(s) XR PORTABLE CHEST AP EXAM: XR PORTABLE CHEST AP CLINICAL HISTORY: resp failure, TECHNIQUE: 2D digital imaging was performed. COMPARISON: CR,XR XR CHEST 2V PA LATERAL from 07/26/2022 CR,XR XR PORTABLE CHEST AP from 07/28/2022 FINDINGS: There has been some increase in in size and density of the of the previously noted left sided infiltr ate, now occupying approximately 3/4 of the volume of the left chest on this single view. The right lung appears clear. The cardiac silhouette is obscured. There are leads overlying the chest. IMPRESSION: Interval worsening of left sided infiltrates. DATA REPOSITORY: RADIATION DOSE DELIVERED:
[2022-07-29] MEDS: Albuterol/Ipratropium 3 ML UPD VIAL (08:30)
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
[2022-07-29] MEDS: PIPERACILLIN/TAZO 3.375 GM in Normal Saline 50 ML IVPB ×3 (08:40→20:31)
[2022-07-29] MEDS: Normal Saline Flush 10 ML SYR IVP ×3 (08:41→20:30)
[2022-07-29] MEDS: Normal Saline 500 ML 30 ML IV (08:41)
[2022-07-29 09:08] LABS: Lactate 1.7 mmol/L (0.6-1.4)
[2022-07-29 09:15] LABS: Lab Add On Test DONE
--- NOTE | 2022-07-29 09:17 | PDOC.CMPRO ---
Date of service: 07/29/22 Time of Service: 09:17 Care Management Progress Note Progress Note Text Progress Note Text: S/O:John is now intubated and being closely monitored and treated in the ICU. CM will continue to follow. A: 52 year old male admitted to [facility] on 07/26/22 for Hyponatremia, Alcoholic Hepatitis P:?Clemente is currently intubated in the ICU. Anticipate, Clemente will discharge home when medically stable per provider with new [facility] services (if indicated.)? He will follow up with his PCP and plan of care as instructed.?Community ETOH resources will be offered. He will drive himself home when ready as his vehicle is parked in the [facility] parking lot, if able.? CM will continue to follow.
[2022-07-29 09:24] LABS: INR 1.3 (0.9-1.1)
[2022-07-29] MEDS: Norepinephrine in D5W 8 MG/250 ML BAG 9.375 MG IV (09:50)
--- NOTE | 2022-07-29 09:53 | PHA.REVIEW2 ---
Pharmacy Admission Review - Admission Clinical Review (Last Reviewed 07/26/22 @ 20:50 by Porfirio Rodriguez) Alcohol withdrawal (Acute) Aspiration pneumonia (Acute) Acute on chronic alcoholic liver disease (Acute) Coagulopathy (Acute) Respiratory failure with hypoxia and hypercapnia (Acute) Discharge planning issues (Acute) DVT prophylaxis (Acute) Elevated troponin level not due to acute coronary syndrome (Acute) Hypomagnesemia (Acute) Hypokalemia (Acute) Acute hyponatremia (Acute) Nicotine dependence (Acute) bee venom protein (honey bee) Allergy (Severe, Verified 07/26/22 17:43) Anaphylaxsis amitriptyline Adverse Reaction (Intermediate, Verified 07/26/22 17:43) PSYCHOSIS bupropion Adverse Reaction (Mild, Verified 07/26/22 17:43) worsened anxiety & sleeplessness gabapentin Adverse Reaction (Mild, Verified 07/26/22 17:43) leg pain/cramps venlafaxine Adverse Reaction (Mild, Verified 07/26/22 17:43) worsened mood lisinopril Adverse Reaction (Verified 07/26/22 17:43) cough dust and pollen Adverse Reaction (Mild, Uncoded 07/26/22 17:43) resp irritation Resuscitation Status Full Code Height 5 ft 7 in Weight 124.7 kg - Comments Comments/Follow Ups: patient remains intubated -- propofol + prn fentanyl, norep + vasopressin for BP support - Renal Dosing Renal Dosing: BUN 6 mg/dL (7-18) L 07/29/22 05:45 Creatinine 0.8 mg/dL (0.70-1.30) 07/29/22 05:45 Medications needing adjustments: Intervened List of meds needing interventions: eCrCl >100 ml/min; zosyn changed to extended infusion q6h as is recommended with renal clearance greater than 100 ml/min - Anticoagulation Anticoagulation: Hgb 12.4 g/dL (13.5-17.5) L 07/29/22 06:54 Hct 35.9 % (40.0-50.0) L 07/29/22 06:54 Plt Count 69 10^3/uL (130-400) L D 07/29/22 06:54 INR 1.3 (0.9-1.1) H 07/27/22 07:50 Creatinine 0.8 mg/dL (0.70-1.30) 07/29/22 05:45 DVT Prophylaxis: Reviewed Medications: Heparin - Opiate Usage Evaluate Pain Scale/Pains Meds: N/A - Relevant Labs Sodium 127 mmol/L (136-145) L 07/29/22 05:45 Potassium 3.6 mmol/L (3.5-5.1) 07/29/22 05:45 Chloride 88 mmol/L (98-107) L 07/29/22 05:45 Phosphorus 2.1 mg/dL (2.6-4.7) L 07/27/22 07:50 Phosphorus Cancelled 07/27/22 07:50 Magnesium 1.5 mg/dL (1.8-2.4) L 07/28/22 07:45 Electrolytes, C-Reactive P, ESR: Reviewed (Na 127 today, up from 119 on admission - correction with NS infusion for ~48 hours (no intervention further needed unless Na <122)) - DM Control DM Control: Glucose 101 mg/dL (74-106) 07/29/22 05:45 DM Control: N/A - Cardiac Review Cardiac Review: Troponin I 51 ng/L (<or=60) 07/27/22 07:50 Troponin I Cancelled 07/27/22 07:50 BP, HR, EF%: N/A - Qtc Review QTc: Reviewed If Elevated, List meds needing intervention: QTc 473 on admission - IV to PO Switch IV Medications: Reviewed - Home Meds Home Med List reviewed: Reviewed Relevent Home Meds Not ordered & why?: atorvastatin is on-hold by PCP office until further discussion with pt's MD as he believes it's contributing to urinary frequency and pain; albuterol is not on PCP's med list but was filled in april so I added this on Medication adherence barriers identified?: I do not see he has recently filled Advair within the past year - I will call his preferred pharmacy to find out more information but we should certainly address any barriers prior to discharge (is he using it daily, does he have a high copay?)
[2022-07-29 09:55] LABS: Ammonia 66 umol/L (11-32)
--- NOTE | 2022-07-29 10:00 | DI.RAD_ITS ---
Exam(s) XR PORTABLE CHEST AP EXAM: XR PORTABLE CHEST AP CLINICAL HISTORY: line placement TECHNIQUE: 2D digital imaging was performed. COMPARISON: CR XR PORTABLE CHEST AP from 07/29/2022 FINDINGS: A central venous catheter is been inserted via the right jugular. The tip projects in the expected l ocation of the lower superior vena cava. There is no evidence of pneumothorax. The right lung is cl ear. An infiltrate is again noted in the left lower lobe. IMPRESSION: Satisfactory placement of central line. DATA REPOSITORY: RADIATION DOSE DELIVERED:
[2022-07-29 10:05] LABS: ALT 45 U/L (16-63); AST 129 U/L (15-37); Albumin 2.6 g/dL (3.4-5.0); Alkaline Phosphatase 208 U/L (46-116); Bilirubin, Direct 3.4 mg/dL (0.0-0.2); Bilirubin, Total 4.8 mg/dL (0.2-1.0); Magnesium 1.7 mg/dL (1.8-2.4); Total Protein 6.2 g/dL (6.4-8.2)
[2022-07-29 10:26] LABS: HCO3 40 mmol/L (22-26); pCO2 57 mmHg (35-45); pH 7.45 (7.35-7.45); pO2 56 mmHg (80-105); sO2 92 % (95-98); tCO2 36 mmol/L (23-27)
[2022-07-29 10:29] LABS: BE 16 mmol/L (-2-3); FIO2 78 %; FIO2L 50 L; Site Right Radial
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
[2022-07-29] MEDS: PROPOFOL 1,000 MG/100 ML BTL 14.964 MG IVPB (11:10)
--- NOTE | 2022-07-29 11:15 | DI.RAD_ITS ---
Exam(s) XR PORTABLE CHEST AP EXAM: XR PORTABLE CHEST AP CLINICAL HISTORY: s/p intubation TECHNIQUE: 2D digital imaging was performed. COMPARISON: CR XR PORTABLE CHEST AP from 07/29/2022 FINDINGS: Endotracheal tube and nasogastric tube have been inserted which show appropriate positioning. No carly nge in right internal jugular central line. Infiltrate again noted left lower lobe. Old right rib f ractures. IMPRESSION: Satisfactory placement of endotracheal tube and nasogastric tube DATA REPOSITORY: RADIATION DOSE DELIVERED:
--- NOTE | 2022-07-29 11:31 | W.PM.OP ---
Date of service: 07/29/22 Time of Service: 11:20 Operative Note Operative Note DATE OF PROCEDURE: 07/29/22 PRE-OP DIAGNOSIS: Respiratory failure POST-OP DIAGNOSIS: same SURGEON: Mariia Macario Refer to Anesthesia Record
--- NOTE | 2022-07-29 11:33 | W.PM.OP ---
Date of service: 07/29/22 Time of Service: 11:20 Operative Note Operative Note DATE OF PROCEDURE: 07/29/22 PRE-OP DIAGNOSIS: Respiratory Failure POST-OP DIAGNOSIS: same PROCEDURE: Endotracheal Intubation Medications Used: 100mg ketamine, 100mg Rocuronium The procedure including risks and benefits were discussed with the patient, who verbally agreed to undergo intubation for the purposes of mechanical ventilation. A time out was performed to verify patient name and procedure. A detailed intubation plan was verbalized with staff. The patient was pre-oxygenated with HFNC. After Ketamine and Rocuronium were administered, the bag mask was gently applied to provide additional oxygen. Using a 4.0 Glydescope, a 7.5 ETT was used to successfully intubate the patient after 1 attempt to 25cm at the teeth. There was appropriate EtCO2 after intubation. Initially, there were faint breath sounds on the left, as compared to the right, so I withdrew the ETT by 2.0 cm to 23cm at the teeth which improved left sided breath sounds. No air heard over stomach. The patients vitals signs remained stable through out the entire procedure and patient was successfully connected to mechanical ventilation. Confirmation CXR found the ETT to be 6cm above the viet, so RT was asked to advanced the ETT by 2cm with a plan to then repeat CXR again. Complications: None Mariia Macario MD Pulmonary & Critical Care
[2022-07-29] MEDS: Albuterol/Ipratropium 3 ML UPD VIAL UPD ×3 (12:10→20:31)
[2022-07-29] MEDS: Metoprolol 5 MG/5 ML VIAL 2.5 MG IVP (12:14)
--- NOTE | 2022-07-29 12:18 | W.PM.PROGNOT ---
Date of Service Date of service: 07/29/22 Time of Service: 12:18 Assessment and Plan Assessment and plan (1) Respiratory failure with hypoxia and hypercapnia: Status: Acute Assessment and plan: Due to suspected aspiration pneumonia as well as fluid overload. Suspect that encephalopathy contributed to aspiration. S/p intubation, on vent. Will treat PNA with zosyn. Will diurese as BP permits. Will certainly avoid IVF. Obtain an echocardiogram. Obtain venous dopplers of BLEs as does have lower extremity edema to ensure there is no DVT. (2) Hypotension: Status: Acute Assessment and plan: On norepinephrine. Continue to adjust to maintain MAP of >60-65. Trend lactates. (3) Aspiration pneumonia: Status: Acute Assessment and plan: Zosyn as above (4) Toxic metabolic encephalopathy: Status: Acute Assessment and plan: Responsive to flumazenil. I do not think that the encephalopathy is due to EtOH w/d at this point. Likely due to decreased hepatic clearance of benzodiazepines in setting of acute liver injury. Avoid further use of benzodiazepines. (5) Alcohol withdrawal: Status: Acute Assessment and plan: The patient is not showing signs of alcohol withdrawal at this time. (6) Alcoholic hepatitis: Status: Acute Assessment and plan: MADRi score of 16.4 - no role for prednisolone or pentoxiphiline. Monitor LFTs, INR. (7) Thrombocytopenia: Status: Chronic Assessment and plan: In setting of liver disease. On heparin for DVT ppx - I did back off the dose. Monitor plts. (8) Coagulopathy: Status: Acute Assessment and plan: In setting of alcoholic hepatitis/chronic liver disease. Monitor INR/for bleeding. (9) Anemia: Status: Chronic Assessment and plan: Obtain anemia studies. (10) Acute hyponatremia: Start date: 07/26/22 Status: Acute Assessment and plan: Suspect beer potomania and, at this point, dilutional component. Stable Once able to diurese, should improve. (11) Hypokalemia: Start date: 07/26/22 Status: Acute Assessment and plan: Resolved. (12) Hypomagnesemia: Start date: 07/26/22 Status: Acute Assessment and plan: Replete. (13) Alcohol dependence: Status: Chronic Assessment and plan: At this point, not showing signs of w/d. Continue supplementation with MVI, thiamine, folate. Qualifiers: Substance use status: unspecified alcohol-induced disorder Qualified Code(s): F10.29 - Alcohol dependence with unspecified alcohol-induced disorder (14) Elevated troponin level not due to acute coronary syndrome: Start date: 07/26/22 Status: Acute Assessment and plan: Very minimal elevations of troponin in setting of hypoxic respiratory failure/fluid overload, not c/w ACS. WIll obtain an echo more so for the CHF. (15) DVT prophylaxis: Status: Acute Assessment and plan: SC heparin (16) Discharge planning issues: Status: Acute Assessment and plan: Keep in ICU. Total Critical Care Time 80 minutes. Subjective Subjective Interval history since last seen: Mr Mays was somnolent (though still arousable this morning), however getting progressively more difficult to arouse. He spent the night on humidified heated high flow O2 79% 50 L. BPs became low as the somnolence worsened and improved somewhat with the patient waking up to the use of flumazenil, however, did not improve to the level felt to be safe without initiation of vasopressors. An arterial line was placed by Dr Macario, then a R IJ CVL was placed by anesthesia/surgery, and norepinephrine was started. The patient became more lethargic yet again and a decision was made to intubate due to the high oxygen requirement and the mental status preventing the use of CPAP. The patient was intubated by Dr Macario with the use of ketamine/rocuronium and started on propofol. Post-intubated, nursing noted SBPs going up to 250s by A line off of levophed. He received a dose of metoprolol 2.5 mg IV x 1. Propofol dose was increased. Since then BPs dropped yet again and the levophed had to be restarted. Exam Narrative Exam Narrative: General: Obese male who is intubated, sedated, not arousable to pain or verbal stimuli HEENT: eyes closed, ET/OG tubes in place Heart: RRR, no m/r/g Lungs: ventilator breath sounds B; mild rhonchi B Abdomen: soft, nontender, nondistended Extremities: 1+ BLE edema Objective Last Vital Signs Temp 36.8 C 07/29/22 04:31 Pulse 93 H 07/29/22 10:48 Resp 12 07/29/22 12:03 BP 136/49 L 07/29/22 10:48 Pulse Ox 92 07/29/22 12:03 Laboratory Results - last 24 hr 07/28/22 07/28/22 07/28/22 16:47 19:00 19:00 WBC 4.43 RBC 3.45 L Hgb 12.0 L Hct 34.1 L MCV 99 H MCH 34.8 H MCHC 35.2 RDW 13.4 Plt Count 43 L MPV 10.8 Immature Gran % 0.5 Neutrophils % 50.1 Lymphocytes % 27.8 Monocytes % 16.9 Eosinophils % 3.8 Basophils % 0.9 Nucleated RBC % 0.0 Absolute Neutrophils 2.22 Absolute Lymphocytes 1.23 Absolute Monocytes 0.75 Absolute Eosinophils 0.17 Absolute Basophils 0.04 RBC Morphology Normal PT INR ABG Sample Site Left Radial ABG pH 7.36 ABG pCO2 68 H* ABG pO2 31 L* ABG HCO3 39 H ABG Total CO2 36 H ABG O2 Saturation 57 L ABG Base Excess 13 H VBG Lactate Oxygen Liter Flow 5 FiO2 Sodium Potassium Chloride Carbon Dioxide Anion Gap BUN Creatinine Est GFR (CKD-EPI 2020) Glucose Calcium Magnesium Total Bilirubin Conjugated Bilirubin AST ALT Alkaline Phosphatase Ammonia Total Protein Albumin Procalcitonin 0.3 COVID-19 Source SARS-CoV-2 (PCR) Influenza Type A (PCR) Influenza Type B (PCR) RSV (PCR) Add-On Test Request 07/28/22 07/29/22 07/29/22 20:45 05:45 05:45 WBC Cancelled RBC Cancelled Hgb Cancelled Hct Cancelled MCV Cancelled MCH Cancelled MCHC Cancelled RDW Cancelled Plt Count Cancelled MPV Cancelled Immature Gran % Neutrophils % Lymphocytes % Monocytes % Eosinophils % Basophils % Nucleated RBC % Absolute Neutrophils Absolute Lymphocytes Absolute Monocytes Absolute Eosinophils Absolute Basophils RBC Morphology PT INR ABG Sample Site ABG pH ABG pCO2 ABG pO2 ABG HCO3 ABG Total CO2 ABG O2 Saturation ABG Base Excess VBG Lactate Oxygen Liter Flow FiO2 Sodium 127 L Potassium 3.6 Chloride 88 L Carbon Dioxide 34.2 H Anion Gap 4.8 BUN 6 L Creatinine 0.8 Est GFR (CKD-EPI 2020) 106.48 Glucose 101 Calcium 9.0 Magnesium Total Bilirubin Conjugated Bilirubin AST ALT Alkaline Phosphatase Ammonia Total Protein Albumin Procalcitonin COVID-19 Source Nasopharynx SARS-CoV-2 (PCR) Negative Influenza Type A (PCR) Negative Influenza Type B (PCR) Negative RSV (PCR) Negative Add-On Test Request 07/29/22 07/29/22 07/29/22 06:54 08:58 08:58 WBC 9.04 RBC 3.57 L Hgb 12.4 L Hct 35.9 L MCV 101 H MCH 34.7 H MCHC 34.5 RDW 13.4 Plt Count 69 L D MPV 11.1 H Immature Gran % Neutrophils % Lymphocytes % Monocytes % Eosinophils % Basophils % Nucleated RBC % Absolute Neutrophils Absolute Lymphocytes Absolute Monocytes Absolute Eosinophils Absolute Basophils RBC Morphology PT 13.0 H INR 1.3 H ABG Sample Site ABG pH ABG pCO2 ABG pO2 ABG HCO3 ABG Total CO2 ABG O2 Saturation ABG Base Excess VBG Lactate Oxygen Liter Flow FiO2 Sodium Potassium Chloride Carbon Dioxide Anion Gap BUN Creatinine Est GFR (CKD-EPI 2020) Glucose Calcium Magnesium Total Bilirubin Conjugated Bilirubin AST ALT Alkaline Phosphatase Ammonia Total Protein Albumin Procalcitonin COVID-19 Source SARS-CoV-2 (PCR) Influenza Type A (PCR) Influenza Type B (PCR) RSV (PCR) Add-On Test Request DONE 07/29/22 07/29/22 07/29/22 08:58 08:58 09:13 WBC RBC Hgb Hct MCV MCH MCHC RDW Plt Count MPV Immature Gran % Neutrophils % Lymphocytes % Monocytes % Eosinophils % Basophils % Nucleated RBC % Absolute Neutrophils Absolute Lymphocytes Absolute Monocytes Absolute Eosinophils Absolute Basophils RBC Morphology PT INR ABG Sample Site ABG pH ABG pCO2 ABG pO2 ABG HCO3 ABG Total CO2 ABG O2 Saturation ABG Base Excess VBG Lactate 1.7 H Oxygen Liter Flow FiO2 Sodium Potassium Chloride Carbon Dioxide Anion Gap BUN Creatinine Est GFR (CKD-EPI 2020) Glucose Calcium Magnesium 1.7 L Total Bilirubin 4.8 H Conjugated Bilirubin 3.4 H AST 129 H ALT 45 Alkaline Phosphatase 208 H Ammonia 66 H Total Protein 6.2 L Albumin 2.6 L Procalcitonin COVID-19 Source SARS-CoV-2 (PCR) Influenza Type A (PCR) Influenza Type B (PCR) RSV (PCR) Add-On Test Request 07/29/22 07/29/22 10:20 Unknown WBC RBC Hgb Hct MCV MCH MCHC RDW Plt Count MPV Immature Gran % Neutrophils % Lymphocytes % Monocytes % Eosinophils % Basophils % Nucleated RBC % Absolute Neutrophils Absolute Lymphocytes Absolute Monocytes Absolute Eosinophils Absolute Basophils RBC Morphology PT INR ABG Sample Site Right Radial ABG pH 7.45 ABG pCO2 57 H ABG pO2 56 L ABG HCO3 40 H ABG Total CO2 36 H ABG O2 Saturation 92 L ABG Base Excess 16 H VBG Lactate Oxygen Liter Flow 50 FiO2 78 Sodium Potassium Chloride Carbon Dioxide Anion Gap BUN Creatinine Est GFR (CKD-EPI 2020) Glucose Calcium Magnesium Total Bilirubin Conjugated Bilirubin AST ALT Alkaline Phosphatase Ammonia Total Protein Albumin Procalcitonin COVID-19 Source SARS-CoV-2 (PCR) Influenza Type A (PCR) Influenza Type B (PCR) RSV (PCR) Add-On Test Request Cancelled Objective Narrative Objective Narrative: CXR 0847:Interval worsening of left sided infiltrates. CXR 10:36: Satisfactory placement of central line. CXR 11:46: Satisfactory placement of endotracheal tube and nasogastric tube CXR 12:55 pm: There has been no change in the position of the central venous line.? The endotracheal tube has been advanced slightly no just above the level of the aortic arch.? The nasogastric tube projects below the diaphragm.? A left lower lobe infiltrate is again noted. PAWSS Have you Been Recently Intoxicated or Drunk Within the Last 30 days?: Yes Have you Ever Experienced Previous Episodes of Alcohol Withdrawal?: Yes Have you ever Experienced Withdrawal Seizures?: Yes Have you ever Experienced Delirium Tremens(DT)s?: Yes Have you ever undergone Alcohol Rehabilitation Treatment (i.e, inpt ot outpatient treatment programs)?: Yes Have you ever Experienced Blackouts?: Yes Have you ever Combined Alcohol with other Downers within the last 90 days?: Yes Have you ever Combined Alcohol with any other Substance of Abuse during the last 90 days?: Yes Positive Blood Alcohol level on Presentation? [PCS.BAL]: Yes Evidence of Increased Autonomic Activity (i.e. HR>120, tremor, sweating, agitation, nausea)?: No Result: 9 Multi-Disciplinary Checklist Lines/Tubes CENTRAL LINE: yes, Central Line Day#: 1 ARTERIAL LINE: yes, Arterial Line Day#: 1 [place]: yes, [place] Day#: 3 ENDOTRACHEAL TUBE: yes, Endotracheal Tube Day#: 1 ICU Maintenance GLUCOSE 140-180mg/dL: yes NUTRITION AT GOAL: no, Reason/Intervention: TFs being initiated PRESSURE ULCER: no RESTRAINTS: yes, Reviewed Necessity: Yes ANTIBIOTICS(if yes, consider Stewardship): Yes Social Issues FAMILY UPDATED: no, Reason/Intervention: No family at bedside. Nursing will call. PT/OT: no, Reason/Intervention: Not clinically appropriate. GOALS/DISPOSITION/MANAGER BAKERY: yes CODE STATUS: Full Prophylaxis DVT PROPHYLAXIS: yes GI PROPHYLAXIS: yes, Indication: ON chronic PPI Time Spent with Patient Time Spent with Patient: >50 minutes Time was spent: preparing to see the patient(eg.review tests), obtaining and/or reviewing separately otained hiistory, ordering medications,tests, procedures, referring, communicating with other health out of school hours care worker, indepentently interpreting results, counseling the patient and care coordination
--- NOTE | 2022-07-29 12:19 | W.NUTCONSULT ---
Date of service: 07/29/22 Time of Service: 12:19 Nutritional Consult ASSESSMENT: Clemente was intubated this AM. Admitted with hypotension, alcohol withdrawl, aspiration PNA, respiratory failure with morbid obesity and chronic alcoholic liver disease. Adjusted body weigh tof 93 kg used to calculate nutrient needs. BEE x 1.2: 2073 kcal, 93 g protein (1g pro/ABW kg), 2000 ml fluid NUTRITIONAL DIAGNOSIS: Inability to consume nutrients secondary to intubation INTERVENTION: Recommend: Jevity 1.5 @ 55 cc/hour, flush 250 ml q 4 hours provides total of 1980 kcal, 83 g protein, 1990 ml free water. provides: 21 kcal/adjusted body weight, 0.9 g pro/adjusted body weight, 21 cc fluid/adjusted body weight Will need to adjust free water and protein intake per labs MONITORING AND EVALUATION: residuals, weight, labs, daily ammonia Time Spent in Nutritional Counseling and Treatment: 30
[2022-07-29 12:47] LABS: Lab Add On Test DONE
[2022-07-29 12:54] LABS: BE 14 mmol/L (-2-3); HCO3 39 mmol/L (22-26); pH 7.38 (7.35-7.45); pO2 92 mmHg (80-105); sO2 98 % (95-98); tCO2 36 mmol/L (23-27)
[2022-07-29 12:58] LABS: FIO2 100 %; Site Right Radial; pCO2 66 mmHg (35-45)
[2022-07-29 13:15] LABS: Acetaminophen < 2 ug/mL (10-30)
[2022-07-29 13:32] LABS: Hepatitis A Antibody IgM Negative (Negative); Hepatitis B Core Antibody Negative (Negative); Hepatitis B surface Ag Negative (Negative); Hepatitis C Ab w Rflx HCV PCR Reactive (Negative)
[2022-07-29 14:14] LABS: Lactate 1.4 mmol/L (0.6-1.4)
[2022-07-29] MEDS: Furosemide 40 MG/4 ML VIAL IVP (14:35)
[2022-07-29] MEDS: PROPOFOL 1,000 MG/100 ML BTL 26.187 MG IVPB ×2 (15:55→20:29)
[2022-07-29] MEDS: Hydrocortisone SOD SUC. 100 MG VIAL IVP (17:50)
[2022-07-29] MEDS: VASOPRESSIN 50 UNITS in Normal Saline 497.5 ML 6 UNITS IV (18:07)
[2022-07-29] MEDS: Albuterol 2.5 MG/3 ML INH SOLN VIAL UPD (18:55)
[2022-07-29] MEDS: Pantoprazole 40 MG VIAL IVP (20:31)
[2022-07-29] MEDS: Lacri-Lube 3.5 GM TUBE OU (20:32)
[2022-07-29 22:29] LABS: Fibrinogen 200 mg/dL (171-384)
[2022-07-29] MEDS: PROPOFOL 1,000 MG/100 ML BTL 11.223 MG IVPB (23:07)
[2022-07-30] VITALS (97 sets, daily range): BP systolic 106–117; BP diastolic 53–58; PULSE 64–96; RESP 8–32; TEMP 36.2–37.2; O2SAT 89–97
[2022-07-30] MEDS: Hydrocortisone 10 MG TAB 50 MG NG ×5 (00:51→23:37)
[2022-07-30] MEDS: PIPERACILLIN/TAZO 3.375 GM in Normal Saline 50 ML IVPB ×4 (01:58→19:59)
[2022-07-30] MEDS: PROPOFOL 1,000 MG/100 ML BTL 30 MG IVPB (03:54)
[2022-07-30] MEDS: Normal Saline 1,000 ML 125 ML IV (04:15)
[2022-07-30] MEDS: THIAMINE 500 MG in Normal Saline 100 ML 200 MG IVPB ×3 (04:17→20:35)
[2022-07-30] MEDS: Heparin 5,000 UNITS/ML VIAL 5000 UNITS SC ×2 (05:59→18:09)
[2022-07-30] MEDS: Norepinephrine in D5W 8 MG/250 ML BAG 2 MG IV (06:00)
--- NOTE | 2022-07-30 06:59 | PUCC_ITS ---
General Date of Service Date of service: 07/30/22 Time of Service: 06:59 Reason for Admission to ICU: Hypoxia Hyponatremia Assessment and Plan Assessment and plan (1) Respiratory failure with hypoxia and hypercapnia: Status: Acute (2) Nicotine dependence: Status: Acute Qualifiers: Nicotine product type: cigarettes Substance use status: uncomplicated Qualified Code(s): F17.210 - Nicotine dependence, cigarettes, uncomplicated (3) Mucus plugging of bronchi: Status: Acute (4) Hepatic encephalopathy: Status: Acute (5) Alcoholic hepatitis without ascites: Status: Chronic (6) GERD (gastroesophageal reflux disease): Status: Chronic Qualifiers: Esophagitis presence: esophagitis presence not specified Qualified Code(s): K21.9 - Gastro-esophageal reflux disease without esophagitis (7) COPD (chronic obstructive pulmonary disease): Status: Chronic Qualifiers: COPD type: unspecified COPD Qualified Code(s): J44.9 - Chronic obstructive pulmonary disease, unspecified (8) Septic shock: Status: Acute (9) Elevated troponin level not due to acute coronary syndrome: Status: Acute (10) Hypotension: Status: Acute (11) Anemia: Status: Chronic (12) Coagulopathy: Status: Acute (13) Thrombocytopenia: Status: Chronic (14) Hypomagnesemia: Status: Acute (15) Hypokalemia: Status: Acute (16) Acute hyponatremia: Status: Acute (17) Acute on chronic alcoholic liver disease: Status: Acute (18) Aspiration pneumonia: Status: Acute (19) Alcohol withdrawal: Status: Acute Assessment and plan: This is a 52 yo admitted to the ICU for hyponatremia, respiratory failure and alcohol withdrawal. He has alcoholic hepatitis and seems to be in acute on chronic liver failure upon historical review of his bilirubin and LFT's. He required intubation, central line and arterial line placement yesterday and remains on vasopressors, although to lesser dosages than yesterday given the addition on vasopressin and hydrocortisone. His ammonia was elevated, which could have contributed to his obtundation in addition to over sedation with Ativan. From his exam and CXR he likely has airway obstruction on the left and given his clinical course, I suspect this to be mucus plugging from an asp iration. I will plan on a diagnostic and therapeutic bronchoscopy this morning to address this. He has shunt physiology on the ventilator as well. I trialed various vent setting to target the best driving pressure we could and although this pulmonary processes would call for higher PEEP, his driving pressures were best at a PEEP of 5. MELD 25 --> 24 --> 20 Recommendations Pulmonary: Hypoxic and hypercapnic respiratory failure - hypercapnia is chronic based on blood gas and bicarb - mechanical ventilation on volume control - recommend changing tidal volume to 460-480 given alkolotic ABG this morning -titrate FiO2 as tolerated, sat goal 88-92% - PEEP 5 - target driving pressure <15 - recommend diuresis as below - Duonebs QID Mucus plugging - bronchoscopy this morning - airway clearance COPD - Symbicort while hospitalized - Duonebs QID - IS and Acapella - nicotine patch prn Cardiac: Septic Shock - Levophed infusion - vasopressin 0.03 - please do NOT titrate this drip - stress dose steroids - MAP goal 65mmHg Troponin elevation - mild and normalized, demand in nature - echo ordered Renal: Volume Overload - Lasix 40mg IV and albumin 25g today Hyponatremia - improved to 132 today - likely beer potomania, I do not recommend intervention unless Na<122 - continue to monitor Hypomagnesemia - replace to 2.0 Hypokalemia - replace to 4.0 I&O: Intake & Output 07/27/22 07/28/22 07/29/22 07/30/22 23:59 23:59 23:59 23:59 Intake Total 267.500 / 061.926 5623.068 / 2611.068 1014.138 / 6021.461 1497.500 / 1154.500 Output Total 1425 / 1425 1785 / 2210 1360 / 1410 225 / 225 Balance -1157.500 / -1157.500 826.068 / 401.068 -345.862 / -320.862 929.500 / 929.500 Weight 123.6 kg 123.8 kg 124.7 kg 123.5 kg Daily Fluid Goal:: Even GI Nutrition: Acute on Chronic Liver Failure - no role for steroids at this time - trend LFT's - avoid hepatotoxins Nutrition - NPO while obtunded GERD - on omeprazole Date of Last Bowel Movement: 07/27/22 Infectious Disease: Aspiration Pneumonia - continue Zosyn - diagnostic and therapeutic bronchoscopy this morning Hematologic: Anemia and thrombocytopenia - due to acute liver failure - monitor - hold DVT ppx if platelets drop below 50,000 - fibrinogen level ordered - agree with ammonia level Neurologic: Encephalopathy - multifactorial due to over sedation, metabolic and hepatic (elevated ammonia) - lactulose titrated for 2-3 BM's a day Sedation - propofol infusion - prn fentanyl - daily sedation awakening trials Endocrine: No acute concerns Lines: PIV Arterial line Brooks CVC Prophylaxis: Heparin Protonix Code Status: Resuscitation Status Full Code Subjective Critical and life-threatening events over the past 24 hours: Clemente became significantly hypotensive yesterday and had a central line and arterial line placed. His mental status remained a concern, with short lived times of alertness after receiving flumazenil, however he was not able to safely protect his airway consistently and he became more hypoxic necessitating intubation. He was requiring significant doses of Levophed so I did recommend starting vasopressin and stress dose steroids, which has seemed to significantly improve his Levophed needs. His ammonia was found to be elevated so I did order lactulose to titrate to 2-3 bowel movements a day. He was started on IVF overnight for an unclear reason, so I discontinued them this morning. Exam Narrative Exam Narrative: Gen: sedated, obese, dirty, jaundiced HENT: PERRL Chest: No respiratory distress, normal appearance of chest, bilateral wheezing and crackles present throughout. Decreased airflow on the left. Heart: regular rate and rhythym, no murmurs, rubs or gallops Abdomen: Non-distended, soft, non tender Extremities: No clubbing, 2+ pitting edema on shins Neuro: intubated and sedated - during sedation awakening trial followed commands and responded appropriately during limited exam Psych: intubated and sedated Most Recent VS/Results Last Vital Signs Temp 36.3 C L 07/30/22 02:00 Pulse 84 07/30/22 04:00 Resp 16 07/30/22 02:00 BP 112/50 L 07/29/22 19:01 Pulse Ox 94 07/30/22 04:00 Laboratory Results - last 24 hr 07/27/22 07/29/22 07/29/22 10:50 05:45 06:54 WBC 9.04 RBC 3.57 L Hgb 12.4 L Hct 35.9 L MCV 101 H MCH 34.7 H MCHC 34.5 RDW 13.4 Plt Count 69 L D MPV 11.1 H PT INR ABG Sample Site ABG pH ABG pCO2 ABG pO2 ABG HCO3 ABG Total CO2 ABG O2 Saturation ABG Base Excess VBG Lactate Oxygen Liter Flow FiO2 Sodium 127 L Potassium 3.6 Chloride 88 L Carbon Dioxide 34.2 H Anion Gap 4.8 BUN 6 L Creatinine 0.8 Est GFR (CKD-EPI 2020) 106.48 Glucose 101 Calcium 9.0 Magnesium Ferritin Total Bilirubin Conjugated Bilirubin AST ALT Alkaline Phosphatase Ammonia Total Protein Albumin Vitamin B12 Folate Acetaminophen Hepatitis A IgM Ab Negative Hep Bs Antigen Negative Hep B Core Total Ab Negative Hepatitis C Antibody Reactive A Add-On Test Request 07/29/22 07/29/22 07/29/22 08:58 08:58 08:58 WBC RBC Hgb Hct MCV MCH MCHC RDW Plt Count MPV PT 13.0 H INR 1.3 H ABG Sample Site ABG pH ABG pCO2 ABG pO2 ABG HCO3 ABG Total CO2 ABG O2 Saturation ABG Base Excess VBG Lactate 1.7 H Oxygen Liter Flow FiO2 Sodium Potassium Chloride Carbon Dioxide Anion Gap BUN Creatinine Est GFR (CKD-EPI 2020) Glucose Calcium Magnesium Ferritin Total Bilirubin Conjugated Bilirubin AST ALT Alkaline Phosphatase Ammonia Total Protein Albumin Vitamin B12 Folate Acetaminophen Hepatitis A IgM Ab Hep Bs Antigen Hep B Core Total Ab Hepatitis C Antibody Add-On Test Request DONE 07/29/22 07/29/22 07/29/22 08:58 09:13 09:13 WBC RBC Hgb Hct MCV MCH MCHC RDW Plt Count MPV PT INR ABG Sample Site ABG pH ABG pCO2 ABG pO2 ABG HCO3 ABG Total CO2 ABG O2 Saturation ABG Base Excess VBG Lactate Oxygen Liter Flow FiO2 Sodium Potassium Chloride Carbon Dioxide Anion Gap BUN Creatinine Est GFR (CKD-EPI 2020) Glucose Calcium Magnesium 1.7 L Ferritin Total Bilirubin 4.8 H Conjugated Bilirubin 3.4 H AST 129 H ALT 45 Alkaline Phosphatase 208 H Ammonia 66 H Total Protein 6.2 L Albumin 2.6 L Vitamin B12 Folate Acetaminophen Hepatitis A IgM Ab Hep Bs Antigen Hep B Core Total Ab Hepatitis C Antibody Add-On Test Request DONE 07/29/22 07/29/22 07/29/22 09:13 10:20 12:47 WBC RBC Hgb Hct MCV MCH MCHC RDW Plt Count MPV PT INR ABG Sample Site Right Radial Right Radial ABG pH 7.45 7.38 ABG pCO2 57 H 66 H* ABG pO2 56 L 92 ABG HCO3 40 H 39 H ABG Total CO2 36 H 36 H ABG O2 Saturation 92 L 98 ABG Base Excess 16 H 14 H VBG Lactate Oxygen Liter Flow 50 VC/AC VT480 /R14/P5 FiO2 78 100 Sodium Potassium Chloride Carbon Dioxide Anion Gap BUN Creatinine Est GFR (CKD-EPI 2020) Glucose Calcium Magnesium Ferritin Total Bilirubin Conjugated Bilirubin AST ALT Alkaline Phosphatase Ammonia Total Protein Albumin Vitamin B12 Folate Acetaminophen < 2 Hepatitis A IgM Ab Hep Bs Antigen Hep B Core Total Ab Hepatitis C Antibody Add-On Test Request 07/29/22 07/29/22 07/30/22 14:05 Unknown 05:35 WBC RBC Hgb Hct MCV MCH MCHC RDW Plt Count MPV PT INR ABG Sample Site ABG pH ABG pCO2 ABG pO2 ABG HCO3 ABG Total CO2 ABG O2 Saturation ABG Base Excess VBG Lactate 1.4 Oxygen Liter Flow FiO2 Sodium Potassium Chloride Carbon Dioxide Anion Gap BUN Creatinine Est GFR (CKD-EPI 2020) Glucose Calcium Magnesium Ferritin Cancelled Total Bilirubin Cancelled Conjugated Bilirubin Cancelled AST Cancelled ALT Cancelled Alkaline Phosphatase Cancelled Ammonia Total Protein Cancelled Albumin Cancelled Vitamin B12 Folate Acetaminophen Hepatitis A IgM Ab Hep Bs Antigen Hep B Core Total Ab Hepatitis C Antibody Add-On Test Request Cancelled 07/30/22 05:35 WBC RBC Hgb Hct MCV MCH MCHC RDW Plt Count MPV PT INR ABG Sample Site ABG pH ABG pCO2 ABG pO2 ABG HCO3 ABG Total CO2 ABG O2 Saturation ABG Base Excess VBG Lactate Oxygen Liter Flow FiO2 Sodium Potassium Chloride Carbon Dioxide Anion Gap BUN Creatinine Est GFR (CKD-EPI 2020) Glucose Calcium Magnesium Ferritin Total Bilirubin Conjugated Bilirubin AST ALT Alkaline Phosphatase Ammonia Total Protein Albumin Vitamin B12 Cancelled Folate Cancelled Acetaminophen Hepatitis A IgM Ab Hep Bs Antigen Hep B Core Total Ab Hepatitis C Antibody Add-On Test Request Review of Systems Unobtainable due to endotracheal tube Time spent with patient Time spent in Critical Care: 120 Time spent in Critical care included: Performing procedures not included in c.c time, Coordination of care, Chart review, Documenting critically ill care, Time at immediate bedside and Discussing critically ill care with other medical staff
[2022-07-30 07:14] LABS: Abs Immature Grans 0.06 10^3/uL (0.0-0.06); Absolute Basophil Count 0.01 10^3/uL (0.0-0.2); Absolute Lymphocyte Count 0.94 10^3/uL (1.2-3.4); Absolute Monocyte Count 0.92 10^3/uL (0.1-0.8); Absolute Neutrophil Count 5.11 10^3/uL (1.2-6.7); Basophils % 0.1; HCT 33.7 % (40.0-50.0); HGB 11.7 g/dL (13.5-17.5); Immature Grans % 0.9; Lymphocytes % 13.4; MCH 35.3 pg (27.0-33.0); MCHC 34.7 % (32.0-36.0); MCV 102 fL (80-95); Monocytes % 13.1; Neutrophils % 72.5; RBC 3.31 10^6/uL (4.36-5.78); RDW 14.2 % (11.8-14.1); RDW-SD 53.3 fL; WBC 7.04 10^3/uL (4.4-10.8)
[2022-07-30 07:28] LABS: INR 1.3 (0.9-1.1); Prothrombin Time 12.9 sec (9.3-11.0)
[2022-07-30 07:43] LABS: Iron 56 ug/dL (65-175); Total Iron Binding Capacity 162 ug/dL (250-450); Transferrin Sat 35 % (20-55)
[2022-07-30 07:44] LABS: Diff Comment Diff Reviewed; RBC Morphology Normal
[2022-07-30] MEDS: Albuterol/Ipratropium 3 ML UPD VIAL UPD ×4 (07:47→20:19)
[2022-07-30] MEDS: Budesonide/Formoterol 160/4.5 6 GM 60 PUFF INH IH ×2 (07:50→20:34)
[2022-07-30 08:20] LABS: ALT 46 U/L (16-63); AST 98 U/L (15-37); Albumin 2.5 g/dL (3.4-5.0); Alkaline Phosphatase 184 U/L (46-116); Anion Gap 4.7 mmol/L (3-11); BUN 13 mg/dL (7-18); Bilirubin, Total 4.8 mg/dL (0.2-1.0); CO2 36.3 mmol/L (21.0-32.0); CREATININE 1.1 mg/dL (0.70-1.30); Chloride 91 mmol/L (98-107); Estimated GFR 80.77 (mL/min/1.73m2); Folate 2.4 ng/mL (8.6-20.0); Glucose 153 mg/dL (74-106); Magnesium 1.5 mg/dL (1.8-2.4); Sodium 132 mmol/L (136-145); Total Protein 6.1 g/dL (6.4-8.2); Vitamin B12 1810 pg/mL (193-986)
[2022-07-30 08:23] LABS: Ferritin 1326 ng/mL (26-388); Potassium 2.9 mmol/L (3.5-5.1)
--- NOTE | 2022-07-30 08:25 | PGE_ITS ---
Date of Service Date of service: 07/30/22 Time of Service: 08:25 Assessment and Plan Assessment and plan (1) Respiratory failure with hypoxia and hypercapnia: Status: Acute Assessment and plan: Due to suspected aspiration pneumonia with mucuous plugging as well as fluid overload. Suspect that encephalopathy contributed to aspiration. S/p intubation, on vent. Continue zosyn empirically. S/p bronch today: evidence of thick mucuous plugging L lung. Await BAL/sputum cx. S/p dose of furosemide + albumin. LVEF preserved on echo and no evidence of RV failure. Venous dopplers of BLEs are negative. (2) Septic shock: Status: Acute Assessment and plan: Combination of septic shock, effects of sedation, liver disease. On norepinephrine + vasopressin as well as stress dose steroids. Continue to adjust to maintain MAP of >60-65. Trend lactates. (3) Aspiration pneumonia: Status: Acute Assessment and plan: Zosyn as above (4) Mucus plugging of bronchi: Status: Acute Assessment and plan: S/p bronch. Add mucolytics. As above. (5) Toxic metabolic encephalopathy: Status: Acute Assessment and plan: Responsive to flumazenil, so there is a component of decreased clearence of benzodiazepines. IN addition, there is evidence of hepatic encephalopathy. Continue lactulose. Avoid further use of benzodiazepines. (6) Hepatic encephalopathy: Status: Acute Assessment and plan: As above (7) Alcohol withdrawal: Status: Acute Assessment and plan: The patient is not showing signs of alcohol withdrawal at this time. (8) Alcoholic hepatitis: Status: Acute Assessment and plan: Maddrey score of 13.5 today Monitor LFTs, INR. (9) Thrombocytopenia: Status: Chronic Assessment and plan: In setting of liver disease. On low dose heparin for DVT ppx. Monitor plts. (10) Coagulopathy: Status: Acute Assessment and plan: In setting of alcoholic hepatitis/chronic liver disease. Monitor INR/for bleeding. (11) Anemia: Status: Chronic Assessment and plan: Replete folate. (12) Acute hyponatremia: Start date: 07/26/22 Status: Acute Assessment and plan: Suspect beer potomania and, at this point, dilutional component. Improving with diuresis. Continue to monitor. (13) Hypokalemia: Start date: 07/26/22 Status: Acute Assessment and plan: Replete; recheck in am. (14) Hypomagnesemia: Start date: 07/26/22 Status: Acute Assessment and plan: Replete, recheck in am. (15) Alcohol dependence: Status: Chronic Assessment and plan: At this point, not showing signs of w/d. Continue supplementation with MVI, thiamine, folate. Qualifiers: Substance use status: unspecified alcohol-induced disorder Qualified Code(s): F10.29 - Alcohol dependence with unspecified alcohol-induced disorder (16) Elevated troponin level not due to acute coronary syndrome: Start date: 07/26/22 Status: Acute Assessment and plan: Very minimal elevations of troponin in setting of hypoxic respiratory failure/fluid overload, not c/w ACS. Echo w/o evidence of wall motion abnormalities. I do not feel that further ischemic workup is warranted at this time. (17) DVT prophylaxis: Status: Acute Assessment and plan: SC heparin (18) Discharge planning issues: Status: Acute Assessment and plan: Keep in ICU. Total Critical Care Time [address] Macario. Subjective Subjective Interval history since last seen: Mr Mays remains on the ventilator and on vasopressor support (now vasopressin +/- levophed - it has had to be turned on and off throughout the course of this morning). His FiO2 this morning was 60% on the vent. He underwent a bronchoscopy with ev idence of mucuous plugging. No complications. Did well with sedation vacation. Exam Narrative Exam Narrative: General: Obese male who is intubated, sedated, not arousable to pain or verbal stimuli HEENT: eyes closed, ET/OG tubes in place Heart: RRR, no m/r/g Lungs: ventilator breath sounds B; Diminished breath sounds on L Abdomen: soft, nondistended Extremities: trace BLE edema Objective Last Vital Signs Temp 36.9 C 07/30/22 07:33 Pulse 89 07/30/22 07:47 Resp 17 07/30/22 07:51 BP 112/50 L 07/29/22 19:01 Pulse Ox 90 L 07/30/22 07:51 Laboratory Results - last 24 hr 07/27/22 07/29/22 07/29/22 10:50 08:58 08:58 WBC RBC Hgb Hct MCV MCH MCHC RDW Plt Count MPV Immature Gran % Neutrophils % Lymphocytes % Monocytes % Eosinophils % Basophils % Nucleated RBC % Absolute Neutrophils Absolute Lymphocytes Absolute Monocytes Absolute Eosinophils Absolute Basophils RBC Morphology PT 13.0 H INR 1.3 H ABG Sample Site ABG pH ABG pCO2 ABG pO2 ABG HCO3 ABG Total CO2 ABG O2 Saturation ABG Base Excess VBG Lactate Oxygen Liter Flow FiO2 Sodium Potassium Chloride Carbon Dioxide Anion Gap BUN Creatinine Est GFR (CKD-EPI 2020) Glucose Calcium Magnesium Iron TIBC Transferrin % Sat Ferritin Total Bilirubin Conjugated Bilirubin AST ALT Alkaline Phosphatase Ammonia Total Protein Albumin Vitamin B12 Folate Acetaminophen Hepatitis A IgM Ab Negative Hep Bs Antigen Negative Hep B Core Total Ab Negative Hepatitis C Antibody Reactive A Add-On Test Request DONE 07/29/22 07/29/22 07/29/22 08:58 08:58 09:13 WBC RBC Hgb Hct MCV MCH MCHC RDW Plt Count MPV Immature Gran % Neutrophils % Lymphocytes % Monocytes % Eosinophils % Basophils % Nucleated RBC % Absolute Neutrophils Absolute Lymphocytes Absolute Monocytes Absolute Eosinophils Absolute Basophils RBC Morphology PT INR ABG Sample Site ABG pH ABG pCO2 ABG pO2 ABG HCO3 ABG Total CO2 ABG O2 Saturation ABG Base Excess VBG Lactate 1.7 H Oxygen Liter Flow FiO2 Sodium Potassium Chloride Carbon Dioxide Anion Gap BUN Creatinine Est GFR (CKDEPI 2020) Glucose Calcium Magnesium 1.7 L Iron TIBC Transferrin % Sat Ferritin Total Bilirubin 4.8 H Conjugated Bilirubin 3.4 H AST 129 H ALT 45 Alkaline Phosphatase 208 H Ammonia 66 H Total Protein 6.2 L Albumin 2.6 L Vitamin B12 Folate Acetaminophen Hepatitis A IgM Ab Hep Bs Antigen Hep B Core Total Ab Hepatitis C Antibody Add-On Test Request 07/29/22 07/29/22 07/29/22 09:13 09:13 10:20 WBC RBC Hgb Hct MCV MCH MCHC RDW Plt Count MPV Immature Gran % Neutrophils % Lymphocytes % Monocytes % Eosinophils % Basophils % Nucleated RBC % Absolute Neutrophils Absolute Lymphocytes Absolute Monocytes Absolute Eosinophils Absolute Basophils RBC Morphology PT INR ABG Sample Site Right Radial ABG pH 7.45 ABG pCO2 57 H ABG pO2 56 L ABG HCO3 40 H ABG Total CO2 36 H ABG O2 Saturation 92 L ABG Base Excess 16 H VBG Lactate Oxygen Liter Flow 50 FiO2 78 Sodium Potassium Chloride Carbon Dioxide Anion Gap BUN Creatinine Est GFR (CKD-EPI 2020) Glucose Calcium Magnesium Iron TIBC Transferrin % Sat Ferritin Total Bilirubin Conjugated Bilirubin AST ALT Alkaline Phosphatase Ammonia Total Protein Albumin Vitamin B12 Folate Acetaminophen < 2 Hepatitis A IgM Ab Hep Bs Antigen Hep B Core Total Ab Hepatitis C Antibody Add-On Test Request DONE 07/29/22 07/29/22 07/30/22 12:47 14:05 05:15 WBC RBC Hgb Hct MCV MCH MCHC RDW Plt Count MPV Immature Gran % Neutrophils % Lymphocytes % Monocytes % Eosinophils % Basophils % Nucleated RBC % Absolute Neutrophils Absolute Lymphocytes Absolute Monocytes Absolute Eosinophils Absolute Basophils RBC Morphology PT INR ABG Sample Site Right Radial ABG pH 7.38 ABG pCO2 66 H* ABG pO2 92 ABG HCO3 39 H ABG Total CO2 36 H ABG O2 Saturation 98 ABG Base Excess 14 H VBG Lactate 1.4 Oxygen Liter Flow VC/AC VT480 /R14/P5 FiO2 100 Sodium 132 L Potassium 2.9 L Chloride 91 L Carbon Dioxide 36.3 H Anion Gap 4.7 BUN 13 Creatinine 1.1 Est GFR (CKD-EPI 2020) 80.77 Glucose 153 H Calcium 9.0 Magnesium 1.5 L Iron TIBC Transferrin % Sat Ferritin 1326 H Total Bilirubin 4.8 H Conjugated Bilirubin AST 98 H ALT 46 Alkaline Phosphatase 184 H Ammonia Total Protein 6.1 L Albumin 2.5 L Vitamin B12 1810 H Folate 2.4 L Acetaminophen Hepatitis A IgM Ab Hep Bs Antigen Hep B Core Total Ab Hepatitis C Antibody Add-On Test Request 07/30/22 07/30/22 07/30/22 05:15 05:15 05:15 WBC 7.04 RBC 3.31 L Hgb 11.7 L Hct 33.7 L MCV 102 H MCH 35.3 H MCHC 34.7 RDW 14.2 H Plt Count MPV Immature Gran % 0.9 Neutrophils % 72.5 Lymphocytes % 13.4 Monocytes % 13.1 Eosinophils % 0.0 Basophils % 0.1 Nucleated RBC % 0.0 Absolute Neutrophils 5.11 Absolute Lymphocytes 0.94 L Absolute Monocytes 0.92 H Absolute Eosinophils 0.00 Absolute Basophils 0.01 RBC Morphology Normal PT 12.9 H INR 1.3 H ABG Sample Site ABG pH ABG pCO2 ABG pO2 ABG HCO3 ABG Total CO2 ABG O2 Saturation ABG Base Excess VBG Lactate Oxygen Liter Flow FiO2 Sodium Potassium Chloride Carbon Dioxide Anion Gap BUN Creatinine Est GFR (CKD-EPI 2020) Glucose Calcium Magnesium Iron 56 L TIBC 162 L Transferrin % Sat 35 Ferritin Total Bilirubin Conjugated Bilirubin AST ALT Alkaline Phosphatase Ammonia Total Protein Albumin Vitamin B12 Folate Acetaminophen Hepatitis A IgM Ab Hep Bs Antigen Hep B Core Total Ab Hepatitis C Antibody Add-On Test Request 07/30/22 07/30/22 05:35 05:35 WBC RBC Hgb Hct MCV MCH MCHC RDW Plt Count MPV Immature Gran % Neutrophils % Lymphocytes % Monocytes % Eosinophils % Basophils % Nucleated RBC % Absolute Neutrophils Absolute Lymphocytes Absolute Monocytes Absolute Eosinophils Absolute Basophils RBC Morphology PT INR ABG Sample Site ABG pH ABG pCO2 ABG pO2 ABG HCO3 ABG Total CO2 ABG O2 Saturation ABG Base Excess VBG Lactate Oxygen Liter Flow FiO2 Sodium Potassium Chloride Carbon Dioxide Anion Gap BUN Creatinine Est GFR (CKD-EPI 2020) Glucose Calcium Magnesium Iron TIBC Transferrin % Sat Ferritin Cancelled Total Bilirubin Cancelled Conjugated Bilirubin Cancelled AST Cancelled ALT Cancelled Alkaline Phosphatase Cancelled Ammonia Total Protein Cancelled Albumin Cancelled Vitamin B12 Cancelled Folate Cancelled Acetaminophen Hepatitis A IgM Ab Hep Bs Antigen Hep B Core Total Ab Hepatitis C Antibody Add-On Test Request Objective Narrative Objective Narrative: Echo; Normal left ventricular chamber size.? Ejection fraction is 59%.? Wall motion is normal Right ventricle appears grossly normal in size and systolic function Both atria are normal in size There is no structural or hemodynamically significant valvular disease Venous dopplers BLEs; Right: Negative for DVT Left: Negative for DVT PAWSS Have you Been Recently Intoxicated or Drunk Within the Last 30 days?: Yes Have you Ever Experienced Previous Episodes of Alcohol Withdrawal?: Yes Have you ever Experienced Withdrawal Seizures?: Yes Have you ever Experienced Delirium Tremens(DT)s?: Yes Have you ever undergone Alcohol Rehabilitation Treatment (i.e, inpt ot outpatient treatment programs)?: Yes Have you ever Experienced Blackouts?: Yes Have you ever Combined Alcohol with other Downers within the last 90 days?: Yes Have you ever Combined Alcohol with any other Substance of Abuse during the last 90 days?: Yes Positive Blood Alcohol level on Presentation? [PCS.BAL]: Yes Evidence of Increased Autonomic Activity (i.e. HR>120, tremor, sweating, agitation, nausea)?: No Result: 9 Multi-Disciplinary Checklist Lines/Tubes CENTRAL LINE: yes, Central Line Day#: 2 Note: R IJ CVL ARTERIAL LINE: yes, Arterial Line Day#: 2 [place]: yes, [place] Day#: 4 ENDOTRACHEAL TUBE: yes, Endotracheal Tube Day#: 2 Sedation: yes, Sedation Vacation: yes Head of Bed@30 degrees: yes Spontaneous Breathing Trial: yes ICU Maintenance GLUCOSE 140-180mg/dL: yes NUTRITION AT GOAL: yes PRESSURE ULCER: no RESTRAINTS: yes, Reviewed Necessity: Yes ANTIBIOTICS(if yes, consider Stewardship): Yes Social Issues FAMILY UPDATED: yes PT/OT: no, Reason/Intervention: Not clinically appropriate GOALS/DISPOSITION/PAPER STACKER: yes CODE STATUS: Full Prophylaxis DVT PROPHYLAXIS: yes GI PROPHYLAXIS: yes, Indication: On steroids Time Spent with Patient Time Spent with Patient: >50 minutes Time was spent: preparing to see the patient(eg.review tests), obtaining and/or reviewing separately otained hiistory, ordering medications,tests, procedures, referring, communicating with other health progressive care unit registered nurse, indepentently interpreting results, counseling the patient and care coordination
[2022-07-30 08:26] LABS: BE 15 mmol/L (-2-3); HCO3 38 mmol/L (22-26); pCO2 51 mmHg (35-45); pH 7.48 (7.35-7.45); pO2 68 mmHg (80-105); sO2 96 % (95-98); tCO2 35 mmol/L (23-27)
[2022-07-30 08:28] LABS: FIO2 60 %; Site Arterial Line
--- NOTE | 2022-07-30 08:28 | CMPROGNOTE_ITS ---
Date of service: 07/30/22 Time of Service: 08:29 Care Management Progress Note Progress Note Text Progress Note Text: S/O: Day #2 intubation in the ICU. Pt is being closely monitored, treated and requires further medical work up. Bronchoscopy was done today. CM will follow. A: 52 year old male admitted to [facility] on 07/26/22 for Hyponatremia, Alcoholic Hepatitis P:? Anticipate, Clemente will discharge home when medically stable per provider with new [facility] services (if indicated.)? He will follow up with his PCP and plan of care as instructed.?Community ETOH resources will be offered.? He will drive himself home when ready as his vehicle is parked in the [facility] parking lot, if able.? CM will continue to follow.
--- NOTE | 2022-07-30 08:30 | RESPIRATORY ---
Respiratory Therapy present for bedside bronchoscopy. Procedure tolerated well.
[2022-07-30 08:32] LABS: Bilirubin, Direct 3.7 mg/dL (0.0-0.2)
[2022-07-30] MEDS: Normal Saline Flush 10 ML SYR IVP ×4 (08:35→20:20)
[2022-07-30] MEDS: Pantoprazole 40 MG VIAL IVP ×2 (08:36→20:20)
[2022-07-30 08:37] LABS: Lactate 2.1 mmol/L (0.6-1.4)
[2022-07-30 08:43] LABS: Platelet Count 81 10^3/uL (130-400)
[2022-07-30] MEDS: POTASSIUM CHLORIDE 20 MEQ/100 ML BAG 50 MEQ IVPB ×4 (08:46→14:50)
[2022-07-30] MEDS: PROPOFOL 1,000 MG/100 ML BTL 52.374 MG IVPB (08:50)
[2022-07-30] MEDS: fentaNYL 100 MCG/2 ML VIAL 25 MCG IVP (08:52)
[2022-07-30] MEDS: Lidocaine 1% Multi-Dose 20 ML VIAL (09:00)
[2022-07-30] MEDS: ALBUMIN HUMAN 25 GM/100 ML BTL IVPB (09:10)
[2022-07-30] MEDS: MAGNESIUM SULFATE 4 GM/100 ML BAG IVPB (09:18)
--- NOTE | 2022-07-30 09:26 | W.NUTRFU ---
Date of service: 08/05/22 Time of Service: 09:26 Nutrition Note NOTE: Clemente was extubated last week and advanced to po diet. Following low sodium diet with variable intake. Ammonia level normalized. Overall, meeting about 75% of nutrient needs. Will continue to follow and support. Time Spent in Nutritional Counseling and Treatment: 0
[2022-07-30] MEDS: Folic Acid 1 MG TAB NG (09:31)
[2022-07-30] MEDS: Multivitamin TAB 1 TAB UD (09:32)
[2022-07-30] MEDS: Citalopram 20 MG TAB PO (09:32)
[2022-07-30] MEDS: Lactulose 20 GM/30 ML CUP PO ×2 (09:32→14:19)
[2022-07-30] MEDS: Furosemide 40 MG/4 ML VIAL IVP (09:33)
--- NOTE | 2022-07-30 09:39 | W.PM.OP ---
Date of service: 07/30/22 Time of Service: 08:45 Operative Note Operative Note DATE OF PROCEDURE: 07/29/22 PRE-OP DIAGNOSIS: Mucus plugging POST-OP DIAGNOSIS: same PROCEDURE: Bronchoscopy Indication: Hypoxia, mucus plugging Procedure performed: Flexible bronchoscopy Sedation plan: general sedation Medications used: propofol infusion, fentanyl 25mcg, topical lidocaine Patient unable to provide consent, procedure completed under semi-urgent conditions so proceeded with implied consent. A proper and complete time out was performed. The therapeutic 6.2mm Olympus bronchoscope was inserted through the 7.5 ETT, however was meeting significant resistance. I determined the scopre was too large to safely proceed. A Bflex Glydescope 4.5mm disposable bronchoscope was then used. The trachea was midline and without lesion or injury. The mucosa appeared normal and there were no signs of tracheomalacia. The viet was sharp. All bronchial subsegments were visualized within each lobe and showed normal anatomy. There were significant secretions visualized at the viet. The right bronchial segments and subsegments were with minimal secretions. The left segments and subsegments showed significant mucus plugging that was a challenge to suction. I performed bronchial washings of the left lower lobe and was able to collect an overwhelming amount of secretions and mucus plugs. There was clearing of some of the mucus plugs. I did decide to terminate the case as the patients O2 sats did decreased to the high 80's. The bronchoscope was then removed and the case terminated. The patient remained stable throughout the procedure, with the lowest O2 sat at 86%. Samples collected:Left lower lobe bronchial washings Testing ordered: cell differential, bacterial, fungal and AFB cultures, expanded respiratory viral panel Complications:None Viet: Left mainstem bronchus: Left lower lobe: Right lower lobe: Bronchial washings sample: Mariia Macario MD Pulmonary & Critical Care Medicine
[2022-07-30] MEDS: Nystatin POWDER 60 GM JAR TP ×3 (10:37→20:01)
[2022-07-30] MEDS: Lacri-Lube 3.5 GM TUBE OU ×2 (10:39→20:33)
[2022-07-30] MEDS: guaiFENesin 200 MG/10 ML CUP NG ×4 (10:39→22:23)
[2022-07-30] MEDS: PROPOFOL 1,000 MG/100 ML BTL 29.928 MG IVPB (12:00)
[2022-07-30 13:52] LABS: Lactate 2.2 MMOL/l (0.9-1.7)
--- NOTE | 2022-07-30 14:31 | NUR.NOTE ---
1430: Attempted to contact Olimpia Lancasterjan at # [phone] without success, recieved an answering machine message this phone is not accepting phone calls at this time please try again later. Attempted to contact Reymundo at # [phone] was able to leave a message requesting Reymundo to call [facility] back at this ICU #. Reymundo is John's nephew, John had requested we call him (his nephew) and gave us his number prior to being intubated yesterday.
--- NOTE | 2022-07-30 15:15 | NUR.NOTE ---
1510: Reymundo, pt's nephew returned my call. Reymundo was updated on pt's current status and made aware pt underwent a Broncoscopy today and remains on the vent today. Reymundo states he does not have a phone number for [employer] but will let us know if he does obtain one.
[2022-07-30] MEDS: PROPOFOL 1,000 MG/100 ML BTL 33.669 MG IVPB ×3 (15:31→21:07)
[2022-07-30 16:30] LABS: Lab Add On Test DONE
[2022-07-30 23:53] LABS: Adenovirus DNA Result Negative (Negative); Metapneumovirus RNA Result Negative (Negative); Parainfluenza Type1 RNA Result Negative (Negative); Parainfluenza Type2 RNA Result Negative (Negative); Parainfluenza Type3 RNA Result Negative (Negative); Parainfluenza Type4 RNA Result Negative (Negative); Rhinovirus RNA Result Negative (Negative)
[2022-07-31] VITALS (74 sets, daily range): BP systolic 90–162; BP diastolic 44–156; PULSE 58–103; RESP 1–30; TEMP 35.9–36.6; O2SAT 90–97
[2022-07-31] MEDS: PROPOFOL 1,000 MG/100 ML BTL 33.669 MG IVPB (00:06)
[2022-07-31] MEDS: fentaNYL 100 MCG/2 ML VIAL 25 MCG IVP (00:49)
[2022-07-31] MEDS: guaiFENesin 200 MG/10 ML CUP NG ×5 (01:45→21:55)
[2022-07-31] MEDS: PIPERACILLIN/TAZO 3.375 GM in Normal Saline 50 ML IVPB ×4 (01:46→19:56)
[2022-07-31] MEDS: PROPOFOL 1,000 MG/100 ML BTL 29.928 MG IVPB ×4 (03:19→22:02)
[2022-07-31] MEDS: THIAMINE 500 MG in Normal Saline 100 ML 200 MG IVPB (03:20)
[2022-07-31] MEDS: VASOPRESSIN 50 UNITS in Normal Saline 497.5 ML 18 UNITS IV (04:55)
[2022-07-31] MEDS: Heparin 5,000 UNITS/ML VIAL 5000 UNITS SC ×2 (05:10→19:28)
[2022-07-31] MEDS: Hydrocortisone 10 MG TAB 50 MG NG ×3 (05:12→19:28)
[2022-07-31] MEDS: Normal Saline Flush 10 ML SYR IVP ×3 (05:28→19:57)
[2022-07-31 06:15] LABS: Lactate 1.8 mmol/L (0.6-1.4)
[2022-07-31 06:17] LABS: Abs Immature Grans 0.04 10^3/uL (0.0-0.06); Absolute Basophil Count 0.01 10^3/uL (0.0-0.2); Absolute Lymphocyte Count 0.65 10^3/uL (1.2-3.4); Absolute Monocyte Count 0.51 10^3/uL (0.1-0.8); Absolute Neutrophil Count 2.29 10^3/uL (1.2-6.7); Basophils % 0.3; HGB 11.3 g/dL (13.5-17.5); Immature Grans % 1.1; Lymphocytes % 18.6; MCH 35.1 pg (27.0-33.0); MCHC 34.2 % (32.0-36.0); MCV 103 fL (80-95); MPV 10.5 fL (8.0-11.0); Monocytes % 14.6; Neutrophils % 65.4; RBC 3.22 10^6/uL (4.36-5.78); RDW 14.7 % (11.8-14.1)
[2022-07-31 06:24] LABS: Ammonia 49 umol/L (11-32)
[2022-07-31 06:33] LABS: ALT 39 U/L (16-63); AST 82 U/L (15-37); Albumin 2.6 g/dL (3.4-5.0); Alkaline Phosphatase 160 U/L (46-116); Anion Gap 5.5 mmol/L (3-11); BUN 16 mg/dL (7-18); Bilirubin, Direct 2.7 mg/dL (0.0-0.2); Bilirubin, Total 3.4 mg/dL (0.2-1.0); C-Reactive Protein 6.99 mg/dL (0.0-0.3); CO2 31.5 mmol/L (21.0-32.0); CREATININE 1.1 mg/dL (0.70-1.30); Calcium 8.4 mg/dL (8.5-10.1); Chloride 94 mmol/L (98-107); Estimated GFR 80.77 (mL/min/1.73m2); Glucose 189 mg/dL (74-106); Magnesium 1.9 mg/dL (1.8-2.4); PHOSPHORUS 2.1 mg/dL (2.6-4.7); Sodium 131 mmol/L (136-145); Total Protein 5.9 g/dL (6.4-8.2)
[2022-07-31 06:36] LABS: Diff Comment Diff Reviewed; Platelet Count 70 10^3/uL (130-400); RBC Morphology Normal
[2022-07-31 06:45] LABS: Potassium 2.7 mmol/L (3.5-5.1)
[2022-07-31 06:56] LABS: Procalcitonin 0.5 ng/mL
[2022-07-31] MEDS: Albuterol/Ipratropium 3 ML UPD VIAL UPD ×4 (08:02→19:43)
[2022-07-31] MEDS: Budesonide/Formoterol 160/4.5 6 GM 60 PUFF INH IH ×2 (08:02→20:41)
[2022-07-31 08:19] LABS: BE 12 mmol/L (-2-3); HCO3 36 mmol/L (22-26); pCO2 51 mmHg (35-45); pH 7.45 (7.35-7.45); pO2 63 mmHg (80-105); sO2 94 % (95-98); tCO2 32 mmol/L (23-27)
[2022-07-31 08:22] LABS: FIO2 45 %; Site Right Radial
--- NOTE | 2022-07-31 08:30 | DI.RAD_ITS ---
Exam(s) XR PORTABLE CHEST AP EXAM: XR PORTABLE CHEST AP CLINICAL HISTORY: Follow up intubated patient w/ PNA TECHNIQUE: 2D digital imaging was performed. COMPARISON: CR XR PORTABLE CHEST AP from 07/29/2022 CR XR PORTABLE CHEST AP from 07/29/2022 CR XR PORTABLE CHEST AP from 07/29/2022 FINDINGS: Exam quite limited by multiple leads overlying the chest. LUNGS: Increased density is noted at the left lung base, relatively stable. New area of increased de nsity in the right lower lung field. No change in positioning of central line, endotracheal and naso gastric tubes. HEART: Normal size. AORTA: Normal diameter. BONES: Unremarkable for age. Soft tissues: Unremarkable. IMPRESSION: Persistent left lower lobe infiltrate. New infiltrate versus atelectasis right lower lung field. DATA REPOSITORY: RADIATION DOSE DELIVERED:
--- NOTE | 2022-07-31 09:31 | PDOC.CMPRO ---
Date of service: 07/31/22 Time of Service: 09:31 Care Management Progress Note Progress Note Text Progress Note Text: S/O: Day #3 intubation in the ICU.? Pt is being closely monitored, treated and requires further medical work up. Cultures are pending. He is clinically improving per provider. CM will follow. A: 52 year old male admitted to [facility] on 07/26/22 for Hyponatremia, Alcoholic Hepatitis P:?? Anticipate, Clemente will discharge home when medically stable per provider with new [facility] services (if indicated.)? He will follow up with his PCP and plan of care as instructed.?Community ETOH resources will be offered.? He will drive himself home when ready as his vehicle is parked in the [facility] parking lot, if able.? CM will continue to follow.
[2022-07-31 09:33] LABS: Eosinophils Fluid Relative 1 %; Mono/Macrophage Fluid Relative 5 %; Neutrophils Fluid Relative 94 %
[2022-07-31] MEDS: POTASSIUM CHLORIDE 20 MEQ/100 ML BAG 50 MEQ IVPB ×4 (09:41→13:22)
[2022-07-31] MEDS: Potassium Chloride Liquid 20 MEQ PKT 40 MEQ NG (09:42)
[2022-07-31] MEDS: Folic Acid 1 MG TAB NG (09:42)
[2022-07-31] MEDS: Lactulose 20 GM/30 ML CUP PO (09:42)
[2022-07-31] MEDS: Citalopram 20 MG TAB PO (09:43)
[2022-07-31] MEDS: Multivitamin TAB 1 TAB UD (09:43)
[2022-07-31] MEDS: Pantoprazole 40 MG VIAL IVP ×2 (09:43→19:49)
[2022-07-31] MEDS: Lacri-Lube 3.5 GM TUBE OU ×2 (09:49→20:43)
--- NOTE | 2022-07-31 09:54 | PGE_ITS ---
Date of Service Date of service: 07/31/22 Time of Service: 09:00 Assessment and Plan Assessment and plan (1) Respiratory failure with hypoxia and hypercapnia: Status: Acute Assessment and plan: Due to suspected aspiration pneumonia with mucuous plugging evident on imaging and bronch 07/30/22 as well as fluid overload. Suspect that encephalopathy contributed to aspiration. S/p intubation 07/29/22, remains on vent Continue zosyn empirically. Consider addition of vancomycin given a possible new RLL infiltrate, but I am not rushing to do this - he is clinically improving, requiring less oxygen, vasopressor requirement is less. Will await sputum cx/BAL cx from bronch 07/30/22. Await BAL/sputum cx. I think he is clinically euvolemic today - no diuretics. Venous dopplers of BLEs are negative. LVEF preserved and RV function good. (2) Septic shock: Status: Acute Assessment and plan: Hypotension due to combination of septic shock, effects of sedation, liver disease. On vasopressin alone this am which is being weaned down. MAPs really good this morning so we can start to titrate this down. Off of norepinephrine since 4 pm yesterday. Continue stress dose steroids as well. Target MAP of 65. Trend lactates (improving). (3) Aspiration pneumonia: Status: Acute Assessment and plan: Continue Zosyn as above Continue scheduled mucolytis. (4) Mucus plugging of bronchi: Status: Acute Assessment and plan: S/p bronch. Continue scheduled mucolytics. As above. (5) Toxic metabolic encephalopathy: Status: Acute Assessment and plan: Responsive to flumazenil, so there is a component of decreased clearence of benzodiazepines. In addition, there is evidence of hepatic encephalopathy. Continue lactulose, but decrease dose (having 6 stools/day). Avoid further use of benzodiazepines. (6) Hepatic encephalopathy: Status: Acute Assessment and plan: As above (7) Alcohol withdrawal: Status: Acute Assessment and plan: The patient is not showing signs of alcohol withdrawal at this time. (8) Alcoholic hepatitis: Status: Acute Assessment and plan: Maddrey scores improving and <32. Monitor LFTs, INR. (9) Thrombocytopenia: Status: Chronic Assessment and plan: In setting of liver disease. On low dose heparin for DVT ppx. Monitor plts - 70 today. (10) Coagulopathy: Status: Acute Assessment and plan: In setting of alcoholic hepatitis/chronic liver disease. Monitor INR/for bleeding. (11) Anemia: Status: Chronic Assessment and plan: Replete folate. (12) Acute hyponatremia: Start date: 07/26/22 Status: Acute Assessment and plan: Stable. Reportedly, the patient was not drinking beer, but was fluid overloaded. Sodium is better with diuresis. Continue to monitor. (13) Hypokalemia: Start date: 07/26/22 Status: Acute Assessment and plan: Replete; recheck in am. (14) Hypomagnesemia: Start date: 07/26/22 Status: Resolved Assessment and plan: Recheck in am. (15) Alcohol dependence: Status: Chronic Assessment and plan: At this point, not showing signs of w/d. Continue supplementation with MVI, thiamine, folate. Qualifiers: Substance use status: unspecified alcohol-induced disorder Qualified Code(s): F10.29 - Alcohol dependence with unspecified alcohol-induced disorder (16) Elevated troponin level not due to acute coronary syndrome: Start date: 07/26/22 Status: Acute Assessment and plan: Very minimal elevations of troponin in setting of hypoxic respiratory failure/fluid overload, not c/w ACS. Echo w/o evidence of wall motion abnormalities. I do not feel that further ischemic workup is warranted at this time. (17) DVT prophylaxis: Status: Acute Assessment and plan: SC heparin (18) Discharge planning issues: Status: Acute Assessment and plan: Keep in ICU. Total Critical Care Time 40 minutes. Subjective Subjective Interval history since last seen: Remains intubated. Norepinephrine is off. Vasopressin is being weaned off as MAPs are in the 70s and 80s. Did well with sedation vacation. Vent settings today are CMV Vt 460 cc PEEP 10 FiO2 45%. Exam Narrative Exam Narrative: General: Obese male who is intubated, sedated, arousable to verbal stimuli, moving purposefully in bed HEENT: opens eyes to voice, ET/OG tubes in place Heart: RRR, no m/r/g Lungs: ventilator breath sounds B Abdomen: soft, nondistended : has a vargas with contentrated yellow output Extremities: trace BLE edema Objective Last Vital Signs Temp 35.9 C L 07/31/22 04:00 Pulse 61 07/31/22 08:03 Resp 15 07/31/22 08:25 BP 162/156 H 07/31/22 08:25 Pulse Ox 91 L 07/31/22 08:25 Laboratory Results - last 24 hr 07/26/22 07/30/22 07/30/22 20:55 09:10 09:10 WBC RBC Hgb Hct MCV MCH MCHC RDW Plt Count MPV Immature Gran % Neutrophils % Lymphocytes % Monocytes % Eosinophils % Basophils % Nucleated RBC % Absolute Neutrophils Absolute Lymphocytes Absolute Monocytes Absolute Eosinophils Absolute Basophils RBC Morphology ABG Sample Site ABG pH ABG pCO2 ABG pO2 ABG HCO3 ABG Total CO2 ABG O2 Saturation ABG Base Excess VBG Lactate Oxygen Liter Flow FiO2 Sodium Potassium Chloride Carbon Dioxide Anion Gap BUN Creatinine Est GFR (CKD-EPI 2020) Glucose Calcium Phosphorus Magnesium Total Bilirubin Conjugated Bilirubin AST ALT Alkaline Phosphatase Ammonia C-Reactive Protein Total Protein Albumin Procalcitonin BAL Neutrophils 94 BAL Lymphocytes Not Applicable BAL Eosinophils 1 BAL Monocyte/Macrophage 5 Adenovirus DNA Negative Human Metapneumovir RNA Negative Parainfluenza 1 (PCR) Negative Parainfluenza 2 (PCR) Negative Parainfluenza 3 (PCR) Negative Parainfluenza 4 (PCR) Negative Resp Viral Spec Desc Not Applicable Rhinovirus (PCR) Negative Add-On Test Request DONE 07/30/22 07/31/22 07/31/22 13:35 05:55 05:55 WBC RBC Hgb Hct MCV MCH MCHC RDW Plt Count MPV Immature Gran % Neutrophils % Lymphocytes % Monocytes % Eosinophils % Basophils % Nucleated RBC % Absolute Neutrophils Absolute Lymphocytes Absolute Monocytes Absolute Eosinophils Absolute Basophils RBC Morphology ABG Sample Site ABG pH ABG pCO2 ABG pO2 ABG HCO3 ABG Total CO2 ABG O2 Saturation ABG Base Excess VBG Lactate 2.2 H* Oxygen Liter Flow FiO2 Sodium 131 L Potassium 2.7 L* Chloride 94 L Carbon Dioxide 31.5 Anion Gap 5.5 BUN 16 Creatinine 1.1 Est GFR (CKD-EPI 2020) 80.77 Glucose 189 H Calcium 8.4 L Phosphorus 2.1 L Magnesium 1.9 Total Bilirubin 3.4 H Conjugated Bilirubin 2.7 H AST 82 H ALT 39 Alkaline Phosphatase 160 H Ammonia 49 H C-Reactive Protein 6.99 H Total Protein 5.9 L Albumin 2.6 L Procalcitonin BAL Neutrophils BAL Lymphocytes BAL Eosinophils BAL Monocyte/Macrophage Adenovirus DNA Human Metapneumovir RNA Parainfluenza 1 (PCR) Parainfluenza 2 (PCR) Parainfluenza 3 (PCR) Parainfluenza 4 (PCR) Resp Viral Spec Desc Rhinovirus (PCR) Add-On Test Request 07/31/22 07/31/22 07/31/22 05:55 05:55 08:15 WBC 3.50 L RBC 3.22 L Hgb 11.3 L Hct 33.0 L MCV 103 H MCH 35.1 H MCHC 34.2 RDW 14.7 H Plt Count 70 L MPV 10.5 Immature Gran % 1.1 Neutrophils % 65.4 Lymphocytes % 18.6 Monocytes % 14.6 Eosinophils % 0.0 Basophils % 0.3 Nucleated RBC % 0.0 Absolute Neutrophils 2.29 Absolute Lymphocytes 0.65 L Absolute Monocytes 0.51 Absolute Eosinophils 0.00 Absolute Basophils 0.01 RBC Morphology Normal ABG Sample Site Right Radial ABG pH 7.45 ABG pCO2 51 H ABG pO2 63 L ABG HCO3 36 H ABG Total CO2 32 H ABG O2 Saturation 94 L ABG Base Excess 12 H VBG Lactate 1.8 H Oxygen Liter Flow VT460/R16/P10 FiO2 45 Sodium Potassium Chloride Carbon Dioxide Anion Gap BUN Creatinine Est GFR (CKD-EPI 2020) Glucose Calcium Phosphorus Magnesium Total Bilirubin Conjugated Bilirubin AST ALT Alkaline Phosphatase Ammonia C-Reactive Protein Total Protein Albumin Procalcitonin 0.5 BAL Neutrophils BAL Lymphocytes BAL Eosinophils BAL Monocyte/Macrophage Adenovirus DNA Human Metapneumovir RNA Parainfluenza 1 (PCR) Parainfluenza 2 (PCR) Parainfluenza 3 (PCR) Parainfluenza 4 (PCR) Resp Viral Spec Desc Rhinovirus (PCR) Add-On Test Request Objective Narrative Objective Narrative: CXR: Persistent left lower lobe infiltrate.? New infiltrate versus atelectasis right lower lung field. PAWSS Have you Been Recently Intoxicated or Drunk Within the Last 30 days?: Yes Have you Ever Experienced Previous Episodes of Alcohol Withdrawal?: Yes Have you ever Experienced Withdrawal Seizures?: Yes Have you ever Experienced Delirium Tremens(DT)s?: Yes Have you ever undergone Alcohol Rehabilitation Treatment (i.e, inpt ot outpatient treatment programs)?: Yes Have you ever Experienced Blackouts?: Yes Have you ever Combined Alcohol with other Downers within the last 90 days?: Yes Have you ever Combined Alcohol with any other Substance of Abuse during the last 90 days?: Yes Positive Blood Alcohol level on Presentation? [PCS.BAL]: Yes Evidence of Increased Autonomic Activity (i.e. HR>120, tremor, sweating, agitation, nausea)?: No Result: 9 Time Spent with Patient Time Spent with Patient: 35-49 minutes Time was spent: preparing to see the patient(eg.review tests), obtaining and/or reviewing separately otained hiistory, ordering medications,tests, procedures, referring, communicating with other health customer care voice consultant, indepentently interpreting results, counseling the patient and care coordination
[2022-07-31] MEDS: Nystatin POWDER 60 GM JAR TP ×3 (10:17→19:48)
[2022-07-31] MEDS: PROPOFOL 1,000 MG/100 ML BTL 37.41 MG IVPB (11:00)
[2022-07-31 11:22] LABS: Bilirubin Small (Negative); Blood Moderate (Negative); Clarity Clear (Clear); Glucose 100 mg/dL (Negative); Ketones Negative (Negative); Leukocyte Esterase Negative (Negative); Nitrite Negative (Negative); Specific Gravity 1.025 (1.005-1.025)
[2022-07-31 11:28] LABS: Epithelial Cells Few HPF (Negative); RBC 20-50 HPF (0-2); WBC 0-2 HPF (0-5)
[2022-07-31 11:29] LABS: Bacteria Rare HPF (Negative); Crystals Negative HPF (Negative); Mucus Negative (Negative)
[2022-07-31 11:30] LABS: C & S Indicated? No; Casts 0-2 Fine Granular LPF (Negative)
[2022-07-31 12:23] LABS: HCV RNA Qualitative Undetected (Undetected)
[2022-07-31] MEDS: PROPOFOL 1,000 MG/100 ML BTL 52.374 MG IVPB (13:22)
[2022-07-31] MEDS: dexmedeTOMidine IN 0.9 % NACL 400 MCG/100 ML BTL 6.29 MCG IVPB (13:38)
[2022-07-31] MEDS: dexmedeTOMidine IN 0.9 % NACL 400 MCG/100 ML BTL 12.58 MCG IVPB (19:37)
[2022-08-01] VITALS (87 sets, daily range): BP systolic 70–132; BP diastolic 42–99; PULSE 61–102; RESP 4–27; TEMP 34–37.7; O2SAT 88–98
[2022-08-01] MEDS: Normal Saline 500 ML 30 ML IV (00:12)
[2022-08-01] MEDS: Hydrocortisone 10 MG TAB 50 MG NG ×4 (00:12→22:47)
[2022-08-01] MEDS: fentaNYL 100 MCG/2 ML VIAL 25 MCG IVP (00:13)
[2022-08-01] MEDS: PROPOFOL 1,000 MG/100 ML BTL 26.187 MG IVPB ×3 (00:34→05:13)
[2022-08-01] MEDS: guaiFENesin 200 MG/10 ML CUP NG ×6 (01:49→22:46)
[2022-08-01] MEDS: PIPERACILLIN/TAZO 3.375 GM in Normal Saline 50 ML IVPB ×4 (01:49→20:24)
[2022-08-01] MEDS: dexmedeTOMidine IN 0.9 % NACL 400 MCG/100 ML BTL 12.58 MCG IVPB (01:49)
[2022-08-01] MEDS: Heparin 5,000 UNITS/ML VIAL 5000 UNITS SC ×2 (05:12→18:38)
--- NOTE | 2022-08-01 06:53 | PUCC_ITS ---
General Date of Service Date of service: 08/01/22 Time of Service: 06:54 Reason for Admission to ICU: Hypoxia Hyponatremia Assessment and Plan Assessment and plan (1) Respiratory failure with hypoxia and hypercapnia: Status: Acute (2) Nicotine dependence: Status: Acute Qualifiers: Nicotine product type: cigarettes Substance use status: uncomplicated Qualified Code(s): F17.210 - Nicotine dependence, cigarettes, uncomplicated (3) Mucus plugging of bronchi: Status: Acute (4) Hepatic encephalopathy: Status: Acute (5) Alcoholic hepatitis without ascites: Status: Chronic (6) GERD (gastroesophageal reflux disease): Status: Chronic Qualifiers: Esophagitis presence: esophagitis presence not specified Qualified Code(s): K21.9 - Gastro-esophageal reflux disease without esophagitis (7) COPD (chronic obstructive pulmonary disease): Status: Chronic Qualifiers: COPD type: unspecified COPD Qualified Code(s): J44.9 - Chronic obstructive pulmonary disease, unspecified (8) Septic shock: Status: Acute (9) Elevated troponin level not due to acute coronary syndrome: Status: Acute (10) Hypotension: Status: Acute (11) Anemia: Status: Chronic (12) Coagulopathy: Status: Acute (13) Thrombocytopenia: Status: Chronic (14) Hypomagnesemia: Status: Resolved (15) Hypokalemia: Status: Acute (16) Acute hyponatremia: Status: Acute (17) Acute on chronic alcoholic liver disease: Status: Acute (18) Aspiration pneumonia: Status: Acute (19) Alcohol withdrawal: Status: Acute Assessment and plan: This is a 52 yo admitted to the ICU for hyponatremia, respiratory failure and alcohol withdrawal. He has alcoholic hepatitis and seems to be in acute on chronic liver failure upon historical review of his bilirubin and LFT's. He required intubation, central line and arterial line placement as well as vasopressors. He has since improved significantly and is off all pressors. His ammonia was elevated, which could have contributed to his obtundation in addition to over sedation with Ativan, but has had great response to lactulose and his mental status is improved as well. His bronchoscopy found 94% neutrophils and was consistent with a left sided aspiration pneumonia. MELD 25 --> 24 --> 20 --> 17 Recommendations Pulmonary: Hypoxic and hypercapnic respiratory failure - hypercapnia is chronic based on blood gas and bicarb - mechanical ventilation on volume control - recommend changing tidal volume to 460 - titrate FiO2 as tolerated, sat goal 88-92% - PEEP 5 - target driving pressure <15 - SBT today with hopeful extubation - would extubate to HFNC with high flow - Duonebs QID Mucus plugging - s/p bronchoscopy - airway clearance COPD - Symbicort while hospitalized - Duonebs QID - IS and Acapella - nicotine patch prn Cardiac: Septic Shock, resolved - s/p Levophed and vasopressin - stress dose steroids - MAP goal 65mmHg Troponin elevation - mild and normalized, demand in nature - echo normal Renal: Volume Overload - improved, would continue to diurese today Hyponatremia - improved - likely beer potomania, I do not recommend intervention unless Na<122 - continue to monitor Hypomagnesemia - replace to 2.0 Hypokalemia - replace to 4.0 I&O: Intake & Output 07/29/22 07/30/22 07/31/22 08/01/22 23:59 23:59 23:59 23:59 Intake Total 1014.138 / 2342.297 2388.157 / 3515.157 2296.456 / 2532.456 826.433 / 826.433 Output Total 1360 / 1410 1000 / 1000 985 / 1260 950 / 950 Balance -345.862 / -593.890 7987.157 / 2515.157 1311.456 / 1272.456 -123.567 / - 123.567 Weight 124.7 kg 123.5 kg 125.8 kg Daily Fluid Goal:: Even GI Nutrition: Acute on Chronic Liver Failure, improving - no role for steroids at this time - trend LFT's - avoid hepatotoxins Nutrition - NPO while obtunded - getting tube feeds GERD - on Protonix Date of Last Bowel Movement: 07/31/22 Infectious Disease: Aspiration Pneumonia - continue Zosyn - bronch consistent with this Hematologic: Anemia and thrombocytopenia - due to acute liver failure - monitor - hold DVT ppx if platelets drop below 50,000 - fibrinogen level inconsistent with DIC Neurologic: Encephalopathy - multifactorial due to over sedation, metabolic and hepatic (elevated ammonia) - lactulose titrated for 2-3 BM's a day Sedation - propofol infusion - Precedex infusion - prn fentanyl - daily sedation awakening trials Endocrine: No acute concerns Lines: PIV Arterial line Brooks CVC Prophylaxis: Heparin Protonix Code Status: Resuscitation Status Full Code Subjective Critical and life-threatening events over the past 24 hours: Clemente seems to have significantly improved over the last day. He passed an SBT yesterday but his mental status was not ideal, so extubation was not performed. He is no longer requiring vasopressors and his FiO2 has improved significantly. Exam Narrative Exam Narrative: Gen: sedated, obese HENT: PERRL Chest: No respiratory distress, normal appearance of chest, bilateral wheezing and crackles present throughout. Decreased airflow on the left. Heart: regular rate and rhythym, no murmurs, rubs or gallops Abdomen: Non-distended, soft, non tender Extremities: No clubbing, 2+ pitting edema on shins Neuro: intubated and sedated Psych: intubated and sedated Most Recent VS/Results Last Vital Signs Temp 35.9 C L 08/01/22 06:00 Pulse 69 08/01/22 00:00 Resp 23 08/01/22 06:00 BP 118/61 07/31/22 21:00 Pulse Ox 91 L 08/01/22 06:00 Laboratory Results - last 24 hr 07/27/22 07/30/22 07/30/22 10:50 09:10 09:10 ABG Sample Site ABG pH ABG pCO2 ABG pO2 ABG HCO3 ABG Total CO2 ABG O2 Saturation ABG Base Excess Oxygen Liter Flow FiO2 Procalcitonin Urine Color Urine Clarity Urine pH Ur Specific [place] Urine Protein Urine Ketones Urine Blood Urine Nitrite Urine Bilirubin Urine Urobilinogen Ur Leukocyte Esterase Urine RBC Urine WBC Ur Epithelial Cells Urine Crystals Urine Bacteria Urine Casts Urine Mucus Ur Culture Indicated? Urine Glucose BAL Neutrophils 94 BAL Lymphocytes Not Applicable BAL Eosinophils 1 BAL Monocyte/Macrophage 5 Adenovirus DNA Negative HCV RNA Qual (PCR) Undetected Hepatitis C RNA Quant Not Applicable Human Metapneumovir RNA Negative Parainfluenza 1 (PCR) Negative Parainfluenza 2 (PCR) Negative Parainfluenza 3 (PCR) Negative Parainfluenza 4 (PCR) Negative Resp Viral Spec Desc Not Applicable Rhinovirus (PCR) Negative 07/31/22 07/31/22 07/31/22 05:55 08:15 11:00 ABG Sample Site Right Radial ABG pH 7.45 ABG pCO2 51 H ABG pO2 63 L ABG HCO3 36 H ABG Total CO2 32 H ABG O2 Saturation 94 L ABG Base Excess 12 H Oxygen Liter Flow VT460/R16/P10 FiO2 45 Procalcitonin 0.5 Urine Color Yellow Urine Clarity Clear Urine pH 6.0 Ur Specific [place] 1.025 Urine Protein 100 H Urine Ketones Negative Urine Blood Moderate H Urine Nitrite Negative Urine Bilirubin Small H Urine Urobilinogen 2.0 H Ur Leukocyte Esterase Negative Urine RBC 20-50 H Urine WBC 0-2 Ur Epithelial Cells Few Urine Crystals Negative Urine Bacteria Rare Urine Casts 0-2 Fine Granular Urine Mucus Negative Ur Culture Indicated? No Urine Glucose 100 H BAL Neutrophils BAL Lymphocytes BAL Eosinophils BAL Monocyte/Macrophage Adenovirus DNA HCV RNA Qual (PCR) Hepatitis C RNA Quant Human Metapneumovir RNA Parainfluenza 1 (PCR) Parainfluenza 2 (PCR) Parainfluenza 3 (PCR) Parainfluenza 4 (PCR) Resp Viral Spec Desc Rhinovirus (PCR) Review of Systems Unobtainable due to endotracheal tube Time spent with patient Time spent in Critical Care: 45 Time spent in Critical care included: Chart review, Documenting critically ill care, Time at immediate bedside and Discussing critically ill care with other medical staff
[2022-08-01 06:56] LABS: Abs Immature Grans 0.19 10^3/uL (0.0-0.06); Absolute Basophil Count 0.02 10^3/uL (0.0-0.2); Absolute Eosinophil Count 0.01 10^3/uL (0.0-0.7); Absolute Lymphocyte Count 0.52 10^3/uL (1.2-3.4); Absolute Neutrophil Count 2.24 10^3/uL (1.2-6.7); Basophils % 0.5; Eosinophils % 0.3; HCT 35.2 % (40.0-50.0); HGB 11.9 g/dL (13.5-17.5); Lymphocytes % 13.8; MCH 35.1 pg (27.0-33.0); MCHC 33.8 % (32.0-36.0); MCV 104 fL (80-95); Monocytes % 21.2; Neutrophils % 59.2; RBC 3.39 10^6/uL (4.36-5.78); RDW 15.4 % (11.8-14.1); RDW-SD 57.9 fL; WBC 3.78 10^3/uL (4.4-10.8)
[2022-08-01 07:03] LABS: INR 1.1 (0.9-1.1); Prothrombin Time 11.6 sec (9.3-11.0)
[2022-08-01 07:12] LABS: ALT 48 U/L (16-63); AST 84 U/L (15-37); Albumin 2.8 g/dL (3.4-5.0); Alkaline Phosphatase 159 U/L (46-116); Anion Gap 6.6 mmol/L (3-11); BUN 21 mg/dL (7-18); Bilirubin, Direct 2.4 mg/dL (0.0-0.2); CO2 31.4 mmol/L (21.0-32.0); CREATININE 1.1 mg/dL (0.70-1.30); Calcium 9.6 mg/dL (8.5-10.1); Chloride 94 mmol/L (98-107); Estimated GFR 80.77 (mL/min/1.73m2); Glucose 171 mg/dL (74-106); Magnesium 2.1 mg/dL (1.8-2.4); PHOSPHORUS 3.5 mg/dL (2.6-4.7); Potassium 3.7 mmol/L (3.5-5.1); Sodium 132 mmol/L (136-145); Total Protein 6.5 g/dL (6.4-8.2)
[2022-08-01] MEDS: Albuterol/Ipratropium 3 ML UPD VIAL UPD ×4 (07:33→21:12)
[2022-08-01] MEDS: Budesonide/Formoterol 160/4.5 6 GM 60 PUFF INH IH ×2 (07:33→21:11)
[2022-08-01] MEDS: dexmedeTOMidine IN 0.9 % NACL 400 MCG/100 ML BTL 22.015 MCG IVPB (08:04)
[2022-08-01] MEDS: Pantoprazole 40 MG VIAL IVP ×2 (08:04→20:24)
[2022-08-01] MEDS: Citalopram 20 MG TAB PO (08:05)
[2022-08-01] MEDS: Multivitamin TAB 1 TAB UD (08:05)
[2022-08-01] MEDS: Folic Acid 1 MG TAB NG (08:05)
[2022-08-01] MEDS: Lactulose 20 GM/30 ML CUP PO ×2 (08:06→20:24)
[2022-08-01] MEDS: Lacri-Lube 3.5 GM TUBE OU (08:11)
--- NOTE | 2022-08-01 09:37 | CMPROGNOTE_ITS ---
Date of service: 08/01/22 Time of Service: 09:39 Care Management Progress Note Progress Note Text Progress Note Text: S/O:? Clemente was successfully extubated today. He is awake but groggy, and is somewhat slow to respond. Clemente has been hypotensive most of the day with SBPs in the 70s and 80s. He remains ICU level of care and is being closely monitored and treated. A: 52 year old male admitted to [facility] on 07/26/22 for Hyponatremia, Alcoholic Hepatitis P:?? Anticipate, Clemente will discharge home when medically stable per provider.? He will follow up with his PCP and plan of care as instructed.?Community ETOH resources will be offered.? He will drive himself home when ready as his vehicle is parked in the [facility] parking lot, if able.? CM will continue to follow and support discharge planning needs.
--- NOTE | 2022-08-01 10:53 | PGE_ITS ---
Date of Service Date of service: 08/01/22 Time of Service: 10:53 Assessment and Plan Assessment and plan (1) Respiratory failure with hypoxia and hypercapnia: Status: Acute Assessment and plan: Due to suspected aspiration pneumonia with mucuous plugging evident on imaging and bronch 07/30/22 as well as fluid overload. Suspect that encephalopathy contributed to aspiration. S/p intubation 07/29/22, undergoing a weaning trial with plans to extubate later today. Continue zosyn empirically. Will await sputum cx/BAL cx from bronch 07/30/22. I do not feel he needs diuretics today. Venous dopplers of BLEs are negative. LVEF preserved and RV function good per echo. (2) Septic shock: Status: Resolved Assessment and plan: Hypotension due to combination of septic shock, effects of sedation, liver disease. No longer requiring vasopressors. Start to wean stress dose steroids as well. Target MAP of 65. (3) Aspiration pneumonia: Status: Acute Assessment and plan: Continue Zosyn as above Continue scheduled mucolytis. (4) Mucus plugging of bronchi: Status: Acute Assessment and plan: S/p bronch. Continue scheduled mucolytics. As above. (5) Toxic metabolic encephalopathy: Status: Acute Assessment and plan: Responsive to flumazenil, so there is a component of decreased clearence of benzodiazepines. In addition, there is evidence of hepatic encephalopathy. Continue lactulose with the target of 3 liquid BM's per day. Avoid further use of benzodiazepines. (6) Hepatic encephalopathy: Status: Acute Assessment and plan: As above (7) Alcohol withdrawal: Status: Acute Assessment and plan: The patient is not showing signs of alcohol withdrawal at this time. (8) Alcoholic hepatitis: Status: Acute Assessment and plan: Maddrey scores improving and <32. Monitor LFTs, INR. (9) Thrombocytopenia: Status: Chronic Assessment and plan: In setting of liver disease. On low dose heparin for DVT ppx. (10) Coagulopathy: Status: Acute Assessment and plan: In setting of alcoholic hepatitis/chronic liver disease. Monitor INR/for bleeding. (11) Anemia: Status: Chronic Assessment and plan: Replete folate. (12) Acute hyponatremia: Start date: 07/26/22 Status: Acute Assessment and plan: Stable. Reportedly, the patient was not drinking beer, but was fluid overloaded. Sodium is better with diuresis. Continue to monitor. (13) Hypokalemia: Start date: 07/26/22 Status: Resolved Assessment and plan: Recheck in am. (14) Hypomagnesemia: Start date: 07/26/22 Status: Resolved Assessment and plan: Recheck in am. (15) Alcohol dependence: Status: Chronic Assessment and plan: At this point, not showing signs of w/d. Continue supplementation with MVI, thiamine, folate. Qualifiers: Substance use status: unspecified alcohol-induced disorder Qualified Code(s): F10.29 - Alcohol dependence with unspecified alcohol-induced disorder (16) Elevated troponin level not due to acute coronary syndrome: Start date: 07/26/22 Status: Acute Assessment and plan: Very minimal elevations of troponin in setting of hypoxic respiratory failure/fluid overload, not c/w ACS. Echo w/o evidence of wall motion abnormalities. I do not feel that further ischemic workup is warranted at this time. (17) DVT prophylaxis: Status: Acute Assessment and plan: SC heparin (18) Discharge planning issues: Status: Acute Assessment and plan: Keep in ICU. Discussed with Dr Macario Total Critical Care Time 35 minutes. Subjective Subjective Interval history since last seen: Undergoing weaning trial right now with hopes of extubation today. Required propofol + precedex for sedation, turned off this morning. Off of vasopressors. Waking up to painful stimuli, but not following my commands other than attempts to open his eyes. GOLD. FiO2 35% w/ PEEP of 5 on the vent. Exam Narrative Exam Narrative: General: Obese male who is intubated, arousable to painful stimuli, not following commands except for attempting to open eyes HEENT: eyes closed, MMM, ET/OG tubes in place Heart: RRR, no m/r/g Lungs: ventilator breath sounds B Abdomen: soft, nondistended : has a vargas with contentrated yellow output Extremities: trace BLE edema Objective Last Vital Signs Temp 36.1 C L 08/01/22 08:00 Pulse 68 08/01/22 08:00 Resp 10 L 08/01/22 10:30 BP 128/67 08/01/22 08:00 Pulse Ox 93 08/01/22 10:30 Laboratory Results - last 24 hr 07/27/22 07/31/22 08/01/22 10:50 11:00 05:45 WBC RBC Hgb Hct MCV MCH MCHC RDW Plt Count MPV Immature Gran % Neutrophils % Lymphocytes % Monocytes % Eosinophils % Basophils % Nucleated RBC % Absolute Neutrophils Absolute Lymphocytes Absolute Monocytes Absolute Eosinophils Absolute Basophils PT INR Sodium 132 L Potassium 3.7 D Chloride 94 L Carbon Dioxide 31.4 Anion Gap 6.6 BUN 21 H Creatinine 1.1 Est GFR (CKD-EPI 2020) 80.77 Glucose 171 H Calcium 9.6 Phosphorus 3.5 Magnesium 2.1 Total Bilirubin 3.0 H Conjugated Bilirubin 2.4 H AST 84 H ALT 48 Alkaline Phosphatase 159 H C-Reactive Protein 5.60 H Total Protein 6.5 Albumin 2.8 L Urine Color Yellow Urine Clarity Clear Urine pH 6.0 Ur Specific Ashby 1.025 Urine Protein 100 H Urine Ketones Negative Urine Blood Moderate H Urine Nitrite Negative Urine Bilirubin Small H Urine Urobilinogen 2.0 H Ur Leukocyte Esterase Negative Urine RBC 20-50 H Urine WBC 0-2 Ur Epithelial Cells Few Urine Crystals Negative Urine Bacteria Rare Urine Casts 0-2 Fine Granular Urine Mucus Negative Ur Culture Indicated? No Urine Glucose 100 H HCV RNA Qual (PCR) Undetected Hepatitis C RNA Quant Not Applicable 08/01/22 08/01/22 05:45 05:45 WBC 3.78 L RBC 3.39 L Hgb 11.9 L Hct 35.2 L MCV 104 H MCH 35.1 H MCHC 33.8 RDW 15.4 H Plt Count MPV Immature Gran % 5.0 Neutrophils % 59.2 Lymphocytes % 13.8 Monocytes % 21.2 Eosinophils % 0.3 Basophils % 0.5 Nucleated RBC % 0.0 Absolute Neutrophils 2.24 Absolute Lymphocytes 0.52 L Absolute Monocytes 0.80 Absolute Eosinophils 0.01 Absolute Basophils 0.02 PT 11.6 H INR 1.1 Sodium Potassium Chloride Carbon Dioxide Anion Gap BUN Creatinine Est GFR (CKD-EPI 2020) Glucose Calcium Phosphorus Magnesium Total Bilirubin Conjugated Bilirubin AST ALT Alkaline Phosphatase C-Reactive Protein Total Protein Albumin Urine Color Urine Clarity Urine pH Ur Specific Ashby Urine Protein Urine Ketones Urine Blood Urine Nitrite Urine Bilirubin Urine Urobilinogen Ur Leukocyte Esterase Urine RBC Urine WBC Ur Epithelial Cells Urine Crystals Urine Bacteria Urine Casts Urine Mucus Ur Culture Indicated? Urine Glucose HCV RNA Qual (PCR) Hepatitis C RNA Quant PAWSS Have you Been Recently Intoxicated or Drunk Within the Last 30 days?: Yes Have you Ever Experienced Previous Episodes of Alcohol Withdrawal?: Yes Have you ever Experienced Withdrawal Seizures?: Yes Have you ever Experienced Delirium Tremens(DT)s?: Yes Have you ever undergone Alcohol Rehabilitation Treatment (i.e, inpt ot outpatient treatment programs)?: Yes Have you ever Experienced Blackouts?: Yes Have you ever Combined Alcohol with other Downers within the last 90 days?: Yes Have you ever Combined Alcohol with any other Substance of Abuse during the last 90 days?: Yes Positive Blood Alcohol level on Presentation? [PCS.BAL]: Yes Evidence of Increased Autonomic Activity (i.e. HR>120, tremor, sweating, agitation, nausea)?: No Result: 9 Multi-Disciplinary Checklist Lines/Tubes CENTRAL LINE: yes, Central Line Day#: 4 ARTERIAL LINE: yes, Arterial Line Day#: 4 VARGAS: yes, Vargas Day#: 6 ENDOTRACHEAL TUBE: yes, Endotracheal Tube Day#: 4 Sedation: yes, Sedation Vacation: yes Head of Bed@30 degrees: yes Spontaneous Breathing Trial: yes ICU Maintenance GLUCOSE 140-180mg/dL: yes NUTRITION AT GOAL: yes PRESSURE ULCER: no RESTRAINTS: yes, Reviewed Necessity: Yes ANTIBIOTICS(if yes, consider Stewardship): Yes Social Issues FAMILY UPDATED: yes PT/OT: no, Reason/Intervention: Not clinically appropriate GOALS/DISPOSITION/CYBER INTELLIGENCE ANALYST: yes CODE STATUS: Full Prophylaxis DVT PROPHYLAXIS: yes GI PROPHYLAXIS: yes, Indication: on steroids Time Spent with Patient Time Spent with Patient: 35-49 minutes Time was spent: preparing to see the patient(eg.review tests), obtaining and/or reviewing separately otained hiistory, ordering medications,tests, procedures, referring, communicating with other health physician locums urgent care, indepentently interpreting results, counseling the patient and care coordination
[2022-08-01 11:02] LABS: Gram Smear Result Neutrophils Present
[2022-08-01] MEDS: Lactated Ringers 250 ML IV (13:20)
[2022-08-01] MEDS: Nystatin POWDER 60 GM JAR TP ×3 (13:31→22:47)
--- NOTE | 2022-08-01 13:36 | NUR.NOTE ---
1318 BP down to 72/
--- NOTE | 2022-08-01 13:37 | NUR.NOTE ---
1318 BP down to 72/50, Pt does arouse, but does not stay awake for long.Dr. Figueroa notified, see orders. Dr. Macario texted, advised to restart Levophed as necessary. 1330 NS bolus in progress , bp 85/49 with a MAP of 61.
[2022-08-01 13:54] LABS: BE 12 mmol/L (-2-3); HCO3 35 mmol/L (22-26); pCO2 47 mmHg (35-45); pH 7.48 (7.35-7.45); pO2 62 mmHg (80-105); sO2 93 % (95-98); tCO2 32 mmol/L (23-27)
[2022-08-01 13:56] LABS: FIO2 45 %; FIO2L 60 L; Site Right Radial
[2022-08-01] MEDS: Normal Saline 500 ML IV (15:44)
[2022-08-01] MEDS: ALBUMIN HUMAN 25 GM/100 ML BTL IVPB ×2 (15:45→16:37)
[2022-08-01] MEDS: Normal Saline Flush 10 ML SYR IVP (20:23)
[2022-08-02] VITALS (117 sets, daily range): BP systolic 135–149; BP diastolic 67–112; PULSE 89–109; RESP 4–30; TEMP 31–37.9; O2SAT 88–95
[2022-08-02] MEDS: PIPERACILLIN/TAZO 3.375 GM in Normal Saline 50 ML IVPB ×4 (01:28→21:07)
[2022-08-02] MEDS: guaiFENesin 200 MG/10 ML CUP NG ×6 (01:42→22:09)
--- NOTE | 2022-08-02 04:41 | NUR.NOTE ---
Nursing Note:Patient awake and alert. Linens and patient cleaned 3 times in the first hour of the shift secondary to incontinence of stool. Cooperative with care, no skin break down issues noted. Patient is attempting to assist with care, gets tangled in lines and tubing. Repositioned Q2H.
[2022-08-02] MEDS: Hydrocortisone 10 MG TAB 50 MG NG (05:25)
[2022-08-02] MEDS: Heparin 5,000 UNITS/ML VIAL 5000 UNITS SC ×2 (05:26→21:07)
[2022-08-02] MEDS: Normal Saline Flush 10 ML SYR IVP ×3 (05:37→16:48)
--- NOTE | 2022-08-02 06:52 | W.PULMCC ---
General Date of Service Date of service: 08/02/22 Time of Service: 06:52 Reason for Admission to ICU: Hypoxia Hyponatremia Assessment and Plan Assessment and plan (1) Respiratory failure with hypoxia and hypercapnia: Status: Acute (2) Nicotine dependence: Status: Acute Qualifiers: Nicotine product type: cigarettes Substance use status: uncomplicated Qualified Code(s): F17.210 - Nicotine dependence, cigarettes, uncomplicated (3) Mucus plugging of bronchi: Status: Acute (4) Hepatic encephalopathy: Status: Acute (5) Alcoholic hepatitis without ascites: Status: Chronic (6) GERD (gastroesophageal reflux disease): Status: Chronic Qualifiers: Esophagitis presence: esophagitis presence not specified Qualified Code(s): K21.9 - Gastro-esophageal reflux disease without esophagitis (7) COPD (chronic obstructive pulmonary disease): Status: Chronic Qualifiers: COPD type: unspecified COPD Qualified Code(s): J44.9 - Chronic obstructive pulmonary disease, unspecified (8) Septic shock: Status: Resolved (9) Elevated troponin level not due to acute coronary syndrome: Status: Acute (10) Hypotension: Status: Acute (11) Anemia: Status: Chronic (12) Coagulopathy: Status: Acute (13) Thrombocytopenia: Status: Chronic (14) Hypomagnesemia: Status: Resolved (15) Hypokalemia: Status: Resolved (16) Acute hyponatremia: Status: Acute (17) Acute on chronic alcoholic liver disease: Status: Acute (18) Aspiration pneumonia: Status: Acute (19) Alcohol withdrawal: Status: Resolved Assessment and plan: This is a 52 yo admitted to the ICU for hyponatremia, respiratory failure and alcohol withdrawal. He has alcoholic hepatitis and seems to be in acute on chronic liver failure upon historical review of his bilirubin and LFT's. He required intubation, central line and arterial line placement as well as vasopressors. He has since improved significantly and is off all pressors. His ammonia was elevated, which could have contributed to his obtundation in addition to over sedation with Ativan, but has had great response to lactulose and his mental status is improved as well. His bronchoscopy found 94% neutrophils and was consistent with a left sided aspiration pneumonia. He clinically has made signficiant improvement and was successfully extubated to [facility]. His acute liver failure is also improving. MELD 25 --> 24 --> 20 --> 17 --> 14 Recommendations Pulmonary: Hypoxic and hypercapnic respiratory failure - hypercapnia is chronic based on blood gas and bicarb - s/p successful extubation 08/01/22 - Duonebs QID Mucus plugging - s/p bronchoscopy - airway clearance with VibraPEP and IS - out of bed to chair COPD - Symbicort while hospitalized - Duonebs QID - IS and Acapella - nicotine patch prn Cardiac: Septic Shock, resolved - s/p Levophed and vasopressin - will discontinue hydrocortisone today - MAP goal 65mmHg Troponin elevation - mild and normalized, demand in nature - echo normal Renal: Volume Overload - improved Hyponatremia - improved - likely beer potomania, I do not recommend intervention unless Na<122 - continue to monitor Hypomagnesemia - replace to 2.0 Hypokalemia - replace to 4.0 I&O: Intake & Output 07/30/22 07/31/22 08/01/22 08/02/22 23:59 23:59 23:59 23:59 Intake Total 3515.157 / 3515.157 2296.456 / 2532.456 1805.302 / 1805.302 100 / 100 Output Total 1000 / 1000 985 / 1260 1415 / 1690 675 / 675 Balance 2515.157 / 2515.157 1311.456 / 1272.456 390.302 / 115.302 -575 / -575 Weight 123.5 kg 125.8 kg 126.9 kg Daily Fluid Goal:: Even GI Nutrition: Acute on Chronic Liver Failure, improving - trend LFT's - avoid hepatotoxins Nutrition - NPO until speech eval - [facility] consultation today GERD - on Protonix Date of Last Bowel Movement: 08/02/22 Infectious Disease: Aspiration Pneumonia - continue Zosyn - recommend 7 day course of abx - bronch consistent with this Hematologic: Anemia and thrombocytopenia - due to acute liver failure - monitor - hold DVT ppx if platelets drop below 50,000 - fibrinogen level inconsistent with DIC Neurologic: Encephalopathy - multifactorial due to over sedation, metabolic and hepatic (elevated ammonia) - lactulose titrated for 2-3 BM's a day - rifaximin added today Endocrine: No acute concerns Lines: PIV Arterial line - recommend D/C Brooks CVC - recommend D/C after PIV placed Prophylaxis: Heparin Protonix Code Status: Resuscitation Status Full Code Subjective Critical and life-threatening events over the past 24 hours: Clemente was successfully extubated yesterday and is doing well. Exam Narrative Exam Narrative: Gen: NAD, obese HENT: PERRL Chest: No respiratory distress, normal appearance of chest, improved aeration Heart: regular rate and rhythym, no murmurs, rubs or gallops Abdomen: Non-distended, soft, non tender Extremities: No clubbing, 2+ pitting edema on shins Neuro: non focal, mild confusion Psych: appropriate Most Recent VS/Results Last Vital Signs Temp 36.9 C 08/02/22 04:00 Pulse 99 H 08/01/22 21:12 Resp 17 08/02/22 06:30 BP 76/43 L 08/01/22 15:00 Pulse Ox 94 08/02/22 04:00 Laboratory Results - last 24 hr 07/30/22 08/01/22 08/01/22 09:10 05:45 05:45 WBC 3.78 L RBC 3.39 L Hgb 11.9 L Hct 35.2 L MCV 104 H MCH 35.1 H MCHC 33.8 RDW 15.4 H Plt Count MPV Immature Gran % 5.0 Neutrophils % 59.2 Lymphocytes % 13.8 Monocytes % 21.2 Eosinophils % 0.3 Basophils % 0.5 Nucleated RBC % 0.0 Absolute Neutrophils 2.24 Absolute Lymphocytes 0.52 L Absolute Monocytes 0.80 Absolute Eosinophils 0.01 Absolute Basophils 0.02 PT INR ABG Sample Site ABG pH ABG pCO2 ABG pO2 ABG HCO3 ABG Total CO2 ABG O2 Saturation ABG Base Excess Oxygen Liter Flow FiO2 Sodium 132 L Potassium 3.7 D Chloride 94 L Carbon Dioxide 31.4 Anion Gap 6.6 BUN 21 H Creatinine 1.1 Est GFR (CKD-EPI 2020) 80.77 Glucose 171 H Calcium 9.6 Phosphorus 3.5 Magnesium 2.1 Total Bilirubin 3.0 H Conjugated Bilirubin 2.4 H AST 84 H ALT 48 Alkaline Phosphatase 159 H C-Reactive Protein 5.60 H Total Protein 6.5 Albumin 2.8 L Gram Stain Neutrophils Present A Aerobic Culture SEE BELOW Ref Test Specimen Type Not Applicable Ref Report Verification Not Applicable 08/01/22 08/01/22 05:45 13:50 WBC RBC Hgb Hct MCV MCH MCHC RDW Plt Count MPV Immature Gran % Neutrophils % Lymphocytes % Monocytes % Eosinophils % Basophils % Nucleated RBC % Absolute Neutrophils Absolute Lymphocytes Absolute Monocytes Absolute Eosinophils Absolute Basophils PT 11.6 H INR 1.1 ABG Sample Site Right Radial ABG pH 7.48 H ABG pCO2 47 H ABG pO2 62 L ABG HCO3 35 H ABG Total CO2 32 H ABG O2 Saturation 93 L ABG Base Excess 12 H Oxygen Liter Flow 60 FiO2 45 Sodium Potassium Chloride Carbon Dioxide Anion Gap BUN Creatinine Est GFR (CKD-EPI 2020) Glucose Calcium Phosphorus Magnesium Total Bilirubin Conjugated Bilirubin AST ALT Alkaline Phosphatase C-Reactive Protein Total Protein Albumin Gram Stain Aerobic Culture Ref Test Specimen Type Ref Report Verification Review of Systems All systems reviewed & are unremarkable except as noted in HPI and below Time spent with patient Time spent in Critical Care: 45 Time spent in Critical care included: Chart review, Documenting critically ill care, Time at immediate bedside and Discussing critically ill care with other medical staff
[2022-08-02 07:02] LABS: Abs Immature Grans 0.35 10^3/uL (0.0-0.06); HCT 32.9 % (40.0-50.0); HGB 11.3 g/dL (13.5-17.5); MCH 35.6 pg (27.0-33.0); MCHC 34.3 % (32.0-36.0); MCV 104 fL (80-95); MPV 11.8 fL (8.0-11.0); RBC 3.17 10^6/uL (4.36-5.78); RDW 16.1 % (11.8-14.1); RDW-SD 60.2 fL; WBC 5.89 10^3/uL (4.4-10.8)
[2022-08-02 07:35] LABS: Absolute Neutrophil Count 3.65 10^3/uL (1.2-6.7); Platelet Count 78 10^3/uL (130-400)
[2022-08-02 07:36] LABS: Absolute Lymphocyte Count 1.35 10^3/uL (1.2-3.4); Absolute Monocyte Count 0.71 10^3/uL (0.1-0.8); Atypical Lymphocytes % 6; Bands % 0; Diff Comment Manual Differential; Metamyelocytes % 3; RBC Morphology Normal
[2022-08-02 07:39] LABS: ALT 42 U/L (16-63); AST 71 U/L (15-37); Albumin 3.1 g/dL (3.4-5.0); Alkaline Phosphatase 134 U/L (46-116); Bilirubin, Direct 2.2 mg/dL (0.0-0.2); Total Protein 6.4 g/dL (6.4-8.2)
[2022-08-02 07:42] LABS: Anion Gap 2.6 mmol/L (3-11); BUN 31 mg/dL (7-18); C-Reactive Protein 6.77 mg/dL (0.0-0.3); CO2 35.4 mmol/L (21.0-32.0); CREATININE 1.2 mg/dL (0.70-1.30); Calcium 9.5 mg/dL (8.5-10.1); Chloride 98 mmol/L (98-107); Estimated GFR 72.76 (mL/min/1.73m2); Glucose 120 mg/dL (74-106); Magnesium 2.4 mg/dL (1.8-2.4); Potassium 3.9 mmol/L (3.5-5.1); Sodium 136 mmol/L (136-145)
[2022-08-02 07:46] LABS: Ammonia 30 umol/L (11-32)
[2022-08-02 07:57] LABS: Procalcitonin 0.3 ng/mL
[2022-08-02 08:03] LABS: Prothrombin Time 11.7 sec (9.3-11.0)
[2022-08-02] MEDS: Albuterol/Ipratropium 3 ML UPD VIAL UPD ×4 (08:08→19:50)
[2022-08-02 08:10] LABS: INR 1.1 (0.9-1.1)
[2022-08-02] MEDS: Budesonide/Formoterol 160/4.5 6 GM 60 PUFF INH IH ×2 (08:24→19:50)
[2022-08-02 08:25] LABS: Ferritin 666 ng/mL (26-388)
[2022-08-02 08:30] LABS: BE (Venous) 13 mmol/L (-2-3); HCO3 (Venous) 36 mmol/L (23-28); O2 Sat (Venous) 96 %; TCO2 (Venous) 33 mmol/L (24-29); pCO2 (Venous) 48 mmHg (41-51); pH (Venous) 7.49 (7.31-7.41); pO2 (Venous) 73 mmHg
--- NOTE | 2022-08-02 08:39 | CMPROGNOTE_ITS ---
Date of service: 08/02/22 Time of Service: 08:39 Care Management Progress Note Progress Note Text Progress Note Text: S/O:? Clemente is being closely monitored and treated in the ICU. He was extubated yesterday and per provider, medically he is improving. Clemente was lying in bed, with his daughter Domonique at his bedside when CM met with him. Per pt, he currently lives in [place], alone with his dog (which Domonique reassures his Nephew Reymundo is caring caring for during this admission). John shares that he is trying to [place] an [facility] and is agreeable to a HE referral. CM met with Clemente after his Daughter left and his HIPAA was updated at his request. His HIPAA now includes Jodi(daughter), Reymundo (nephew), Mariba (mother) and Benji(father). PT recommends discharge Home with services (HH PT/OT) vs ? SNF for continued rehabilitation when medically stable per provider. CM will continue to support patient and his discharge planning considerations. A: 52 year old male admitted to [facility] on 07/26/22 for Hyponatremia, Alcoholic Hepatitis P:?? PT recommends discharge Home with services (HH PT/OT) vs ? SNF for continued rehabilitation when medically stable per provider.? He will follow up with his PCP and plan of care as instructed.?Community ETOH resources will be offered.? He will drive himself home when ready as his vehicle is parked in the [facility] parking lot, if able.? CM will continue to follow and support discharge planning needs.
--- NOTE | 2022-08-02 09:02 | PGE_ITS ---
Date of Service Date of service: 08/02/22 Time of Service: 09:02 Assessment and Plan Assessment and plan (1) Respiratory failure with hypoxia and hypercapnia: Status: Acute Assessment and plan: Due to suspected aspiration pneumonia with mucuous plugging evident on imaging and bronch 07/30/22 as well as fluid overload. Suspect that encephalopathy contributed to aspiration. S/p intubation 07/29/22, extubated on 08/01/22. Now on humidified heated high flow O2 at 45% FiO2 and 60 L, doing well. Continue zosyn empirically. BAL culture with rare usual oropharyngeal vaughn Euvolemic. Venous dopplers of BLEs are negative. LVEF preserved and RV function good per echo. (2) Septic shock: Status: Resolved Assessment and plan: Hypotension due to combination of septic shock, effects of sedation, liver disease. No longer requiring vasopressors. Will add midodrine. Continue to wean stress dose steroids. Target MAP of 65. (3) Aspiration pneumonia: Status: Acute Assessment and plan: Continue Zosyn as above Continue scheduled mucolytis. Encourage pulmonary toilet. WIll obtain a speech therapy consult now that he is awake. (4) Mucus plugging of bronchi: Status: Acute Assessment and plan: S/p bronch. Continue scheduled mucolytics. As above. (5) Toxic metabolic encephalopathy: Status: Acute Assessment and plan: Responsive to flumazenil, so there is a component of decreased clearence of benzodiazepines. In addition, there is evidence of hepatic encephalopathy. Still has asterexis today but stooling a lot. Continue lactulose with the target of 3 liquid BM's per day. Add rifaximine. Avoid further use of benzodiazepines. (6) Hepatic encephalopathy: Status: Acute Assessment and plan: As above (7) Alcohol withdrawal: Status: Resolved Assessment and plan: The patient is not showing signs of alcohol withdrawal at this time. (8) Alcoholic hepatitis: Status: Acute Assessment and plan: Maddrey scores improving and <32. Monitor LFTs, INR. (9) Thrombocytopenia: Status: Chronic Assessment and plan: In setting of liver disease. On low dose heparin for DVT ppx. Plts stable. (10) Coagulopathy: Status: Acute Assessment and plan: In setting of alcoholic hepatitis/chronic liver disease. Monitor INR/for bleeding. INR is better. (11) Anemia: Status: Chronic Assessment and plan: Replete folate. (12) Acute hyponatremia: Start date: 07/26/22 Status: Acute Assessment and plan: Stable. Reportedly, the patient was not drinking beer, but was fluid overloaded. Sodium is better with diuresis. Continue to monitor. (13) Hypokalemia: Start date: 07/26/22 Status: Resolved Assessment and plan: Recheck in am. (14) Hypomagnesemia: Start date: 07/26/22 Status: Resolved Assessment and plan: Recheck in am. (15) Alcohol dependence: Status: Chronic Assessment and plan: At this point, not showing signs of w/d. Continue supplementation with MVI, thiamine, folate. Qualifiers: Substance use status: unspecified alcohol-induced disorder Qualified Code(s): F10.29 - Alcohol dependence with unspecified alcohol-induced disorder (16) Elevated troponin level not due to acute coronary syndrome: Start date: 07/26/22 Status: Acute Assessment and plan: Very minimal elevations of troponin in setting of hypoxic respiratory failure/fluid overload, not c/w ACS. Echo w/o evidence of wall motion abnormalities. I do not feel that further ischemic workup is warranted at this time. (17) DVT prophylaxis: Status: Acute Assessment and plan: SC heparin (18) Discharge planning issues: Status: Acute Assessment and plan: Keep in ICU. Discussed with Dr Macario Total Critical Care Time 45 minutes. Subjective Subjective Interval history since last seen: Extubated, a lot more alert this morning. Denies dizziness, chest pain, shortness of breath, nausea. Endorses pain in his back and ankles; thinks it will get better if he moves. Not hungry. Requests a blue bag for spitting up, but not feeling like he has to vomit or cough. Exam Narrative Exam Narrative: General: Obese male who is extubated, A&Ox3 (does not know the exact day in July), following commands, + asterexis HEENT: EOMI, MMM, scleral icterus Heart: RRR, no m/r/g Lungs: CTAB Abdomen: soft, nontender, nondistended : has a vargas Extremities: no edema, no erythema at B ankles Objective Last Vital Signs Temp 36.9 C 08/02/22 04:00 Pulse 103 H 08/02/22 08:23 Resp 19 05/12/23 08:23 BP 76/43 L 05/11/23 15:00 Pulse Ox 92 08/02/22 08:23 Laboratory Results - last 24 hr 07/30/22 08/01/22 08/02/22 09:10 13:50 05:45 WBC RBC Hgb Hct MCV MCH MCHC RDW Plt Count MPV Immature Gran % Neutrophils % Band Neutrophils % Lymphocytes % Atypical Lymphs % Monocytes % Eosinophils % Basophils % Metamyelocytes % Nucleated RBC % Absolute Neutrophils Absolute Lymphocytes Absolute Monocytes Absolute Eosinophils Absolute Basophils RBC Morphology PT INR ABG Sample Site Right Radial ABG pH 7.48 H ABG pCO2 47 H ABG pO2 62 L ABG HCO3 35 H ABG Total CO2 32 H ABG O2 Saturation 93 L ABG Base Excess 12 H VBG pH VBG pCO2 VBG pO2 VBG HCO3 VBG Total CO2 VBG O2 Saturation VBG Base Excess Oxygen Liter Flow 60 FiO2 45 Sodium 136 Potassium 3.9 Chloride 98 Carbon Dioxide 35.4 H Anion Gap 2.6 L BUN 31 H Creatinine 1.2 Est GFR (CKD-EPI 2020) 72.76 Glucose 120 H Calcium 9.5 Magnesium 2.4 Ferritin 666 H Total Bilirubin Conjugated Bilirubin AST ALT Alkaline Phosphatase Ammonia C-Reactive Protein 6.77 H Total Protein Albumin Procalcitonin Gram Stain Neutrophils Present A Aerobic Culture SEE BELOW Ref Test Specimen Type Not Applicable Ref Report Verification Not Applicable 08/02/22 08/02/22 08/02/22 05:45 05:45 05:45 WBC 5.89 RBC 3.17 L Hgb 11.3 L Hct 32.9 L MCV 104 H MCH 35.6 H MCHC 34.3 RDW 16.1 H Plt Count 78 L MPV 11.8 H Immature Gran % 0.0 Neutrophils % 62.0 Band Neutrophils % 0 Lymphocytes % 17.0 Atypical Lymphs % 6 Monocytes % 12.0 Eosinophils % 0.0 Basophils % 0.0 Metamyelocytes % 3 Nucleated RBC % 0.0 Absolute Neutrophils 3.65 Absolute Lymphocytes 1.35 Absolute Monocytes 0.71 Absolute Eosinophils 0.00 Absolute Basophils 0.00 RBC Morphology Normal PT 11.7 H INR 1.1 ABG Sample Site ABG pH ABG pCO2 ABG pO2 ABG HCO3 ABG Total CO2 ABG O2 Saturation ABG Base Excess VBG pH VBG pCO2 VBG pO2 VBG HCO3 VBG Total CO2 VBG O2 Saturation VBG Base Excess Oxygen Liter Flow FiO2 Sodium Potassium Chloride Carbon Dioxide Anion Gap BUN Creatinine Est GFR (CKD-EPI 2020) Glucose Calcium Magnesium Ferritin Total Bilirubin Conjugated Bilirubin AST ALT Alkaline Phosphatase Ammonia C-Reactive Protein Total Protein Albumin Procalcitonin 0.3 Gram Stain Aerobic Culture Ref Test Specimen Type Ref Report Verification 08/02/22 08/02/22 08/02/22 05:45 07:10 08:20 WBC RBC Hgb Hct MCV MCH MCHC RDW Plt Count MPV Immature Gran % Neutrophils % Band Neutrophils % Lymphocytes % Atypical Lymphs % Monocytes % Eosinophils % Basophils % Metamyelocytes % Nucleated RBC % Absolute Neutrophils Absolute Lymphocytes Absolute Monocytes Absolute Eosinophils Absolute Basophils RBC Morphology PT INR ABG Sample Site ABG pH ABG pCO2 ABG pO2 ABG HCO3 ABG Total CO2 ABG O2 Saturation ABG Base Excess VBG pH 7.49 H VBG pCO2 48 VBG pO2 73 VBG HCO3 36 H VBG Total CO2 33 H VBG O2 Saturation 96 VBG Base Excess 13 H Oxygen Liter Flow FiO2 Sodium Potassium Chloride Carbon Dioxide Anion Gap BUN Creatinine Est GFR (CKD-EPI 2020) Glucose Calcium Magnesium Ferritin Total Bilirubin 3.0 H Conjugated Bilirubin 2.2 H AST 71 H ALT 42 Alkaline Phosphatase 134 H Ammonia 30 C-Reactive Protein Total Protein 6.4 Albumin 3.1 L Procalcitonin Gram Stain Aerobic Culture Ref Test Specimen Type Ref Report Verification PAWSS Have you Been Recently Intoxicated or Drunk Within the Last 30 days?: Yes Have you Ever Experienced Previous Episodes of Alcohol Withdrawal?: Yes Have you ever Experienced Withdrawal Seizures?: Yes Have you ever Experienced Delirium Tremens(DT)s?: Yes Have you ever undergone Alcohol Rehabilitation Treatment (i.e, inpt ot outpatient treatment programs)?: Yes Have you ever Experienced Blackouts?: Yes Have you ever Combined Alcohol with other Downers within the last 90 days?: Yes Have you ever Combined Alcohol with any other Substance of Abuse during the last 90 days?: Yes Positive Blood Alcohol level on Presentation? [PCS.BAL]: Yes Evidence of Increased Autonomic Activity (i.e. HR>120, tremor, sweating, agitation, nausea)?: No Result: 9 Multi-Disciplinary Checklist Lines/Tubes CENTRAL LINE: yes, Central Line Day#: 5 Note: being d/c'ed today ARTERIAL LINE: yes, Arterial Line Day#: 5 VARGAS: yes, Vargas Day#: 7 ENDOTRACHEAL TUBE: no ICU Maintenance GLUCOSE 140-180mg/dL: yes NUTRITION AT GOAL: no, Reason/Intervention: awaiting speech therapy c/s PRESSURE ULCER: no RESTRAINTS: no ANTIBIOTICS(if yes, consider Stewardship): Yes Social Issues FAMILY UPDATED: yes PT/OT: yes GOALS/DISPOSITION/WIRELESS CONSTRUCTION MANAGER: yes CODE STATUS: Full Prophylaxis DVT PROPHYLAXIS: yes GI PROPHYLAXIS: yes, Indication: NPO and on steroids Time Spent with Patient Time Spent with Patient: 35-49 minutes Time was spent: preparing to see the patient(eg.review tests), obtaining and/or reviewing separately otained hiistory, ordering medications,tests, procedures, referring, communicating with other health child care, indepentently interpreting results, counseling the patient and care coordination
[2022-08-02] MEDS: Pantoprazole 40 MG VIAL IVP (09:13)
[2022-08-02] MEDS: Citalopram 20 MG TAB PO (09:13)
[2022-08-02] MEDS: Folic Acid 1 MG TAB NG (09:13)
[2022-08-02] MEDS: Multivitamin TAB 1 TAB UD (09:13)
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
--- NOTE | 2022-08-02 09:47 | NUR.NOTE ---
Arterial line is taken out without incident.Nursing Note:
[2022-08-02] MEDS: Nystatin POWDER 60 GM JAR TP ×2 (12:11→21:55)
[2022-08-02 14:45] LABS: C Diff PCR Negative (Negative)
--- NOTE | 2022-08-02 14:54 | PT.INTREAT ---
PT Notes Visit Reasons: Hyponatremia, Alcoholic Hepatitis, Chronic Alcohol SUBJECTIVE: Clemente is lying in bed, oriented to time only. States that he's been seeing spiders on the maddox. Agreeable to exercises. OBJECTIVE:? Observation: Patient alert throughout session, although intermittently agitated. He requires consistent cues for all tasks, frequently altering exercises after minimal reps without tactile cues. Follows single step commands only, with need for frequent redirecting. Therapeutic procedures ([id number]): Instruction in therapeutic exercises to develop strength and endurance, range of motion and flexibility. ? HEP instruction and review ? Provided skilled instruction in proper exercise performance ?? Provided skilled manual cues to facilitate proper muscle recruitment and/or movement?pattern: 1. SLR 10x each side, intermittent need for tactile cues and min A 2. hip AB/AD supine 10x each, again requiring cues throughout 3. heel slide 10x each 4. ankle pumps 10x 5. shoulder flexion 10x each, visual cues 6. triceps 10x, requiring support to maintain shoulder flexion Total Treatment Time: 25 minutes (2:25-2:50) A/P: Tolerating bed exercises only. Deferred on attempts to transfer due to limited safety awareness and orientation, as well as intermittent agitation during session. CC:
[2022-08-02 15:01] LABS: Bilirubin Negative (Negative); Blood Small (Negative); Clarity Sl Cloudy (Clear); Glucose Negative (Negative); Ketones Negative (Negative); Leukocyte Esterase Negative (Negative); Nitrite Negative (Negative); Urobilinogen 0.2 mg/dL (Up to 0.2); pH 5.5 (5-8)
[2022-08-02 15:17] LABS: Bacteria Negative HPF (Negative); C & S Indicated? No; Casts Negative LPF (Negative); Crystals Negative HPF (Negative); Epithelial Cells Rare HPF (Negative); Mucus Negative (Negative); WBC 0-2 HPF (0-5)
[2022-08-02] MEDS: Acetaminophen 500 MG TAB 1000 MG PO (16:48)
--- NOTE | 2022-08-02 18:17 | SP_ITS ---
Date of service: 08/02/22 Time of Service: 12:30 Subjective Clinical (Bedside) Swallow Evaluation Speech Language Pathology Patient referred for [] from [] given []. Precautions: [Fall, Standard, DNR/DNI] SUBJECTIVE: Patient received alert/awake, but fatigued, appears weak, agreeable to evaluation, able to communicate wants/needs effectively; able to demonstrate comprehension of recommendations for safe p.o. intake upon discharge once deemed medically stable.? Clemente was contacted initially at 12:15 pm, due to time constraints and repositioning needs, only able to trial ice chips and limited thin liquids trials at that time. Returning 6pm for additional PO trials. He denies any swallowing difficulty at baseline, IMPRESSIONS ? HPI: 52 yo with history of GERD, COPD, EtOH, Depression, Anxiety, Head Injury, Gucci otine dependence, and recent COVID-19 infection (May 2022), who was admitted for hyponatremia, respiratory failure, and EtOH withdrawal. He has alcoholic hepatitis and seemed to be in acute on chronic liver failure.?He required intubation (07/29/22), central line and arterial line placement as well as vasopressors. He has since improved significantly and is off all pressors. His ammonia was elevated, which could have contributed to his obtundation in addition to over sedation with Ativan, but has had great response to lactulose and his mental status is improved as well. His bronchoscopy found 94% neutrophils and was consistent with a left sided aspiration pneumonia. He clinically has made signficiant improvement and was successfully extubated to HFNC on? 08/01/22. His acute liver failure is also improving. Predisposing dysphagia risk factors: COPD, GERD Clinical signs of possible chronic dysphagia: Aspiration pneumonia with respiratory failure and mucous plugging Precipitating dysphagia risk factors / triggering event: encepalopathy, High flow nasal cannula ? IMPRESSIONS & PLAN: Patient likely with mild-moderate increased risk of aspiration at this time gi jean-claude current respiratory status and rate of oxygen supplementation, though he does not demonstrate s/sx aspiration this date and appears with good coordination of respiration despite high flow. Recommend modified diet to reduce work of breathing/mastication in setting of fatigue and medical deconditioning, poor respiratory status, and to reduce risk of choking. He appears to tolerate thin liquids, will benefit from general safe swallow techniques as below. As his medical and respiratory status improves and is able to tolerate nasal cannula throughout the day it is reasonable to upgrade his diet to soft/bite sized with nursing supervision. He would likely benefit from soft/bite size diet at home given dentition and baseline GERD, COPD. Further [place]OR [place] services: inpatient / patient to be followed while on unit ? RECOMMENDATIONS Diet Texture Modification(s): IDDSI Level(s) SOLIDS 5-Minced & Moist Solids LIQUIDS 0-Thin Liquids with risk management as below Medication Intake: Whole, 1 at a time with 4-Extremely Thick Liquids RISK MANAGEMENT: HOB upright as tolerated; upright for all PO intake. Encourage physical mobility as tolerated. Oral hygiene Q4h/every 4 hours, before/after PO intake, using friction with toothbrush on all oral structures as tolerated ? Level of Assistance/Supervision: 1:1 close supervision for all PO intake PO intake only when awake/alert? Strategies/Adaptations/Assistive Equipment: Reduce auditory and/or visual distractions when eating Provide verbal and/or visual cues to use recommended strategies Small sips and bites, one at a time when eating/drinking Slow rate of intake Small+frequent meals throughout day Posture/Positioning Needs: Maintain upright position at least 30 minutes after meals Avoid meals/snacks 2-3 hours prior to reclining/sleeping Sleep with head of bed elevated to reduce likelihood of nocturnal reflux PFSH All Active Problems?(Updated 07/27/22 @ 00:45 by Porfirio Rodriguez) Elevated troponin level not due to acute coronary syndrome (Acute) Hypomagnesemia (Acute) Hypokalemia (Acute) Alcoholic hepatitis without ascites (Chronic) Acute hyponatremia (Acute) GERD (gastroesophageal reflux disease) (Chronic) Mylanta helps; H2 perfecto trial 09/2019; see Gen Surg note 11/2021--PPI helps 40mg BID x3m, then 40mg dailyCOPD (chronic obstructive pulmonary disease) (Chronic) Depression (Chronic) Alcohol dependence (Chronic) Dyslipidemia (Chronic) Anxiety (Chronic) Osteoporosis (Chronic) [facility] OrthoVitamin D deficiency (Chronic) Chronic pain (Chronic) Multiple joints; lumbar spine; hipsHypertension (Chronic) Head injury due to trauma (Chronic) Fell off roof 09/23/2014; Hit on head with tree in his 20sHepatic steatosis (Chronic ~2019) Hepatomegaly CT 12/[address] 2020Snoring (Acute) Referred to Sleep Med 09/2019; again 05/11/21Tinnitus (Acute) Meralgia paresthetica of both lower extremities (Acute ~2018) Gait impairment with cane since L PEDRO 2019Impaired fasting glucose (Acute ~02/2021) A1C 5.5% 05/05/2020Obesity (Chronic) Polyp, colonic (Acute) 2020 colonoscopy, several unretrieved-->return for repeat colonoscopy 6- mNicotine dependence (Acute) Medical History? Avascular necrosis of bone of left hip (07/30/17) s/p core decompressionDiverticulosis Sigmoid colon 12/2020 CTElevated ferritin Internal derangement of right knee (12/04/16) Kidney calculi B/L flank pain--L>R; referred 12/2020 to Urology, but pt no-showed OV 03/26/21Thrombocytopenia Trochanteric bursitis, right hip (10/28/16) Surgical History? Displaced fracture of distal end of left humerus with malunion (~2014) S/p Repair 10/05, S/P Revision 07/07History of inguinal hernia repair History of repair of rotator cuff pt states no tsaHistory of total right hip replacement Status post left hip replacement (10/20/18) BStatus post osteotomy (~10/2017) S/P ORIF of left elbow Followed by ostectomyStatus post right hip replacement (~2018) ? OBJECTIVE: Sp02: 92 Respiratory: High flow nasal cannula, tolerates well. Language: Grossly WFL verbal expression/fluency, naming, repetition, auditory comprehension Mental Status: Alert and Oriented person, place, time, event Recall of current events impaired Speech: Mildly dysarthric likely in setting of fatigue/weakness Oral Motor Exam: ? Dentition ? Natural dentition ? Poor condition, 1 broken and several missing teeth ? Oral Mucosa ? Moist ? Good oral care ? CN V - Trigeminal ? Jaw Movement ? May be mildly impaired secondary to neck pain/wound? CN VII ? Labial/Facial ? WFL ? CN IX ? Palate ? WFL ? CN X ? Laryngeal ? Vocal quality ? Rough ? Strained ? Volitional cough ? Sharp & strong ? CN XII ? Lingual ? WFL ? Volitional Swallow ? Unable to palpate hyolaryngeal movement of swallow due to mass, but submental/extralaryngeal muscle recruitment is evident ? [place] Swallow Protocol Results ? PASS: Complete/uninterrupted without s/sx aspiration ? Food items tested: ?? Ice: IDDSI 0: Water via tsp, cup edge, straw, single and consecutive sips IDDSI 4: Puree x 7 bites IDDSI 7: Cracker X 3 small bites, patient refuses further trials Oral phase: Some mild prolonged mastication in setting of poor dentition Noting open mouth chewing position on occasion likely in setting of respiratory Pharyngeal phase: WFL Noting good immediate exhale upon swallow completion indicating good retention of respiratory coordination with swallow. Provided education to: Patient, Nursing Topics Addressed: anatomy/physiology of swallowing mechanism, overt s/sx to monitor for re: potential aspiration of food / liquids, recommendations for improved oral care, relationship between respiratory function changes and deglutition, Rationale for recommendations as outlined below, Other Outcome: Verbalized/demonstrated understanding Needs review/reinforcement Goals: Patient will tolerate baseline restrictive diet of without s/sx aspiration. Patient/caregiver will be independent with aspiration precautions, diet modifications, and safe swallowing strategies. [place] CPT Code: 62236 Clinical Swallowing Evaluation Time spent: 40 min Objective Objective Mental Status: Clemente appears mildly confused at times regarding the exact reason f or hospitalization but is oriented to self, date. Coding Diagnoses
[2022-08-02] MEDS: Rifaximin 550 MG TAB PO (21:06)
[2022-08-02] MEDS: Pantoprazole 40 MG TABCR PO (21:07)
[2022-08-03] VITALS (45 sets, daily range): BP systolic 109–147; BP diastolic 48–84; PULSE 85–109; RESP 1–23; TEMP 31–37.2; O2SAT 75–97
[2022-08-03] MEDS: Acetaminophen 500 MG TAB 1000 MG PO (00:11)
[2022-08-03] MEDS: PIPERACILLIN/TAZO 3.375 GM in Normal Saline 50 ML IVPB ×4 (02:13→19:52)
[2022-08-03] MEDS: guaiFENesin 200 MG/10 ML CUP NG (02:13)
[2022-08-03 06:13] LABS: Abs Immature Grans 0.48 10^3/uL (0.0-0.06); HCT 33.9 % (40.0-50.0); HGB 11.3 g/dL (13.5-17.5); MCH 35.2 pg (27.0-33.0); MCHC 33.3 % (32.0-36.0); MCV 106 fL (80-95); MPV 11.4 fL (8.0-11.0); RBC 3.21 10^6/uL (4.36-5.78); RDW 16.4 % (11.8-14.1); RDW-SD 63.8 fL; WBC 8.52 10^3/uL (4.4-10.8)
[2022-08-03 06:35] LABS: Macrocytosis 2+; Platelet Count 84 10^3/uL (130-400)
[2022-08-03 06:36] LABS: Absolute Eosinophil Count 0.17 10^3/uL (0.0-0.7); Absolute Lymphocyte Count 2.64 10^3/uL (1.2-3.4); Absolute Monocyte Count 1.28 10^3/uL (0.1-0.8); Absolute Neutrophil Count 4.35 10^3/uL (1.2-6.7)
[2022-08-03 06:37] LABS: Diff Comment Manual Differential; Metamyelocytes % 1
[2022-08-03 06:38] LABS: Prothrombin Time 11.7 sec (9.3-11.0)
[2022-08-03 06:41] LABS: ALT 45 U/L (16-63); AST 78 U/L (15-37); Albumin 2.8 g/dL (3.4-5.0); Alkaline Phosphatase 139 U/L (46-116); Anion Gap 5.9 mmol/L (3-11); BUN 27 mg/dL (7-18); Bilirubin, Direct 2.6 mg/dL (0.0-0.2); Bilirubin, Total 3.5 mg/dL (0.2-1.0); C-Reactive Protein 6.74 mg/dL (0.0-0.3); CO2 33.1 mmol/L (21.0-32.0); Calcium 9.5 mg/dL (8.5-10.1); Chloride 100 mmol/L (98-107); Estimated GFR 90.56 (mL/min/1.73m2); Glucose 88 mg/dL (74-106); Magnesium 2.3 mg/dL (1.8-2.4); Potassium 3.3 mmol/L (3.5-5.1); Sodium 139 mmol/L (136-145); Total Protein 6.4 g/dL (6.4-8.2)
[2022-08-03 06:54] LABS: INR 1.1 (0.9-1.1)
[2022-08-03] MEDS: Albuterol/Ipratropium 3 ML UPD VIAL UPD ×4 (07:38→19:44)
[2022-08-03] MEDS: Budesonide/Formoterol 160/4.5 6 GM 60 PUFF INH IH ×2 (07:41→19:43)
[2022-08-03] MEDS: Lactulose 20 GM/30 ML CUP PO ×2 (08:35→19:52)
[2022-08-03] MEDS: Citalopram 20 MG TAB PO (08:36)
[2022-08-03] MEDS: Rifaximin 550 MG TAB PO ×2 (08:36→19:52)
[2022-08-03] MEDS: Multivitamin TAB 1 TAB UD (08:36)
[2022-08-03] MEDS: Potassium Chloride 20 MEQ TABCR 40 MEQ PO (08:36)
[2022-08-03] MEDS: Folic Acid 1 MG TAB PO (08:36)
[2022-08-03] MEDS: guaiFENesin 200 MG/10 ML CUP PO ×2 (08:36→12:48)
[2022-08-03] MEDS: Pantoprazole 40 MG TABCR PO ×2 (08:37→19:52)
[2022-08-03] MEDS: Nystatin POWDER 60 GM JAR TP ×3 (08:37→20:02)
[2022-08-03] MEDS: Heparin 5,000 UNITS/ML VIAL 5000 UNITS SC ×2 (09:29→19:51)
[2022-08-03] MEDS: Lidocaine 5% Patch 1 PATCH TP (09:30)
[2022-08-03] MEDS: Albuterol 2.5 MG/3 ML INH SOLN VIAL UPD (10:02)
--- NOTE | 2022-08-03 13:15 | PT.INTREAT ---
PT Notes Visit Reasons: Hyponatremia, Alcoholic Hepatitis, Chronic Alcohol Inpatient Physical Therapy Treatment Note [facility] Date: 08/03/2022 SUBJECTIVE: Clemente states that he is doing better today. OBJECTIVE: [] BED MOBILITY/TRANSFERS Sit-stand: mod/max A x2 Stand-sit: mod of 1 or min of 2 GAIT Assistive Device:FWW Weight bearing: FWB Assist: mod A of 2 Distance: 2 steps Deviation: postural cues given consistently, proper sequencing in transfers THEREX: performed a global strength and stabilization routine. AP, LAQ, hip flex, ab/add. 10-15x ea. Therapeutic activity consisting of chair push up/ mini sit to stand x10 with min/mod A of 2. ASSESSMENT: tolerated session well. Continues to require cues for posture, and proper sequencing. He seems to get overwhelmed quite easily. PLAN: will continue to progress following PT POC. TREATMENT CODE/TIME: 22 min. TP/ TA
--- NOTE | 2022-08-03 13:23 | PGE_ITS ---
Date of Service Date of service: 08/03/22 Time of Service: Assessment and Plan Assessment and plan (1) Respiratory failure with hypoxia and hypercapnia: Status: Acute Assessment and plan: Due to suspected aspiration pneumonia with mucuous plugging evident on imaging and bronch 07/30/22 as well as fluid overload. Suspect that encephalopathy contributed to aspiration. S/p intubation 07/29/22, extubated on 08/01/22. Now down to 3L of O2 by NC and doing well. Continue zosyn empirically. BAL culture with rare usual oropharyngeal vaughn Euvolemic. Venous dopplers of BLEs are negative. LVEF preserved and RV function good per echo. (2) Septic shock: Status: Resolved Assessment and plan: Hypotension due to combination of septic shock, effects of sedation, liver disease. No longer requiring vasopressors. Stress dose steroids d/c'ed and BP not actually requiring midodrine. Target MAP of 65. (3) Aspiration pneumonia: Status: Acute Assessment and plan: Continue Zosyn as above Continue scheduled mucolytis. Encourage pulmonary toilet. Continue minced/moist diet. (4) Mucus plugging of bronchi: Status: Acute Assessment and plan: S/p bronch. Continue scheduled mucolytics. As above. (5) Toxic metabolic encephalopathy: Status: Acute Assessment and plan: Responsive to flumazenil, so there is a component of decreased clearence of benzodiazepines. In addition, there is evidence of hepatic encephalopathy. Continue lactulose + rifaximine. Better. Avoid further use of benzodiazepines. (6) Hepatic encephalopathy: Status: Acute Assessment and plan: As above (7) Alcohol withdrawal: Status: Resolved Assessment and plan: The patient is not showing signs of alcohol withdrawal at this time. (8) Alcoholic hepatitis: Status: Acute Assessment and plan: Maddrey scores improving and <32. Monitor LFTs, INR. (9) Thrombocytopenia: Status: Chronic Assessment and plan: In setting of liver disease. On low dose heparin for DVT ppx. Plts stable. (10) Coagulopathy: Status: Acute Assessment and plan: In setting of alcoholic hepatitis/chronic liver disease. Monitor INR/for bleeding. INR is better. (11) Anemia: Status: Chronic Assessment and plan: Replete folate. (12) Acute hyponatremia: Start date: 07/26/22 Status: Acute Assessment and plan: Improving. Reportedly, the patient was not drinking beer, but was fluid overloaded. Sodium is better with diuresis. Continue to monitor. (13) Hypokalemia: Start date: 07/26/22 Status: Resolved Assessment and plan: Recheck in am. (14) Hypomagnesemia: Start date: 07/26/22 Status: Resolved Assessment and plan: Recheck in am. (15) Alcohol dependence: Status: Chronic Assessment and plan: At this point, not showing signs of w/d. Continue supplementation with MVI, thiamine, folate. Qualifiers: Substance use status: unspecified alcohol-induced disorder Qualified Code(s): F10.29 - Alcohol dependence with unspecified alcohol-induced disorder (16) Elevated troponin level not due to acute coronary syndrome: Start date: 07/26/22 Status: Acute Assessment and plan: Very minimal elevations of troponin in setting of hypoxic respiratory failure/fluid overload, not c/w ACS. Echo w/o evidence of wall motion abnormalities. I do not feel that further ischemic workup is warranted at this time. (17) DVT prophylaxis: Status: Acute Assessment and plan: SC heparin (18) Discharge planning issues: Status: Acute Assessment and plan: Full code Transfer out of the ICU. Subjective Subjective Interval history since last seen: Clemente states that he has been coughing up nasty stuff. Otherwise, he is feeling well. He is asking for pain medicine for his back. We discussed how we can try a heating pad, a lidocaine patch, and him moving to the chair. Denies dizziness, chest pain, shortness of breath, nausea. Downgraded to medical surgical status. Exam Narrative Exam Narrative: General: Obese male, sitting up in bed, A&Ox3, following commands, appears clearer today, no asterexis HEENT: EOMI, MMM, scleral icterus Heart: RRR, no m/r/g Lungs: CTAB Abdomen: soft, nontender, nondistended : has a vargas Extremities: no edema, no erythema at B ankles Objective Last Vital Signs Temp 36.9 C 08/03/22 12:10 Pulse 92 H 08/03/22 11:53 Resp 20 08/03/22 11:53 BP 130/62 08/03/22 11:53 Pulse Ox 93 08/03/22 12:10 Laboratory Results - last 24 hr 08/02/22 08/02/22 08/03/22 11:00 14:30 05:20 WBC RBC Hgb Hct MCV MCH MCHC RDW Plt Count MPV Immature Gran % Neutrophils % Lymphocytes % Monocytes % Eosinophils % Basophils % Metamyelocytes % Nucleated RBC % Absolute Neutrophils Absolute Lymphocytes Absolute Monocytes Absolute Eosinophils Absolute Basophils RBC Morphology Macrocytosis PT INR Sodium 139 Potassium 3.3 L Chloride 100 Carbon Dioxide 33.1 H Anion Gap 5.9 BUN 27 H Creatinine 1.0 Est GFR (CKD-EPI 2020) 90.56 Glucose 88 Calcium 9.5 Magnesium 2.3 Total Bilirubin 3.5 H Conjugated Bilirubin 2.6 H AST 78 H ALT 45 Alkaline Phosphatase 139 H C-Reactive Protein 6.74 H Total Protein 6.4 Albumin 2.8 L Urine Color Yellow Urine Clarity Sl Cloudy Urine pH 5.5 Ur Specific [place] 1.020 Urine Protein Negative Urine Ketones Negative Urine Blood Small H Urine Nitrite Negative Urine Bilirubin Negative Urine Urobilinogen 0.2 Ur Leukocyte Esterase Negative Urine RBC 3-5 H Urine WBC 0-2 Ur Epithelial Cells Rare Urine Crystals Negative Urine Bacteria Negative Urine Casts Negative Urine Mucus Negative Ur Culture Indicated? No Urine Glucose Negative Stl C.difficile Tox PCR Negative 08/03/22 08/03/22 05:20 05:20 WBC 8.52 RBC 3.21 L Hgb 11.3 L Hct 33.9 L MCV 106 H MCH 35.2 H MCHC 33.3 RDW 16.4 H Plt Count 84 L MPV 11.4 H Immature Gran % 0.0 Neutrophils % 51.0 Lymphocytes % 31.0 Monocytes % 15.0 Eosinophils % 2.0 Basophils % 0.0 Metamyelocytes % 1 Nucleated RBC % 0.0 Absolute Neutrophils 4.35 Absolute Lymphocytes 2.64 Absolute Monocytes 1.28 H Absolute Eosinophils 0.17 Absolute Basophils 0.00 RBC Morphology See Below Macrocytosis 2+ PT 11.7 H INR 1.1 Sodium Potassium Chloride Carbon Dioxide Anion Gap BUN Creatinine Est GFR (CKD-EPI 2020) Glucose Calcium Magnesium Total Bilirubin Conjugated Bilirubin AST ALT Alkaline Phosphatase C-Reactive Protein Total Protein Albumin Urine Color Urine Clarity Urine pH Ur Specific [place] Urine Protein Urine Ketones Urine Blood Urine Nitrite Urine Bilirubin Urine Urobilinogen Ur Leukocyte Esterase Urine RBC Urine WBC Ur Epithelial Cells Urine Crystals Urine Bacteria Urine Casts Urine Mucus Ur Culture Indicated? Urine Glucose Stl C.difficile Tox PCR PAWSS Have you Been Recently Intoxicated or Drunk Within the Last 30 days?: Yes Have you Ever Experienced Previous Episodes of Alcohol Withdrawal?: Yes Have you ever Experienced Withdrawal Seizures?: Yes Have you ever Experienced Delirium Tremens(DT)s?: Yes Have you ever undergone Alcohol Rehabilitation Treatment (i.e, inpt ot outpatient treatment programs)?: Yes Have you ever Experienced Blackouts?: Yes Have you ever Combined Alcohol with other Downers within the last 90 days?: Yes Have you ever Combined Alcohol with any other Substance of Abuse during the last 90 days?: Yes Positive Blood Alcohol level on Presentation? [PCS.BAL]: Yes Evidence of Increased Autonomic Activity (i.e. HR>120, tremor, sweating, agitation, nausea)?: No Result: 9 Time Spent with Patient Time Spent with Patient: 35-49 minutes Time was spent: preparing to see the patient(eg.review tests), obtaining and/or reviewing separately otained hiistory, ordering medications,tests, procedures, referring, communicating with other health residential care facility manager, indepentently i nterpreting results, counseling the patient and care coordination
[2022-08-03] MEDS: guaiFENesin 600 MG TABCR PO ×2 (13:57→19:52)
[2022-08-03] MEDS: Thiamine 100 MG TAB PO (13:57)
[2022-08-03] MEDS: Normal Saline Flush 10 ML SYR IVP (14:45)
[2022-08-03] MEDS: Lidocaine Patch Removal 1 EACH TP (21:53)
[2022-08-04] VITALS (27 sets, daily range): BP systolic 113–146; BP diastolic 43–75; PULSE 82–105; RESP 8–22; TEMP 36.5–37.4; O2SAT 87–95
--- NOTE | 2022-08-04 | DI.RAD_ITS ---
Exam(s) XR PORTABLE CHEST AP EXAM: XR PORTABLE CHEST AP CLINICAL HISTORY: F/u PNA TECHNIQUE: 2D digital imaging was performed. COMPARISON: CR XR PORTABLE CHEST AP from 07/29/2022 CR XR PORTABLE CHEST AP from 07/31/2022 FINDINGS: Leads overlie the chest. The previously noted right internal jugular catheter, endotracheal tube and nasogastric tubes have been removed. LUNGS: Improvement in bilateral infiltrates. No pleural abnormality seen. HEART: Normal size. AORTA: Normal diameter. BONES: Unremarkable for age. Soft tissues: Unremarkable. IMPRESSION: Improvement in bilateral infiltrates. DATA REPOSITORY: RADIATION DOSE DELIVERED:
[2022-08-04] MEDS: PIPERACILLIN/TAZO 3.375 GM in Normal Saline 50 ML IVPB ×4 (01:11→21:55)
[2022-08-04 05:53] LABS: Abs Immature Grans 0.33 10^3/uL (0.0-0.06); Absolute Basophil Count 0.03 10^3/uL (0.0-0.2); Absolute Eosinophil Count 0.24 10^3/uL (0.0-0.7); Absolute Lymphocyte Count 1.77 10^3/uL (1.2-3.4); Absolute Monocyte Count 0.72 10^3/uL (0.1-0.8); Absolute Neutrophil Count 3.53 10^3/uL (1.2-6.7); Basophils % 0.5; Eosinophils % 3.6; HCT 32.2 % (40.0-50.0); HGB 10.7 g/dL (13.5-17.5); Lymphocytes % 26.7; MCH 34.6 pg (27.0-33.0); MCHC 33.2 % (32.0-36.0); MCV 104 fL (80-95); MPV 10.6 fL (8.0-11.0); Monocytes % 10.9; Neutrophils % 53.3; RBC 3.09 10^6/uL (4.36-5.78); RDW 16.1 % (11.8-14.1); RDW-SD 62.2 fL; WBC 6.62 10^3/uL (4.4-10.8)
[2022-08-04 06:11] LABS: ALT 52 U/L (16-63); AST 94 U/L (15-37); Albumin 2.5 g/dL (3.4-5.0); Alkaline Phosphatase 157 U/L (46-116); Anion Gap 6.8 mmol/L (3-11); BUN 21 mg/dL (7-18); Bilirubin, Direct 2.3 mg/dL (0.0-0.2); Bilirubin, Total 3.4 mg/dL (0.2-1.0); C-Reactive Protein 9.52 mg/dL (0.0-0.3); CO2 32.2 mmol/L (21.0-32.0); CREATININE 0.8 mg/dL (0.70-1.30); Chloride 99 mmol/L (98-107); Estimated GFR 106.48 (mL/min/1.73m2); Glucose 88 mg/dL (74-106); Potassium 3.6 mmol/L (3.5-5.1); Sodium 138 mmol/L (136-145)
[2022-08-04 06:14] LABS: Platelet Count 78 10^3/uL (130-400)
[2022-08-04 06:26] LABS: Procalcitonin 0.5 ng/mL
[2022-08-04] MEDS: Budesonide/Formoterol 160/4.5 6 GM 60 PUFF INH IH ×2 (07:40→21:58)
[2022-08-04] MEDS: Albuterol/Ipratropium 3 ML UPD VIAL UPD ×4 (07:40→21:59)
[2022-08-04] MEDS: Acetaminophen 500 MG TAB 1000 MG PO ×2 (08:25→21:59)
[2022-08-04] MEDS: Rifaximin 550 MG TAB PO ×2 (08:26→21:59)
[2022-08-04] MEDS: guaiFENesin 600 MG TABCR PO ×2 (08:26→21:59)
[2022-08-04] MEDS: Thiamine 100 MG TAB PO (08:26)
[2022-08-04] MEDS: Pantoprazole 40 MG TABCR PO ×2 (08:26→22:26)
[2022-08-04] MEDS: Multivitamin TAB 1 TAB UD (08:26)
[2022-08-04] MEDS: Citalopram 20 MG TAB PO (08:26)
[2022-08-04] MEDS: Normal Saline Flush 10 ML SYR IVP ×2 (08:27→22:00)
[2022-08-04] MEDS: Folic Acid 1 MG TAB PO (08:27)
[2022-08-04] MEDS: Heparin 5,000 UNITS/ML VIAL 5000 UNITS SC ×2 (08:28→21:59)
[2022-08-04] MEDS: Lidocaine 5% Patch 1 PATCH TP (08:35)
[2022-08-04] MEDS: Lactulose 20 GM/30 ML CUP PO (08:35)
[2022-08-04] MEDS: Nystatin POWDER 60 GM JAR TP ×3 (08:38→22:26)
[2022-08-04] MEDS: Furosemide 40 MG/4 ML VIAL IVP (08:38)
--- NOTE | 2022-08-04 09:42 | PGE_ITS ---
Date of Service Date of service: 08/04/22 Time of Service: 09:42 Assessment and Plan Assessment and plan (1) Respiratory failure with hypoxia and hypercapnia: Status: Acute Assessment and plan: Due to suspected aspiration pneumonia with mucuous plugging evident on imaging and bronch 07/30/22 as well as fluid overload. Suspect that encephalopathy contributed to aspiration. S/p intubation 07/29/22, extubated on 08/01/22. O2 weaned down to 1 L by NC. Encourage pulmonary toilet. Continue zosyn empirically. BAL culture with rare usual oropharyngeal vaughn Will give a dose of furosemide today as a little more edematous and had crackles. Venous dopplers of BLEs are negative. LVEF preserved and RV function good per echo. (2) Septic shock: Status: Resolved Assessment and plan: Hypotension due to combination of septic shock, effects of sedation, liver disease. No longer requiring vasopressors. Stress dose steroids d/c'ed and BPs are maintaining. Target MAP of 65. (3) Aspiration pneumonia: Status: Acute Assessment and plan: Continue Zosyn as above Continue scheduled mucolytis. Encourage pulmonary toilet. Continue minced/moist diet. (4) Mucus plugging of bronchi: Status: Acute Assessment and plan: S/p bronch. Continue scheduled mucolytics. As above. (5) Toxic metabolic encephalopathy: Status: Resolved Assessment and plan: I think the patient is now near or at baseline. Responsive to flumazenil during the acute phase, so there is a component of decreased clearence of benzodiazepines. In addition, there is evidence of hepat ic encephalopathy. Continue lactulose + rifaximine. Better. Avoid further use of benzodiazepines. Target 3 liquid BMs per day. (6) Hepatic encephalopathy: Status: Acute Assessment and plan: As above (7) Alcohol withdrawal: Status: Resolved Assessment and plan: The patient is not showing signs of alcohol withdrawal at this time. (8) Alcoholic hepatitis: Status: Acute Assessment and plan: Maddrey scores improving and <32. Monitor LFTs, INR. (9) Thrombocytopenia: Status: Chronic Assessment and plan: In setting of liver disease. On low dose heparin for DVT ppx. Plts stable. No clinical signs of bleeding. Continue monitoring. (10) Coagulopathy: Status: Acute Assessment and plan: In setting of alcoholic hepatitis/chronic liver disease. Monitor INR/for bleeding. INR is better. (11) Anemia: Status: Chronic Assessment and plan: Replete folate. (12) Acute hyponatremia: Start date: 07/26/22 Status: Acute Assessment and plan: Stable. Reportedly, the patient was not drinking beer, but was fluid overloaded. Sodium is better with diuresis. Continue to monitor. (13) Hypokalemia: Start date: 07/26/22 Status: Resolved Assessment and plan: Recheck in am. (14) Hypomagnesemia: Start date: 07/26/22 Status: Resolved Assessment and plan: Recheck in am. (15) Alcohol dependence: Status: Chronic Assessment and plan: At this point, not showing signs of w/d. Continue supplementation with MVI, thiamine, folate. Qualifiers: Substance use status: unspecified alcohol-induced disorder Qualified Code(s): F10.29 - Alcohol dependence with unspecified alcohol-induced disorder (16) Elevated troponin level not due to acute coronary syndrome: Start date: 07/26/22 Status: Acute Assessment and plan: Very minimal elevations of troponin in setting of hypoxic respiratory failure/fluid overload, not c/w ACS. Echo w/o evidence of wall motion abnormalities. I do not feel that further ischemic workup is warranted at this time. (17) DVT prophylaxis: Status: Acute Assessment and plan: SC heparin (18) Discharge planning issues: Status: Acute Assessment and plan: Full code Continues to require hospitalization. In medical surgical status. PT following. Subjective Subjective Interval history since last seen: I'm getting stronger and stronger. He is down to 1 L of O2 by NC. He reports a headache behind his right eye - something that happens to him ever since he had the R eye injury. Denies dizziness, chest pain, shortness of breath, nausea. Exam Narrative Exam Narrative: General: Obese male, sitting up in a chair, A&Ox3, faster to respond today, on 1L of O2 by NC. HEENT: EOMI, MMM, scleral icterus Heart: RRR, no m/r/g Lungs: crackles at B bases Abdomen: soft, nontender, nondistended Extremities: +1 edema BLEs Objective Last Vital Signs Temp 36.9 C 08/03/22 12:10 Pulse 96 H 08/04/22 07:40 Resp 14 08/04/22 05:46 BP 146/75 H 08/04/22 05:46 Pulse Ox 91 L 08/04/22 07:40 Laboratory Results - last 24 hr 08/04/22 08/04/22 08/04/22 05:30 05:30 05:30 WBC 6.62 RBC 3.09 L Hgb 10.7 L Hct 32.2 L MCV 104 H MCH 34.6 H MCHC 33.2 RDW 16.1 H Plt Count 78 L MPV 10.6 Immature Gran % 5.0 Neutrophils % 53.3 Lymphocytes % 26.7 Monocytes % 10.9 Eosinophils % 3.6 Basophils % 0.5 Nucleated RBC % 0.0 Absolute Neutrophils 3.53 Absolute Lymphocytes 1.77 Absolute Monocytes 0.72 Absolute Eosinophils 0.24 Absolute Basophils 0.03 Sodium 138 Potassium 3.6 Chloride 99 Carbon Dioxide 32.2 H Anion Gap 6.8 BUN 21 H Creatinine 0.8 Est GFR (CKD-EPI 2020) 106.48 Glucose 88 Calcium 9.0 Magnesium 2.0 Total Bilirubin 3.4 H Conjugated Bilirubin 2.3 H AST 94 H ALT 52 Alkaline Phosphatase 157 H C-Reactive Protein 9.52 H Total Protein 6.0 L Albumin 2.5 L Procalcitonin 0.5 Objective Narrative Objective Narrative: CXR: Interval improved aeration with mild residual left basilar opacity PAWSS Have you Been Recently Intoxicated or Drunk Within the Last 30 days?: Yes Have you Ever Experienced Previous Episodes of Alcohol Withdrawal?: Yes Have you ever Experienced Withdrawal Seizures?: Yes Have you ever Experienced Delirium Tremens(DT)s?: Yes Have you ever undergone Alcohol Rehabilitation Treatment (i.e, inpt ot outpatient treatment programs)?: Yes Have you ever Experienced Blackouts?: Yes Have you ever Combined Alcohol with other Downers within the last 90 days?: Yes Have you ever Combined Alcohol with any other Substance of Abuse during the last 90 days?: Yes Positive Blood Alcohol level on Presentation? [PCS.BAL]: Yes Evidence of Increased Autonomic Activity (i.e. HR>120, tremor, sweating, agitation, nausea)?: No Result: 9 Time Spent with Patient Time Spent with Patient: 25-34 minutes Time was spent: preparing to see the patient(eg.review tests), obtaining and/or reviewing separately otained hiistory, ordering medications,tests, procedures, referring, communicating with other health memory care program director, indepentently interpreting results, counseling the patient and care coordination
--- NOTE | 2022-08-04 10:38 | DI.VRAD_ITS ---
PROCEDURE INFORMATION: Exam: XR Chest Exam date and time: 08/04/2022 10:16 AM Age: 52 years old Clinical indication: Other: F/u pna TECHNIQUE: Imaging protocol: Radiologic exam of the chest. Views: 1 view. COMPARISON: CR XR PORTABLE CHEST AP 07/31/2022 8:31 AM FINDINGS: Interval extubation and removal of right IJ central venous catheter and removal of enteric tube Lungs: Improved aeration bilaterally with mild left basilar residual opacity. Pleural spaces: No pleural effusion. No pneumothorax. Heart/Mediastinum: Grossly stable. Bones/joints: Grossly stable. IMPRESSION: Interval improved aeration with mild residual left basilar opacity Dictated and Authenticated by: Rome Soto MD. Ordering:CAMILLE Avalos MD
--- NOTE | 2022-08-04 11:40 | NUR.NOTE ---
Nursing Note: Accessed pt chart to check if the critical troponin on July 26 was called to ED and documented.
[2022-08-04 11:41] LABS: Troponin I 67 ng/L (<or=60)
[2022-08-04] MEDS: Normal Saline 500 ML IV (21:58)
[2022-08-04] MEDS: Lidocaine Patch Removal 1 EACH TP (22:27)
[2022-08-05] VITALS (10 sets, daily range): BP systolic 126–131; BP diastolic 56–68; PULSE 83–105; RESP 1–20; TEMP 36.9–37.3; O2SAT 92–100
[2022-08-05] MEDS: PIPERACILLIN/TAZO 3.375 GM in Normal Saline 50 ML IVPB ×3 (02:25→14:24)
[2022-08-05 06:47] LABS: Abs Immature Grans 0.22 10^3/uL (0.0-0.06); Absolute Basophil Count 0.03 10^3/uL (0.0-0.2); Absolute Eosinophil Count 0.28 10^3/uL (0.0-0.7); Absolute Lymphocyte Count 1.55 10^3/uL (1.2-3.4); Absolute Monocyte Count 0.65 10^3/uL (0.1-0.8); Absolute Neutrophil Count 3.13 10^3/uL (1.2-6.7); Basophils % 0.5; Eosinophils % 4.8; HCT 31.5 % (40.0-50.0); HGB 10.6 g/dL (13.5-17.5); Immature Grans % 3.8; Lymphocytes % 26.5; MCHC 33.7 % (32.0-36.0); MCV 104 fL (80-95); Monocytes % 11.1; Neutrophils % 53.3; RBC 3.03 10^6/uL (4.36-5.78); RDW 15.9 % (11.8-14.1); RDW-SD 60.7 fL; WBC 5.86 10^3/uL (4.4-10.8)
[2022-08-05 07:15] LABS: ALT 62 U/L (16-63); AST 96 U/L (15-37); Albumin 2.5 g/dL (3.4-5.0); Alkaline Phosphatase 165 U/L (46-116); Anion Gap 5.9 mmol/L (3-11); BUN 16 mg/dL (7-18); Bilirubin, Total 3.1 mg/dL (0.2-1.0); C-Reactive Protein 7.31 mg/dL (0.0-0.3); CO2 32.1 mmol/L (21.0-32.0); CREATININE 0.9 mg/dL (0.70-1.30); Calcium 9.3 mg/dL (8.5-10.1); Chloride 99 mmol/L (98-107); Estimated GFR 102.76 (mL/min/1.73m2); Glucose 94 mg/dL (74-106); Magnesium 1.8 mg/dL (1.8-2.4); Potassium 3.4 mmol/L (3.5-5.1); Sodium 137 mmol/L (136-145); Total Protein 6.2 g/dL (6.4-8.2)
[2022-08-05 07:24] LABS: Diff Comment Diff Reviewed; Platelet Count 82 10^3/uL (130-400); RBC Morphology Normal
[2022-08-05 08:02] LABS: INR 1.1 (0.9-1.1)
[2022-08-05] MEDS: Budesonide/Formoterol 160/4.5 6 GM 60 PUFF INH IH ×2 (08:14→20:35)
[2022-08-05] MEDS: Potassium Chloride Liquid 20 MEQ PKT PO ×2 (08:54→20:43)
[2022-08-05] MEDS: Citalopram 20 MG TAB PO (08:55)
[2022-08-05] MEDS: Rifaximin 550 MG TAB PO ×2 (08:56→20:43)
[2022-08-05] MEDS: guaiFENesin 600 MG TABCR PO ×2 (08:57→20:44)
[2022-08-05] MEDS: Thiamine 100 MG TAB PO (08:57)
[2022-08-05] MEDS: Pantoprazole 40 MG TABCR PO ×2 (08:59→20:43)
[2022-08-05] MEDS: Folic Acid 1 MG TAB PO (09:00)
[2022-08-05] MEDS: Lidocaine 5% Patch 1 PATCH TP (09:01)
[2022-08-05] MEDS: Nystatin POWDER 60 GM JAR TP ×3 (09:06→20:50)
[2022-08-05] MEDS: Albuterol/Ipratropium 3 ML UPD VIAL UPD ×3 (09:20→19:41)
[2022-08-05] MEDS: Heparin 5,000 UNITS/ML VIAL 5000 UNITS SC ×2 (09:50→20:44)
--- NOTE | 2022-08-05 10:19 | PGE_ITS ---
Date of Service Date of service: 08/05/22 Time of Service: 10:19 Assessment and Plan Assessment and plan (1) Respiratory failure with hypoxia and hypercapnia: Status: Acute Assessment and plan: Due to suspected aspiration pneumonia with mucuous plugging evident on imaging and bronch 07/30/22 as well as fluid overload. Suspect that encephalopathy contributed to aspiration. S/p intubation 07/29/22, extubated on 08/01/22. Now on room air. will check ambulatory pulse oximetry prior to discharge home. I anticipate dc in the next 24 to 48 hr. . Encourage pulmonary toilet. Continue zosyn empirically. Today is day #8, prior to that he had Rocephin. Follow CXR yesterday demonstrated improved bilateral infiltrates. Will downstep to Augmentin tomorrow and dc home on another 5 days for total of 14 days. BAL culture with rare usual oropharyngeal vaughn, repeat sputum from 08/02 demonstrated oral vaughn rare yeast, mixed gram positive vaughn, moderate epithelial cells Venous dopplers of BLEs are negative. Echo w/ normal LV and RV size and fxn w/ no valvular abnormalities. LVEF 59%, NO RWMA Professional time spent interviewing and examining patient, discussion of goals of care with hospital team (care management, nursing and consulting professionals) was 35 minutes. (2) Aspiration pneumonia: Status: Acute Assessment and plan: Continue Zosyn estuardo today then Augementin x 5 days Continue scheduled mucolytis. Encourage pulmonary toilet. Continue minced/moist diet. (3) Septic shock: Status: Resolved Assessment and plan: patient initially was treated w/ norepinephrine and vasopressin but has recovered. He never had ARIEL or shock liver. (4) Mucus plugging of bronchi: Status: Acute Assessment and plan: S/p bronch. Continue scheduled mucolytics. As above. (5) Hepatic encephalopathy: Status: Acute Assessment and plan: continue lactulose and rifaximin. goal is 2 to 3 soft BM per day (6) Alcoholic hepatitis: Status: Acute Assessment and plan: Maddrey scores improving and <32. Monitor LFTs, INR. (7) Thrombocytopenia: Status: Chronic Assessment and plan: In setting of liver disease. On low dose heparin for DVT ppx. Plts stable. No clinical signs of bleeding. Continue monitoring. (8) Coagulopathy: Status: Acute Assessment and plan: In setting of alcoholic hepatitis/chronic liver disease. Monitor INR/for bleeding. INR is better. (9) Anemia: Status: Chronic Assessment and plan: Replete folate. (10) Alcohol dependence: Status: Chronic Assessment and plan: At this point, not showing signs of w/d. Continue supplementation with MVI, thiamine, folate. patient has sponsor w/ AA and will meet manager recovery here at the hospital Qualifiers: Substance use status: unspecified alcohol-induced disorder Qualified Code(s): F10.29 - Alcohol dependence with unspecified alcohol-induced disorder (11) Elevated troponin level not due to acute coronary syndrome: Start date: 07/26/22 Status: Acute Assessment and plan: likely stress induced troponin leak; he should have outpatient stress MPI to stratify his risks. (12) DVT prophylaxis: Status: Acute Assessment and plan: SC heparin (13) Discharge planning issues: Status: Acute Assessment and plan: Full code Continues to require hospitalization. In medical surgical status. PT following. I anticipate dc in the next 24 to 48 hrs. family has met w/ CM to discuss application for transitional housing. Subjective Subjective Interval history since last seen: Patient states he continues to feel markedly improved less dyspneic. Cough still productive of thick sputum. No chest pain. No nausea or vomiting. No abdominal pain. He is moving his bowels. He met with case management this morning in the presence of his mother and his nephew. Patient is indicated to me that he is going to go to AA meetings he now has a sponsor to help him remain abstinent. His nephew is try to get him into transitional housing. Exam Narrative Exam Narrative: Obese middle-aged white male who is alert and oriented and answering questions appropriately and asks questions appropriately. HEENT is remarkable for scleral icterus. Lungs are clear to auscultation with prolonged expiratory phase no rhonchi or wheezes Heart is regular rate and rhythm Abdomen is obese soft and nontender with normal bowel sounds Objective Last Vital Signs Temp 36.9 C 08/05/22 09:30 Pulse 89 08/05/22 09:30 Resp 16 08/05/22 09:30 BP 131/56 L 08/05/22 09:30 Pulse Ox 98 08/05/22 09:30 Laboratory Results - last 24 hr 07/26/22 08/05/22 08/05/22 20:54 06:32 06:32 WBC 5.86 RBC 3.03 L Hgb 10.6 L Hct 31.5 L MCV 104 H MCH 35.0 H MCHC 33.7 RDW 15.9 H Plt Count 82 L MPV 10.0 Immature Gran % 3.8 Neutrophils % 53.3 Lymphocytes % 26.5 Monocytes % 11.1 Eosinophils % 4.8 Basophils % 0.5 Nucleated RBC % 0.0 Absolute Neutrophils 3.13 Absolute Lymphocytes 1.55 Absolute Monocytes 0.65 Absolute Eosinophils 0.28 Absolute Basophils 0.03 RBC Morphology Normal PT INR Sodium 137 Potassium 3.4 L Chloride 99 Carbon Dioxide 32.1 H Anion Gap 5.9 BUN 16 Creatinine 0.9 Est GFR (CKD-EPI 2020) 102.76 Glucose 94 Calcium 9.3 Magnesium 1.8 Total Bilirubin 3.1 H Conjugated Bilirubin 2.0 H AST 96 H ALT 62 Alkaline Phosphatase 165 H Troponin I 67 H* C-Reactive Protein 7.31 H Total Protein 6.2 L Albumin 2.5 L 08/05/22 08/05/22 06:32 07:35 WBC RBC Hgb Hct MCV MCH MCHC RDW Plt Count MPV Immature Gran % Neutrophils % Lymphocytes % Monocytes % Eosinophils % Basophils % Nucleated RBC % Absolute Neutrophils Absolute Lymphocytes Absolute Monocytes Absolute Eosinophils Absolute Basophils RBC Morphology PT Cancelled 11.0 INR Cancelled 1.1 Sodium Potassium Chloride Carbon Dioxide Anion Gap BUN Creatinine Est GFR (CKD-EPI 2020) Glucose Calcium Magnesium Total Bilirubin Conjugated Bilirubin AST ALT Alkaline Phosphatase Troponin I C-Reactive Protein Total Protein Albumin PAWSS Have you Been Recently Intoxicated or Drunk Within the Last 30 days?: Yes Have you Ever Experienced Previous Episodes of Alcohol Withdrawal?: Yes Have you ever Experienced Withdrawal Seizures?: Yes Have you ever Experienced Delirium Tremens(DT)s?: Yes Have you ever undergone Alcohol Rehabilitation Treatment (i.e, inpt ot outpatient treatment programs)?: Yes Have you ever Experienced Blackouts?: Yes Have you ever Combined Alcohol with other Downers within the last 90 days?: Yes Have you ever Combined Alcohol with any other Substance of Abuse during the last 90 days?: Yes Positive Blood Alcohol level on Presentation? [PCS.BAL]: Yes Evidence of Increased Autonomic Activity (i.e. HR>120, tremor, sweating, agitation, nausea)?: No Result: 9 Time Spent with Patient Time Spent with Patient: 35-49 minutes Time was spent: preparing to see the patient(eg.review tests), ordering medications,tests, procedures, referring, communicating with other health career guidance counselor, indepentently interpreting results, counseling the patient (And family) and care coordination
--- NOTE | 2022-08-05 10:22 | CMPROGNOTE_ITS ---
Date of service: 08/05/22 Time of Service: 10:23 Care Management Progress Note Progress Note Text Progress Note Text: S/O:? Clemente is sitting up in bed in the ICU, visiting with his Mother and Nephew. He is feeling much better and shares that he believes God is giving him a second chance and he is planning on maintaining his sobriety and is ready to talk with a Landscape Architecture Teacher. Reymundo is sitting next to him and helping him and the two are working on forms for [employer] because he is actively seeking new housing. Per pt, his current apartment is infested with rats and mold so he and his dog will be staying with his Uncle or Daughter after discharge until he can secure housing. A: 52 year old male admitted to [facility] on 07/26/22 for Hyponatremia, Alcoholic Hepatitis P:?? Home with New [facility] PT/OT (if indicated) when medically stable per provider. Follow up with his PCP and plan of care as instructed. Outpatient support from [facility], as discussed with Landscape Architecture Teacher. His vehicle is parked in the [facility] parking lot, and he plans to drive himself home is physically able.? CM will continue to follow and support discharge planning needs.
[2022-08-05] MEDS: Acetaminophen 500 MG TAB 1000 MG PO (12:27)
--- NOTE | 2022-08-05 13:54 | PT.INTREAT ---
Date of service: 08/05/22 Time of Service: 13:03 PT Notes Visit Reasons: Hyponatremia, Alcoholic Hepatitis, Chronic Alcohol Inpatient Physical Therapy Treatment Note [facility] Date: 08/05/22 PRECAUTIONS: Fall, standard, activity as tolerated SUBJECTIVE: Patient reports feeling like he has all kinds of energy, needs to go for a walk to burn some of it off. OBJECTIVE: PAIN: none reported BED MOBILITY/TRANSFERS Rolling L/R: not assessed Supine-sit: not asssessed Sit-supine: standby Sit-stand: standby Stand-sit: standby with verbal cues for safety Bed-Chair: standby with verbal cues for sequencing, safety Chair-bed: standby with verbal cues for sequencing, safety GAIT Assistive Device: front wheeled walker Weight bearing: full Assist: standby x2 - wheelchair follow, IV pole management Distance: 335 feet with 2 seated rests Deviation: decreased step height, decreased stride length. Patient shuffles more as he picks up speed, steps become even shorter and more rapid. Patient maintains fww within a safe distance to his body, no LOB noted. Respiratory therapy reports patient's O2 stays above 90. ASSESSMENT: Patient eager to get out of ICU and into a med surg room, also eager to get out of the hospital and go home sometime this week. PLAN: Continue strengthening per plan of care TREATMENT CODE/TIME: 54770 Gait 22 minutes beginning at 13:03
--- NOTE | 2022-08-05 18:00 | PDOC.STREC ---
Date of service: 08/05/22 Time of Service: 18:00 Speech Therapy Recommendations Report ST Recommendations: Non-treatment note: Spoke with Audrey Renny in ICU regarding John's PO tolerance. He has been tolerating diet without s/sx aspiration and without difficulty, though has demonstrated variable intake. His chest x-ray from 08/04 showed improvement in bilateral infiltrates. He is moving to [facility] this date. He is now tolerating room air. He was previously placed on minced/moist diet primarily to reduce choking risk in setting of high flow nasal cannula. Given patient with still some low overall PO intake, it is reasonable to consider advancement of diet to IDDSI Level 6: soft/bite size if MD/Nursing think this may improve oral intake. Coding
[2022-08-05] MEDS: Amoxicillin 875/Clav. 125 TAB PO (20:43)
[2022-08-05] MEDS: Lidocaine Patch Removal 1 EACH TP (20:49)
[2022-08-06] VITALS (11 sets, daily range): BP systolic 107–148; BP diastolic 65–80; PULSE 81–101; RESP 1–18; TEMP 36.7–37.1; O2SAT 93–96
[2022-08-06] MEDS: Acetaminophen 500 MG TAB 1000 MG PO (03:57)
[2022-08-06] MEDS: Albuterol/Ipratropium 3 ML UPD VIAL UPD ×4 (07:33→19:17)
[2022-08-06] MEDS: Budesonide/Formoterol 160/4.5 6 GM 60 PUFF INH IH ×2 (07:35→19:17)
[2022-08-06 07:39] LABS: Magnesium 1.7 mg/dL (1.8-2.4)
[2022-08-06] MEDS: Lidocaine 5% Patch 1 PATCH TP (07:40)
[2022-08-06 07:45] LABS: ALT 69 U/L (16-63); AST 104 U/L (15-37); Albumin 2.7 g/dL (3.4-5.0); Alkaline Phosphatase 179 U/L (46-116); Anion Gap 5.4 mmol/L (3-11); BUN 13 mg/dL (7-18); Bilirubin, Direct 1.9 mg/dL (0.0-0.2); Bilirubin, Total 3.1 mg/dL (0.2-1.0); CO2 30.6 mmol/L (21.0-32.0); CREATININE 0.9 mg/dL (0.70-1.30); Calcium 9.5 mg/dL (8.5-10.1); Chloride 100 mmol/L (98-107); Estimated GFR 102.76 (mL/min/1.73m2); Glucose 92 mg/dL (74-106); Potassium 3.7 mmol/L (3.5-5.1); Sodium 136 mmol/L (136-145); Total Protein 6.4 g/dL (6.4-8.2)
[2022-08-06] MEDS: Amoxicillin 875/Clav. 125 TAB PO ×2 (08:11→20:15)
[2022-08-06] MEDS: Citalopram 20 MG TAB PO (08:11)
[2022-08-06] MEDS: Thiamine 100 MG TAB PO (08:11)
[2022-08-06] MEDS: Pantoprazole 40 MG TABCR PO ×2 (08:11→20:15)
[2022-08-06] MEDS: Rifaximin 550 MG TAB PO ×2 (08:11→20:14)
[2022-08-06] MEDS: guaiFENesin 600 MG TABCR PO ×2 (08:11→20:15)
[2022-08-06] MEDS: Heparin 5,000 UNITS/ML VIAL 5000 UNITS SC (08:19)
[2022-08-06] MEDS: Nystatin POWDER 60 GM JAR TP ×2 (08:31→20:16)
--- NOTE | 2022-08-06 09:42 | NUR.NOTE ---
In chart for education and quality review Nursing Note:
--- NOTE | 2022-08-06 15:52 | PT.INTREAT ---
Date of service: 08/06/22 Time of Service: 13:26 PT Notes Visit Reasons: Hyponatremia, Alcoholic Hepatitis, Chronic Alcohol Inpatient Physical Therapy Treatment Note [facility] Date: 08/06/22 PRECAUTIONS: Fall, standard, activity as tolerated SUBJECTIVE: Patient sitting up EOB, conversing with a friend. Agreeable to therapy. Hopes to get out of here soon. OBJECTIVE: PAIN: none reported BED MOBILITY/TRANSFERS Sit-stand: contact guard Stand-sit: standby Bed-Chair: standby Chair-bed: standby GAIT Assistive Device: front wheeled walker Weight bearing: full Assist: standby Distance: 75 feet Deviation: shortened stride length, decreased step height. ASSESSMENT: Patient has 3 steps to enter home and 2 more steps to get to bedroom. Goal for today was to do stairs, however patient ran out of steam and preferred to go back to his room. PLAN: Assess stairs. Continue strengthening per plan of care. TREATMENT CODE/TIME: 85610 Gait 18 minutes beginning at 13:26
--- NOTE | 2022-08-06 16:08 | PGE_ITS ---
Date of Service Date of service: 08/06/22 Time of Service: Assessment and Plan Assessment and plan (1) Respiratory failure with hypoxia and hypercapnia: Status: Acute Assessment and plan: Due to suspected aspiration pneumonia with mucuous plugging evident on imaging and bronch 07/30/22 as well as fluid overload. Suspect that encephalopathy contributed to aspiration. S/p intubation 07/29/22, extubated on 08/01/22. Now on room air, iv access lost yesterday and left out. He had Zosyn from 07/29 to 08/05. He is now on Augmentin which he probably will not need much longer. repeat CXR from 07/31 to 08/04. He will need follow up imaging in two weeks to assess resolution. (2) Aspiration pneumonia: Status: Acute Assessment and plan: as above. continue to encourage use of IS and acapella (3) Septic shock: Status: Resolved Assessment and plan: patient initially was treated w/ norepinephrine and vasopressin but has recovered. He never had ARIEL or shock liver. (4) Mucus plugging of bronchi: Status: Acute Assessment and plan: S/p bronch. Continue scheduled mucolytics. As above. (5) Hepatic encephalopathy: Status: Acute Assessment and plan: continue lactulose and rifaximin. goal is 2 to 3 soft BM per day (6) Alcoholic hepatitis: Status: Acute Assessment and plan: Maddrey scores improving and <32. Monitor LFTs, INR. (7) Thrombocytopenia: Status: Chronic Assessment and plan: In setting of liver disease. On low dose heparin for DVT ppx. Plts stable. No clinical signs of bleeding. Continue monitoring. (8) Coagulopathy: Status: Acute Assessment and plan: In setting of alcoholic hepatitis/chronic liver disease. Monitor INR/for bleeding. INR is better. (9) Anemia: Status: Chronic Assessment and plan: Replete folate. (10) Alcohol dependence: Status: Chronic Assessment and plan: At this point, not showing signs of w/d. Continue supplementation with MVI, thiamine, folate. patient has sponsor w/ AA and will meet recovery room nurse here at the hospital Qualifiers: Substance use status: unspecified alcohol-induced disorder Qualified Code(s): F10.29 - Alcohol dependence with unspecified alcohol-induced disorder (11) Elevated troponin level not due to acute coronary syndrome: Start date: 07/26/22 Status: Acute Assessment and plan: likely stress induced troponin leak; he should have outpatient stress MPI to stratify his risks. (12) DVT prophylaxis: Status: Acute Assessment and plan: SC heparin (13) Discharge planning issues: Status: Acute Assessment and plan: Full code Continues to require hospitalization. In medical surgical status. PT following. I anticipate dc in the next 24 to 48 hrs. family has met w/ CM to discuss application for transitional housing. (14) Bilateral leg edema: Status: Acute Assessment and plan: likely d/t fluid overload from resuscitation from his sepsis. I will give him more diuretics. He probably has chronic ascites and edema from his chronic liver disease. I will keep him on low dose furosemide and spironolactone upon discharge. As he is not being discharged today, I will give him iv lasix tonight. repeat his electrolytes in the a.m. Subjective Subjective Interval history since last seen: Patient states that his breathing is much improved. He is not requiring oxygen. His only concerns is that he has bilateral leg edema and he has noticed that he has developed a stutter although he was not stuttering when I talked with him. Exam Narrative Exam Narrative: John is sitting up at the bedside, taking a DuoNeb treatment. No acute distress, not dyspneic Lungs: clear heart: RRR Abdomen: obese, soft, nontender Legs: bilateral 2+ pitting edema up to his knees Objective Last Vital Signs Temp 36.9 C 08/06/22 15:02 Pulse 87 08/06/22 16:00 Resp 18 08/06/22 15:02 BP 113/74 08/06/22 15:02 Pulse Ox 95 08/06/22 16:01 Laboratory Results - last 24 hr 08/06/22 08/06/22 06:40 06:40 Sodium 136 Potassium 3.7 Chloride 100 Carbon Dioxide 30.6 Anion Gap 5.4 BUN 13 Creatinine 0.9 Est GFR (CKD-EPI 2020) 102.76 Glucose 92 Calcium 9.5 Magnesium 1.7 L Total Bilirubin 3.1 H Conjugated Bilirubin 1.9 H AST 104 H ALT 69 H Alkaline Phosphatase 179 H Total Protein 6.4 Albumin 2.7 L PAWSS Have you Been Recently Intoxicated or Drunk Within the Last 30 days?: Yes Have you Ever Experienced Previous Episodes of Alcohol Withdrawal?: Yes Have you ever Experienced Withdrawal Seizures?: Yes Have you ever Experienced Delirium Tremens(DT)s?: Yes Have you ever undergone Alcohol Rehabilitation Treatment (i.e, inpt ot outpatient treatment programs)?: Yes Have you ever Experienced Blackouts?: Yes Have you ever Combined Alcohol with other Downers within the last 90 days?: Yes Have you ever Combined Alcohol with any other Substance of Abuse during the last 90 days?: Yes Positive Blood Alcohol level on Presentation? [PCS.BAL]: Yes Evidence of Increased Autonomic Activity (i.e. HR>120, tremor, sweating, agitation, nausea)?: No Result: 9 Time Spent with Patient Time Spent with Patient: 25-34 minutes Time was spent: preparing to see the patient(eg.review tests), indepentently interpreting results, counseling the patient and care coordination
[2022-08-06] MEDS: Potassium Chloride 20 MEQ TABCR PO (17:21)
[2022-08-06] MEDS: Furosemide 80 MG TAB PO (17:21)
[2022-08-06] MEDS: Spironolactone 25 MG TAB PO (17:21)
[2022-08-06] MEDS: Lidocaine Patch Removal 1 EACH TP (20:16)
--- NOTE | 2022-08-06 21:07 | CMPROGNOTE_ITS ---
Date of service: 08/06/22 Time of Service: 21:07 Care Management Progress Note Progress Note Text Progress Note Text: S/O:? Clemente is making great strides per S/T, PT and MD. Anticipate he will discharge within the next 48 hours with new orders for RN/PT/OT. Speech has cleared him to advance diet to soft/bite sized food. CM continues to follow. A: 52 year old male admitted to [facility] on 07/26/22 for Hyponatremia, Alcoholic Hepatitis P:??Clemente will discharge to his Uncle or daughter's home with New [facility] RN/PT/OT, CM to provide address to [facility]. He will follow up with his PCP and plan of care as instructed. [facility] Splitting Machine Operator Helper contact coordinated; he will continue to be followed outpatient as well. Clemente's vehicle is parked in the [facility] parking lot, and he plans to drive himself home if physically able.? CM will continue to follow and support discharge planning needs.
--- NOTE | 2022-08-06 21:07 | PDOC.CMPRO ---
Date of service: 08/06/22 Time of Service: 21:07 Care Management Progress Note Progress Note Text Progress Note Text: S/O:? Clemente is making great strides per S/T, PT and MD. Anticipate he will discharge within the next 48 hours with new orders for RN/PT/OT. Speech has cleared him to advance diet to soft/bite sized food. CM continues to follow. A: 52 year old male admitted to [facility] on 07/26/22 for Hyponatremia, Alcoholic Hepatitis P:??Clemente will discharge to his Uncle or daughter's home with New [facility] RN/PT/OT, CM to provide address to [facility]. He will follow up with his PCP and plan of care as instructed. [facility] Natural Gas Field Processing Supervisor contact coordinated; he will continue to be followed outpatient as well. Clemente's vehicle is parked in the [facility] parking lot, and he plans to drive himself home if physically able.? CM will continue to follow and support discharge planning needs.
[2022-08-07 03:16] VITALS: BP 118/68; PULSE 98; RESP 18; TEMP 36.1; O2SAT 95
[2022-08-07 07:23] VITALS: BP 162/89; PULSE 75; RESP 18; TEMP 36.5; O2SAT 92
[2022-08-07 07:44] LABS: ALT 70 U/L (16-63); AST 104 U/L (15-37); Albumin 2.6 g/dL (3.4-5.0); Alkaline Phosphatase 180 U/L (46-116); Anion Gap 6.6 mmol/L (3-11); BUN 13 mg/dL (7-18); Bilirubin, Direct 1.7 mg/dL (0.0-0.2); Bilirubin, Total 2.8 mg/dL (0.2-1.0); CO2 29.4 mmol/L (21.0-32.0); CREATININE 0.8 mg/dL (0.70-1.30); Chloride 100 mmol/L (98-107); Estimated GFR 106.48 (mL/min/1.73m2); Glucose 99 mg/dL (74-106); Potassium 3.4 mmol/L (3.5-5.1); Sodium 136 mmol/L (136-145); Total Protein 6.2 g/dL (6.4-8.2)
[2022-08-07 07:49] VITALS: PULSE 73; RESP 1; RESP 18; RESP 8; O2SAT 94
[2022-08-07] MEDS: Albuterol/Ipratropium 3 ML UPD VIAL UPD (07:49)
[2022-08-07] MEDS: Budesonide/Formoterol 160/4.5 6 GM 60 PUFF INH IH (07:49)
[2022-08-07 07:50] VITALS: PULSE 76; RESP 1; RESP 17; RESP 8; O2SAT 94
[2022-08-07 08:03] LABS: Calcium 9.2 mg/dL (8.5-10.1)
[2022-08-07] MEDS: Lidocaine 5% Patch 1 PATCH TP (08:08)
[2022-08-07] MEDS: Citalopram 20 MG TAB PO (08:09)
[2022-08-07] MEDS: Pantoprazole 40 MG TABCR PO (08:09)
[2022-08-07] MEDS: Amoxicillin 875/Clav. 125 TAB PO (08:09)
[2022-08-07] MEDS: Thiamine 100 MG TAB PO (08:09)
[2022-08-07] MEDS: Rifaximin 550 MG TAB PO (08:09)
[2022-08-07] MEDS: guaiFENesin 600 MG TABCR PO (08:09)
[2022-08-07] MEDS: Potassium Chloride 10 MEQ CAPCR 20 MEQ PO (09:57)
[2022-08-07] MEDS: Folic Acid 1 MG TAB PO (09:57)
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
--- NOTE | 2022-08-07 10:22 | PDOC.CMDIS ---
Date of service: 08/07/22 Time of Service: 10:22 LACE Index Scoring Tool Questions: Length of Stay (in days): 7 - 13 Was the patient admitted via the E.D.?: Yes Comorbidities: Chronic Pulmonary Disease and Liver or Renal Disease E.D. Visits: 2 Answers: Total Score: 15 Risk of Readmission: High Risk Care Management Discharge Plan Reason for Hospitalization: Hyponatremia, Alcoholic Hepatitis, Chronic Alcohol Dependence Discharge Plan: John is discharged home via private vehicle with family. He will follow up with community providers and discharge plan of care as prescribed. New [facility] RN/PT/OT/PROFESSOR OF KINESIOLOGY, is ordered and a plan is established with [facility] for community follow up and support. Patient/Family Education Needs: Review discharge instructions, limitations, medications and plan to follow up with community providers. Discuss ask me three. Services Needed at Discharge: Home Health Care Services ([facility] RN/PT/OT/PROFESSOR OF KINESIOLOGY)
--- NOTE | 2022-08-07 10:23 | PDOC.HHF2F ---
Home Health Referral Home Health Orders Clinical synopsis of why skilled professionals are needed: Patient recently hospitalized for acute hepatic encephalopathy, aspiration pneumonia and required intubation and mechanical ventilation. he was successfully extubated and weaned off oxygen. Patient had P.T. working with him and he ambulates w/ walker. He completed antibiotic therapy while hospitalized and is not being dc on any antibiotics. Patient was started on lactulose and rifaximin for his hepatic encephalopathy which has cleared. Patient needs nursing to follow up labs, coordinate med changes, coordinate care w/ PCP. Medical diagnosis necessitation home health referral: alcoholic cirrhosis, ascites, hepatic encephalopathy, aspiration pneumonia, alcohol dependence, GERD, HTN Registered Nurse: Check all that apply Instruct on new or changed medication(s)/assess compliance: Ordered Physical Therapist: Check all that apply Increase strength & endurance for safe mobility at home: Ordered To design/establish home maintenance program: Ordered Occupational Therapist: Evaluate and treat for patient unable to perform ADL/IADL/self-care: Ordered Decorating Equipment Setter: Assist with community resources: Ordered Home Bound Status Requires the aid of supportive device (check all that apply): Walker Patient has a condition such that leaving home is medically contraindicated (Describe): increased risk of falls Describe why leaving home would require a considerable and taxing effort: Requires frequent rest periods and Safety Concerns: describe (increased risk of falls) Encounter Date and Reason: I certify that a FTF encounter for this patient was performed on August 07, 2022 and that such encounter was related to the primary reason the patient requires home health services. The encounter was conducted in the following manner: By me as the certifying physician, GEOPHYSICAL PROSPECTOR, PA or By an inpatient physician, GEOPHYSICAL PROSPECTOR or PA during an inpatient stay who communicated findings to me, Certification And Authentication I certify that I composed the above information based on my clinical judgment relating to this patient's medical condition and, if applicable, clinical findings communicated to me by the NPP or inpatient physician who performed the FTF encounter. Name of Provider that will be monitoring home health services: Love Schofield
--- NOTE | 2022-08-07 10:48 | CHAPLAIN ---
I visited with Clemente shortly before he was discharged. He said he knows now that he had to hit rock bottom before he could get better. He also said he hasn't smoke a cigarette or had a drink since in 17 days and he doesn't have any cravings. His sponsor is bringing Clemente to his home for a couple of weeks. Clemente said he he knows he has the support of his sponsor, AA meetings, this rastafarian and Noel. Clemente goes to the [facility]. He expressed his gratitude for the care he receive here.
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
--- NOTE | 2022-08-13 14:50 | NUR.NOTE ---
In chart for quality and education review Nursing Note:
[2022-08-27 08:10] LABS: Fungus Smear No Fungi Seen
== END 2022-08-07 10:44 | disposition home health service (06) | DRG 441 ==
LOC: ER 21:16 → MS 21:55 → ICU 07-27 19:53 → MS 08-05 15:33
PROVIDERS: Family Medicine; Internal Medicine; Nurse Practitioner Family; Student in an Organized Health Care Education/Training Program; Admitting Provider Family Medicine; Emergency Provider Registered Nurse Emergency; PCP Nurse Practitioner Adult Health; Visit Provider Family Medicine
DX: K72.00 Acute and subacute hepatic failure without coma (principal); A41.9 Sepsis, unspecified organism; G92.8 Other toxic encephalopathy; J69.0 Pneumonitis due to inhalation of food and vomit; J96.01 Acute respiratory failure with hypoxia; J96.02 Acute respiratory failure with hypercapnia; R65.21 Severe sepsis with septic shock; E87.1 Hypo-osmolality and hyponatremia; Z68.41 Body mass index [BMI] 40.0-44.9, adult; F10.239 Alcohol dependence with withdrawal, unspecified; D68.4 Acquired coagulation factor deficiency; T17.590A Other foreign object in bronchus causing asphyxiation, initial encounter; K72.10 Chronic hepatic failure without coma; E83.42 Hypomagnesemia; E87.6 Hypokalemia; R74.8 Abnormal levels of other serum enzymes; K70.10 Alcoholic hepatitis without ascites; Z86.16 Personal history of COVID-19; K76.0 Fatty (change of) liver, not elsewhere classified; K21.9 Gastro-esophageal reflux disease without esophagitis; J44.9 Chronic obstructive pulmonary disease, unspecified; F32.A Depression, unspecified; E78.5 Hyperlipidemia, unspecified; F41.9 Anxiety disorder, unspecified; M81.0 Age-related osteoporosis without current pathological fracture; E55.9 Vitamin D deficiency, unspecified; G89.29 Other chronic pain; I10 Essential (primary) hypertension; G57.13 Meralgia paresthetica, bilateral lower limbs; R26.89 Other abnormalities of gait and mobility; R73.01 Impaired fasting glucose; E66.9 Obesity, unspecified; F17.210 Nicotine dependence, cigarettes, uncomplicated; K57.30 Diverticulosis of large intestine without perforation or abscess without bleeding; N20.0 Calculus of kidney; D69.6 Thrombocytopenia, unspecified; Z96.643 Presence of artificial hip joint, bilateral; D64.9 Anemia, unspecified; E87.70 Fluid overload, unspecified; K76.82 Hepatic encephalopathy
CPT/HCPCS: 31500; 36558; 31622; 36410; 36415; 76604; 80048; 80053; 80061; 80076; 80162; 80307; 82306; 82805; 84145; 85027; 85384; 86704; 86709; 86803; 87040; 87070; 87102; 87116; 87205; 87206; 87340; 87493; 87522; 87632; 87637; 92610; 93005; 93306; 93308; 94618; 94640; 96365; 97110; 97116; 97162; 97530; 99222; 99285; 36600; 71045; 71046; 80320; 80329; 81003; 81015; 82140; 82607; 82728; 82746; 83036; 83540; 83550; 83605; 83735; 83970; 84100; 84443; 84484; 85025; 85049; 85610; 85730; 86140; 93010; 93970; 94002; 94003; 94664; 94667; 94668; 94760; 99223; 99232; 99233; 99291; J1644; J1720; J1940; J1941; J2060; J2543; J3010; J3475; J3480; J3490; J7613; J7620

== ENCOUNTER 2022-08-08 04:06 | Emergency (ER) | payer MEDICARE, MEDICAID, SELFPAY ==
[2022-08-08] VITALS (51 sets, daily range): BP systolic 102–151; BP diastolic 51–84; PULSE 60–85; RESP 12–25; TEMP 36.9; O2SAT 81–99
--- NOTE | 2022-08-08 04:00 | RT.EKG_ITS ---
APPROVED REPORT Exam: Resting ECG Reason for Exam: weakness Patient Location: E HR:75 bpm ECG Measurements Heart Rate 75 AXIS OR 151 P 47 QRSd 104 QRS 59 QT 400 T 34 QTc 439 Conclusion Sinus rhythm...normal P axis, V-rate 60- 99 Atrial premature complexes in couplets...pair SV complexes w/ short R-R. Sinus. Normal axis. PACs. No STEMI. I have reviewed and interpreted ECG and agree with software generated interpretation.
--- NOTE | 2022-08-08 04:45 | DI.CT_ITS ---
Exam(s) CT THORACIC LUMBAR SPINE WO EXAM: CT THORACIC LUMBAR SPINE WO CLINICAL HISTORY: fall onto lower back, r/o fracture. TECHNIQUE: Imaging Protocol: Axial computed tomography images with coronal and sagittal reformatted images were created and reviewed. COMPARISON: CT CT RENAL COLIC WO from 01/03/2021 CR,XR XR PORTABLE CHEST AP from 08/04/2022 FINDINGS: Bones: No fractures or dislocations are seen. The alignment of the spine is normal including the cerv icothoracic junction and the thoracolumbar junction. Age-appropriate degenerative changes are seen i n the spine. Mild atelectatic changes are seen in the lung bases, left greater than right. Soft tissues: The soft tissues are unremarkable. No large disk herniations are identified. IMPRESSION: No acute fracture or subluxation in the thoracic or lumbar spine. RADIATION DOSE DELIVERED: 1,837.77mGy.cm Total DLP DATA REPOSITORY: All CT scans at this facility are submitted to the National Radiology Data Registry (NRDR) Dose Index Registry (DIR) with the [employer] (ACR). RADIATION OPTIMIZATION: All CT scans at this facility use at least one of these dose optimization te chniques: automated exposure control; mA and/or kV adjustment per patient size (includes targeted exa ms where dose is matched to clinical indication); or iterative reconstruction.
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
[2022-08-08 05:01] LABS: Abs Immature Grans 0.06 10^3/uL (0.0-0.06); Absolute Basophil Count 0.04 10^3/uL (0.0-0.2); Absolute Eosinophil Count 0.29 10^3/uL (0.0-0.7); Absolute Lymphocyte Count 1.67 10^3/uL (1.2-3.4); Absolute Monocyte Count 0.63 10^3/uL (0.1-0.8); Basophils % 0.5; Eosinophils % 3.9; HGB 10.7 g/dL (13.5-17.5); Immature Grans % 0.8; Lymphocytes % 22.3; MCH 35.3 pg (27.0-33.0); MCHC 33.4 % (32.0-36.0); MCV 106 fL (80-95); MPV 11.4 fL (8.0-11.0); Monocytes % 8.4; Neutrophils % 64.1; RBC 3.03 10^6/uL (4.36-5.78); RDW 15.4 % (11.8-14.1); RDW-SD 59.8 fL; WBC 7.49 10^3/uL (4.4-10.8)
[2022-08-08] MEDS: Ketorolac 30 MG/ML VIAL IVP (05:15)
[2022-08-08 05:16] LABS: Diff Comment RBC Morph Reviewed; Macrocytosis 2+
[2022-08-08 05:17] LABS: Platelet Count 90 10^3/uL (130-400)
[2022-08-08] MEDS: ACETAMINOPHEN 1,000 MG/100 ML BTL 400 MG IVPB (05:17)
[2022-08-08 05:22] LABS: ALT 89 U/L (16-63); AST 127 U/L (15-37); Albumin 2.7 g/dL (3.4-5.0); Alkaline Phosphatase 208 U/L (46-116); Anion Gap 6.8 mmol/L (3-11); BUN 13 mg/dL (7-18); Bilirubin, Total 2.4 mg/dL (0.2-1.0); CO2 29.2 mmol/L (21.0-32.0); Calcium 9.4 mg/dL (8.5-10.1); Chloride 102 mmol/L (98-107); Estimated GFR 90.56 (mL/min/1.73m2); Glucose 97 mg/dL (74-106); Magnesium 1.5 mg/dL (1.8-2.4); Potassium 3.7 mmol/L (3.5-5.1); Sodium 138 mmol/L (136-145); Total Protein 6.6 g/dL (6.4-8.2); Troponin I < 50 ng/L (<or=60)
[2022-08-08 05:32] LABS: NT-proBNP 246 pg/mL (<300)
[2022-08-08 05:54] LABS: COVID-19 PCR Negative (Negative); Influenza A PCR Negative (Negative); Influenza B PCR Negative (Negative); RSV PCR Negative (Negative)
[2022-08-08] MEDS: MAGNESIUM SULFATE 2 GM/50 ML BAG IVPB (05:54)
[2022-08-08 05:55] LABS: Source Nasopharynx
[2022-08-08 06:03] LABS: Bilirubin Small (Negative); Blood Negative (Negative); Clarity Sl Cloudy (Clear); Glucose Negative (Negative); Ketones Trace mg/dL (Negative); Leukocyte Esterase Negative (Negative); Nitrite Positive (Negative); Urobilinogen 0.2 mg/dL (Up to 0.2); pH 5.5 (5-8)
--- NOTE | 2022-08-08 06:12 | DI.VRAD_ITS ---
PROCEDURE INFORMATION: Exam: CT Thoracic Spine Without Contrast Exam date and time: 08/08/2022 5:31 AM Age: 52 years old Clinical indication: Injury or trauma; Blunt trauma (contusions or hematomas); Injury date: 08/08/22; Injury details: Fall onto lower back, R/O fracture TECHNIQUE: Imaging protocol: Computed tomography of the thoracic spine without contrast. Radiation optimization: All CT scans at this facility use at least one of these dose optimization techniques: automated exposure control; mA and/or kV adjustment per patient size (includes targeted exams where dose is matched to clinical indication); or iterative reconstruction. COMPARISON: CT RENAL COLIC WO 01/03/2021 1:04 PM FINDINGS: Bones/joints: No acute fracture. Normal alignment. No significant disc bulge or herniation. No severe spinal canal stenosis. No significant neural foraminal narrowing. Soft tissues: Unremarkable. IMPRESSION: Unremarkable CT Spine. PROCEDURE INFORMATION: Exam: CT Lumbar Spine Without Contrast Exam date and time: 08/08/2022 5:31 AM Age: 52 years old Clinical indication: Injury or trauma; Blunt trauma (contusions or hematomas); Injury date: 08/08/22; Injury details: Fall onto lower back, R/O fracture TECHNIQUE: Imaging protocol: Computed tomography of the lumbar spine without contrast. Radiation optimization: All CT scans at this facility use at least one of these dose optimization techniques: automated exposure control; mA and/or kV adjustment per patient size (includes targeted exams where dose is matched to clinical indication); or iterative reconstruction. COMPARISON: MR LUMBAR SPINE WO 01/26/2019 9:16 AM FINDINGS: Bones/joints: No acute fracture. Normal alignment. No significant disc bulge or herniation. No severe spinal canal stenosis. No significant neural foraminal narrowing. Soft tissues: Unremarkable. IMPRESSION: No acute findings. Dictated and Authenticated by: Roman Cross MD. Ordering:GREG Dykes MD
[2022-08-08 06:24] LABS: Bacteria Few HPF (Negative); C & S Indicated? Yes; Crystals Few Calcium Oxalate HPF (Negative); Epithelial Cells Rare HPF (Negative); Mucus Negative (Negative)
--- NOTE | 2022-08-08 06:30 | DI.RAD_ITS ---
Exam(s) XR PORTABLE CHEST AP EXAM: XR PORTABLE CHEST AP CLINICAL HISTORY: hypoxia while sleeping, r/o acute disease TECHNIQUE: 2D digital imaging was performed of the chest. One image was obtained. An AP view was ob tained. COMPARISON: CR XR PORTABLE CHEST AP from 07/29/2022 CR XR PORTABLE CHEST AP from 07/29/2022 CR XR PORTABLE CHEST AP from 07/31/2022 CR,XR XR PORTABLE CHEST AP from 08/04/2022 FINDINGS: MEDIASTINUM: Normal. HEART: Normal. PULMONARY VASCULATURE: Normal. LUNGS: There are persistent predominantly perihilar infiltrates, right greater than left. There has been improvement in the left infiltrates compared to the prior examination. No new infiltrates are s een. PLEURAL SPACE: No pleural effusion or pneumothorax. BONE:Within normal limits for the patient's age. Old healed right rib fractures. OTHER FINDINGS:Normal. IMPRESSION: Continued overall improvement of the pulmonary infiltrates. DATA REPOSITORY: RADIATION DOSE DELIVERED:
--- NOTE | 2022-08-08 08:30 | ED.PROG_ITS ---
Date of service: 08/08/22 Time of Service: 08:31 Medical Decision Making patient evaluated by PT and did well with a walker, was given a dose of fosfomycin as he was positive for nitrites on ua. HE has home health already ordered by Dr. Vasques. Advised to f/u with pcp, return precautions given Sign Out Sign Out Data: Sign Out Comment: Discharged from the floor yesterday for long stay for hyponatremia, somnolence after alcohol abuse and benzos requiring intubation, treatment for pneumonia and hepatic encephalopathy. Patient presented for 2 falls since discharge yesterday secondary to generalized weakness. Fall onto his back twice since yesterday. Negative CT T and L-spine. He reports chronic back pain and bilateral lower extremity edema. He has had diarrhea since starting lactulose while in the hospital. Case discussed with hospitalist and as there may not be an acute medical need for admission, recommended PT eval and consideration for transfer to inpatient rehab for PT. Consult with care management after PT evaluation. If no rehab availability, will likely require admission to the floor. Patient noted to be hypoxic when sleeping, has history of sleep apnea. Follow-up on chest x-ray. Last updated by Jania Martinez DO at 08/08/22 08:09 Discharge Plan Disposition Patient Disposition: Home Condition: Stable Discharge Details Clinical Impression: Falls Primary Care Provider: Love Schofield ED Provider: Jamey Esquivel Jeremiah Meds and New Rx's Prescriptions: Continued fluticasone propion-salmeterol [Advair Diskus] 250-50 mcg/dose blister with device 2 ea Inhalation DAILY Qty: 60 3RF Rx Instructions: Brand name is less expensive -- please dispense. lidocaine 5 % ointment 1 applic topical TID PRN (Reason: pain/numbness) Qty: 240 0RF thiamine HCl (vitamin B1) 100 mg tablet 100 mg PO DAILY Qty: 90 3RF Rx Instructions: Wellness atorvastatin 10 mg tablet 10 mg PO QHS Qty: 90 3RF Hold Instructions: Patient Refused Rx Instructions: Elevated LDL 180 citalopram 20 mg tablet 20 mg PO DAILY Qty: 90 3RF Rx Instructions: For mood propranolol 10 mg tablet 10 mg PO BID Qty: 180 3RF folic acid 1 mg Tablet 1 mg PO DAILY Qty: 30 0RF lactulose 20 gram/30 mL Solution 20 g PO BID Qty: 1200 0RF lidocaine 5 % Adhesive Patch,Medicated 1 patch topical DAILY Qty: 30 0RF Xifaxan 550 mg Tablet 550 mg PO BID Qty: 60 0RF spironolactone 25 mg tablet 25 mg PO DAILY Qty: 30 0RF furosemide 20 mg tablet 20 mg PO DAILY Qty: 30 0RF potassium chloride 20 mEq tablet extended release 20 meq PO DAILY Qty: 30 0RF omeprazole 40 mg capsule,delayed release(DR/EC) 40 mg PO BID Qty: 60 3RF Discharge Instructions Instructions: Fall Prevention (ED) Additional Instructions: use the walker when walking around follow up with your primary care provider within 1 week if you feel more ill, have severe worsening pain or fevers return to the emergency department
[2022-08-08] MEDS: Fosfomycin Tromethamine 3 GM PACKET PO (09:17)
[2022-08-08] MEDS: Ketorolac 15 MG/ML VIAL IVP (09:34)
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
== END 2022-08-08 09:59 | disposition home or self-care (01) ==
PROVIDERS: Physician Assistant; Emergency Provider Emergency Medicine; PCP Nurse Practitioner Adult Health
DX: R15.9 Full incontinence of feces (principal); W19.XXXA Unspecified fall, initial encounter; Z87.891 Personal history of nicotine dependence; R09.02 Hypoxemia; M54.9 Dorsalgia, unspecified; R60.9 Edema, unspecified; R53.1 Weakness; R82.90 Unspecified abnormal findings in urine; E83.42 Hypomagnesemia
CPT/HCPCS: 36415; 80053; 87637; 93005; 96365; 96366; 96367; 96375; 96376; 97162; 97530; 99285; 71045; 72128; 72131; 81003; 81015; 83735; 83880; 84484; 85025; 87086; 93010; 99284; J0131; J1885; J3490

== ENCOUNTER 2022-08-12 02:34 | Outpatient (CLI) | payer MEDICARE, MEDICAID, SELFPAY ==
[2022-08-12 14:42] LABS: Anion Gap 8.3 mmol/L (3-11); BUN 11 mg/dL (7-18); CO2 25.7 mmol/L (21.0-32.0); CREATININE 0.9 mg/dL (0.70-1.30); Calcium 9.3 mg/dL (8.5-10.1); Chloride 105 mmol/L (98-107); Estimated GFR 102.76 (mL/min/1.73m2); Glucose 95 mg/dL (74-106); Potassium 4.8 mmol/L (3.5-5.1); Sodium 139 mmol/L (136-145)
== END 2022-08-12 02:35 | disposition home or self-care (01) ==
LOC: LBO 02:34
PROVIDERS: PCP Nurse Practitioner Adult Health; Visit Provider Internal Medicine
DX: I10 Essential (primary) hypertension (principal); Z51.81 Encounter for therapeutic drug level monitoring
CPT/HCPCS: 36415; 80048

== ENCOUNTER 2022-08-21 02:08 | Outpatient (CLI) | payer MEDICARE, MEDICAID, SELFPAY ==
--- NOTE | 2022-08-21 08:00 | DI.RAD_ITS ---
Exam(s) XR CHEST 2V PA LATERAL EXAM: XR CHEST 2V PA LATERAL CLINICAL HISTORY: Check for resolution of aspiration pneumonia,j69.0 TECHNIQUE: 2D digital imaging was performed. COMPARISON: CR XR PORTABLE CHEST AP from 08/08/2022 FINDINGS: HEART: Normal size. Aorta: Not dilated. PULMONARY VASCULATURE: Normal. LUNGS: Clear. PLEURAL SPACE: No pleural effusion or pneumothorax. BONE:Unremarkable for age. IMPRESSION: No acute abnormality. DATA REPOSITORY: RADIATION DOSE DELIVERED:
== END 2022-08-21 02:28 ==
LOC: DI 02:08
PROVIDERS: PCP Nurse Practitioner Adult Health; Visit Provider Family Medicine
DX: J69.0 Pneumonitis due to inhalation of food and vomit (principal)
CPT/HCPCS: 71046

== ENCOUNTER 2022-08-29 12:42 | Outpatient (REF) | payer MEDICARE, MEDICAID, SELFPAY ==
[2022-08-29 18:12] LABS: Abs Immature Grans 0.02 10^3/uL (0.0-0.06); Absolute Basophil Count 0.04 10^3/uL (0.0-0.2); Absolute Eosinophil Count 0.12 10^3/uL (0.0-0.7); Absolute Lymphocyte Count 1.74 10^3/uL (1.2-3.4); Absolute Monocyte Count 0.73 10^3/uL (0.1-0.8); Absolute Neutrophil Count 3.28 10^3/uL (1.2-6.7); Basophils % 0.7; HCT 37.2 % (40.0-50.0); HGB 12.1 g/dL (13.5-17.5); Immature Grans % 0.3; Lymphocytes % 29.3; MCH 33.9 pg (27.0-33.0); MCHC 32.5 % (32.0-36.0); MCV 104 fL (80-95); Monocytes % 12.3; Neutrophils % 55.4; RBC 3.57 10^6/uL (4.36-5.78); RDW 13.3 % (11.8-14.1); RDW-SD 51.8 fL; WBC 5.93 10^3/uL (4.4-10.8)
[2022-08-29 18:28] LABS: ALT 29 U/L (16-63); AST 48 U/L (15-37); Albumin 2.8 g/dL (3.4-5.0); Alkaline Phosphatase 149 U/L (46-116); BUN 10 mg/dL (7-18); CREATININE 0.8 mg/dL (0.70-1.30); Calcium 9.4 mg/dL (8.5-10.1); Chloride 106 mmol/L (98-107); Estimated GFR 106.48 (mL/min/1.73m2); Glucose 108 mg/dL (74-106); Potassium 4.3 mmol/L (3.5-5.1); Sodium 139 mmol/L (136-145)
== END 2022-08-29 12:43 | disposition home or self-care (01) ==
LOC: LBN 12:42
PROVIDERS: PCP Nurse Practitioner Adult Health; Visit Provider Nurse Practitioner Adult Health
DX: D64.9 Anemia, unspecified (principal); D69.6 Thrombocytopenia, unspecified; F10.20 Alcohol dependence, uncomplicated; F32.9 Major depressive disorder, single episode, unspecified; G89.29 Other chronic pain; J44.9 Chronic obstructive pulmonary disease, unspecified; K21.9 Gastro-esophageal reflux disease without esophagitis; K70.10 Alcoholic hepatitis without ascites; R60.0 Localized edema
CPT/HCPCS: 80053; 85025

== ENCOUNTER 2022-09-06 03:09 | Outpatient (CLI) | payer MEDICARE, MEDICAID, SELFPAY ==
[2022-09-06 14:03] LABS: HGB 12.5 g/dL (13.5-17.5); MCH 33.4 pg (27.0-33.0); MCHC 32.9 % (32.0-36.0); MCV 102 fL (80-95); MPV 11.2 fL (8.0-11.0); RBC 3.74 10^6/uL (4.36-5.78); RDW 13.2 % (11.8-14.1); RDW-SD 50.4 fL; WBC 6.12 10^3/uL (4.4-10.8)
[2022-09-06 14:18] LABS: Platelet Count 93 10^3/uL (130-400)
== END 2022-09-06 03:10 | disposition home or self-care (01) ==
LOC: LBO 03:09
PROVIDERS: PCP Nurse Practitioner Adult Health; Referring Provider Nurse Practitioner Adult Health; Visit Provider Nurse Practitioner Adult Health
DX: D64.9 Anemia, unspecified (principal); D69.6 Thrombocytopenia, unspecified
CPT/HCPCS: 36415; 85027

== ENCOUNTER 2022-11-07 05:01 | Outpatient (CLI) | payer MEDICARE, MEDICAID, SELFPAY ==
[2022-11-07 11:10] LABS: Abs Immature Grans 0.01 10^3/uL (0.0-0.06); Absolute Basophil Count 0.05 10^3/uL (0.0-0.2); Absolute Eosinophil Count 0.23 10^3/uL (0.0-0.7); Absolute Lymphocyte Count 2.33 10^3/uL (1.2-3.4); Absolute Monocyte Count 0.61 10^3/uL (0.1-0.8); Absolute Neutrophil Count 3.42 10^3/uL (1.2-6.7); Basophils % 0.8; Eosinophils % 3.5; HCT 36.9 % (40.0-50.0); HGB 12.3 g/dL (13.5-17.5); Immature Grans % 0.2; MCH 30.9 pg (27.0-33.0); MCHC 33.3 % (32.0-36.0); MCV 93 fL (80-95); MPV 11.6 fL (8.0-11.0); Monocytes % 9.2; Neutrophils % 51.3; Platelet Count 100 10^3/uL (130-400); RBC 3.98 10^6/uL (4.36-5.78); RDW 13.4 % (11.8-14.1); RDW-SD 45.5 fL; WBC 6.65 10^3/uL (4.4-10.8)
[2022-11-07 11:46] LABS: AST 17 U/L (15-37); Albumin 3.3 g/dL (3.4-5.0); Alkaline Phosphatase 130 U/L (46-116); Anion Gap 8.7 mmol/L (3-11); BUN 17 mg/dL (7-18); Bilirubin, Total 0.8 mg/dL (0.2-1.0); CO2 28.3 mmol/L (21.0-32.0); CREATININE 1.2 mg/dL (0.70-1.30); Calcium 9.4 mg/dL (8.5-10.1); Chloride 104 mmol/L (98-107); Estimated GFR 72.76 (mL/min/1.73m2); Glucose 118 mg/dL (74-106); Potassium 4.7 mmol/L (3.5-5.1); Sodium 141 mmol/L (136-145); Total Protein 7.1 g/dL (6.4-8.2)
[2022-11-07 12:18] LABS: ALT 6 U/L (16-63)
== END 2022-11-07 05:02 | disposition home or self-care (01) ==
LOC: LBO 05:01
PROVIDERS: Absent Provider Nurse Practitioner Adult Health; PCP Nurse Practitioner Adult Health; Visit Provider Nurse Practitioner Adult Health
DX: R60.0 Localized edema; R74.01 Elevation of levels of liver transaminase levels; D64.9 Anemia, unspecified; D69.6 Thrombocytopenia, unspecified; K21.9 Gastro-esophageal reflux disease without esophagitis; K70.10 Alcoholic hepatitis without ascites
CPT/HCPCS: 36415; 80053; 85025

== ENCOUNTER → 2022-11-21 00:15 | Outpatient (CLI) | payer MEDICARE, MEDICAID, SELFPAY ==
--- NOTE | 2022-11-21 07:45 | DI.RAD_ITS ---
Exam(s) XR HIP PELVIS ADULT BL EXAM: XR HIP PELVIS ADULT BL CLINICAL HISTORY: r/o lumbar fx; check hip hardware, S/P REPLACEMENT, TATYANA HIP PAIN, FALL,. TECHNIQUE: 2D digital imaging was performed. Four images were obtained. AP pelvis and lateral views were obtained. COMPARISON: CR XR hip LT complete AP pelvis from 11/06/2018 FINDINGS: BONES: There are stable post operative changes present. No fracture or dislocation. JOINTS: The orthopedic hardware is in good position. No evidence of hardware loosening. SOFT TISSUE: Normal. IMPRESSION: Stable postoperative changes of bilateral total hip replacements. DATA REPOSITORY: RADIATION DOSE DELIVERED:
--- NOTE | 2022-11-21 07:45 | DI.RAD_ITS ---
Exam(s) XR STERNUM EXAM: XR STERNUM CLINICAL HISTORY: r/o bony abnormality, STERNAL PAIN, FALL, CHEST PAIN, R07.89, W19.XXXA. TECHNIQUE: 2D digital imaging was performed. Three images were obtained. COMPARISON: No exams were available for comparison FINDINGS: BONES: No acute fracture is present. No bony destructive lesion is seen. JOINTS: No dislocation present. SOFT TISSUE: Normal. IMPRESSION: Unremarkable radiographs of the sternum. DATA REPOSITORY: RADIATION DOSE DELIVERED:
--- NOTE | 2022-11-21 07:45 | DI.RAD_ITS ---
Exam(s) XR LUMBAR SPINE COMPLETE EXAM: XR LUMBAR SPINE COMPLETE CLINICAL HISTORY: r/o lumbar fx; check hip hardware, S/P HIP REPLACEMENT, BACK PAIN, TATYANA HIP. TECHNIQUE: 2D digital imaging was performed of the lumbar spine. Five images were obtained. AP, la teral, right oblique, left oblique and L5-S1 spot views were obtained. COMPARISON: No exams were available for comparison FINDINGS: BONES: No fracture or destructive lesion. There small osteophytes seen at the endplates in the lumbar spine. No facet hypertrophy identified. DISKS: Intervertebral disc spaces are maintained. ALIGNMENT: Lumbar spinal alignment is within normal limits. No spondylolysis or spondylolisthesis. SOFT TISSUE: Atherosclerosis is present. IMPRESSION: 1. No acute fracture or subluxation. 2. Mild degenerative changes in the lumbar spine. DATA REPOSITORY: RADIATION DOSE DELIVERED:
== END ==
PROVIDERS: PCP Nurse Practitioner Adult Health; Visit Provider Nurse Practitioner Adult Health
DX: W19.XXXA Unspecified fall, initial encounter; Z96.643 Presence of artificial hip joint, bilateral; M51.16 Intervertebral disc disorders with radiculopathy, lumbar region; Z47.1 Aftercare following joint replacement surgery; M25.551 Pain in right hip; M25.552 Pain in left hip
CPT/HCPCS: 73521; 71120; 72110

== ENCOUNTER → 2022-12-05 13:15 | Outpatient (BNVA) | payer MEDICARE, MEDICAID, SELFPAY | PROVIDERS: PCP Nurse Practitioner Adult Health; Referring Provider Nurse Practitioner Adult Health; Visit Provider Physical Therapy Assistant | DX: Z12.11 Encounter for screening for malignant neoplasm of colon (principal); Z86.010 Personal history of colon polyps ==

== ENCOUNTER 2023-01-16 03:59 | Outpatient (CLI) | payer MEDICARE, MEDICAID, SELFPAY ==
[2023-01-16 09:42] LABS: Abs Immature Grans 0.01 10^3/uL (0.0-0.06); Absolute Basophil Count 0.05 10^3/uL (0.0-0.2); Absolute Lymphocyte Count 1.94 10^3/uL (1.2-3.4); Absolute Monocyte Count 0.47 10^3/uL (0.1-0.8); Absolute Neutrophil Count 3.46 10^3/uL (1.2-6.7); Basophils % 0.8; Eosinophils % 3.3; HCT 42.9 % (40.0-50.0); HGB 14.3 g/dL (13.5-17.5); Immature Grans % 0.2; Lymphocytes % 31.6; MCH 29.5 pg (27.0-33.0); MCHC 33.3 % (32.0-36.0); MCV 89 fL (80-95); Monocytes % 7.7; Neutrophils % 56.4; RBC 4.85 10^6/uL (4.36-5.78); RDW 12.9 % (11.8-14.1); RDW-SD 41.9 fL; WBC 6.13 10^3/uL (4.4-10.8)
[2023-01-16 09:58] LABS: Diff Comment Diff Reviewed; Platelet Count 90 10^3/uL (130-400); RBC Morphology Normal
[2023-01-16 10:11] LABS: ALT 17 U/L (16-63); AST 23 U/L (15-37); Albumin 3.4 g/dL (3.4-5.0); Alkaline Phosphatase 125 U/L (46-116); Anion Gap 7.1 mmol/L (3-11); BUN 12 mg/dL (7-18); Bilirubin, Total 0.5 mg/dL (0.2-1.0); CO2 27.9 mmol/L (21.0-32.0); CREATININE 0.9 mg/dL (0.70-1.30); Calcium 9.2 mg/dL (8.5-10.1); Calculated LDL 128 mg/dL (<100); Chloride 105 mmol/L (98-107); Cholesterol 197 mg/dL (<200); Estimated GFR 102.76 (mL/min/1.73m2); Ferritin 112 ng/mL (26-388); Glucose 107 mg/dL (74-106); HDL Cholesterol 45 mg/dL (40-60); Potassium 4.2 mmol/L (3.5-5.1); Sodium 140 mmol/L (136-145); Total Protein 7.5 g/dL (6.4-8.2); Triglyceride 123 mg/dL (<150)
== END 2023-01-16 04:00 | disposition home or self-care (01) ==
LOC: LBO 03:59
PROVIDERS: PCP Nurse Practitioner Adult Health; Visit Provider Nurse Practitioner Adult Health
DX: K76.0 Fatty (change of) liver, not elsewhere classified (principal); R74.01 Elevation of levels of liver transaminase levels; D69.6 Thrombocytopenia, unspecified; D64.9 Anemia, unspecified; K70.10 Alcoholic hepatitis without ascites
CPT/HCPCS: 36415; 80053; 80061; 82728; 85025

== ENCOUNTER → 2023-01-22 02:48 | Outpatient (CLI) | payer MEDICARE, MEDICAID, SELFPAY ==
--- NOTE | 2023-01-22 06:45 | DI.US_ITS ---
Exam(s) US ABDOMEN LIMITED EXAM: US ABDOMEN LIMITED CLINICAL HISTORY: F/U HEPATIC STEATOSIS, K76.0 TECHNIQUE: Ultrasound abdomen performed using standard protocol. COMPARISON: CT ABD PELVIS WITH CONTRAST from 01/03/[address] THORAX CTA from 05/08/[address] RENAL COLIC WO from 01/03/2021 US US ABDOMEN from 08/16/2021 FINDINGS: LIVER: Mildly enlarged at 18 cm in length. This has improved from prior exam where it measured 22 cm in length. There is now mild hepatic steatosis which also appears improved from prior. The liver e chotexture appears mildly coarsened in there is a mildly nodular contour which could indicate early c irrhosis. A calcification is again noted. There is a small hyperechoic area in seen in the left lobe of the liver which measures 15 millimeters in maximal dimension. This was not visible on the prior ultrasound exam, likely blending in with the fatty tissue. It was seen on CT examinations from 2017 and 2019. Findings are consistent with a hemangioma.. small calcified granuloma again noted. GALLBLADDER: The gallbladder was suboptimally visualized as it was partially contracted. No visible cholelithiasis. No evidence of wall thickening. No pericholecystic fluid identified. LEE'S SIGN: Negative. BILIARY SYSTEM: No intrahepatic or extrahepatic biliary ductal dilation. RIGHT KIDNEY: Normal size. No evidence of renal calculi. No evidence of hydronephrosis. No suspicious renal mass. No cyst identified. PANCREAS: Normal where visualized. ABDOMINAL AORTA AND IVC: Visualized portions normal caliber. ASCITES: None seen. IMPRESSION: Interval improvement in liver enlargement and fatty infiltration compared with previous examinations. Liver has a mildly nodular contour which could indicate early cirrhosis. Focal hyperechoic lesion in the left lobe is consistent with a hemangioma. Gallbladder somewhat contracted not well evaluated. DATA REPOSITORY:
--- NOTE | 2023-01-22 06:45 | DI.RAD_ITS ---
Exam(s) XR CHEST 2V PA LATERAL EXAM: XR CHEST 2V PA LATERAL CLINICAL HISTORY: ? ACUTE PROCESS, STERNAL, CHEST PAIN, R07.89 TECHNIQUE: 2D digital imaging was performed. COMPARISON: CR XR STERNUM from 11/21/2022 FINDINGS: HEART: Normal size. Aorta: Not dilated. PULMONARY VASCULATURE: Normal. LUNGS: Clear. PLEURAL SPACE: No pleural effusion or pneumothorax. BONE:Old right rib fractures. Sternum appears grossly intact as visualized. Spine is unremarkable. IMPRESSION: No acute abnormality. DATA REPOSITORY: RADIATION DOSE DELIVERED:
== END ==
PROVIDERS: PCP Nurse Practitioner Adult Health; Visit Provider Nurse Practitioner Adult Health
DX: R07.89 Other chest pain; K76.0 Fatty (change of) liver, not elsewhere classified; D18.03 Hemangioma of intra-abdominal structures
CPT/HCPCS: 71046; 76705

== ENCOUNTER 2023-02-03 12:10 | Outpatient (CLI) | payer MEDICARE, MEDICAID, SELFPAY ==
--- NOTE | 2023-02-03 08:15 | DI.RAD_ITS ---
Exam(s) XR ELBOW LT COMPLETE EXAM: XR ELBOW LT COMPLETE CLINICAL HISTORY: eval L elbow pain and deformity. TECHNIQUE: 2D digital imaging was performed. Three views. COMPARISON: CR LEFT ELBOW COMPLETE from 07/30/2017 FINDINGS: Severe chronic deformity is again noted of the distal humerus. Screw present in proximal ulna. [employer]ist ior dislocation of ulna unchanged from prior. Severe degenerative changes at the elbow joint. IMPRESSION: Chronic distal humeral fracture deformity. Chronic posterior dislocation of the olecranon. DATA REPOSITORY: RADIATION DOSE DELIVERED:
== END 2023-02-03 12:11 | disposition home or self-care (01) ==
LOC: DIORS 12:10
PROVIDERS: PCP Nurse Practitioner Adult Health; Referring Provider Nurse Practitioner Adult Health; Visit Provider Student in an Organized Health Care Education/Training Program
DX: S42.40 Unspecified fracture of lower end of humerus (principal); G57.13 Meralgia paresthetica, bilateral lower limbs; M79.651 Pain in right thigh; M79.652 Pain in left thigh; M47.816 Spondylosis without myelopathy or radiculopathy, lumbar region; X58.XXXD Exposure to other specified factors, subsequent encounter
CPT/HCPCS: 99215; 73080

== ENCOUNTER → 2023-02-26 01:33 | Outpatient (CLI) | payer MEDICARE, MEDICAID, SELFPAY ==
--- NOTE | 2023-02-26 07:45 | DI.MRI_ITS ---
Exam(s) MR LUMBAR SPINE WO EXAM: MR LUMBAR SPINE WO CLINICAL HISTORY: PAIN,lumbar spondylosis, m47.816. TECHNIQUE: Multiplanar multisequence MRI of the Lumbar spine was performed. COMPARISON: MR MR LUMBAR SPINE WO from 01/26/2019 CR XR LUMBAR SPINE COMPLETE from 11/21/2022 FINDINGS: Conus medullaris is at normal level. There is no evidence of conus mass nor subjacent clumping of in trathecal nerve roots to suggest arachnoiditis. The distal thecal sac now appears unremarkable.What is remarkable here is that the previously present epidural lipomatosis at the S1 level is no longer s een and the distal thecal sac is no longer compressed by the previously described fat with in the can al at this level. There is no obvious bony surgical defect. There is no evidence of tethered spinal cord. Bones:There are no fractures nor ominous osseous lesions in the lumbar vertebral bodies and visualize d sacrum. With respect to the individual levels... All the disc spaces continue to exhibit normal height and hydration signal with no evidence of disc h erniation or central canal stenosis nor foraminal stenosis. There is also no significant facet arthr opathy in the lumbar spine. Soft tissues: paraspinal soft tissues appear unremarkable. IMPRESSION: 1. Compared to the prior MRI scan of January 2019 there has been remarkable reduction in epidural fa t surrounding and compressing the distal thecal sac at the S1 level. The thecal sac now appears unre markable at this level. There does not appear to have been obvious tubal surgery at this level. Has there been significant weight loss since the prior MRI study of 2018? 2. All the disc spaces exhibit normal height and signal. No evidence of disc herniation, spinal jn l stenosis, nor foraminal stenosis. 3. No significant facet arthropathy. DATA REPOSITORY:
--- NOTE | 2023-02-26 07:59 | DI.NM_ITS ---
Exam(s) NM BONE SCAN 3 PHASE EXAM: NM BONE SCAN 3 PHASE CLINICAL HISTORY: PAIN,bilat thigh pain,meralgia paresthestica,g57.13. TECHNIQUE: Injected intravenous dose: 25 mCi Tc-99m MDP COMPARISON: CT,NM,TMT NM MPI REST STRESS GRP from 05/10/2019 CR XR LUMBAR SPINE COMPLETE from 11/21/2022 CR XR CHEST 2V PA LATERAL from 01/22/2023 CR XR ELBOW LT COMPLETE from 02/03/2023 FINDINGS: Perfusion phase: Centered over the thighs. No asymmetric abnormality detected. Blood Pool phase: No asymmetric radiopharmaceutical uptake in the thighs Delayed phase imaging: There is prominent abnormal uptake in the left LL spine into the degenerative changes so seated with severe deformity as seen on recent x-rays 02/03/2023. There are photopenic zon es in both hips consistent with presence of bilateral hip prostheses. No abnormal uptake to suggest loosening of these prostheses and no abnormal uptake seen in both sides of the pelvis nor in the inte r and subtrochanteric regions of the hips. In the right rib cage there multiple contiguous foci of mild uptake in multiple ribs consistent with healed fracture sites. No uptake to suggest more recent rib fractures. No abnormal uptake in the cl avicles and shoulder girdles. No significant abnormal uptake seen in the knees. Mild uptake in the ankles and feet is most probably degenerative. There is no abnormal uptake in the spinal column. IMPRESSION: 1. There is no osseous radiopharmaceutical uptake which would suggest metastatic disease. 2. The most intense uptake is in the left elbow, corresponding to the fracture deformity seen on rece nt plain films. 3. Uptake in multiple contiguous right ribs consistent with healed/healing for none recent fractures. No evidence of acute rib fractures. 4. Bilateral hip prostheses. No obvious uptake to suggest prosthesis loosening. 5. No abnormal spinal uptake. Also no normal skull uptake. DATA REPOSITORY:
== END ==
PROVIDERS: PCP Nurse Practitioner Adult Health; Visit Provider Student in an Organized Health Care Education/Training Program
DX: M47.816 Spondylosis without myelopathy or radiculopathy, lumbar region (principal); G57.13 Meralgia paresthetica, bilateral lower limbs; Z96.643 Presence of artificial hip joint, bilateral
CPT/HCPCS: 72148; 78315

== ENCOUNTER → 2023-05-08 12:48 | Outpatient (BNVA) | payer MEDICARE, MEDICAID, SELFPAY | PROVIDERS: PCP Nurse Practitioner Adult Health; Referring Provider Nurse Practitioner Adult Health; Visit Provider Surgery | DX: Z12.11 Encounter for screening for malignant neoplasm of colon (principal); K63.5 Polyp of colon ==

== ENCOUNTER 2023-06-05 10:52 | Day surgery (SDC) | payer MEDICARE, MEDICAID, SELFPAY ==
--- NOTE | 2023-06-04 16:45 | PDOC.DSDIS_ITS ---
Date of service: 06/05/23 Time of Service: 13:38 Discharge Plan Disposition Patient Disposition: Home Condition: Good Discharge Details Reason For Visit: screening colonoscopy Attending Provider: Sg Alfaro Primary Care Provider: Love Schofield Home Meds and New Rx's Prescriptions: Continued atorvastatin 10 mg tablet 10 mg PO QHS Qty: 90 3RF Hold Instructions: Patient Refused Rx Instructions: Elevated LDL 180 citalopram 20 mg tablet 20 mg PO DAILY Qty: 90 3RF Rx Instructions: For mood fluticasone propion-salmeterol [Advair Diskus] 250-50 mcg/dose blister with device 2 ea Inhalation DAILY Qty: 60 11RF folic acid 1 mg tablet 1 mg PO DAILY Qty: 90 3RF Rx Instructions: Nutritional support for low folate omeprazole 40 mg capsule,delayed release(DR/EC) 40 mg PO BID Qty: 180 3RF spironolactone 25 mg tablet 25 mg PO .daily in am Qty: 90 3RF thiamine HCl (vitamin B1) 100 mg tablet 100 mg PO DAILY Qty: 90 3RF Rx Instructions: Nutritional support multivitamin Tablet 1 tab PO DAILY blister pack meds ([place]) PO furosemide 20 mg tablet See Rx Instructions .ROUTE .COMPLEX Qty: 14 3RF Dose Instruction: TAKE 1 TABLET BY MOUTH EVERY OTHER DAY FOR EDEMA AND LIVER Rx Instructions: TAKE 1 TABLET BY MOUTH EVERY OTHER DAY FOR EDEMA AND LIVER Discharge Instructions Instructions: Diverticulosis (GEN), Colorectal Polyps (GEN), Diverticulosis Diet (GEN) Additional Instructions: John, we were able to complete your colonoscopy today without any difficulty. I did find 2 polyps. Both were quite small and I removed these both completely. He also have some diverticulosis. These are small weak spots in the colon wall that typically accumulate as we get older. Have attached a little bit of information here regarding polyps as well as diverticular disease. Incidentally, I saw little bit of inflammation in the first part of your large intestine (an area called the cecum). I suspect this is just secondary to the bowel prep. I do not think it has anything to worry about. However, I did do some biopsies just to be safe. Once I have the results of the polyp report as well as the biopsies I will be in touch with recommendations for your next colonoscopy. 1. If tolerated, consume a soft, low fiber diet for 1-2 days. [address] Do not drive, drink alcohol, operate machinery, make critical decisions, or do activities that require coordination or balance for 24 hours. 3. Because air was put into your colon during the procedure, expelling air from your rectum (passing gas or farting) is normal. 4. You may not have a bowel movement for 1-3 days because of the colonoscopy prep. This is normal. 5. Go directly to the emergency room if you notice any of the following: Develop chills (warm to touch), or if you have a thermometer and your temperature is above 101 Difficulty breathing or difficultly swallowing Persistent vomiting Severe abdominal pain, other than gas cramps Severe chest pain Black, tarry stools Any bleeding ? exceeding one tablespoon 6. Call your physician if the site where your intravenous was started becomes red, swollen, painful, and warm to touch. 7. Your physician has reviewed your pre-procedure medications. Please continue to take those medications as previously ordered. You will be given specific information/education regarding any changes to your medications before leaving. Activity:: Activity as Tolerated Diet:: As Tolerated Discharge Orders Discharge Orders: Discharge Order (Routine); Ordered 06/04/23 Ordered By: Sg Alfaro DS: Diagnosis Discharge Diagnosis (1) Screen for colon cancer: Status: Acute Asessment and Plan: Follow-up on biopsy results
--- NOTE | 2023-06-04 16:48 | COLE_ITS ---
Date of service: 06/05/23 Time of Service: 13:40 Colonoscopy Report Date of procedure: 06/05/23 Pre-op diagnosis general: screening colonoscopy Post-op diagnosis procedure note: other (Diverticulosis, colon polyps) Procedure: colonoscopy Surgeon: Sg Alfaro Anesthesia Type: General:No Airway Estimated blood loss (mL): 5 Pathology: other (Cecal biopsies, 0.25 cm flat polyp in the rectum, 0.25 cm flat polyp at 35 cm) Complications: None Disposition: same day Indications: John is a 53 year old man with a history of adenomatous polyps who needs his next screening colonoscopy Prep: Miralax/Dulcolax Procedure Start Time: 13:07 Procedure End Time: 13:28 Retraction Time: 13 Findings: Diverticulosis, mild cecal inflammation, 0.25 cm flat polyp at 35 cm Procedure Description: After the induction of monitored anesthetic care, and with the patient in left lateral decubitus position, I began by performing an external anorectal exam.? Perineum and skin were normal, as was the anal verge.? There was evidence of external hemorrhoids.? Next, I performed a digital rectal exam.? I did not appreciate any abnormal findings.? Next, I advanced a colonoscope into the rectal vault.? I performed retroflexion.? This appeared normal.? Using insufflation, I then advanced the colonoscope beyond the rectal folds and into the sigmoid colon before advancing towards the cecum.? In the upper portion of the rectal vault was a 0.25 cm flat polyp. This was removed with cold forceps with minimal bleeding. I continued along the descending transverse and downward through the ascending colon. The scope was noted to be in the cecum by identification of the ileocecal valve and appendiceal orifice.? Narrowband imaging was used to assist with analysis. Just adjacent to the appendiceal orifice was a small area of inflammation. It appeared consistent with benign lymphoid aggregate. Cold forceps biopsies were performed here. There was minimal bleeding. I then began withdrawing the colonoscope using repeated irrigation as necessary for full evaluation of the colonic mucosa. Around 35 cm from the anal verge was another polyp. This was also flat. It was about 0.25 cm. This was also removed with cold forceps without any issues. ?Once the scope was withdrawn to the level of the rectum, great care was taken to examine portions of the rectal folds.? Finally, the scope was withdrawn and the patient was brought to the same-day surgery recovery unit as the anesthetic wore off. ?The findings and instructions were shared with the patient prior to discharge. [place] Bowel Prep [place] Bowel Prep Right Colon: 3 Left Colon: 3 Transverse Colon: 3 Total Score: 9
[2023-06-05 11:27] VITALS: BP 108/60; PULSE 49; RESP 16; TEMP 36.7; O2SAT 95
[2023-06-05] MEDS: Lactated Ringers 1,000 ML 80 ML IV (11:44)
--- NOTE | 2023-06-05 12:18 | ANES.PREOP_ITS ---
General Info Date of Service Date Performed: 06/05/23 Height: 5 ft 7 in Weight: 94.8 kg Body Mass Index (BMI): 32.7 Surgical Procedure: Operation Date: 06/05/23 13:05 Proposed Procedure Side Surgeon p Colonoscopy Sg Alfaro MD Actual Procedure Side Surgeon p Colonoscopy Not Applicable Sg Alfaro MD Pre-Op Diagnosis Post-Op Diagnosis Screening colonoscopy History of polyps Meds Allergies and Home Medications Allergies Allergy/AdvReac Type Severity Reaction Status Date / Time bee venom protein (honey bee) Allergy Severe Anaphylaxsi Verified 06/05/23 11:26 s amitriptyline AdvReac Intermediate PSYCHOSIS Verified 06/05/23 11:26 bupropion AdvReac Mild worsened Verified 06/05/23 11:26 anxiety & sleeplessness venlafaxine AdvReac Mild worsened Verified 06/05/23 11:26 mood lisinopril AdvReac cough Verified 06/05/23 11:26 dust and pollen AdvReac Mild resp Uncoded 06/05/23 11:26 irritation Home Medication Medication Instructions Recorded atorvastatin 10 mg tablet 10 mg PO QHS #90 tabs 08/29/22 citalopram 20 mg tablet 20 mg PO DAILY #90 tabs 08/29/22 fluticasone 250 mcg-salmeterol 50 2 ea inhalation DAILY #60 ea 08/29/22 mcg/dose blistr powdr for inhalation (Advair Diskus) folic acid 1 mg tablet 1 mg PO DAILY #90 tabs 08/29/22 omeprazole 40 mg capsule,delayed 40 mg PO BID #180 caps 08/29/22 release spironolactone 25 mg tablet 25 mg PO .daily in am #90 tabs 08/29/22 thiamine HCl (vitamin B1) 100 mg 100 mg PO DAILY #90 tabs 08/29/22 tablet blister pack meds ([place]) PO 09/30/22 multivitamin 1 tab PO DAILY 02/27/23 furosemide 20 mg tablet See Rx Instructions .Route 04/02/23 .COMPLEX #14 tabs Current Visit Medications: Current Medications Generic Name Dose Route Start Last Admin Trade Name Freq PRN Reason Stop Dose Admin Hyoscyamine Sulfate 0.125 mg 06/04/23 16:52 Hyoscyamine 0.125 Mg Sl/Oral/Chew SL 07/04/23 16:51 DIRECTED PRN Ringer's Solution 1,000 mls @ 80 mls/hr 06/05/23 06:00 06/05/23 11:44 IV 06/05/23 23:59 80 mls/hr INFUSION GUY Administration IV Miscellaneous Supplies 1 each 06/05/23 06:00 Iv Access IV 06/05/23 23:59 DIRECTED GUY Ondansetron HCl 4 mg 06/04/23 16:52 Ondansetron 4 Mg/2 Ml Vial IVP 07/04/23 16:51 Q4H PRN PRN Nausea / Vomiting Sodium Chloride 0 ml 06/05/23 06:00 Normal Saline Flush 10 Ml Syr IV 06/05/23 23:59 PRN PRN Sodium Chloride 0 ml 06/05/23 06:00 Normal Saline 10 Ml Vial IJ 06/05/23 23:59 DIRECTED PRN Sterile Water 0 ml 06/05/23 06:00 Water,Injection,Sterile 10 Ml Vial IJ 06/05/23 23:59 DIRECTED PRN PFSH Active Problems Active Problems: Problem Status Onset Code Screen for colon cancer Z12.11 Lumbar spondylosis M47.816 Bilateral thigh pain M79.651, M79.652 Elevated transaminase level R74.01 Thrombocytopenia D69.6 Anemia D64.9 Alcoholic hepatitis without ascites K70.10 GERD (gastroesophageal reflux disease) K21.9 COPD (chronic obstructive pulmonary disease) J44.9 Depression F32.9 Dyslipidemia E78.5 Anxiety F41.9 Osteoporosis M81.0 Vitamin D deficiency E55.9 Chronic pain G89.29 Hypertension I10 Head injury due to trauma S09.90XA Hepatic steatosis ~2019 K76.0 Snoring R06.83 Tinnitus H93.19 Meralgia paresthetica of both lower extremities ~2018 G57.13 Impaired fasting glucose ~02/2021 R73.01 Obesity E66.9 Polyp, colonic K63.5 Nicotine dependence F17.200 Medical History Medical History Closed fracture of distal end of left humerus Unspecified fracture morphology, sequela [facility] [place]23 Bilateral leg edema Acute on chronic alcoholic liver disease Alcohol dependence Sober July 2022 Kidney calculi B/L flank pain--L>R; referred 12/2020 to Urology, but pt no-showed OV 03/26/21 Elevated ferritin Diverticulosis Sigmoid colon 12/2020 CT Trochanteric bursitis, right hip (10/28/16) Internal derangement of right knee (12/04/16) Medical History Comments:: Per pt. states his brother and his mother had issues with their sleep apnea Surgical History Surgical History History of total right hip replacement History of repair of rotator cuff pt states no tsa History of inguinal hernia repair Status post left hip replacement (10/20/18) B Status post osteotomy (~10/2017) S/P ORIF of left elbow Followed by ostectomy Status post right hip replacement (~2018) Displaced fracture of distal end of left humerus with malunion (~2014) S/p Repair 10/05, S/P Revision 07/07 Tobacco Smoking/Tobacco Use Status: Current every day Tobacco Type: cigarettes Alcohol Alcohol Intake: former Year quit: 2022 Details: Patient reports 5 months of sobriety Substance Use Substance use: Rarely Substance use type: marijuana Vital Signs and Lab Results Vital Signs Most Recent Vital Signs in EMR: Most Recent Vital Signs Temp Pulse Resp BP Pulse Ox 36.7 C 49 L 16 108/60 95 06/05/23 11:27 06/05/23 11:27 06/05/23 11:27 06/05/23 11:27 06/05/23 11:27 Lab Results Blood Type / Crossmatch: No Data to Display Complete Blood Count: No Data to Display Complete Metabolic Panel: No Data to Display Liver Function Panel: No Data to Display Coagulation Panel: No Data to Display Cardiac Panel: No Data to Display Arterial Blood Gas: No Data to Display Venous Blood Gas: No Data to Display Pancreas Panel: No Data to Display Thyroid Panel: No Data to Display Infectious Disease: No Data to Display Blood Cultures: No Data to Display Toxicology Panel: No Data to Display Imaging and Studies Imaging and Studies Study information below may be from another EMR and interpreted by another provider. Please see original notes in EMR for more complete details. Stress Test Summary: 05/10/2019: MPI Conclusion There is normal myocardial perfusion, without evidence of ischemia or prior infarction Anesthesia Assessment and Plan Anesthesia History Personal History: No History of Anesthesia Complications Family History: No Family History of Anesthesia Complications Exercise Tolerance Exercise Tolerance: Metabolic Equivalents<4 Pertinent Negatives Pertinent Negatives: No Symptoms of GERD and No Major Cardiovascular Symptoms or Complaints Cardiac & Pulmonary Exam Cardiac Exam: Normal S1/S2 Heart Sounds Pulmonary Exam: Clear Bilateral Breath Sounds Implantable Cardiac Device Does patient have a Pacemaker or an ICD?: No Airway Exam Known Difficult Airway: No Mallampati Class: 3 Mouth Opening: Normal (> 3cm) Thyromental Distance: Greater than 3 cm Neck Range of Motion: Full ROM Neck Circumference: Thick Teeth Condition: Normal Dentition ASA Classification ASA Score: ASA 3 Emergency Case?: No NPO Status NPO Status: NPO Clears >2 hours, Solids >8 hours Anesthesia Plan Resuscitation Status: Full Code Anesthesia Technique: General Anesthesia Airway Planned: Natural Airway Monitors Used: Standard Monitors
[2023-06-05 12:21] VITALS: BMI 32.7
--- NOTE | 2023-06-05 13:12 | BOWEL_PTH ---
PATIENT: John Mays LOC: [facility] U#:[id number] AGE/SX: 53/M ROOM: RE06/05/[address]: Sg Alfaro MD : 1970 BED: DIS: 06/05/2023 SPEC #: [id number] RECD: 06/05/23 17:41 STATUS: PATRICIA RE #: [id number] LISA: 06/05/23 13:[address]: Sg Alfaro DEPT: Surgical Specimen RECD BY: Sonja Hickman ENTERED: 06/05/23 17:42 SP TYPE: Bowel OTHR DR: Love Schofield APRN Tissues: 1 - BIOPSY BOWEL 2 - BIOPSY BOWEL 3 - BIOPSY BOWEL Procedures: GROSS AND MICRO LEVEL 4 Comments: [id number]
[2023-06-05 13:35] VITALS: BP 136/72; PULSE 48; RESP 16; TEMP 36.4; O2SAT 99
--- NOTE | 2023-06-05 13:42 | W.ANESPOSTOP ---
Postoperative Evaluation Date, Time and Location Date Performed: 06/05/23 Time Performed: 13:42 Patient Location: Day Surgery Unit Vital Signs Most Recent Imported Vital Signs: Most Recent Vital Signs Temp Pulse Resp BP Pulse Ox 36.4 C L 48 L 16 136/72 99 06/05/23 13:35 06/05/23 13:35 06/05/23 13:35 06/05/23 13:35 06/05/23 13:35 Pain Score Most Recent Pain Score: Most Recent Pain Score Pain Level 0 06/05/23 11:27 Assessment Mental Status: Awake (Alert & Oriented to Patient Baseline) Airway and Respiratory Function: Patent airway with normal (patient baseline) respiratory exam Cardiovascular Function: Hemodynamically Stable Hydration Status: Adequately Hydrated Nausea & Vomiting: No Nausea or Vomiting Pain: Pt. Denies Any Pain Peripheral Nerve Block: Patient did not receive a nerve block
[2023-06-05 14:06] VITALS: BP 110/56; PULSE 42; RESP 16; TEMP 36.4; O2SAT 98
== END 2023-06-05 14:25 | disposition home or self-care (01) ==
LOC: SUR 10:53
PROVIDERS: PCP Nurse Practitioner Adult Health; Visit Provider Surgery
PROC: 0DJD8ZZ Inspection of Lower Intestinal Tract, Via Natural or Artificial Opening Endoscopic (ICD-10-PCS; CPT 45378; principal; 2023-06-05 13:00)
DX: Z12.11 Encounter for screening for malignant neoplasm of colon (principal); K62.1 Rectal polyp; K57.30 Diverticulosis of large intestine without perforation or abscess without bleeding; D12.5 Benign neoplasm of sigmoid colon; Z86.010 Personal history of colon polyps; K63.89 Other specified diseases of intestine
CPT/HCPCS: 45380; 88305; J2704

== ENCOUNTER 2023-09-15 19:44 | Outpatient (CLI) | payer MEDICARE, MEDICAID, SELFPAY ==
[2023-09-15 11:02] LABS: HGB 17.8 g/dL (13.5-17.5); MCH 32.1 pg (27.0-33.0); MCHC 34.9 % (32.0-36.0); MCV 92 fL (80-95); MPV 10.8 fL (8.0-11.0); Platelet Count 106 10^3/uL (130-400); RBC 5.54 10^6/uL (4.36-5.78); RDW 13.2 % (11.8-14.1); WBC 7.59 10^3/uL (4.4-10.8)
[2023-09-15 11:13] LABS: Ammonia 19 umol/L (11-32)
[2023-09-15 12:31] LABS: ALT 25 U/L (16-63); AST 22 U/L (15-37); Albumin 3.9 g/dL (3.4-5.0); Alkaline Phosphatase 142 U/L (46-116); Anion Gap 11.2 mmol/L (3-11); BUN 10 mg/dL (7-18); Bilirubin, Total 1.64 mg/dL (0.2-1.0); CO2 24.8 mmol/L (21.0-32.0); CREATININE 0.8 mg/dL (0.70-1.30); Calcium 9.6 mg/dL (8.5-10.1); Calculated LDL 141 mg/dL (<100); Chloride 104 mmol/L (98-107); Cholesterol 245 mg/dL (<200); Estimated GFR 105.82 (mL/min/1.73m2); Glucose 128 mg/dL (74-106); HDL Cholesterol 84 mg/dL (40-60); Potassium 3.6 mmol/L (3.5-5.1); Sodium 140 mmol/L (136-145); Total Protein 7.7 g/dL (6.4-8.2); Triglyceride 104 mg/dL (<150); Vitamin B12 384 pg/mL (193-986)
[2023-09-15 12:33] LABS: Folate > 20.0 ng/mL (8.6-20.0)
[2023-09-15 13:01] LABS: Creatine Kinase 55 U/L (39-308)
[2023-09-15 21:10] LABS: Ferritin 174 ng/mL (26-388)
[2023-09-16 09:47] LABS: Lab Add On Test DONE
[2023-09-19 15:04] LABS: Specimen WB Whole Blood
== END 2023-09-15 19:45 | disposition home or self-care (01) ==
LOC: LBO 19:45
PROVIDERS: PCP Nurse Practitioner Adult Health; Visit Provider Nurse Practitioner Adult Health
DX: R73.01 Impaired fasting glucose (principal); I10 Essential (primary) hypertension; E78.5 Hyperlipidemia, unspecified; D58.2 Other hemoglobinopathies
CPT/HCPCS: 36415; 80053; 80061; 81256; 82550; 85027; 82140; 82607; 82728; 82746; 83036

== ENCOUNTER → 2023-09-29 02:41 | Outpatient (CLI) | payer MEDICARE, MEDICAID, SELFPAY ==
--- NOTE | 2023-09-29 07:15 | DI.US_ITS ---
Exam(s) US HERNIA EXAM: US HERNIA CLINICAL HISTORY: new umbilical mass,r19.09. TECHNIQUE: Ultrasound was performed using standard protocol. COMPARISON: CT CT RENAL COLIC WO from 01/03/2021 FINDINGS: Sonographic assessment utilizing grayscale and color Doppler imaging was performed and targeted to th e area of clinical concern. Above the level of the umbilicus , there is a small fatty containing hernia measuring 2.6 x 1.0 x 1.7 cm. No findings to suggest incarceration. No fluid. IMPRESSION: Small fat containing hernia in the supraumbilical region. DATA REPOSITORY:
== END ==
PROVIDERS: PCP Nurse Practitioner Adult Health; Visit Provider Nurse Practitioner Adult Health
DX: R19.05 Periumbilic swelling, mass or lump (principal); K43.9 Ventral hernia without obstruction or gangrene
CPT/HCPCS: 76857

== ENCOUNTER → 2023-10-27 14:55 | Outpatient (BNVA) | payer MEDICARE, MEDICAID, SELFPAY | PROVIDERS: PCP Nurse Practitioner Adult Health; Referring Provider Nurse Practitioner Adult Health; Visit Provider Surgery | DX: K42.9 Umbilical hernia without obstruction or gangrene (principal); J44.9 Chronic obstructive pulmonary disease, unspecified; Z87.891 Personal history of nicotine dependence | CPT/HCPCS: 99214 ==

== ENCOUNTER → 2023-11-13 09:58 | Outpatient (BNVA) | payer MEDICARE, MEDICAID, SELFPAY | PROVIDERS: PCP Nurse Practitioner Adult Health; Referring Provider Nurse Practitioner Adult Health; Visit Provider Internal Medicine Critical Care Medicine | DX: J44.9 Chronic obstructive pulmonary disease, unspecified (principal); R06.09 Other forms of dyspnea | CPT/HCPCS: 99215 ==

== ENCOUNTER 2023-12-02 01:10 | Outpatient (CLI) | payer MEDICARE, MEDICAID, SELFPAY ==
--- NOTE | 2023-12-02 07:45 | DI.CT_ITS ---
Exam(s) CT CHEST WO EXAM: CT CHEST WO CLINICAL HISTORY: DYSPNEA ON EXERTION,? OPACITY,R06.09. TECHNIQUE: Imaging protocol: Axial computed tomography images were obtained and coronal and sagittal reformatted images were created and reviewed. CONTRAST MATERIAL: Noncontrast COMPARISON: US US ABDOMEN LIMITED from 01/22/2023 CR XR CHEST 2V PA LATERAL from 01/22/2023 US US HERNIA from 09/29/2023 FINDINGS: Pulmonary parenchyma: No consolidation. No suspicious nodules. Emphysema: None. Tracheobronchial tree: No mucous plugging. No bronchiectasis . Interstitial changes: None. Pleura: No effusion or pneumothorax. Heart: The heart is not dilated. The coronary arteries show mild calcifications. Aorta: Thoracic aorta non-dilated. Mild atherosclerotic changes. Lymph nodes: No enlarged lymph nodes. Bones: Multiple old rib fractures. Degenerative changes are seen. No evidence of compression fractu re. Upper abdomen: The liver has a nodular contour consistent with cirrhosis. No ascites. Soft tissues: Bilateral gynecomastia. IMPRESSION: No acute abnormality. RADIATION DOSE DELIVERED: 266.8mGy.cm Total DLP 266.8mGy.cm Total DLP DATA REPOSITORY: All CT scans at this facility are submitted to the National Radiology Data Registry (NRDR) Dose Index Registry (DIR) with the [employer] ([employer]). RADIATION OPTIMIZATION: All CT scans at this facility use at least one of these dose optimization te chniques: automated exposure control; mA and/or kV adjustment per patient size (includes targeted exa ms where dose is matched to clinical indication); or iterative reconstruction.
== END 2023-12-02 01:30 ==
LOC: DI 01:10
PROVIDERS: PCP Nurse Practitioner Adult Health; Visit Provider Internal Medicine Critical Care Medicine
DX: R06.09 Other forms of dyspnea (principal)
CPT/HCPCS: 71250

== ENCOUNTER 2023-12-08 12:01 | Outpatient (CLI) | payer MEDICARE, MEDICAID, SELFPAY ==
[2023-12-08] MEDS: Inhaler, Assist Device 1 EACH MC (14:25)
[2023-12-08] MEDS: Levalbuterol HFA 15 GM INH 4 PUFF IH (14:25)
--- NOTE | 2023-12-09 18:27 | PFT_ITS ---
Date of service: 12/08/23 Time of Service: 13:00 Pulmonary Function Test Result Requesting Provider Maliha Riley MD Indications: Dyspnea post-COVID 1.5 years ago. 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 Interpretation Spirometry: Spirometry pre and postbronchodilator on ICS/LABA showed: 1. No evidence of airway obstruction on current inhalers. Therefore, this patient does not have the irreversible airway obstruction required for a di agnosis of COPD. 2. No response to bronchodilator. 3. The technician submarine cable equipment comments indicated good patient effort 4. The test met [employer] standards of spirometry, and was a reliable test. 5. No prior spirometry was available for comparison. Lung Volumes: Lung volumes by plethysmography showed: 1. No evidence of restriction. The total lung capacity was 95% predicted. 2. There was a mild nonspecific decrease in inspiratory capacity to 61% predicted and an atypical increase in expiratory reserve volume to 161% predi cted; BMI was 31 at the time of this test. These are unlikely to be of clinical significance. 3. Mild hyperinflation is suggested by a RV/TLC of 127% predicted. This is consistent with the mild emphysema seen on prior chest CT scan approximately 4 years ago. Diffusion Capacity: DLCO by single breath carbon monoxide technique showed: 1. Normal gas exchange Impression Normal pulmonary function tests. There is no evidence of clinically significant occupational lung disease on these studies. Clinical and radiographic correlation is recommended. Consider repeating spirometry and lung volume studies after 4 weeks off ICS/LABA combination inhalers, to gain more insight into symptoms and possible asthma. Recommend continuing as needed short acting bronchodilator if a trial off ICS LABA is elected. Clinical Correlation therefore is recommended.
== END 2023-12-09 23:59 | disposition home or self-care (01) ==
PROVIDERS: PCP Nurse Practitioner Adult Health; Visit Provider Internal Medicine Critical Care Medicine
DX: J44.9 Chronic obstructive pulmonary disease, unspecified (principal); U09.9 Post COVID-19 condition, unspecified; R06.09 Other forms of dyspnea; Z87.891 Personal history of nicotine dependence
CPT/HCPCS: 00123; 94060; 94726; 94729

== ENCOUNTER 2023-12-30 09:03 | Day surgery (SDC) | payer MEDICARE, MEDICAID, SELFPAY ==
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
--- NOTE | 2023-12-29 12:33 | W.PM.DSUDISC ---
Date of service: 12/30/23 Time of Service: 12:40 Discharge Plan Disposition Patient Disposition: Home Condition: Good Discharge Details Reason For Visit: umbilical hernia repair Attending Provider: Mae Cruz Primary Care Provider: Love Schofield Home Meds and New Rx's Prescriptions: New tramadol 50 mg tablet 50 mg PO Q6H PRNQty: 14 0RF Continued fluticasone propion-salmeterol [Advair Diskus] 250-50 mcg/dose blister with device 2 ea Inhalation DAILY Qty: 60 11RF omeprazole 40 mg capsule,delayed release(DR/EC) 40 mg PO BID Qty: 180 3RF spironolactone 25 mg tablet 25 mg PO .daily in am Qty: 90 3RF thiamine HCl (vitamin B1) 100 mg tablet 100 mg PO DAILY Qty: 90 3RF Rx Instructions: Nutritional support citalopram 10 mg tablet 10 mg PO DAILY Qty: 90 3RF Patient Comments: pt. reports taking 30 mg Rx Instructions: To take with 20mg for TDD 30mg citalopram 20 mg tablet 20 mg PO DAILY Qty: 90 3RF Rx Instructions: For mood atorvastatin 10 mg tablet 10 mg PO QHS Qty: 90 3RF Rx Instructions: Elevated LDL 180 nicotine (polacrilex) [Nicorette] 4 mg gum 4 mg buccal Q1H Qty: 50 6RF albuterol sulfate 90 mcg/actuation HFA aerosol inhaler 2 puff inhalation Q6H PRN multivitamin Tablet 1 tab PO DAILY blister pack meds ([place]) PO Patient Comments: pt. reports he uses this naproxen sodium [Aleve] 220 mg capsule 220 mg PO ONCE Discharge Instructions Additional Instructions: Dr. Cruz HERNIA REPAIR ? POSTOPERATIVE INSTRUCTIONS Patients who have this type of surgery can usually be expected to return to work within two weeks and have minimal amounts of discomfort. ? ACTIVITY: The day of surgery should be spent resting. However, you can be up for short periods of time, I.E., going to the bathroom or kitchen. Avoid lifting or straining. On the day following surgery, you can be up and about as desired. ? LIFTING: Restrict your lifting to no more than five (5) pounds for two weeks after surgery. ??We will decide when you are done with restrictions and when you can return to work, at your follow-up appointment.? No sexual activity for two weeks.? ? DIET: There are no dietary restrictions following surgery. However, you may want to start with small amounts of liquids to avoid nausea the day of surgery. ? INCISION CARE: You will notice purple skin glue closing the incision.? Do not peel this off- it will wear off on its own.? After 24 hours you may shower. The dressing may be replaced for comfort, but is not necessary. ?An ice bag may be applied to the incision for 72 hours following surgery. ? SIGNS OF INFECTION: It is not unusual to have some black and blue discoloration of the skin around the incision, but also scrotum and penis.? ?It will slowly disappear. If you have any increased redness, drainage, fever (above 100 degrees), please contact your doctor for an examination. ? DISCOMFORT: You may expect to have some mild discomfort at the incision sight. If severe pain develops you should contact your doctor for further instructions. ? URINATION: Patients who have surgery occasionally have problems urinating. If you experience problems and are not able to urinate within 6 hours following your surgery, please call your doctor immediately or go to your nearest Emergency Room for evaluation. ? DRIVING: NO driving for three (3) days after surgery, or if you are still taking narcotic pain medication.? ? MEDICATIONS: Alternate Tylenol 1000mg by mouth every 8 hours and Ibuprofen 600mg every 6 hours. ?Make sure you take ibuprofen with food and not on an empty stomach. ?Take the Tylenol and ibuprofen continuously for the first 72hrs- not just when you have pain.? Use the tramadol for breakthrough pain/pain >7.? Use ICE!?? Twenty minutes on, and then off, continuously for the first 72hours. Take ibuprofen if you are taking Naprosyn. Take the Naprosyn instead of the ibuprofen. If you are taking narcotic pain medication, follow the instructions on the label and do not drive. Pain medications can make you very constipated. Make sure you are moving your bowels daily. If not, take Miralax or Milk of Magnesia.?? Anesthesia makes you very constipated.? Take a dose of milk of magnesia the morning after surgery. ? REPORT: Unusual swelling, severe pain, unresolved nausea, signs of infection, or difficulty in urination to your surgeon. Follow up in clinic with Dr. Cruz in 2 weeks.? [phone] Activity:: see above Remove Dressings/Wound Care:: 24 hours Shower/Bathe:: 24 hours Diet:: As Tolerated DS: Diagnosis Discharge Diagnosis (1) Umbilical hernia: Status: Acute Asessment and Plan: The patient is doing well post-op from their hernia surgery.? They are having no nausea or vomiting. They are tolerating liquids and a snack. The pt is not having any chest pain or SOB.? Their pain is adequately controlled. They have been able to urinate.? ?HEENT:? no eye pain/drainage/redness/swelling. Mild sore throat ?Cardio- NSR, no chest pain, BP stable- see VS record ?Pulm: no sob or productive cough. No hemoptysis ?Incision- dressing is c/d/i w/ no excessive bleeding or drainage ?I discussed with the patient the findings at the time of surgery and the patient?s progress. ?We reviewed expectations at home; what the patient could expect for recovery time, and in the post-operative period.? We discussed the importance of walking to avoid blood clots and pneumonia.? We discussed and reviewed the patient's post-operative wound care and dressing needs.?? We reviewed their [place] pain management plan, Rx called to the pharmacy of their choice.? We reviewed activity and limitations-see discharge instructions. We reviewed warning signs, and when to seek medical attention- see d/c instructions.?? Patient was given a postoperative follow-up appointment. Patient verbalized understanding of their postoperative instructions, how do to take care of themselves and their incision, and the pain management plan. Please see discharge instructions.? (2) Hypertension: Status: Chronic (3) Dyspnea on exertion: Status: Acute (4) Dyslipidemia: Status: Chronic (5) Thrombocytopenia: Status: Chronic (6) Impaired fasting glucose: Status: Acute (7) Osteoporosis: Status: Chronic (8) GERD (gastroesophageal reflux disease): Status: Chronic (9) Hepatic steatosis: Status: Chronic (10) COPD (chronic obstructive pulmonary disease) with emphysema: Status: Acute (11) Snoring: Status: Acute (12) History of nicotine use: Status: Chronic
[2023-12-30] VITALS (26 sets, daily range): BP systolic 99–125; BP diastolic 47–84; PULSE 54–79; RESP 12–20; TEMP 36.2–36.6; O2SAT 94–100; BMI 32.1
--- NOTE | 2023-12-30 10:07 | ANES.PREOP_ITS ---
General Info Date of Service Date Performed: 12/30/23 Height: 5 ft 6.93 in Weight: 92.986 kg Body Mass Index (BMI): 32.1 Surgical Procedure: Operation Date: 12/30/23 10:10 Proposed Procedure Side Surgeon p Herniorrhaphy Umbilical w/Mesh Mae Cruz, Meds Allergies and Home Medications Allergies Allergy/AdvReac Type Severity Reaction Status Date / Time bee venom protein (honey bee) Allergy Severe Anaphylaxsi Verified 12/30/23 09:59 s amitriptyline AdvReac Intermediate PSYCHOSIS Verified 12/30/23 09:59 bupropion AdvReac Mild worsened Verified 12/30/23 09:59 anxiety & sleeplessness venlafaxine AdvReac Mild worsened Verified 12/30/23 09:59 mood lisinopril AdvReac cough Verified 12/30/23 09:59 dust and pollen AdvReac Mild resp Uncoded 12/30/23 09:59 irritation Home Medication ?Medication ?Instructions ?Recorded blister pack meds ([place]) PO 09/30/22 multivitamin 1 tab PO DAILY 02/27/23 citalopram 10 mg tablet 10 mg PO DAILY #90 tabs 07/16/23 citalopram 20 mg tablet 20 mg PO DAILY #90 tabs 07/16/23 fluticasone 250 mcg-salmeterol 50 2 ea inhalation DAILY #60 ea 07/16/23 mcg/dose blistr powdr for inhalation (Advair Diskus) omeprazole 40 mg capsule,delayed 40 mg PO BID #180 caps 07/16/23 release spironolactone 25 mg tablet 25 mg PO .daily in am #90 tabs 07/16/23 thiamine HCl (vitamin B1) 100 mg 100 mg PO DAILY #90 tabs 07/16/23 tablet atorvastatin 10 mg tablet 10 mg PO QHS #90 tabs 09/18/23 nicotine (polacrilex) 4 mg gum 4 mg buccal Q1H #50 ea 10/27/23 ([place]) albuterol sulfate 90 mcg/actuation 2 puff inhalation Q6H PRN 11/13/23 aerosol inhaler naproxen sodium 220 mg capsule 220 mg PO ONCE 12/30/23 (Aleve) Current Visit Medications: Current Medications Generic Name Dose Route Start Last Admin Trade Name Freq PRN Reason Stop Dose Admin Acetaminophen 1,000 mg 12/30/23 06:00 Acetaminophen 500 Mg Tab PO 12/30/23 23:59 PREOP GUY Albuterol/Ipratropium 3 ml 12/30/23 06:00 Albuterol/Ipratropium 3 Ml Upd Vial UPD 12/30/23 23:59 PREOP GUY Gabapentin 600 mg 12/30/23 06:00 Gabapentin 300 Mg Cap PO 12/30/23 23:59 PREOP GUY Ringer's Solution 1,000 mls @ 80 mls/hr 12/30/23 06:00 IV 12/30/23 23:59 INFUSION GUY Cefazolin Sodium/Dextrose 2 gm in 50 mls @ 100 mls/hr 12/30/23 06:00 Ancef Duplex IVPB 12/30/23 23:59 PREOP GUY IV Miscellaneous Supplies 1 each 12/30/23 06:00 Iv Access IV 12/30/23 23:59 DIRECTED GUY Sodium Chloride 0 ml 12/30/23 06:00 Normal Saline Flush 10 Ml Syr IV 12/30/23 23:59 PRN PRN Sodium Chloride 0 ml 12/30/23 06:00 Normal Saline 10 Ml Vial IJ 12/30/23 23:59 DIRECTED PRN Sterile Water 0 ml 12/30/23 06:00 Water,Injection,Sterile 10 Ml Vial IJ 12/30/23 23:59 DIRECTED PRN PFSH Active Problems Active Problems: Problem Status Onset Code Dyspnea on exertion Acute R06.09 Environmental allergies Acute Z91.09 Asthma-COPD overlap syndrome Acute J44.89 Former smoker Acute Z87.891 COPD (chronic obstructive pulmonary disease) with emphysema Acute J43.9 Asthma Chronic J45.909 Umbilical hernia Acute ~09/2023 K42.9 History of nicotine use Chronic Z87.891 Abdominal wall pain in periumbilical region Acute R10.33 Memory difficulty Acute R41.3 Elevated hemoglobin Acute D58.2 RLS (restless legs syndrome) Acute G25.81 Lumbar spondylosis Acute M47.816 Bilateral thigh pain Acute M79.651, M79.652 Thrombocytopenia Chronic D69.6 GERD (gastroesophageal reflux disease) Chronic K21.9 COPD (chronic obstructive pulmonary disease) Chronic J44.9 Depression Chronic F32.9 Dyslipidemia Chronic E78.5 Anxiety Chronic F41.9 Osteoporosis Chronic M81.0 Vitamin D deficiency Chronic E55.9 Chronic pain Chronic G89.29 Hypertension Chronic I10 Head injury due to trauma Chronic ~2014 S09.90XA Hepatic steatosis Chronic ~2019 K76.0 Snoring Acute R06.83 Tinnitus Acute H93.19 Meralgia paresthetica of both lower extremities Acute ~2018 G57.13 Impaired fasting glucose Acute ~02/2021 R73.01 Obesity Chronic E66.9 Medical History Medical History Nicotine dependence QUIT 07/2022 with hospitalization Anemia Elevated transaminase level Polyp, colonic 2020 colonoscopy, several unretrieved-->return for repeat colonoscopy 6-12m Alcoholic hepatitis without ascites (~07/2022) Closed fracture of distal end of left humerus Unspecified fracture morphology, sequ[place] [facility] [place] Bilateral leg edema Acute on chronic alcoholic liver disease Alcohol dependence Sober July 2022 Kidney calculi B/L flank pain--L>R; referred 12/2020 to Urology, but pt no-showed OV 03/26/21 Elevated ferritin Diverticulosis Sigmoid colon 12/2020 CT Trochanteric bursitis, right hip (10/28/16) Internal derangement of right knee (12/04/16) Medical History Comments:: Per pt. states his brother and his mother had issues with their sleep apnea Surgical History Surgical History History of colonoscopy (~05/2023) path sent History of total right hip replacement History of repair of rotator cuff pt states no tsa History of inguinal hernia repair Status post left hip replacement (10/20/18) B Status post osteotomy (~10/2017) S/P ORIF of left elbow Followed by ostectomy Status post right hip replacement (~2018) Displaced fracture of distal end of left humerus with malunion (~2014) S/p Repair 10/05, S/P Revision 07/07 Tobacco Smoking/Tobacco Use Status: Former Tobacco Use Alcohol Alcohol Intake: former Year quit: 2022 Details: Patient reports 5 months of sobriety Substance Use Substance use: Rarely Substance use type: marijuana Vital Signs and Lab Results Lab Results Blood Type / Crossmatch: No Data to Display Complete Blood Count: No Data to Display Complete Metabolic Panel: No Data to Display Liver Function Panel: No Data to Display Coagulation Panel: No Data to Display Cardiac Panel: No Data to Display Arterial Blood Gas: No Data to Display Venous Blood Gas: No Data to Display Pancreas Panel: No Data to Display Thyroid Panel: No Data to Display Infectious Disease: No Data to Display Blood Cultures: No Data to Display Toxicology Panel: No Data to Display Imaging and Studies Imaging and Studies Study information below may be from another EMR and interpreted by another provider. Please see original notes in EMR for more complete details. EKG Summary: 08/08/22 Sinus rhythm...normal P axis, V-rate 60- 99 Atrial premature complexes in couplets...pair SV complexes w/ short R-R. Stress Test Summary: 05/10/2019 Patient exercised on the Raymond protocol and achieved a workload of 7.05 METS. He had a peak heart rate of 145 which was 85% of predicted heart rate for age. There were no symptoms to suggest angina. Electrocardiographically the test was negative for myocardial ischemia Echocardiogram Summary: 07/29/22 Normal left ventricular chamber size. Ejection fraction is 59%. Wall motion is normal Right ventricle appears grossly normal in size and systolic function Both atria are normal in size There is no structural or hemodynamically significant valvular disease Pulmonary Function Summary: 12/09/23 Normal pulmonary function tests. There is no evidence of clinically significant occupational lung disease on these studies. Anesthesia Assessment and Plan Anesthesia History Personal History: No History of Anesthesia Complications Family History: No Family History of Anesthesia Complications Exercise Tolerance Exercise Tolerance: Metabolic Equivalents<4 Pertinent Negatives Pertinent Negatives: No Symptoms of GERD, No Major Cardiovascular Symptoms or Complaints (See EKG and Echo, denies symptoms DOS. Reports difficulty with ADLS r/t functional status not cardiac health ) and No Major Pulmonary Symptoms or Complaints (See PFTs ) Cardiac & Pulmonary Exam Cardiac Exam: Normal S1/S2 Heart Sounds Pulmonary Exam: Clear Bilateral Breath Sounds Implantable Cardiac Device Does patient have a Pacemaker or an ICD?: No Airway Exam Known Difficult Airway: No Mallampati Class: 3 Mouth Opening: Normal (> 3cm) Thyromental Distance: Greater than 3 cm Neck Range of Motion: Full ROM Neck Circumference: Thick Teeth Condition: Generalized Poor Dentition (multiple decaying, cracked and chipped teeth. Significant damage to anterior incisors ) ASA Classification ASA Score: ASA 3 Emergency Case?: No NPO Status NPO Status: NPO Clears >2 hours, Solids >8 hours Anesthesia Plan Resuscitation Status: Full Code Anesthesia Technique: General Anesthesia Airway Planned: Endotracheal Tube Pain Management: Surgeon and patient request nerve block Monitors Used: Standard Monitors and SedLine Preoperative Comments:: Significant PMH: COPD Asthma - see PFTS, See - EKG and ECHO GERD - well controlled Plan: GETA w/ rectus sheath block. Sedline, adequate IV access
[2023-12-30] MEDS: Lactated Ringers 1,000 ML 80 ML IV (10:20)
[2023-12-30] MEDS: Gabapentin 300 MG CAP 600 MG PO (10:21)
[2023-12-30] MEDS: Acetaminophen 500 MG TAB 1000 MG PO (10:21)
[2023-12-30] MEDS: ceFAZolin 2 GM/50 ML BAG IVPB (11:24)
[2023-12-30] MEDS: Bupivacaine 0.25% Pres-Free W/EPI 30 ML VIAL (11:32)
--- NOTE | 2023-12-30 11:32 | W.ANESNERVE ---
Nerve Block Single Injection Procedure Date and Time Date Performed: 12/30/23 Procedure Start: 10:53 Location Where Procedure Performed Procedure Location: Operating Room Procedure Stop: 11:22 Reason Performed: Postoperative Analgesia Requesting Provider: Mae Cruz Timeout Performed Timeout Performed: Yes Monitoring Used ECG, Blood Pressure, SpO2, ETCO2 and See EMR for corresponding vital signs Sterility Sterility: Hand Hygiene, Surgical Cap, Surgical Mask, Sterile Gloves, Eye Protection and Chlorhexidine Sedation Given During Procedure Sedation Given (Indicate Dose Given): No Sedation given Patient Mental Status Patient Mental Status: Performed under general anesthesia Nerve Block 1st Nerve Block: Laterality: Bilateral Block Type: Rectus Sheath (Bilateral) Ultrasound Image Saved?: Yes Needle / Catheter Used: 100mm SonoPlex II Local Anesthetic Bolus (Indicate Dose Given): Injected in 3-5ml increments after negative blood aspiration, Half of Total block solution given into each side, Bupivacaine 0.25% Dose:: 20ml and Exparel Dose:: 20ml Additives (Indicate Dose Given): None Ultrasound: Sterile probe cover and gel used Nerve Stimulator: Not Used Paresthesia: None Procedure Tolerated: No Complications and Patient tolerated well Procedure Outcome: Successful Performed By: Arben Leonard Supervised By: Mae Cruz
--- NOTE | 2023-12-30 12:36 | ROE_ITS ---
Date of service: 12/30/23 Time of Service: 12:37 Operative Note Operative Note DATE OF PROCEDURE: 12/30/23 PRE-OP DIAGNOSIS: supraumbilical/epigastric hernia POST-OP DIAGNOSIS: same PROCEDURE: open repair w/ mesh SURGEON: Mae Cruz BATT MACHINE OPERATOR: Carla Cai ANESTHESIA TYPE: Local By Surgeon, General LMA/ETT and Primary Nerve Block Refer to Anesthesia Record ESTIMATED BLOOD LOSS: 60 PATHOLOGY: none sent COMPLICATIONS: None Patient was transported to: PACU Patient's condition: stable Procedure Description: complications. The pt is here today for symptomatic umbilical hernia and is here today for repair. Informed consent was obtained, explaining risks and benefits of the procedure including but not limited to bleeding, infection, pneumonia, blood clots, recurrence, chronic pain or chronic numbness, reaction to mesh necessitating removal, complications of anesthesia and other unforetold complications. DESCRIPTION OF PROCEDURE: The patient was brought to the operating suite and placed in supine position. Anesthesia was administered per the Department of Anesthesia. Nerve block is done per the Dept of anesthesia w/ experel.? ?Patient prepped and draped in the usual sterile fashion using DuraPrep scrub solution. IV antibiotics were administered. Pause for the cause was done. 20cc of .25% Marcaine is used for local anesthetic. A 2-inch incision was made in the superior to the umbilicus. Umbilicus was dissected off the fascia. He also has a 3cm epigastric hernia. The sac is dissected out and excised. The surrounding tissue is dissected off the fascia.? A large 6cm Kerlix patch was then placed in the defect, the defect was closed, over sewn with 2-0 vicryl and was copiously irrigated. Deep tissue was approximated with 3-0 Vicryl and skin was approximated with 4-0 Monocryl in a running subcuticular fashion and 3-0 mylon for 2 supportive sutures. Skin glue was applied. The patient tolerated the procedure well without complications and was transferred to recovery room in stable condition.
[2023-12-30] MEDS: Ketorolac 15 MG/ML VIAL IVP (12:43)
[2023-12-30] MEDS: fentaNYL 100 MCG/2 ML VIAL IVP ×2 (12:44→13:00)
--- NOTE | 2023-12-30 13:26 | W.ANESPOSTOP ---
Postoperative Evaluation Date, Time and Location Date Performed: 12/30/23 Time Performed: 13:01 Patient Location: PACU Vital Signs Most Recent Imported Vital Signs: Most Recent Vital Signs Temp Pulse Resp BP Pulse Ox 36.5 C 57 L 14 107/81 94 12/30/23 13:16 12/30/23 13:15 12/30/23 13:16 12/30/23 13:15 12/30/23 13:16 Pain Score Most Recent Pain Score: Most Recent Pain Score Pain Level 5 12/30/23 13:16 Assessment Mental Status: Awake (Alert & Oriented to Patient Baseline) Airway and Respiratory Function: Patent airway with normal (patient baseline) respiratory exam Cardiovascular Function: Hemodynamically Stable Hydration Status: Adequately Hydrated Nausea & Vomiting: No Nausea or Vomiting Pain: Pain is tolerable per patient Peripheral Nerve Block: Regional nerve block not resolved at time of post operative discharge
== END 2023-12-30 14:18 | disposition home or self-care (01) ==
LOC: SUR 09:04
PROVIDERS: PCP Nurse Practitioner Adult Health; Visit Provider Surgery
PROC: (CPT 49593; principal; 2023-12-30 10:00)
DX: K42.9 Umbilical hernia without obstruction or gangrene (principal)
CPT/HCPCS: 49593; 76942; C1781; C9290; J0665; J0690; J1100; J1885; J2405; J2704; J3010

== ENCOUNTER → 2024-01-12 14:04 | Outpatient (BNVA) | payer MEDICARE, MEDICAID, SELFPAY | PROVIDERS: PCP Nurse Practitioner Adult Health; Referring Provider Nurse Practitioner Adult Health; Visit Provider Surgery | DX: Z48.817 Encounter for surgical aftercare following surgery on the skin and subcutaneous tissue (principal); I10 Essential (primary) hypertension; E66.9 Obesity, unspecified; J44.89 Other specified chronic obstructive pulmonary disease; Z87.891 Personal history of nicotine dependence ==

== ENCOUNTER 2024-02-02 01:27 | Outpatient (CLI) | payer MEDICARE, MEDICAID, SELFPAY ==
--- NOTE | 2024-02-02 07:24 | DI.US_ITS ---
Exam(s) US ABDOMEN RENAL EXAM: US ABDOMEN RENAL CLINICAL HISTORY: fatty liver,k76.0,calculus of kidney,n20.0, hepatic steatosis,reassess TECHNIQUE: Ultrasound abdomen performed using standard protocol. COMPARISON: CT CT RENAL COLIC WO from 01/03/2021 US US ABDOMEN LIMITED from 01/22/[address] CHEST WO from 12/02/2023 FINDINGS: LIVER: Echogenic, coarsened echotexture. Nodular contour, consistent with cirrhosis. Echogenic area again noted measuring 1.4 cm, consistent with a hemangioma. Granuloma small cyst also noted. GALLBLADDER: No evidence of cholelithiasis. No evidence of wall thickening. No pericholecystic fluid identified. LEE'S SIGN: Negative. BILIARY SYSTEM: No intrahepatic or extrahepatic biliary ductal dilation. KIDNEYS: Kidneys are symmetric in size. 4 millimeter calculus mid left kidney. No evidence of hydron ephrosis. No renal mass or cyst identified. PANCREAS: Normal where visualized. SPLEEN: Not enlarged. Sclerotic scattered granulomas. ABDOMINAL AORTA AND IVC: Visualized portions normal caliber. ASCITES: None seen. IMPRESSION: cirrhotic appearing liver. Stable hemangioma. 4 millimeter left renal calculus. No hydronephrosis. DATA REPOSITORY:
--- NOTE | 2024-02-02 12:50 | DI.RAD_ITS ---
Exam(s) XR CERVICAL SPINE COMP 4-5V EXAM: XR CERVICAL SPINE COMP 4-5V CLINICAL HISTORY: neck pain x1m,m54.2. TECHNIQUE: 2D digital imaging was performed. Five views were performed. COMPARISON: No exams were available for comparison FINDINGS: BONES: No fracture or destructive lesion. Vertebral bodies are unremarkable. No visible neural fora david narrowing. DISKS: Intervertebral disc spaces are maintained. Minimal endplate osteophytes. ALIGNMENT: Cervical spinal alignment is within normal limits. The odontoid and atlantoaxial articulat ions are normal. SOFT TISSUE: Normal. The lung apices are clear. IMPRESSION: Mild degenerative changes. DATA REPOSITORY: RADIATION DOSE DELIVERED:
== END 2024-02-02 01:47 ==
LOC: DI 01:27
PROVIDERS: PCP Nurse Practitioner Adult Health; Visit Provider Nurse Practitioner Adult Health
DX: K74.69 Other cirrhosis of liver (principal); N20.0 Calculus of kidney; M54.2 Cervicalgia
CPT/HCPCS: 76770; 72050; 76700

== ENCOUNTER 2024-02-09 09:15 | Outpatient (CLI) | payer MEDICARE, MEDICAID, SELFPAY ==
--- NOTE | 2024-02-09 08:29 | DI.RAD_ITS ---
Exam(s) XR HIP LT AP LAT ONLY EXAM: XR HIP LT AP LAT ONLY CLINICAL HISTORY: LEFT HIP PAIN. TECHNIQUE: 2D digital imaging was performed. COMPARISON: CR XR hip LT AP lat only from 12/04/2018 FINDINGS: Two views Stable position alignment of the components of the left hip prosthesis. No fracture or loosening geovany dent. IMPRESSION: Stable satisfactory appearance DATA REPOSITORY: RADIATION DOSE DELIVERED:
== END 2024-02-09 09:16 | disposition home or self-care (01) ==
LOC: DIORS 09:15
PROVIDERS: PCP Nurse Practitioner Adult Health; Referring Provider Nurse Practitioner Adult Health; Visit Provider Student in an Organized Health Care Education/Training Program
DX: Z96.642 Presence of left artificial hip joint (principal); M70.62 Trochanteric bursitis, left hip
CPT/HCPCS: 20610; J1010; 73502

== ENCOUNTER → 2024-07-01 15:05 | Outpatient (BNVA) | payer MEDICARE, MEDICAID, SELFPAY | PROVIDERS: PCP Nurse Practitioner Adult Health; Referring Provider Nurse Practitioner Adult Health; Visit Provider Physician Assistant Surgical | DX: J45.909 Unspecified asthma, uncomplicated (principal); F17.210 Nicotine dependence, cigarettes, uncomplicated | CPT/HCPCS: 99214 ==

== ENCOUNTER 2025-03-11 11:16 | Emergency (ER) | payer MEDICARE, MEDICAID, SELFPAY ==
[2025-03-11 11:26] VITALS: BP 118/80; PULSE 66; RESP 20; TEMP 37.3; O2SAT 99
--- NOTE | 2025-03-11 12:09 | DI.RAD_ITS ---
Exam(s) XR HAND LT COMPLETE XR WRIST LT COMPLETE EXAM: XR HAND LT COMPLETE and XR wrist LT complete CLINICAL HISTORY: fall on ice, hand pain. TECHNIQUE: 2D digital imaging was performed of the left wrist and hand. Six views were obtained. AP, lateral and oblique views were obtained. COMPARISON: There are no priors for comparison. FINDINGS: BONES: There is an acute fracture of the left 5th metacarpal bone. There is slight impaction of the fracture. The distal fracture is also slightly displaced anteriorly. The fracture does not appear to extend into the metacarpophalangeal joint. No bony destructive lesion is seen. JOINTS: No dislocation present. SOFT TISSUE: There is soft tissue swelling at the ulnar aspect of the hand. IMPRESSION: Acute mildly impacted fracture involving the neck of the 5th metacarpal with associated soft tissue swelling. DATA REPOSITORY: RADIATION DOSE DELIVERED:
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
== END 2025-03-11 13:58 | disposition home or self-care (01) ==
PROVIDERS: Emergency Provider Physician Assistant; PCP Nurse Practitioner Adult Health
DX: S62.337A Displaced fracture of neck of fifth metacarpal bone, left hand, initial encounter for closed fracture (principal); W00.0XXA Fall on same level due to ice and snow, initial encounter
CPT/HCPCS: 99283; 99284; 29125; 73110; 73130